=== PATIENT | female | born 1965 | race Caucasian/White ===

== ENCOUNTER 2020-09-02 16:22 | Emergency (ER) | payer MEDICAID, SELFPAY ==
[2020-09-02 17:22] VITALS: BP 111/67; PULSE 73; RESP 16; TEMP 36.4; O2SAT 100; BMI 40.8
--- NOTE | 2020-09-02 17:37 | XR_ITS ---
EXAMINATION: XR SACROILIAC JOINTS CLINICAL INFORMATION: Pain after fall COMPARISON: None TECHNIQUE: 3 views of the sacroiliac joints FINDINGS: Bones and soft tissues are normal. No fracture. Alignment is anatomic. Sacroiliac joint spaces are well-maintained without erosions or surrounding sclerosis. IMPRESSION: Normal sacroiliac joints.
--- NOTE | 2020-09-02 17:37 | XR_ITS ---
EXAMINATION: XR LUMBOSACRAL SPINE CLINICAL INFORMATION: Fall, with back pain COMPARISON: 09/29/2011 TECHNIQUE: Three views of the lumbosacral spine. FINDINGS: There is normal alignment without acute fracture or dislocation. The vertebral body heights are maintained. There is intervertebral disc space narrowing with degenerative endplate spurring at L2-L3 and L3-L4. There is facet arthropathy at L5-S1. No spondylolisthesis. The posterior elements are intact. Paravertebral soft tissues are normal. IMPRESSION: Degenerative changes without acute fracture or dislocation.
--- NOTE | 2020-09-02 17:37 | XR_ITS ---
EXAMINATION: XR THORACIC SPINE CLINICAL INFORMATION: Status post fall COMPARISON: None TECHNIQUE: 3 views of the thoracic spine were obtained. FINDINGS: There is no fracture or bone destruction seen and the vertebral alignment is normal. There is mild diffuse intervertebral disc space narrowing with scattered endplate spurring. There is no abnormality of the paraspinal soft tissues. IMPRESSION: Degenerative changes of the thoracic spine without acute fracture or dislocation.
--- NOTE | 2020-09-02 17:37 | CT_ITS ---
EXAMINATION: CT HEAD WITHOUT CONTRAST CT CERVICAL SPINE WITHOUT CONTRAST CLINICAL INFORMATION: Fall COMPARISON: MRI brain dated 07/20/2012 TECHNIQUE: Multidetector CT imaging of the head and cervical spine was performed without the use of intravenous contrast. Multiplanar reformats are reviewed. DLP: 1267 mGy-cm. FINDINGS: There is no evidence of acute intracranial hemorrhage or territorial infarction. No abnormal mass effect or midline shift is seen. Higgins to white matter differentiation is well preserved. No extra-axial fluid collections are identified. The ventricles are normal in size. There is no abnormal attenuation within the brain parenchyma. The osseous structures and soft tissues are normal. The mastoid air cells and visualized portions of the paranasal sinuses are well-aerated. Atlantooccipital alignment is maintained. The vertebral bodies and posterior elements align normally. No acute fracture or subluxation. Vertebral body heights are maintained. Small endplate osteophyte present throughout the cervical spine.. No significant degenerative changes are appreciated. No central canal or foraminal narrowing. The cervicomedullary junction and spinal cord are grossly unremarkable. 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 Surgical clips present in the region of the left carotid sheath inferiorly, deep to the sternocleidomastoid. The imaged lung apices are clear IMPRESSION: * No acute intracranial pathology. * No cervical spine fracture or subluxation. 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 As discussed previously, considerations include nerve sheath tumor, or less likely thrombosed aneurysm and paraganglioma given the lack of significant enhancement on the previous MRI.
[2020-09-02] MEDS: Acetaminophen 325 MG TABLET 650 MG PO (18:23)
--- NOTE | 2020-09-02 18:39 | ED.FALL ---
HPI - Fall General Chief Complaint: Fall Stated Complaint: fall Source: patient Mode of arrival: ambulatory Limitations: no limitations History of Present Illness HPI Narrative: patient presents to the ED for headache, neck pain, and back pain after falling in the shower this morning. Patient denies any loss of consciousness. Patient states she is not on any blood thinners. Patient denies any chest pain, shortness of breath, nausea, vomiting, abdominal pain, dizziness, loss of vision, blood in stool, blood in urine, or vomiting blood. Related Data Previous Rx's Medication Instructions Recorded tramadol 50 mg PO Q8H PRN #9 tab 09/02/20 Allergies Allergy/AdvReac Type Severity Reaction Status Date / Time aspirin [ASPIRIN] Allergy Intermediate RASH, Unverified 07/30/20 15:28 itching, facial flushing haro Allergy Intermediate ITCHING,KIRSTEN Unverified 07/30/20 15:28 H peach [Platte] Allergy Intermediate ITCHING, Unverified 07/30/20 15:28 RASH prochlorperazine Allergy Intermediate SWELLING, Unverified 07/30/20 15:28 [From COMPAZINE] RASH Review of Systems Review of Systems: Patient denies loss of consciousness, chest pain, shortness of breath, abdominal pain, nausea, vomiting, rectal bleeding, vomiting blood, blood in stool,blood in urine pain in extremity, or dizziness. Yes all other systems are reviewed and are negative PMFSH Past Medical History Medical History (Updated 09/02/20 @ 19:58 by ERNESTINE Renteria) Acute anxiety Depression High cholesterol HTN (hypertension) Social History Social History Alcohol intake: never Smoking Status: Unknown if ever smoked Smoked in Last 30 Days: No Use of substances other than those prescribed or required for medical reasons: No Advance Directives: No Advance Directives Information Provided: Yes Physical Exam Vital Signs: Vital Signs: Vital Signs Temp Pulse Resp BP Pulse Ox 09/02/20 19:32 73 16 143/86 H 99 09/02/20 17:22 97.6 F 73 16 111/67 100 Body Mass Index 40.8 Const: General: cooperative, healthy appearing, comfortable, no acute distress, well developed and alert Orientation/consciousness: oriented to person, oriented to place, oriented to time and patient oriented x3 HENMT: Head: Yes normal to inspection, Yes No palpable skull fracture present, No Ngo's sign, No hematoma, No laceration, No palpable skull fracture, No raccoon eyes and No scalp lesion Eyes: General: appearance normal, both eyes and all related structures Neck: Neck: Yes tender ( Cervical tenderness) Chest: Chest palpation & inspection: normal inspection of the chest, normal palpation of entire chest wall and no localized rib tenderness Resp: Effort & Inspection: normal respiratory effort, able to speak in complete sentences, normal respiratory pattern, no audible wheezes and no cough Auscultation: clear to auscultation bilaterally, no crackles, no rales, no rhonchi, no wheezes and breath sounds present Percussion: percussion normal Cardio: Jugular venous distension: no JVD Heart sounds: S1 normal heart sound present GI: Inspection: Yes normal to inspection and No abdominal wall ecchymosis Palpation (GI): Soft to palpation, not firm, nontender, no guarding and not rigid : General: No CVA tenderness and Yes no CVA tenderness Back/Spine/Pelvis: Back: no CVA tenderness, No CVA tenderness and back tenderness ( positive for spine tenderness throughout the whole back) Skin: General skin exam: no rashes or lesions noted Trauma: no lacerations or abrasions Neuro: General: oriented to person, oriented to place, oriented to time, patient oriented x3, gait normal and CN's II-XI intact bilaterally Cranial nerves: Yes CN's II-XII intact bilaterally Extrem: General: Yes normal to inspection Psych: Appearance: grossly normal, well kempt and not disheveled Course Course Course Narrative: patient will be sent for imaging to rule out any bleeds or fractures. For now patient will be given Tylenol for pain Reevaluation(s) Reevaluation #1: CT scans and xrays negative for any fractures or bleed. Time: 19:56 Reevaluation #2: during given discharge papers and instructions with results to patient, patient made me aware that she had aneurysm on left side of neck which wouldl explain the CT scan reading. Patient informed to follow-up with her PCP. Patient given copy of head and C-spine CT scan. Time: 20:34 MDM - Fall MDM Narrative Medical decision making narrative: contusion diagnosis. Discharge Plan Discharge Clinical Impression: Contusion Patient Disposition: Home, Self-Care Instructions: Contusion in Adults (ED) Additional Instructions: return to the ED immediately for any headache, dizziness, nausea, vomiting, abdominal pain, rectal bleeding, vomiting blood, bloody urine, abdominal pain, chest pain, shortness of breath, or any other concerning symptoms. Prescriptions: New tramadol 50 mg tablet 50 mg PO Q8H PRN (Reason: pain) Qty: 9 RF: 0 Referrals: Kristen Zacarias [employer] [Primary Care Provider] - 2 days ( fall. No fracture or brain bleed. 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 patient given copy of CT scan. needs follow up.) Stand Alone Forms: Work/School Release Interventions: ED Discharge Assessment Last Done: 09/02/20 20:06 Discharge Date/Time: 09/02/20 20:08
[2020-09-02 19:32] VITALS: BP 143/86; PULSE 73; RESP 16; O2SAT 99
== END 2020-09-02 20:08 | disposition home or self-care (01) ==
PROVIDERS: Emergency Provider Emergency Medicine; PCP Nurse Practitioner Family
DX: S20.229A Contusion of unspecified back wall of thorax, initial encounter (principal); W18.2XXA Fall in (into) shower or empty bathtub, initial encounter; I10 Essential (primary) hypertension; R93.89 Abnormal findings on diagnostic imaging of other specified body structures; I72.0 Aneurysm of carotid artery; Y93.E1 Activity, personal bathing and showering; Y92.012 Bathroom of single-family (private) house as the place of occurrence of the external cause; Y99.9 Unspecified external cause status
CPT/HCPCS: 70450; 72072; 72100; 72125; 72202; 99284

== ENCOUNTER 2022-08-17 14:45 | Outpatient (REF) | payer MEDICAID, SELFPAY ==
--- NOTE | ~2022-08-17 | MM_ITS ---
EXAMINATION: MM SCREENING DIGITAL BREAST TOMOSYNTHESIS, BILATERAL CLINICAL INFORMATION: Screening. Asymptomatic. The lifetime risk of breast cancer based on the Tyrer-Cuzick Model is 9%. COMPARISON: Mammography: 08/28/2019, 05/29/2018, 05/08/2017 TECHNIQUE: Digital breast tomosynthesis is performed in both the craniocaudal and mediolateral oblique views along with computer-aided detection (CAD). Synthesized 2D images are generated from the tomosynthesis. FINDINGS: The breasts are heterogeneously dense, which may obscure small masses (ACR BI-RADS breast composition Category c). There are no significant masses, abnormal calcifications, or other abnormalities. Parenchymal pattern is similar to prior studies. There is no developing density or architectural abnormality. There is a biopsy clip marker right breast upper outer quadrant. Incidental bilateral small low axillary tail nodes are stable. The axilla and skin contours are unremarkable. No significant changes. MM/MM tomosynthesis screening BI IMPRESSION: No mammographic evidence of malignancy. ASSESSMENT: BI-RADS 2: Benign RECOMMENDATION: Routine annual mammography screening. This patient's information was entered into a reminder system with a target due date for their next mammogram.
== END 2022-08-17 14:46 | disposition home or self-care (01) ==
LOC: HO.MAMMO 14:45
PROVIDERS: Visit Provider Internal Medicine Geriatric Medicine
DX: Z12.31 Encounter for screening mammogram for malignant neoplasm of breast (principal)
CPT/HCPCS: 77063; 77067

== ENCOUNTER 2023-04-16 20:19 | Inpatient (IN) | payer MEDICAID, SELFPAY ==
--- NOTE | ~2023-04-16 | XR_ITS ---
EXAMINATION: XR CHEST CLINICAL INFORMATION: Nasogastric tube placement. COMPARISON: 04/17/2023 chest radiograph. TECHNIQUE: Frontal view of the chest was obtained. FINDINGS: Support devices: A gastric tube with tip overlying the distal gastric lumen. Right central venous catheter with tip terminating at the brachiocephalic/caval junction. The endotracheal tube was not visualized. No significant abnormality is noted involving the heart, lungs, mediastinum, bony thorax or soft tissues. XR/XR chest 1V IMPRESSION: 1. Nasogastric tube with tip overlying the distal gastric lumen.
--- NOTE | ~2023-04-16 | XR_ITS ---
EXAMINATION: PORTABLE CHEST 1 VIEW CLINICAL INFORMATION: sob. COMPARISON: No recent pertinent prior studies are available for comparison. TECHNIQUE: Portable frontal view of the chest was obtained. FINDINGS: Lungs are hypoexpanded with basilar atelectasis. Large volume of pneumoperitoneum is seen better delineated on the follow-up CT scan. Cardiac silhouette within normal limits for the technique. No acute bony abnormality seen. XR/XR chest 1V IMPRESSION: Large volume of abdominal ascites is seen better delineated on the CT scan the abdomen and pelvis immediately following.
--- NOTE | ~2023-04-16 | FL_ITS ---
EXAMINATION: Upper GI with Gastrografin CLINICAL INFORMATION: Postop day 2 repair of gastric perforation COMPARISON: Previous CT of the abdomen and pelvis 04/16/2023 TECHNIQUE: Filler Picker film was obtained. This shows an oral gastric tube with tip projecting over the distal stomach. This was pulled back into the proximal stomach/distal esophagus. Under fluoroscopic guidance, dilute Gastrografin was injected. This opacified only the esophagus. Fluoroscopic guidance, the orogastric tube was readvanced with tip in the distal stomach. This was injected under fluoroscopic guidance with dilute Gastrografin. This opacified the distal stomach only which was unremarkable. The orogastric tube then exchanged for a nasogastric tube placed by the surgeon Dr. raciel foster. This was positioned in the stomach. This is injected with dilute Gastrografin under fluoroscopic guidance. This opacified the more proximal stomach. A definite leak at the time of fluoroscopy was not seen. Follow-up postprocedure chest and abdomen x-ray was performed. Findings: Filler Picker film demonstrates a MARTY drain under the left hemidiaphragm adjacent to the proximal stomach. There is an enterogastric tube with tip projecting over the distal stomach. There are surgical clips in the right upper quadrant suggestive of previous cholecystectomy. Single contrast upper GI does not demonstrate a leak. Follow-up chest and abdomen x-ray demonstrate a nasogastric tube with tip projecting over the distal stomach. There is emptying of the stomach with oral contrast in the duodenum and proximal jejunum. There is a ill-defined contrast collection in the left upper quadrant measuring approximately 3.5 x 6 cm just inferior to residual oral contrast in the proximal stomach questionable for a leak. No free air is seen. AP chest demonstrates endotracheal tube with tip 3.6 cm above the ari. There is a right central line with tip just below the clavicle probably in the proximal SVC unchanged. Cardiac and mediastinal contours are stable. There are coarse lung markings at the lung bases questionable for small infiltrates. No pleural effusion or pneumothorax. FL/FL upper GI w gastrografin IMPRESSION: Orogastric tube exchange for nasogastric tube. Question leak seen adjacent to the proximal stomach on the delayed overhead images with contrast collection measuring approximately 3.5 x 6 cm. Findings will be communicated by the Perry work flow hemstitching machine operator
--- NOTE | ~2023-04-16 | XR_ITS ---
EXAMINATION: XR CHEST CLINICAL INFORMATION: Line placement COMPARISON: 04/16/2023 TECHNIQUE: Frontal view of the chest was obtained. FINDINGS: Endotracheal tube tip lies approximately 2.5 cm above the ari. Enteric tube courses into the stomach. Right IJ central line tip lies in the region of the right brachiocephalic vein. There is volume loss in the right hemithorax with dense opacification in the right upper lung suggesting right upper lobe collapse. There is haziness of the mid to lower right lung. Left lung is well-expanded. No appreciable pneumothorax or significant pleural effusion. Cardiac size appears within normal limits. Clips are present along the left neck. No acute osseous findings are seen. XR/XR chest 1V IMPRESSION: 1. Right IJ central line tip lies in the region of the right brachiocephalic vein. 2. Dense opacification of the right upper lung along with volume loss suggesting right upper lobe collapse. Hazy opacity of the mid to lower right lung.
--- NOTE | ~2023-04-16 | CT_ITS ---
EXAMINATION: CT ABDOMEN AND PELVIS WITHOUT CONTRAST CLINICAL INFORMATION: free air on CXR. COMPARISON: Chest x-ray this evening and the CT scan. TECHNIQUE: Multidetector volumetric imaging was performed from the superior aspect of the liver through the pubic symphysis without contrast per request. Sagittal and coronal reformatted images were obtained on the technologist workstation. This CT examination was performed using dose optimization techniques as appropriate, variously including the following: *Automated exposure control *Adjustment of mA and/or kV according to patient size (this includes techniques or standardized protocols for targeted exams where dose is matched to indication/reason for exam; i.e. extremities or head) *Use of iterative reconstruction technique DLP: 1411 mGy-cm. FINDINGS: LUNG BASES: Patchy airspace changes at the lung bases more likely due to atelectasis. PERITONEAL SPACE: Large volume of free intraperitoneal air is seen as well as free fluid tracking into the dependent aspect of the pelvis. LIVER, GALLBLADDER, BILIARY TREE: The non-contrast liver is normal in size, shape, and attenuation. No focal hepatic lesion or biliary ductal dilatation is present. The gallbladder surgically absent. PANCREAS: Unremarkable. SPLEEN: Unremarkable. ADRENAL GLANDS: Unremarkable. KIDNEYS AND URETERS: The kidneys are normal in size, shape, and attenuation. No hydronephrosis, hydroureter, or calculi seen. No perinephric stranding. BLADDER: Unremarkable. GASTROINTESTINAL TRACT: There is scattered colonic diverticulosis but no obvious diverticulitis. I do not appreciate any significant pericolonic inflammatory change although multiple colonic diverticula are present. Normal-appearing air-filled appendix in the right lower quadrant. Small bowel is decompressed. Stomach is partially decompressed but does appear to be somewhat irregular there is soft tissue gas in the region of the stomach and lesser sac suggesting possible gastric source of this free air. ABDOMINAL WALL: No significant hernia is appreciated. LYMPHOVASCULAR STRUCTURES: No lymphadenopathy. The aorta is unremarkable. The inferior vena cava is slitlike suggesting hypovolemia. PELVIC VISCERA: Unremarkable. OSSEUS STRUCTURES: Unremarkable. CT/CT abdomen pelvis wo IV con IMPRESSION: Large volume of free intraperitoneal air and free fluid. There is soft tissue gas in the region of the stomach and lesser sac suggesting possible gastric source of this free air. There is scattered colonic diverticulosis but no obvious diverticulitis or focal colonic wall thickening. Clinical correlation will be needed with this large volume of free intraperitoneal air. The inferior vena cava is slitlike suggesting hypovolemia. This critical result was discussed with Dr. Vasques at 04/16/2023 9:40 PM and it was ascertained that the content and urgency of the report was understood at the time of direct communication.
--- NOTE | ~2023-04-16 | XR_ITS ---
EXAMINATION: XR CHEST CLINICAL INFORMATION: Chest redness COMPARISON: 04/22/2023 TECHNIQUE: Frontal view of the chest was obtained. FINDINGS: Enteric tube extends into the stomach. Cardiac leads overlie the chest. Right chest wall catheter terminates over the upper SVC. The lungs are well expanded. There is no focal consolidation, edema, or effusion. No pneumothorax. The cardiomediastinal silhouette is within normal limits. No acute osseous abnormality. XR/XR chest 1V IMPRESSION: Unremarkable examination.
--- NOTE | ~2023-04-16 | CT_ITS ---
EXAMINATION: CT ABDOMEN AND PELVIS WITHOUT CONTRAST CLINICAL INFORMATION: Question perforation. Increased pressors. No urine output. COMPARISON: CT from 04/16/2023. Upper GI examination from today. TECHNIQUE: Multidetector volumetric imaging was performed from the superior aspect of the liver through the pubic symphysis. Sagittal and coronal reformatted images were obtained on the technologist's workstation. This CT examination was performed using dose optimization techniques as appropriate, variously including the following: *Automated exposure control *Adjustment of mA and/or kV according to patient size (this includes techniques or standardized protocols for targeted exams where dose is matched to indication/reason for exam; i.e. extremities or head) *Use of iterative reconstruction technique DLP: 1056 mGy-cm FINDINGS: LUNG BASES: Small bilateral pleural effusions with bibasilar atelectasis. Normal heart size. LIVER, GALLBLADDER, AND BILIARY TREE: The liver is normal in size, shape, and attenuation. No focal hepatic lesion or biliary ductal dilatation is present. Cholecystectomy. PANCREAS: Unremarkable. SPLEEN: Diminutive with no focal abnormality. ADRENAL GLANDS: Unremarkable. KIDNEYS AND URETERS: The kidneys are normal in size, shape, and attenuation. No hydronephrosis, hydroureter, or calculi seen. No perinephric stranding. BLADDER: Rodarte catheter in place. The bladder is mostly decompressed. Contrast seen in the bladder lumen. GASTROINTESTINAL TRACT: There is an enteric tube terminating in the stomach. Contrast fills the gastric lumen. Separate from this, there is contrast seen within the peritoneal cavity, consistent with a leak. This was suspected to be at the location of the proximal stomach on prior upper GI examination. This contrast extends distally into the pelvis. Small amount of separate free fluid also noted. There are drains in place in the right upper abdomen and right lower abdomen. The small bowel is somewhat dilated proximally. Mild wall thickening noted. This appearance does not appear to be obstructive. Much of the colon is decompressed. There is a normal appendix. Tiny amount of free intraperitoneal air noted. ABDOMINAL WALL: No significant hernia is appreciated. LYMPH NODES: Normal. VASCULAR: Normal caliber aorta. Flattened appearance of the IVC suggestive of a hypovolemic state. PELVIC VISCERA: The uterus and adnexa are unremarkable. OSSEOUS STRUCTURES: No acute or suspicious osseous abnormality. Mild degenerative changes noted in the spine. CT/CT abdomen pelvis wo IV con IMPRESSION: 1. There is contrast seen within the peritoneal cavity, consistent with a leak. This was suspected to be at the location of the proximal stomach on prior upper GI examination. 2. Small bilateral pleural effusions with bibasilar atelectasis. 3. Mild dilatation of the proximal small bowel with mild wall thickening. This does not appear to be obstructive. Reactive/postoperative changes are possible.. 4. Flattened appearance of the IVC suggestive of a hypovolemic state. This critical result was discussed with Veronica Pathak NP by telephone at 04/18/2023 10:34 PM and it was ascertained that the content and urgency of the report was understood at the time of direct communication. Fleischner guidelines were followed.
[2023-04-16 20:40] VITALS: BP 110/70; BP 129/73; PULSE 135; PULSE 140; RESP 20; TEMP 36.6; O2SAT 100; O2SAT 98; BMI 39.1
[2023-04-16 20:56] LABS: Glucose, Whole Blood 185 mg/dL (60-115)
--- NOTE | 2023-04-16 21:00 | PC.NURSE ---
unable to get IV in pt due to pt sweating and therefore the IV will not stay in place and also pt is flailing around due to her agitation. Tech and nurse are unable to get lab work from pt due to pts agitation. Pt is very unsettled and is not responding to demands properly. MD called to room to help in pts assessment. Pt oxygen levels have dropped from 90s to low 80s.
--- NOTE | 2023-04-16 21:13 | ECG_ITS ---
Test Reason : TACHYCARDIA Blood Pressure : / mmHG Vent. Rate : 121 BPM Atrial Rate : 121 BPM P-R Int : 146 ms QRS Dur : 084 ms QT Int : 330 ms P-R-T Axes : 063 024 027 degrees QTc Int : 468 ms Sinus tachycardia Nonspecific ST abnormality Abnormal ECG When compared with ECG of 22-MAY-2017 20:44, Vent. rate has increased BY 40 BPM T wave inversion now evident in Inferior leads Nonspecific T wave abnormality no longer evident in Lateral leads Referred By: Chloe Vasques Electronically Signed By:Francisco Leiva
[2023-04-16] MEDS: Rocuronium Bromide 50 MG/5 ML VIAL IVPUSH (21:37)
[2023-04-16] MEDS: Etomidate 20 MG/10 ML VIAL IVPUSH (21:37)
[2023-04-16 21:39] LABS: MANUAL DIFF FLAG NO
[2023-04-16 21:41] LABS: Basophils Percent Auto 0.2 % (0-2); Eosinophils Absolute Auto 0.1 X10*3/uL (0.0-0.4); Eosinophils Percent Auto 0.9 % (0-4); Hematocrit 44.8 % (37.0-47.0); Hemoglobin 14.4 g/dl (12.0-16.0); Imm Gran Abs Auto 0.09 X10*3/uL (0.00-0.03); Imm Gran Pct Auto 0.6 % (0.0-0.4); Lymphocytes Percent Auto 25.2 % (20-40); Mean Corpuscular HGB Conc 32.1 g/dl (31.0-35.0); Mean Corpuscular Hemoglobin 31.2 pg (27.0-33.0); Mean Corpuscular Volume 97.2 fL (80.0-98.0); Mean Platelet Volume 10.9 fL (9.4-12.3); Monocytes Absolute Auto 0.6 X10*3/uL (0.1-1.2); Monocytes Percent Auto 3.6 % (2-11); Neutrophils Absolute Auto 10.9 x10*3/uL (2.0-8.3); Neutrophils Percent Auto 69.5 % (45-73); Platelet Count 237 X10*3/uL (160-400); Red Blood Count 4.61 X10*6/uL (4.20-5.50); Red Cell Distribution Width 13.5 % (11.0-16.0); White Blood Count 15.7 X10*3/uL (4.8-10.8)
[2023-04-16] MEDS: Piperacillin Sodium/Tazobactam 3.375 GM in 0.9 % Sodium Chloride 50 ML IV (21:43)
--- NOTE | 2023-04-16 21:44 | ED.GENADULT ---
HPI - General Adult General Chief complaint: ETOH/Substance Use Stated complaint: ams/etoh Source: EMS Mode of arrival: EMS Limitations: altered mental status History of Present Illness HPI narrative: Patient comes to the emergency room for altered mental status. EMS was called because the family found her in bed, altered, they suspect that the patient has been drinking a lot of alcohol, possibly took too much tramadol, they also found a bag of heroin at patient's bedside. On arrival to the emergency room, patient is tachycardic, diaphoretic, altered and combative. Patient has clearly an enlarged abdomen and seems to be significantly tender. Patient's daughter is at bedside, she does not know much what happened today. I spoke with the patient's over the phone, they do not know much about the patient's history other than anxiety and depression, family states this no history of previous abdominal surgeries. Related Data Home Medications Medication Instructions Recorded Confirmed acetaminophen 160 mg/5 mL (5 mL) 650 mg PO Q6H PRN Pain 07/14/23 07/14/23 oral solution bisacodyl 10 mg rectal suppository 10 mg UT DAILY PRN Constipation 07/14/23 07/14/23 guaifenesin 100 mg/5 mL oral liquid 200 mg PO Q4H PRN Cough 07/14/23 07/14/23 melatonin 3 mg tablet 6 mg PO BEDTIME 07/14/23 07/14/23 metoprolol tartrate 25 mg tablet 25 mg PO BID 07/14/23 07/14/23 miconazole nitrate 2 % topical 1 spray topical BID 07/14/23 07/14/23 spray powder multivitamin 1 tab PO DAILY 07/14/23 07/14/23 trazodone 50 mg tablet 50 mg PO BEDTIME PRN Insomnia 07/14/23 07/14/23 venlafaxine 75 mg capsule,extended 75 mg PO DAILY 07/14/23 07/14/23 release 24 hr Previous Rx's Medication Instructions Recorded apixaban 5 mg tablet (Eliquis) 5 mg PO BID #60 tabs 07/15/23 octreotide acetate 100 mcg/mL 300 mcg (3 mL) subcut Q8H 60 days 07/15/23 injection solution #540 mL omeprazole 40 mg capsule,delayed 40 mg PO BID #60 caps 07/18/23 release Allergies Allergy/AdvReac Type Severity Reaction Status Date / Time aspirin [ASPIRIN] Allergy Intermediate RASH, Unverified 07/30/20 15:28 itching, facial flushing haro Allergy Intermediate ITCHING,KIRSTEN Unverified 07/30/20 15:28 H peach [[place]] Allergy Intermediate ITCHING, Unverified 07/30/20 15:28 RASH prochlorperazine Allergy Intermediate SWELLING, Unverified 07/30/20 15:28 [From COMPAZINE] RASH Review of Systems Review of Systems: Yes Unobtainable due to mental condition PMFSH Past Medical History Medical History (Updated 07/27/23 @ 00:03 by Background Daemon) Gastric leak Cocaine abuse Polysubstance abuse Hypercholesterolemia High cholesterol Depression HTN (hypertension) Acute anxiety Surgical History (Updated 07/27/23 @ 00:03 by Background Daemon) S/P partial gastrectomy Social History Social History Household Members: None Housing: Apartment Do you presently have visiting nurse or other home services: Yes (daughter is SERVICE CONTROL OPERATOR) Unable to assess alcohol history related to: Unknown Alcohol intake: never Patient Tobacco Use Status: Never used Tobacco service: No Current occupational status: disabled Physical Exam ED Vital Signs: Vital Signs - 24 hr 04/16/23 20:40 04/16/23 21:55 04/16/23 22:27 Temperature 97.9 F Pulse Rate 140 H 129 H 143 H Respiratory Rate 20 23 H 23 H Blood Pressure 129/73 148/99 H 173/98 H Pulse Oximetry 100 100 100 Oxygen Delivery Method Room Air 04/16/23 22:31 Temperature Pulse Rate 145 H Respiratory Rate 23 H Blood Pressure 178/104 H Pulse Oximetry 100 Oxygen Delivery Method BMI result Body Mass Index 39.1 Const Other: Appearance: Alert. Pale, clammy diaphoretic altered Eyes: Pinpoint pupils with sluggish light response bilateral, Pupils equal, round ENT: Pharynx normal. Neck: Normal inspection. Neck supple. No lymph nodes noted. No crepitus CVS: Normal heart rate and rhythm. Pulses normal. Normal S1 and S2 Respiratory: Tachypneic Abdomen: Very Distended, seems to be significantly tender to palpation in all quadrants Skin: Skin clammy, pale, cold touch Extremities: No lower extremity edema. No Lacerations. No Rash Neuro: altered mental status Psych: Altered mental status Course Course Course Narrative: -on arrival, it was difficult to obtain an oxygen saturation, patient cold and clammy. -Narcan was given without any significant response -on physical exam on arrival, patient was altered, abdomen was clearly distended, a stat chest x-ray was ordered , my interpretation is that there is a large amount of free air under the diaphragm -patient was taken immediately to CT scan -immediately called Dr. Goetz, patient has a perforation, I still do not have the results for the CT scan or any of the labs are all pending. Dr. Goetz is on the way in -patient is altered, combative, pulling out lines, removing oxygen mask. Given that the patient will be going to the OR and patient is very combative, I decided to go ahead and intubate the patient. Patient's daughter and son are at bedside, discussed the plan with them. - Medications Administered Discontinued Medications Generic Name Dose Route Start Last Admin Trade Name Freq PRN Reason Stop Dose Admin Chlorhexidine Gluconate 15 ml 04/17/23 10:30 04/21/23 08:16 Chlorhexidine Gluc Oral Rinse 15 Ml Mouthwash BUCCAL 15 ml TID MOO Administration Clonidine 0.2 mg 04/22/23 08:17 04/22/23 09:33 Clonidine 0.2 Mg Patch.Tdwk TRANSDERMA 04/22/23 08:18 0.2 mg ONCE ONE Administration Protocol Diatrizoate Meglum/Diatrizoate Sod 200 ml 04/18/23 11:50 04/18/23 11:51 Diatrizoate Meglumine, Sodium 120 Ml Solution PO 04/18/23 11:51 200 ml ONCE ONE Administration Diatrizoate Meglum/Diatrizoate Sod 30 ml 04/18/23 22:23 04/18/23 22:24 Diatrizoate Meglumine, Sodium 30 Ml Solution PO 04/18/23 22:24 30 ml ONCE ONE Administration Enoxaparin Sodium 40 mg 04/17/23 02:30 04/21/23 02:18 Enoxaparin Sodium 40 Mg/0.4 Ml Syringe SUBCUT 40 mg Q24H MOO Administration Etomidate 20 mg 04/16/23 21:43 04/16/23 21:37 Etomidate 20 Mg/10 Ml Vial IVPUSH 04/16/23 21:44 20 mg ONCE ONE Administration Fentanyl 50 mcg 04/20/23 10:57 04/20/23 11:17 Fentanyl Citrate/Pf 100 Mcg/2 Ml Vial IVPUSH 04/20/23 10:58 50 mcg ONCE ONE Administration Protocol Fentanyl 50 mcg 04/20/23 12:28 04/21/23 13:01 Fentanyl Citrate/Pf 100 Mcg/2 Ml Vial IVPUSH 50 mcg Q2H PRN Administration Pain, Moderate(Pain Scale 4-6) Protocol Fentanyl 50 mcg 04/21/23 21:26 04/21/23 21:37 Fentanyl Citrate/Pf 100 Mcg/2 Ml Vial IVPUSH 04/21/23 21:27 50 mcg ONCE ONE Administration Protocol Furosemide 40 mg 04/20/23 08:00 04/20/23 09:32 Furosemide 40 Mg/4 Ml Vial IVPUSH 04/20/23 08:01 40 mg ONCE ONE Administration Protocol Furosemide 40 mg 04/20/23 16:31 04/20/23 16:49 Furosemide 40 Mg/4 Ml Vial IVPUSH 04/20/23 16:32 40 mg ONCE ONE Administration Protocol Hydralazine HCl 10 mg 04/21/23 13:49 04/21/23 13:54 Hydralazine Hcl 20 Mg/Ml Vial IVPUSH 04/21/23 13:50 10 mg ONCE ONE Administration Protocol Hydralazine HCl 10 mg 04/21/23 20:51 04/21/23 20:56 Hydralazine Hcl 20 Mg/Ml Vial IVPUSH 04/21/23 20:52 10 mg ONCE ONE Administration Protocol Hydralazine HCl 10 mg 04/22/23 06:23 04/22/23 06:32 Hydralazine Hcl 20 Mg/Ml Vial IVPUSH 04/22/23 06:24 10 mg ONCE ONE Administration Protocol Hydralazine HCl 10 mg 04/22/23 08:17 04/22/23 08:27 Hydralazine Hcl 20 Mg/Ml Vial IVPUSH 04/22/23 08:18 10 mg ONCE ONE Administration Protocol Hydralazine HCl 10 mg 04/22/23 11:37 04/23/23 01:11 Hydralazine Hcl 20 Mg/Ml Vial IVPUSH 10 mg Q3H PRN Administration SBP >180 Protocol Hydromorphone HCl 1 mg 04/16/23 21:15 04/17/23 00:09 Hydromorphone Hcl 1 Mg/Ml Syringe IVPUSH 04/16/23 21:16 Not Given ONCE ONE Protocol Hydromorphone HCl 1 mg 04/21/23 13:19 04/21/23 13:26 Hydromorphone Hcl 1 Mg/Ml Syringe IVPUSH 04/21/23 13:20 1 mg ONCE ONE Administration Protocol Hydromorphone HCl 1 mg 04/21/23 16:02 04/23/23 14:24 Hydromorphone Hcl 1 Mg/Ml Syringe IVPUSH 1 mg Q3H PRN Administration Pain, Moderate(Pain Scale 4-6) Protocol Piperacillin Sod/Tazobactam 50 mls @ 100 mls/hr 04/16/23 21:15 04/17/23 05:40 Sod 3.375 gm/ Sodium Chloride IV 04/16/23 21:44 Infused ONCE ONE Infusion Propofol 1,000 mg in 100 mls @ 0 mls/hr 04/16/23 21:45 04/21/23 10:57 Diprivan IVCONT Infused .Q0M MOO Titration Protocol Per Protocol Sodium Chloride 2,000 mls @ 999 mls/hr 04/16/23 22:15 04/17/23 05:40 Ns IVCONT 04/17/23 00:15 Infused .Q2H1M ONE Infusion Midazolam HCl 50 mg in 50 mls @ 2 mls/hr 04/16/23 22:45 04/17/23 08:28 Versed IVCONT Infused .Q24H MOO Infusion 2 MG/HR Norepinephrine Bitartrate 8 mg in 250 mls @ 0 mls/hr 04/17/23 02:30 04/17/23 15:52 Levophed IV Infused .Q0M MOO Titration Protocol Per Protocol Lactated Ringer's 1,000 mls @ 150 mls/hr 04/17/23 02:45 04/17/23 08:27 Lr IVCONT Infused .Q6H40M MOO Infusion Fentanyl 1,000 mcg in 100 mls @ 0 mls/hr 04/17/23 03:00 04/21/23 10:56 Sublimaze/Ns IVCONT Infused .Q0M MOO Titration Protocol Per Protocol Metronidazole 500 mg in 100 mls @ 100 mls/hr 04/17/23 03:30 04/17/23 12:15 Flagyl IV Infused Q8H MOO Infusion Ceftriaxone Sodium 1 gm/ 50 mls @ 100 mls/hr 04/17/23 03:30 04/17/23 05:32 Sodium Chloride IV Infused Q24H MOO Infusion Albumin Human 100 mls @ 100 mls/hr 04/17/23 03:30 04/17/23 05:40 Kedbumin 25 % IV 04/17/23 04:29 Infused ONCE ONE Infusion Albumin Human 100 mls @ 100 mls/hr 04/17/23 08:00 04/18/23 05:22 Kedbumin 25 % IV 04/18/23 02:59 Infused Q6H MOO Infusion Potassium Phosphate 15 mmol in 250 mls @ 62.5 mls/hr 04/17/23 08:00 04/17/23 17:21 Kphos IV 04/17/23 15:59 Infused Q4H MOO Infusion Amiodarone HCl 900 mg/ Sodium 518 mls @ 34.533 mls/hr 04/17/23 10:45 04/19/23 10:37 Chloride IVCONT Infused .Q15H1M MOO Infusion Protocol 1 MG/MIN Amiodarone HCl 150 mg in 100 mls @ 600 mls/hr 04/17/23 10:38 04/17/23 10:57 Nexterone IV 04/17/23 10:47 Infused ONCE ONE Infusion Magnesium Sulfate 2 gm in 50 mls @ 25 mls/hr 04/17/23 13:26 04/17/23 15:43 Magnesium Sulfate/H2o IV 04/17/23 15:25 Infused ONCE ONE Infusion Sodium Bicarbonate 150 meq/ 1,000 mls @ 150 mls/hr 04/17/23 13:30 04/18/23 08:47 Dextrose IV Infused .Q6H40M MOO Infusion Norepinephrine Bitartrate 32 250 mls @ 0 mls/hr 04/17/23 14:30 04/21/23 10:57 mg/ Sodium Chloride IV Infused .Q0M MOO Titration Protocol Per Protocol Epinephrine 5 mg/ Dextrose 255 mls @ 0 mls/hr 04/17/23 14:30 04/20/23 09:55 IVCONT Infused .Q0M MOO Titration Protocol Per Protocol Piperacillin Sod/Tazobactam 50 mls @ 100 mls/hr 04/17/23 14:30 04/19/23 10:35 Sod 3.375 gm/ Sodium Chloride IV Infused Q6H MOO Infusion Potassium Phosphate 15 mmol in 250 mls @ 62.5 mls/hr 04/18/23 08:00 04/18/23 12:34 Kphos IV 04/18/23 11:59 Infused ONCE ONE Infusion Potassium Chloride 40 meq in 100 mls @ 50 mls/hr 04/18/23 06:20 04/18/23 08:38 Potassium Chloride/H20 IV 04/18/23 08:19 Infused ONCE ONE Infusion Magnesium Sulfate 2 gm in 50 mls @ 25 mls/hr 04/18/23 07:57 04/18/23 12:34 Magnesium Sulfate/H2o IV 04/18/23 09:56 Infused ONCE ONE Infusion Sodium Bicarbonate 150 meq/ 1,000 mls @ 100 mls/hr 04/18/23 22:30 04/19/23 10:38 Dextrose IV Infused .Q10H MOO Infusion Lactated Ringer's 1,000 mls @ 999 mls/hr 04/18/23 23:00 04/19/23 01:02 Lr IV 04/19/23 01:00 Infused .Q1H1M MOO Infusion Calcium Gluconate 2 gm in 100 mls @ 50 mls/hr 04/19/23 03:13 04/19/23 06:45 Calcium Gluconate IV 04/19/23 05:12 Infused ONCE ONE Infusion Albumin Human 100 mls @ 100 mls/hr 04/19/23 04:00 04/20/23 00:09 Kedbumin 25 % IV 04/19/23 22:59 Infused Q6H MOO Infusion Calcium Gluconate 2 gm in 100 mls @ 50 mls/hr 04/19/23 07:49 04/19/23 10:37 Calcium Gluconate IV 04/19/23 09:48 Infused ONCE ONE Infusion Amiodarone HCl 900 mg/ Sodium 518 mls @ 34.533 mls/hr 04/19/23 10:30 04/22/23 09:11 Chloride IVCONT Infused .Q15H1M MOO Infusion Protocol 1 MG/MIN Amiodarone HCl 150 mg in 100 mls @ 600 mls/hr 04/19/23 10:17 04/19/23 11:01 Nexterone IV 04/19/23 10:26 Infused ONCE ONE Infusion Piperacillin Sod/Tazobactam 50 mls @ 100 mls/hr 04/19/23 14:30 04/23/23 15:06 Sod 2.25 gm/ Sodium Chloride IV Infused Q6H MOO Infusion Dextrose 1,000 mls @ 75 mls/hr 04/19/23 18:15 04/20/23 14:49 D5w IVCONT Infused .[id number] MOO Infusion Albumin Human 100 mls @ 100 mls/hr 04/20/23 08:00 04/21/23 02:47 Kedbumin 25 % IV 04/21/23 02:59 Infused Q6H MOO Infusion Amino Acids/Electrolytes 840 mls @ 35 mls/hr 04/20/23 18:00 04/21/23 18:09 Clinimix E 5%-15% IV 04/21/23 17:59 Infused DAILY@1800 MOO Infusion Fluconazole 400 mg in 200 mls @ 100 mls/hr 04/20/23 13:38 04/20/23 18:29 Diflucan IV 04/20/23 15:37 Infused ONCE ONE Infusion Acetaminophen 1,000 mg in 100 mls @ 400 mls/hr 04/20/23 19:41 04/20/23 22:25 Ofirmev IV 04/20/23 19:55 Infused ONCE ONE Infusion Potassium Chloride 40 meq in 100 mls @ 50 mls/hr 04/21/23 07:00 04/21/23 08:55 Potassium Chloride/H20 IV 04/21/23 08:59 Infused ONCE ONE Infusion Potassium Phosphate 15 mmol in 250 mls @ 62.5 mls/hr 04/21/23 08:00 04/21/23 13:14 Kphos IV 04/21/23 15:59 Infused Q4H MOO Infusion Fluconazole 100 mg/ IV 50 mls @ 50 mls/hr 04/21/23 08:00 04/23/23 12:04 Miscellaneous Supplies IV Infused Q24H MOO Infusion Multivitamins 10 ml/ Trace 960 mls @ 40 mls/hr 04/21/23 18:00 04/22/23 17:56 Metals 1 ml/ Amino Acids/ IV 04/22/23 17:59 Infused Electrolytes DAILY@1800 MOO Infusion Potassium Phosphate 15 mmol in 250 mls @ 62.5 mls/hr 04/21/23 13:30 04/21/23 17:25 Kphos IV 04/21/23 17:29 Infused Q4H MOO Infusion Potassium Chloride 40 meq in 100 mls @ 50 mls/hr 04/21/23 20:00 04/21/23 21:23 Potassium Chloride/H20 IV 04/21/23 21:59 Infused ONCE ONE Infusion Potassium Chloride 40 meq in 100 mls @ 50 mls/hr 04/22/23 08:00 04/22/23 10:49 Potassium Chloride/H20 IV 04/22/23 09:59 Infused ONCE ONE Infusion Potassium Chloride 30 meq/ 960 mls @ 40 mls/hr 04/22/23 18:00 04/23/23 01:15 Magnesium Sulfate 8 meq/ IV 04/23/23 17:59 0 mls/hr Potassium Phosphate 15 mmol/ DAILY@1800 MOO Infusion Calcium Gluconate 4.65 meq/ Amino Acids/Dextrose Diltiazem HCl 125 mg/ Sodium 125 mls @ 0 mls/hr 04/23/23 03:30 04/23/23 14:24 Chloride IVCONT 10 mg/hr .Q0M MOO 10 mls/hr Administration Protocol Per Protocol Dextrose 1,000 mls @ 100 mls/hr 04/23/23 08:45 04/23/23 13:07 D5w IVCONT 100 mls/hr .Q10H [facility] Administration Insulin Human Lispro 5 unit 04/18/23 01:45 04/18/23 01:51 Insulin Lispro 100 Unit/Ml 3 Ml Vial SUBCUT 04/18/23 01:46 5 unit ONCE ONE Administration Insulin Human Lispro 0 unit 04/18/23 09:00 04/18/23 09:41 Insulin Lispro 100 Unit/Ml 3 Ml Vial SUBCUT Not Given Q6H [facility] Protocol Insulin Human Lispro 0 unit 04/18/23 09:45 04/18/23 09:52 Insulin Lispro 100 Unit/Ml 3 Ml Vial SUBCUT Not Given Q6H [facility] Protocol Insulin Human Lispro 0 unit 04/18/23 10:00 04/18/23 09:55 Insulin Lispro 100 Unit/Ml 3 Ml Vial SUBCUT 4 unit Q6H [facility] Administration Protocol Insulin Human Lispro 0 unit 04/18/23 18:00 04/23/23 12:12 Insulin Lispro 100 Unit/Ml 3 Ml Vial SUBCUT Not Given Q6H [facility] Protocol Ketorolac Tromethamine 15 mg 04/21/23 11:57 04/21/23 21:17 Ketorolac Tromethamine 15 Mg/Ml Vial IVPUSH 15 mg Q6H PRN Administration Pain, Moderate(Pain Scale 4-6) Metoprolol Tartrate 5 mg 04/17/23 10:21 04/17/23 10:23 Metoprolol Tartrate 5 Mg/5 Ml Vial IVPUSH 04/17/23 10:22 5 mg ONCE ONE Administration Metoprolol Tartrate 5 mg 04/19/23 19:13 04/19/23 19:26 Metoprolol Tartrate 5 Mg/5 Ml Vial IVPUSH 04/19/23 19:14 5 mg ONCE ONE Administration Metoprolol Tartrate 5 mg 04/21/23 13:07 04/21/23 13:14 Metoprolol Tartrate 5 Mg/5 Ml Vial IVPUSH 04/21/23 13:08 5 mg ONCE ONE Administration Metoprolol Tartrate 5 mg 04/23/23 02:41 04/23/23 02:46 Metoprolol Tartrate 5 Mg/5 Ml Vial IVPUSH 04/23/23 02:42 5 mg ONCE ONE Administration Metoprolol Tartrate 5 mg 04/23/23 02:57 04/23/23 03:04 Metoprolol Tartrate 5 Mg/5 Ml Vial IVPUSH 04/23/23 02:58 5 mg ONCE ONE Administration Midazolam HCl 2 mg 04/17/23 21:03 04/17/23 21:24 Midazolam Hcl/Pf 2 Mg/2 Ml Vial IVPUSH 04/17/23 21:04 2 mg ONCE ONE Administration Midazolam HCl 2 mg 04/18/23 01:45 04/18/23 01:49 Midazolam Hcl/Pf 2 Mg/2 Ml Vial IVPUSH 04/18/23 01:46 2 mg ONCE ONE Administration Midazolam HCl 2 mg 04/19/23 20:49 04/19/23 19:25 Midazolam Hcl/Pf 2 Mg/2 Ml Vial IVPUSH 04/19/23 20:50 2 mg ONCE ONE Administration Pantoprazole Sodium 40 mg 04/17/23 06:30 04/20/23 05:34 Pantoprazole Sodium 40 Mg/10 Ml Vial IVPUSH 40 mg BID@0630,1630 [facility] Administration Rocuronium [place] 50 mg 04/16/23 21:42 04/16/23 21:37 Rocuronium [place] 50 Mg/5 Ml Vial IVPUSH 04/16/23 21:43 50 mg ONCE ONE Administration Sodium Bicarbonate 50 meq 04/18/23 15:15 04/18/23 15:14 Sodium Bicarbonate 8.4% 50 Meq/50 Ml Vial IVPUSH 04/18/23 15:16 50 meq ONCE ONE Administration Procedures Intubation Time out performed: Yes sedative: Etomidate Mg Given: 20 paralytic: Rocuronium Mg Given: 50 Laryngoscope: other ([place] scope) ET Tube Size: 7.5 ET Tube Uncuffed: No Tube Secured Depth (cm): 23 Tube Secured Location: lips Tube Placement Confirmation: visualized tube passing through cords, equal breath sounds bilaterally, no breath sounds over epigastrium and confirmation by capnometry Patient Tolerated Procedure: well and no complications Intubation Complications: none Medical Decision Making Medical Decision Making [facility] Narrative: My interpretation of CT scan: Large amount of ascites and free air -Dr. Goetz spoke to the patient's family, consented to surgery -I was informed by the patient's nurse that patient is maxed out on propofol drip and still waking up. We will go ahead and start of Versed drip as well.. Lab Data [facility] Lab Attestation statement: I reviewed the patient's lab results. 04/23/23 06:14 04/23/23 06:14 Labs: Lab Results 04/16/23 04/16/23 04/16/23 Range/Units 02:55 20:32 21:30 WBC 15.7 H (4.8-10.8) X10*3/uL RBC 4.61 (4.20-5.50) X10*6/uL Hgb 14.4 (12.0-16.0) g/dl Hct 44.8 (37.0-47.0) % MCV 97.2 (80.0-98.0) fL MCH 31.2 (27.0-33.0) pg MCHC 32.1 (31.0-35.0) g/dl RDW 13.5 (11.0-16.0) % Plt Count 237 (160-400) X10*3/uL MPV 10.9 (9.4-12.3) fL Immature Gran % (Auto) 0.6 H (0.0-0.4) % Neut % (Auto) 69.5 (45-73) % Lymph % (Auto) 25.2 (20-40) % [place] % (Auto) 3.6 (2-11) % Eos % (Auto) 0.9 (0-4) % Baso % (Auto) 0.2 (0-2) % Lymph # (Auto) 4.0 (1.2-4.9) X10*3/uL [place] # (Auto) 0.6 (0.1-1.2) X10*3/uL Eos # (Auto) 0.1 (0.0-0.4) X10*3/uL Baso # (Auto) 0.0 (0.0-0.2) X10*3/uL Abs Immat Gran (auto) 0.09 H (0.00-0.03) X10*3/uL Absolute Neuts (auto) 10.9 H (2.0-8.3) x10*3/uL Absolute Nucleated RBC 0.000 (0.0-0.012) X10*3/uL Nucleated RBC % (auto) 0.0 (0.0-0.2) /100WBC PT (10.0-13.1) SEC INR (0.9-1.1) APTT (26.0-36.4) SEC Sodium (135-145) mmol/L Potassium (3.3-5.1) mmol/L Chloride (96-108) mmol/L Carbon Dioxide (22-29) mmol/L Anion Gap (12-20) BUN (9-16) mg/dL Creatinine (0.5-1.4) mg/dL Estim Creat Clear Calc Estimated GFR POC Glucose 185 H (60-115) mg/dL Random Glucose (60-115) mg/dL Lactic Acid (0.5-2.0) mmol/L Lactic Acid F/U @ 2Hr 3.4 H* (0.5-2.0) mmol/L Calcium (8.4-10.2) mg/dL Magnesium (1.6-2.6) mg/dL Total Bilirubin (0.0-1.0) mg/dL Direct Bilirubin (0.0-0.5) mg/dL AST (5-31) U/L ALT (0-31) U/L Alkaline Phosphatase (39-117) U/L Total Creatine Kinase (26-140) U/L Troponin I High Sens (<3.5-17.0) ng/L Total Protein (6.5-8.0) g/dL Albumin (3.5-5.0) g/dL Lipase (8-78) U/L TSH (0.32-4.0) uIU/mL Urine Color Urine Appearance Urine pH (5.0-9.0) Ur Specific [place] (1.005-1.025) Urine Protein (Neg-Trace) mg/dL Urine Glucose (UA) (Negative) mg/dL Urine Ketones (Negative) mg/dL Urine Blood (Negative) Urine Nitrite (Negative) Ur Leukocyte Esterase (Negative) Urine RBC (0-2) /HPF Urine WBC (0-5) /HPF Ur Squamous Epith Cells (0-2) /HPF Urine Bacteria (None Seen) Hyaline Casts (0-2) /LPF Salicylates (15-30) mg/dL Urine Opiates Screen (Not Detect) Urine Fentanyl Screen (Not Detect) Acetaminophen (<30) mcg/mL Ur Barbiturates Screen (Not Detect) Ur Phencyclidine Scrn (Not Detect) Ur Amphetamines Screen (Not Detect) U Benzodiazepines Scrn (Not Detect) Urine Cocaine Screen (Not Detect) U Marijuana (THC) Screen (Not Detect) Ethyl Alcohol mg/dL COVID-19 (JOE) (Negative) COVID-19 Clin Com Blood Type Antibody Screen 04/16/23 04/16/23 04/16/23 Range/Units 21:31 22:14 22:17 WBC (4.8-10.8) X10*3/uL RBC (4.20-5.50) X10*6/uL Hgb (12.0-16.0) g/dl Hct (37.0-47.0) % MCV (80.0-98.0) fL MCH (27.0-33.0) pg MCHC (31.0-35.0) g/dl RDW (11.0-16.0) % Plt Count (160-400) X10*3/uL MPV (9.4-12.3) fL Immature Gran % (Auto) (0.0-0.4) % Neut % (Auto) (45-73) % Lymph % (Auto) (20-40) % [place] % (Auto) (2-11) % Eos % (Auto) (0-4) % Baso % (Auto) (0-2) % Lymph # (Auto) (1.2-4.9) X10*3/uL [place] # (Auto) (0.1-1.2) X10*3/uL Eos # (Auto) (0.0-0.4) X10*3/uL Baso # (Auto) (0.0-0.2) X10*3/uL Abs Immat Gran (auto) (0.00-0.03) X10*3/uL Absolute Neuts (auto) (2.0-8.3) x10*3/uL Absolute Nucleated RBC (0.0-0.012) X10*3/uL Nucleated RBC % (auto) (0.0-0.2) /100WBC PT 11.7 (10.0-13.1) SEC INR 1.0 (0.9-1.1) APTT 27.8 (26.0-36.4) SEC Sodium 141 (135-145) mmol/L Potassium 3.2 L (3.3-5.1) mmol/L Chloride 103 (96-108) mmol/L Carbon Dioxide 18 L (22-29) mmol/L Anion Gap 23 H (12-20) BUN 12 (9-16) mg/dL Creatinine 2.19 H (0.5-1.4) mg/dL Estim Creat Clear Calc 31.1 Estimated GFR 23 POC Glucose (60-115) mg/dL Random Glucose 298 H (60-115) mg/dL Lactic Acid 7.1 H* (0.5-2.0) mmol/L Lactic Acid F/U @ 2Hr (0.5-2.0) mmol/L Calcium 9.3 (8.4-10.2) mg/dL Magnesium 2.5 (1.6-2.6) mg/dL Total Bilirubin 0.2 (0.0-1.0) mg/dL Direct Bilirubin < 0.2 (0.0-0.5) mg/dL AST 34 H (5-31) U/L ALT 24 (0-31) U/L Alkaline Phosphatase 122 H (39-117) U/L Total Creatine Kinase 239 H (26-140) U/L Troponin I High Sens < 2.7 (<3.5-17.0) ng/L Total Protein 7.8 (6.5-8.0) g/dL Albumin 4.2 (3.5-5.0) g/dL Lipase 47 (8-78) U/L TSH 3.91 (0.32-4.0) uIU/mL Urine Color Yellow Urine Appearance Turbid Urine pH 5.5 (5.0-9.0) Ur Specific [place] 1.025 (1.005-1.025) Urine Protein 100 (2+) H (Neg-Trace) mg/dL Urine Glucose (UA) Negative (Negative) mg/dL Urine Ketones Negative (Negative) mg/dL Urine Blood Moderate (2+) H (Negative) Urine Nitrite Negative (Negative) Ur Leukocyte Esterase Moderate (2+) H (Negative) Urine RBC 3-5 H (0-2) /HPF Urine WBC 21-50 H (0-5) /HPF Ur Squamous Epith Cells 0-2 (0-2) /HPF Urine Bacteria Trace (None Seen) Hyaline Casts 0-2 (0-2) /LPF Salicylates < 5.0 L (15-30) mg/dL Urine Opiates Screen POSITIVE H (Not Detect) Urine Fentanyl Screen POSITIVE H (Not Detect) Acetaminophen < 17 (<30) mcg/mL Ur Barbiturates Screen Not Detected (Not Detect) Ur Phencyclidine Scrn Not Detected (Not Detect) Ur Amphetamines Screen Not Detected (Not Detect) U Benzodiazepines Scrn Not Detected (Not Detect) Urine Cocaine Screen POSITIVE H (Not Detect) U Marijuana (THC) Screen Not Detected (Not Detect) Ethyl Alcohol 126 mg/dL COVID-19 (JOE) Negative (Negative) COVID-19 Clin Com See Note Blood Type O Positive Antibody Screen NEGATIVE 04/16/23 Range/Units 22:19 WBC (4.8-10.8) X10*3/uL RBC (4.20-5.50) X10*6/uL Hgb (12.0-16.0) g/dl Hct (37.0-47.0) % MCV (80.0-98.0) fL MCH (27.0-33.0) pg MCHC (31.0-35.0) g/dl RDW (11.0-16.0) % Plt Count (160-400) X10*3/uL MPV (9.4-12.3) fL Immature Gran % (Auto) (0.0-0.4) % Neut % (Auto) (45-73) % Lymph % (Auto) (20-40) % [place] % (Auto) (2-11) % Eos % (Auto) (0-4) % Baso % (Auto) (0-2) % Lymph # (Auto) (1.2-4.9) X10*3/uL [place] # (Auto) (0.1-1.2) X10*3/uL Eos # (Auto) (0.0-0.4) X10*3/uL Baso # (Auto) (0.0-0.2) X10*3/uL Abs Immat Gran (auto) (0.00-0.03) X10*3/uL Absolute Neuts (auto) (2.0-8.3) x10*3/uL Absolute Nucleated RBC (0.0-0.012) X10*3/uL Nucleated RBC % (auto) (0.0-0.2) /100WBC PT (10.0-13.1) SEC INR (0.9-1.1) APTT (26.0-36.4) SEC Sodium (135-145) mmol/L Potassium (3.3-5.1) mmol/L Chloride (96-108) mmol/L Carbon Dioxide (22-29) mmol/L Anion Gap (12-20) BUN (9-16) mg/dL Creatinine (0.5-1.4) mg/dL Estim Creat Clear Calc Estimated GFR POC Glucose 213 H (60-115) mg/dL Random Glucose (60-115) mg/dL Lactic Acid (0.5-2.0) mmol/L Lactic Acid F/U @ 2Hr (0.5-2.0) mmol/L Calcium (8.4-10.2) mg/dL Magnesium (1.6-2.6) mg/dL Total Bilirubin (0.0-1.0) mg/dL Direct Bilirubin (0.0-0.5) mg/dL AST (5-31) U/L ALT (0-31) U/L Alkaline Phosphatase (39-117) U/L Total Creatine Kinase (26-140) U/L Troponin I High Sens (<3.5-17.0) ng/L Total Protein (6.5-8.0) g/dL Albumin (3.5-5.0) g/dL Lipase (8-78) U/L TSH (0.32-4.0) uIU/mL Urine Color Urine Appearance Urine pH (5.0-9.0) Ur Specific [place] (1.005-1.025) Urine Protein (Neg-Trace) mg/dL Urine Glucose (UA) (Negative) mg/dL Urine Ketones (Negative) mg/dL Urine Blood (Negative) Urine Nitrite (Negative) Ur Leukocyte Esterase (Negative) Urine RBC (0-2) /HPF Urine WBC (0-5) /HPF Ur Squamous Epith Cells (0-2) /HPF Urine Bacteria (None Seen) Hyaline Casts (0-2) /LPF Salicylates (15-30) mg/dL Urine Opiates Screen (Not Detect) Urine Fentanyl Screen (Not Detect) Acetaminophen (<30) mcg/mL Ur Barbiturates Screen (Not Detect) Ur Phencyclidine Scrn (Not Detect) Ur Amphetamines Screen (Not Detect) U Benzodiazepines Scrn (Not Detect) Urine Cocaine Screen (Not Detect) U Marijuana (THC) Screen (Not Detect) Ethyl Alcohol mg/dL COVID-19 (JOE) (Negative) COVID-19 Clin Com Blood Type Antibody Screen Radiology Impression Discussion of test interpretation with radiology: I have reviewed the radiologist's reading. Radiologist Impression: FINDINGS: LUNG BASES: Patchy airspace changes at the lung bases more likely due to atelectasis. PERITONEAL SPACE: Large volume of free intraperitoneal air is seen as well as free fluid tracking into the dependent aspect of the pelvis. LIVER, GALLBLADDER, BILIARY TREE: The non-contrast liver is normal in size, shape, and attenuation. No focal hepatic lesion or biliary ductal dilatation is present.? The gallbladder surgically absent. PANCREAS: Unremarkable. SPLEEN: Unremarkable. ADRENAL GLANDS: Unremarkable. KIDNEYS AND URETERS: The kidneys are normal in size, shape, and attenuation. No hydronephrosis, hydroureter, or calculi seen. No perinephric stranding. BLADDER: Unremarkable. GASTROINTESTINAL TRACT: There is scattered colonic diverticulosis but no obvious diverticulitis. I do not appreciate any significant pericolonic inflammatory change although multiple colonic diverticula are present. Normal-appearing air-filled appendix in the right lower quadrant. Small bowel is decompressed. Stomach is partially decompressed but does appear to be somewhat irregular there is soft tissue gas in the region of the stomach and lesser sac suggesting possible gastric source of this free air. ABDOMINAL WALL: No significant hernia is appreciated. LYMPHOVASCULAR STRUCTURES: No lymphadenopathy.? The aorta is unremarkable. The inferior vena cava is slitlike suggesting hypovolemia. PELVIC VISCERA: Unremarkable. OSSEUS STRUCTURES: Unremarkable. CT/CT abdomen pelvis wo IV con IMPRESSION: Large volume of free intraperitoneal air and free fluid. There is soft tissue gas in the region of the stomach and lesser sac suggesting possible gastric source of this free air. There is scattered colonic diverticulosis but no obvious diverticulitis or focal colonic wall thickening. Clinical correlation will be needed with this large volume of free intraperitoneal air. ? The inferior vena cava is slitlike suggesting hypovolemia. ? Critical Care Time Critical Care Time Critical Care Time: Yes Total Critical Care Time: 60 Attestation: I have personally provided critical care time. Time includes review of lab data, radiology results, discussion with consultants, and monitoring for potential decompensation. Intervention performed as documented. Discharge Plan Discharge Clinical Impression: Bowel perforation Patient Disposition: Admitted As Inpatient Interventions: Admission Worksheet (ED) Last Done: 04/17/23 02:18 Discharge Date/Time: 04/17/23 00:00
[2023-04-16 21:53] LABS: COVID-19 Test Negative (Negative); IDNOW Serial# BCCEAD1C
[2023-04-16 21:55] VITALS: BP 148/99; PULSE 129; RESP 23; O2SAT 100
[2023-04-16] MEDS: propofoL 1,000 MG/100 ML VIAL 17.47 MG IVCONT (21:55)
[2023-04-16 22:12] LABS: Lactic Acid 7.1 mmol/L (0.5-2.0)
[2023-04-16 22:17] LABS: Troponin-I High Sensitivity < 2.7 ng/L (<3.5-17.0)
--- NOTE | 2023-04-16 22:19 | W.PM.OPN ---
Operative Note Operative Note Date of Service: 04/16/23 Narrative: Preop diagnosis: [Free abdominal air] Postop diagnosis: [Same and gastric perforation versus ulcer] Procedure: [Exploratory laparotomy and over-sew of gastric ulcer, posterior lesser curvature] Surgeon: Evan Goetz MD Assist: [Grisel Muse RN] Anesthesia: [GET] Estimated blood loss: [50cc] Drains: Right upper quadrant MARTY is by oversewn gastric perforation; right lower quadrant MARTY drain is in the pelvis Specimen: [1) peritoneal fluid for culture; 2) gastric perforation, assess for malignancy] Intraoperative findings: [A subserosal hemorrhage/hematoma measuring approximately 8 cm by 5 cm on the lesser curvature up by the GE junction was present with a 2 cm perforation. It is an unusual location for an ulcer and it did not feel hard like a malignancy but biopsies were obtained. Over-sew performed with intraoperative leak test confirmed closure. 1280cc alcohol smelling peritoneal fluid containing food was aspirated; 8.5 L warm sterile saline irrigation] Indications: [The patient is a 57-year-old woman who is brought and combative by EMS and intubated by the emergency room physician. Patient's family notes that she had been drinking alcohol, taking tramadol and, by report from the family had heroin in her purse. The does note that she had pork for dinner and was vomiting extensively. She was combative and toxic requiring intubation and on workup was noted to have free air on abdominal x-ray/chest x-ray and CT prior to intubation. To the best of the family's knowledge, there is no history of inflammatory bowel disease, colorectal cancer or GI malignancy and they are unaware of any aspirin/NSAID or nicotine use. Options of medical management verses emergent exploration via exploratory laparotomy with possible bowel resection and possible colostomy was discussed along with the option of medical management or transfer. The inherent risks of bleeding, infection, , risk of organ dysfunction that could lead to in a delayed setting, possible need for additional procedures was all discussed with the patient's ,Bhupendra Urbina & reina Light, who seemed to understand and both wanted to proceed. The patient is unable to respond due to intubation.] Procedure: [The patient was identified in OR room 3. She was placed supine on the table and a subclavian central line was placed by Dr. Zeidel. See anesthesia notes for details on lines. The patient was induced in general endotracheal anesthesia performed via the endotracheal tube placed in the ER. The abdomen was then widely prepped and draped using ChloraPrep and an appropriate time-out performed. The abdomen was entered through a midline incision and non malodorous, slightly alcohol tinged gas was released. Then, red wine colored peritoneal fluid containing food such as corn in meat was noted. The incision was extended up to the xiphoid and the patient placed in reverse Trendelenburg. The abdomen was packed in retraction allowed demonstration of the subserosal hematoma in perforation on the posterior lesser curvature up by the GE junction. The NG tube was palpated in the stomach and hand exploration revealed a smooth liver and no evidence of inflammation in the rectosigmoid or sigmoid colon. The cecum had stool in felt normal. Once the perforation was encountered, I attempted to over sew it and then performed a leak test by having Dr. Gallardo instill air via the NG with a Doretha syringe, but the area bubbled. Friable tissue around the perforation was sent for biopsy and 2 0 Polysorb run in continuous manner and the leak test repeated with saline in place and no bubbling was demonstrated. The omentum was used to buttress the repair and a large MARTY drain placed between the omentum and the repair. It was secured to the skin with a 2-0 silk. Next, patient was returned to neutral and an additional drain placed in the right lower quadrant and were into the pelvis and copious amounts of sterile saline was used until the irrigant ran clear. The abdomen was then examined in the bowel examined and it was grossly normal. The abdomen was then closed in 2 layers using a running 1. Maxon on the posterior sheath and peritoneum and 1. Maxon brought in from the superior and inferior pole and tied in the midline. Patient tolerated the procedure well and was sent intubated to the ICU for recovery and additional management. All sponge instrument counts were correct x2 Patient's and daughter Nadege is well as the family were briefed about the operation and their questions answered.]
[2023-04-16] MEDS: 0.9 % Sodium Chloride 2,000 ML 999 ML IVCONT (22:20)
[2023-04-16 22:22] LABS: Glucose, Whole Blood 213 mg/dL (60-115)
--- NOTE | 2023-04-16 22:22 | PM.HPGS ---
History of Present Illness History of Present Illness Date of Service: 04/16/23 Chief complaint: ams/etoh Narrative: Glenys Pulido is a 57 year old female who presented agitated and was found down by family members at home. She apparently had been drinking, taking tramadol and the family reports she had heroin in her purse. They deny any known family or personal history of GI malignancy or peptic ulcer disease. At presentation, chest x-ray confirmed free air and the patient's agitation required intubation by the ER physician to facilitate care. As a result, no history is available from the patient and the patient's family note that she had of the cholecystectomy some years ago here but are unaware of any other significant health problems other than her obesity. Review of Systems Review of Systems: Yes unobtainable due to endotracheal tube Constitutional: Constitutional: Reports as per [facility] Past Medical History Medical History Acute anxiety Depression High cholesterol HTN (hypertension) Social History Social History Alcohol intake: never Advance Directives: No Advance Directives Information Provided: No Meds Allergies Allergy/AdvReac Type Severity Reaction Status Date / Time aspirin [ASPIRIN] Allergy Intermediate RASH, Unverified 07/30/20 15:28 itching, facial flushing haro Allergy Intermediate ITCHING,KIRSTEN Unverified 07/30/20 15:28 H peach [[place]] Allergy Intermediate ITCHING, Unverified 07/30/20 15:28 RASH prochlorperazine Allergy Intermediate SWELLING, Unverified 07/30/20 15:28 [From COMPAZINE] RASH Active Medications: Current Medications Propofol (Diprivan) 1,000 mg in 100 mls @ 0 mls/hr IVCONT .Q0M [facility]; Protocol Last Admin: 04/16/23 21:55 Dose: 30 mcg/kg/min, 17.47 mls/hr Sodium Chloride (Ns) 2,000 mls @ 999 mls/hr IVCONT .Q2H1M ONE Stop: 04/17/23 00:15 Physical Exam Vital Signs: Vital Signs: Last Vital Signs Temp 97.9 F 04/16/23 20:40 Pulse 129 H 04/16/23 21:55 Resp 23 H 04/16/23 21:55 BP 148/99 H 04/16/23 21:55 Pulse Ox 100 04/16/23 21:55 O2 Del Method Room Air 04/16/23 20:40 BMI result Body Mass Index 39.1 On exam, the patient is intubated Her abdomen is obese and distended with tympany Results Results Labs: Short CBC 04/16/23 Range/Units 21:30 WBC 15.7 H (4.8-10.8) X10*3/uL Hgb 14.4 (12.0-16.0) g/dl Hct 44.8 (37.0-47.0) % Plt Count 237 (160-400) X10*3/uL Chest x-ray: report reviewed and image reviewed Abdomen CT scan report/results: report reviewed and image reviewed CT scan - pelvis: report reviewed and image reviewed Assessment and Plan (1) Peritoneal free air: Status: Acute (2) Hypercholesterolemia: Status: Acute (3) Morbid (severe) obesity due to excess calories: Status: Acute Plan I reviewed options with the patient's ,Bhupendra Urbina and daughter Nadege who provided me with her cell phone as the best contact number [phone]. My recommendation was to proceed as the patient would have wanted and I explained the operation would entail exploratory laparotomy, possible bowel resection, possible colostomy and explained that even in the best setting, there was a possibility of prolonged hospitalization and due to organ dysfunction. The other option would be medical observation and management and supportive measures but the patient's and daughter stated that there was a new baby in the family and that she would want everything done, so they consented to proceed with surgery. I also reviewed the inherent risks of bleeding, infection, healing complications that could require reoperation and other unforeseen complications depending on the pathology. The possible need for an ostomy that may be permanent was also discussed and apparently understood. The patient's and daughter were offered an gluing crew leader but this option was declined. Will continue resuscitation and proceed to surgery as soon as the team is assembled. Patient will need ICU afterwards. Consent was signed by the patient's . Time Spent With Patient Time: Total time managing care of this patient today ____ minutes. Quality Stroke Does the patient have a stroke diagnosis?: No VTE Prior VTE?: No VTE Risk Level:: Surgical - moderate VTE Device Contraindication: N/A - Device Ordered VTE Drug Contraindication: N/A - Med Ordered Procedures Date of Service Date of Service: 04/16/23
[2023-04-16 22:27] VITALS: BP 173/98; PULSE 143; RESP 23; O2SAT 100
[2023-04-16 22:31] VITALS: BP 178/104; PULSE 145; RESP 23; O2SAT 100
[2023-04-16 22:32] LABS: Prothrombin Time 11.7 SEC (10.0-13.1)
[2023-04-16 22:32] LABS: Appearance Urine Turbid; Color Urine Yellow; Glucose Urine UA Negative (Negative); Leukocyte Esterase Urine Moderate (2+) (Negative); Nitrite Urine Negative (Negative); PH 5.5 (5.0-9.0); Specific Gravity - Urine 1.025 (1.005-1.025); UMIC TRIGGER UACC YES; Urine Blood Moderate (2+) (Negative); Urine Ketones Negative (Negative); Urine Protein 100 (2+) mg/dL (Neg-Trace)
[2023-04-16 22:35] LABS: Partial Thromboplastin Time 27.8 SEC (26.0-36.4)
[2023-04-16 22:35] LABS: Acetaminophen LAB < 17 mcg/mL (<30); Alanine Aminotransferase 24 U/L (0-31); Albumin Level 4.2 g/dL (3.5-5.0); Alkaline Phosphatase 122 U/L (39-117); Anion Gap 23 (12-20); Aspartate Amino Transferase 34 U/L (5-31); Bilirubin Direct < 0.2 mg/dL (0.0-0.5); Bilirubin Total 0.2 mg/dL (0.0-1.0); Blood Urea Nitrogen 12 mg/dL (9-16); Calcium 9.3 mg/dL (8.4-10.2); Carbon Dioxide 18 mmol/L (22-29); Chloride 103 mmol/L (96-108); Creatinine Clr Calc Pharmacy 31.1; Estimated Glomerular Filt Rate 23; Glucose Random 298 mg/dL (60-115); Lipase 47 U/L (8-78); Magnesium 2.5 mg/dL (1.6-2.6); Potassium 3.2 mmol/L (3.3-5.1); Salicylate < 5.0 mg/dL (15-30); Sodium 141 mmol/L (135-145); Total Protein 7.8 g/dL (6.5-8.0)
--- NOTE | 2023-04-16 22:49 | PC.NURSE ---
at around 20:00 pt to room was very agitated informed by EMS pt was found to be eating then became slummed over after eating and not responding. Pt was also drinking alcohol all day at the house so family thought pt was drunk. family also found heroin in pts pocket book, stated by pts daughter.per EMS on arrival pt was very combative and not listening to anything they were asking of her. pt to ED continued to be agitated and not able to let us know what she was feeling or why she was so uncomfortable. Initally pts vital signs were within normal limits. within a half an hour oxygen began to drop into the low 80s. MD made aware and initiated incubation protocols. (see [employer] ) Pt was found through the CT scan to have air in the abdomen and a need to go the surgery. Surgery team notified and made aware that pt was given all the proper medications for intubation but was waking up from the intubation medications and the propofol drip. at 23:25 pt was taken to the OR.
[2023-04-16 22:59] LABS: Bacteria Urine Trace (None Seen); Hyaline Casts Urine 0-2 /LPF (0-2); Squamous Epithelial Cell Urine 0-2 /HPF (0-2); UACC Culture Trigger YES; WBC Urine 21-50 /HPF (0-5)
[2023-04-16] MEDS: Midazolam HCl/NS 50 MG/50 ML PLAST..BAG IVCONT (23:00)
--- NOTE | 2023-04-16 23:00 | PC.NURSE ---
Pt continues to be agitated after intubation, MD made aware and pt is to receive Versed for the agitation. family in room during pt's irritability. Pt is responding to the Versed medication
--- NOTE | 2023-04-16 23:03 | P.CONAN_ITS ---
HPI - Anesthesia Eval Consult details Narrative: Viscus perforation PMFSH Active Problems Active Problems: All Active Problems (Updated 04/16/23 @ 22:25 by Evan Goetz MD) Morbid (severe) obesity due to excess calories (Acute) Hypercholesterolemia (Acute) Peritoneal free air (Acute) Bowel perforation (Acute) Past Medical History Medical History Acute anxiety Depression High cholesterol HTN (hypertension) Family History Family history of problems with anesthesia: No Surgical History History of Problems with Anesthesia: No Social History Social History Alcohol intake: never Advance Directives: No Advance Directives Information Provided: No Meds Allergies Allergy/AdvReac Type Severity Reaction Status Date / Time aspirin [ASPIRIN] Allergy Intermediate RASH, Unverified 07/30/20 15:28 itching, facial flushing haro Allergy Intermediate ITCHING,KIRSTEN Unverified 07/30/20 15:28 H peach [[place]] Allergy Intermediate ITCHING, Unverified 07/30/20 15:28 RASH prochlorperazine Allergy Intermediate SWELLING, Unverified 07/30/20 15:28 [From COMPAZINE] RASH Active Medications: Current Medications Propofol (Diprivan) 1,000 mg in 100 mls @ 0 mls/hr IVCONT .Q0M [facility]; Protocol Last Titration: 04/16/23 22:31 Dose: 50 mcg/kg/min, 29.12 mls/hr Sodium Chloride (Ns) 2,000 mls @ 999 mls/hr IVCONT .Q2H1M ONE Stop: 04/17/23 00:15 Midazolam HCl (Versed) 50 mg in 50 mls @ 2 mls/hr IVCONT .Q24H [facility] Exam Exam Date and Time: April 16, [id number] Height,Weight and Vital Signs: Height 5 ft 2 in Weight 97.069 kg Last Vital Signs Temp 97.9 F 04/16/23 20:40 Pulse 145 H 04/16/23 22:31 Resp 23 H 04/16/23 22:31 BP 178/104 H 04/16/23 22:31 Pulse Ox 100 04/16/23 22:31 O2 Del Method Room Air 04/16/23 20:40 Pertinent Lab Results Pertinent Lab Results: Laboratory Tests 04/16/23 04/16/23 04/16/23 20:32 21:30 21:31 WBC 15.7 H RBC 4.61 Hgb 14.4 Hct 44.8 MCV 97.2 MCH 31.2 MCHC 32.1 RDW 13.5 Plt Count 237 MPV 10.9 Immature Gran % (Auto) 0.6 H Neut % (Auto) 69.5 Lymph % (Auto) 25.2 [place]eman % (Auto) 3.6 Eos % (Auto) 0.9 Baso % (Auto) 0.2 Lymph # (Auto) 4.0 Hodgeman # (Auto) 0.6 Eos # (Auto) 0.1 Baso # (Auto) 0.0 Abs Immat Gran (auto) 0.09 H Absolute Neuts (auto) 10.9 H Absolute Nucleated RBC 0.000 Nucleated RBC % (auto) 0.0 PT INR APTT Sodium 141 Potassium 3.2 L Chloride 103 Carbon Dioxide 18 L Anion Gap 23 H BUN 12 Creatinine 2.19 H Estim Creat Clear Calc 31.1 Estimated GFR 23 POC Glucose 185 H Random Glucose 298 H Lactic Acid Calcium 9.3 Magnesium 2.5 Total Bilirubin 0.2 Direct Bilirubin < 0.2 AST 34 H ALT 24 Alkaline Phosphatase 122 H Total Creatine Kinase 239 H Troponin I High Sens Total Protein 7.8 Albumin 4.2 Lipase 47 Urine Color Urine Appearance Urine pH Ur Specific [place] Urine Protein Urine Glucose (UA) Urine Ketones Urine Blood Urine Nitrite Ur Leukocyte Esterase Salicylates < 5.0 L Acetaminophen < 17 COVID-19 (JOE) COVID-19 Clin Com Blood Type Antibody Screen 04/16/23 04/16/23 04/16/23 21:31 21:31 21:31 WBC RBC Hgb Hct MCV MCH MCHC RDW Plt Count MPV Immature Gran % (Auto) Neut % (Auto) Lymph % (Auto) Hod[place]eman % (Auto) Eos % (Auto) Baso % (Auto) Lymph # (Auto) [place] # (Auto) Eos # (Auto) Baso # (Auto) Abs Immat Gran (auto) Absolute Neuts (auto) Absolute Nucleated RBC Nucleated RBC % (auto) PT INR APTT Sodium Potassium Chloride Carbon Dioxide Anion Gap BUN Creatinine Estim Creat Clear Calc Estimated GFR POC Glucose Random Glucose Lactic Acid 7.1 H* Calcium Magnesium Total Bilirubin Direct Bilirubin AST ALT Alkaline Phosphatase Total Creatine Kinase Troponin I High Sens < 2.7 Total Protein Albumin Lipase Urine Color Urine Appearance Urine pH Ur Specific [place] Urine Protein Urine Glucose (UA) Urine Ketones Urine Blood Urine Nitrite Ur Leukocyte Esterase Salicylates Acetaminophen COVID-19 (JOE) Negative COVID-19 Clin Com See Note Blood Type Antibody Screen 04/16/23 04/16/23 04/16/23 22:14 22:14 22:17 WBC RBC Hgb Hct MCV MCH MCHC RDW Plt Count MPV Immature Gran % (Auto) Neut % (Auto) Lymph % (Auto) Hod[place]eman % (Auto) Eos % (Auto) Baso % (Auto) Lymph # (Auto) Hod[place]eman # (Auto) Eos # (Auto) Baso # (Auto) Abs Immat Gran (auto) Absolute Neuts (auto) Absolute Nucleated RBC Nucleated RBC % (auto) PT 11.7 INR 1.0 APTT 27.8 Sodium Potassium Chloride Carbon Dioxide Anion Gap BUN Creatinine Estim Creat Clear Calc Estimated GFR POC Glucose Random Glucose Lactic Acid Calcium Magnesium Total Bilirubin Direct Bilirubin AST ALT Alkaline Phosphatase Total Creatine Kinase Troponin I High Sens Total Protein Albumin Lipase Urine Color Yellow Urine Appearance Turbid Urine pH 5.5 Ur Specific [place] 1.025 Urine Protein 100 (2+) H Urine Glucose (UA) Negative Urine Ketones Negative Urine Blood Moderate (2+) H Urine Nitrite Negative Ur Leukocyte Esterase Moderate (2+) H Salicylates Acetaminophen COVID-19 (JOE) COVID-Regalii Com Blood Type O Positive Antibody Screen NEGATIVE 04/16/23 22:19 WBC RBC Hgb Hct MCV MCH MCHC RDW Plt Count MPV Immature Gran % (Auto) Neut % (Auto) Lymph % (Auto) Hod[place]eman % (Auto) Eos % (Auto) Baso % (Auto) Lymph # (Auto) Hod[place]eman # (Auto) Eos # (Auto) Baso # (Auto) Abs Immat Gran (auto) Absolute Neuts (auto) Absolute Nucleated RBC Nucleated RBC % (auto) PT INR APTT Sodium Potassium Chloride Carbon Dioxide Anion Gap BUN Creatinine Estim Creat Clear Calc Estimated GFR POC Glucose 213 H Random Glucose Lactic Acid Calcium Magnesium Total Bilirubin Direct Bilirubin AST ALT Alkaline Phosphatase Total Creatine Kinase Troponin I High Sens Total Protein Albumin Lipase Urine Color Urine Appearance Urine pH Ur Specific [place] Urine Protein Urine Glucose (UA) Urine Ketones Urine Blood Urine Nitrite Ur Leukocyte Esterase Salicylates Acetaminophen COVID-19 (JOE) COVID-19 [employer] Com Blood Type Antibody Screen Airway Mallampati Class: Patient Non-Cooperative TM Dist: >3cm Heart: RRR Lungs: CTA Assessment and Plan Assessment Anesthesia Assessment: Chart Reviewed Final Anesthetic Review Family History of Problems with Anesthesia: No History of Problems with Anesthesia: No NPO: No ASA Class: III and Emergency Final Preanesthetic Review: No Changes in Pt Med Stat, Meds/Allgs Chart Reviewed, Consent Obtained/Reviewed and Anes Risks/Benef Reviewed Patient Risk: High Procedure Risk: High Anesthetic Plan Anesthetic Plan: GA Disposition: Inp. Admit - ICU
--- NOTE | 2023-04-16 23:15 | PC.NURSE ---
Pt's IV access is comprised due to position and insertion area. MD made aware of the comprised IV and is at bedside for central line placement. RAHEL Broussard at bedside with MD for assistance.
[2023-04-16 23:16] LABS: Ethanol 126 mg/dL
[2023-04-16 23:37] LABS: Reflex Lactate? Lactic Acid Added
[2023-04-16 23:38] LABS: TSH reflex Free T4 3.91 uIU/mL (0.32-4.0)
[2023-04-17] VITALS (74 sets, daily range): BP systolic 71–166; BP diastolic 30–79; PULSE 93–151; RESP 12–32; TEMP 34.5–39.2; O2SAT 94–100; BMI 40.6
--- NOTE | 2023-04-17 | PC.NURSE ---
unsuccessful with the central line insertion. OR made aware of pts lack of IV access and are willing to take the pt to the OR and state they will access an IV line that is in working progress for OR procedure.
[2023-04-17] MEDS: Norepinephrine Bitartrate/D5W 8 MG/250 ML PLAST..BAG 9.1 MG IV (02:25)
[2023-04-17] MEDS: propofoL 1,000 MG/100 ML VIAL 17.47 MG IVCONT (02:34)
[2023-04-17] MEDS: Midazolam HCl/NS 50 MG/50 ML PLAST..BAG IVCONT (02:49)
[2023-04-17 03:06] LABS: VBG Base Excess -2.7 mmol/L; VBG HCO3 25 mmol/L (22-26); VBG pCO2 58 mmHg; VBG pH 7.24 (7.32-7.43); VBG pO2 46 mmHg
[2023-04-17 03:09] LABS: MANUAL DIFF FLAG NO
[2023-04-17 03:11] LABS: Basophils Percent Auto 0.3 % (0-2); Hematocrit 40.5 % (37.0-47.0); Hemoglobin 13.1 g/dl (12.0-16.0); Imm Gran Abs Auto 0.01 X10*3/uL (0.00-0.03); Imm Gran Pct Auto 0.3 % (0.0-0.4); Lymphocytes Absolute Auto 0.8 X10*3/uL (1.2-4.9); Mean Corpuscular HGB Conc 32.3 g/dl (31.0-35.0); Mean Corpuscular Hemoglobin 31.2 pg (27.0-33.0); Mean Corpuscular Volume 96.4 fL (80.0-98.0); Mean Platelet Volume 10.6 fL (9.4-12.3); Monocytes Absolute Auto 0.1 X10*3/uL (0.1-1.2); Monocytes Percent Auto 3.1 % (2-11); Neutrophils Percent Auto 69.3 % (45-73); Platelet Count 188 X10*3/uL (160-400); Red Cell Distribution Width 13.9 % (11.0-16.0); White Blood Count 2.9 X10*3/uL (4.8-10.8)
[2023-04-17 03:18] LABS: INTERNATIONAL NORM RATIO 1.2 (0.9-1.1); Prothrombin Time 13.7 SEC (10.0-13.1)
[2023-04-17] MEDS: fentaNYL citrate/NS 1,000 MCG/100 ML PLAST..BAG 2.5 MCG IVCONT (03:22)
[2023-04-17 03:28] LABS: Albumin Level 2.9 g/dL (3.5-5.0); Anion Gap 12 (12-20); Blood Urea Nitrogen 14 mg/dL (9-16); Calcium 8.2 mg/dL (8.4-10.2); Carbon Dioxide 23 mmol/L (22-29); Chloride 114 mmol/L (96-108); Creatinine Clr Calc Pharmacy 41.4; Estimated Glomerular Filt Rate 32; Glucose Random 126 mg/dL (60-115); Magnesium 1.6 mg/dL (1.6-2.6); Phosphorus 2.5 mg/dL (2.7-4.5); Potassium 3.9 mmol/L (3.3-5.1); Sodium 145 mmol/L (135-145)
[2023-04-17 03:30] LABS: ~Lactic Acid-LAB USE ONLY 3.4 mmol/L (0.5-2.0)
[2023-04-17] MEDS: Lactated Ringers 1,000 ML 150 ML IVCONT (03:48)
[2023-04-17] MEDS: Albumin Human 25 % 100 ML IV ×4 (04:00→20:15)
[2023-04-17 04:10] LABS: Venous Blood Gas Refer to POC result
--- NOTE | 2023-04-17 04:13 | PM.CCHP ---
History of Present Illness Date of Service: 04/17/23 Attending physician on admission: Aaron Lang Chief Complaint: Bowel perforation Ms. Pulido?is a 57-year-old female past medical history of?anxiety, depression, high cholesterol, HTN and cholecystectomy who was brought in by ambulance for?altered mental status.? The patient?s family reported to EMS that she had been drinking a lot of alcohol, possibly took too much tramadol, and a bag of heroin was found at her bedside.?? On arrival to the emergency room the patient was altered, abdomen was distended,? she was afebrile, pulse rate 140, respiratory rate 20, blood pressure 129/73, O2Sat 100% on room air.??? Laboratory data significant for WBC 15.7, potassium 3.2, CO2 18, creatinine 2.19,? lactic acid 7.8, AST 34, alk-phos 122, total CK 239. IMAGING:? CXR: Large volume of abdominal ascites is seen better delineated on the CT scan the abdomen and pelvis immediately following. CT ABDOMEN AND PELVIS WITHOUT CONTRAST: Large volume of free intraperitoneal air and free fluid. There is soft tissue gas in the region of the stomach and lesser sac suggesting possible gastric source of this free air. There is scattered colonic diverticulosis but no obvious diverticulitis or focal colonic wall thickening. Clinical correlation will be needed with this large volume of free intraperitoneal air. Surgery was consulted and she was taken for an emergency exploratory laparotomy by Dr. Schaefer. She is admitted to the ICU? for postop management. Review of Systems Review of Systems: Yes unobtainable due to endotracheal tube PMFSH Past Medical History Medical History Acute anxiety Depression High cholesterol HTN (hypertension) Social History Social History Alcohol intake: never Advance Directives: No Advance Directives Information Provided: No Meds Allergies Allergy/AdvReac Type Severity Reaction Status Date / Time aspirin [ASPIRIN] Allergy Intermediate RASH, Unverified 07/30/20 15:28 itching, facial flushing haro Allergy Intermediate ITCHING,KIRSTEN Unverified 07/30/20 15:28 H peach [Dewey] Allergy Intermediate ITCHING, Unverified 07/30/20 15:28 RASH prochlorperazine Allergy Intermediate SWELLING, Unverified 07/30/20 15:28 [From COMPAZINE] RASH Active Medications: Current Medications Enoxaparin Sodium (Enoxaparin Sodium 40 Mg/0.4 Ml Syringe) 40 mg SUBCUT Q24H [facility] Last Admin: 04/17/23 03:13 Dose: Not Given Propofol (Diprivan) 1,000 mg in 100 mls @ 0 mls/hr IVCONT .Q0M [facility]; Protocol Last Admin: 04/17/23 02:34 Dose: 30 mcg/kg/min, 17.47 mls/hr Midazolam HCl (Versed) 50 mg in 50 mls @ 2 mls/hr IVCONT .Q24H MOO Last Infusion: 04/17/23 03:13 Dose: 0 mg/hr, 0 mls/hr Norepinephrine Bitartrate (Levophed) 8 mg in 250 mls @ 0 mls/hr IV .Q0M MOO; Protocol Last Titration: 04/17/23 02:45 Dose: 0.2 mcg/kg/min, 36.4 mls/hr Lactated Ringer's (Lr) 1,000 mls @ 150 mls/hr IVCONT .Q6H40M [facility] Last Admin: 04/17/23 03:48 Dose: 150 mls/hr Fentanyl (Sublimaze/Ns) 1,000 mcg in 100 mls @ 0 mls/hr IVCONT .Q0M [facility]; Protocol Last Titration: 04/17/23 03:32 Dose: 50 mcg/hr, 5 mls/hr Metronidazole (Flagyl) 500 mg in 100 mls @ 100 mls/hr IV Q8H [facility] Ceftriaxone Sodium 1 gm/ (Sodium Chloride) 50 mls @ 100 mls/hr IV Q24H [facility] Albumin Human (Kedbumin 25 %) 100 mls @ 100 mls/hr IV ONCE ONE Stop: 04/17/23 04:29 Naloxone HCl (Naloxone Hcl 0.4 Mg/Ml Vial) 0.2 mg IVPUSH Q2M PRN PRN Reason: Excessive sedation or RR < 8 Pantoprazole Sodium (Pantoprazole Sodium 40 Mg/10 Ml Vial) 40 mg IVPUSH BID@0630,1630 [facility] Physical Exam Vital Signs: Vital Signs: Last Vital Signs Temp 101.3 F H 04/17/23 04:00 Pulse 77 04/17/23 04:00 Resp 17 04/17/23 04:00 BP 110/61 04/17/23 04:00 Pulse Ox 96 04/17/23 04:00 O2 Del Method Mechanical Ventil ation 04/17/23 04:00 FiO2 70 04/17/23 04:00 BMI result Body Mass Index 39.1 Const: Nutritional Appearance: obese HEENT: Head: Yes normocephalic and Yes atraumatic General nose exam: Normal external nose present (Nares patent, septum midline, sinuses nontender bilaterally.) Mouth: Normal oral and palatal mucosa present (No thrush, tongue in midline, mucosa moist.) Throat: Yes other (No erythema, no exudate.) Neck: Neck: Yes supple (no thyromegaly, trachea midline.) Carotids: normal carotid upstroke Resp: Auscultation: clear to auscultation bilaterally (normal work of breathing, no accessory muscle use) Cardio: Jugular venous distension: no JVD Rate: regular rate Rhythm: regular rhythm Heart sounds: no gallops, no murmurs and no rubs Peripheral pulses: Peripheral pulses 2+ throughout GI: Palpation (GI): Soft to palpation (nondistended.) and nontender Skin: Other: Abdominal incision midline with ruq and rlq MARTY drains. Extrem: General: Yes full ROM, Yes capillary refill normal and Yes no clubbing, cyanosis or edema Results Labs 04/17/23 02:55 04/17/23 02:55 Labs: Laboratory Results - last 24 hr 04/16/23 04/16/23 04/16/23 02:55 20:32 21:30 MCV 97.2 MCH 31.2 MCHC 32.1 RDW 13.5 Plt Count 237 MPV 10.9 Immature Gran % (Auto) 0.6 H Neut % (Auto) 69.5 Lymph % (Auto) 25.2 [place] % (Auto) 3.6 Eos % (Auto) 0.9 Baso % (Auto) 0.2 Lymph # (Auto) 4.0 [place] # (Auto) 0.6 Eos # (Auto) 0.1 Baso # (Auto) 0.0 Abs Immat Gran (auto) 0.09 H Absolute Neuts (auto) 10.9 H Absolute Nucleated RBC 0.000 Nucleated RBC % (auto) 0.0 PT INR APTT VBG pH VBG pCO2 VBG pO2 VBG HCO3 VBG O2 Saturation VBG Base Excess Anion Gap Estim Creat Clear Calc Estimated GFR POC Glucose 185 H Random Glucose Lactic Acid Lactic Acid F/U @ 2Hr 3.4 H* Calcium Phosphorus Magnesium Total Bilirubin Direct Bilirubin AST ALT Alkaline Phosphatase Total Creatine Kinase Troponin I High Sens Total Protein Albumin Lipase TSH Urine Color Urine Appearance Urine pH Ur Specific [place] Urine Protein Urine Glucose (UA) Urine Ketones Urine Blood Urine Nitrite Ur Leukocyte Esterase Urine RBC Urine WBC Ur Squamous Epith Cells Urine Bacteria Hyaline Casts Salicylates Acetaminophen Ethyl Alcohol COVID-19 (JOE) COVID-19 [employer] Blood Type Antibody Screen 04/16/23 04/16/23 04/16/23 21:31 21:31 21:31 MCV MCH MCHC RDW Plt Count MPV Immature Gran % (Auto) Neut % (Auto) Lymph % (Auto) [place] % (Auto) Eos % (Auto) Baso % (Auto) Lymph # (Auto) [place] # (Auto) Eos # (Auto) Baso # (Auto) Abs Immat Gran (auto) Absolute Neuts (auto) Absolute Nucleated RBC Nucleated RBC % (auto) PT INR APTT VBG pH VBG pCO2 VBG pO2 VBG HCO3 VBG O2 Saturation VBG Base Excess Anion Gap 23 H Estim Creat Clear Calc 31.1 Estimated GFR 23 POC Glucose Random Glucose 298 H Lactic Acid 7.1 H* Lactic Acid F/U @ 2Hr Calcium 9.3 Phosphorus Magnesium 2.5 Total Bilirubin 0.2 Direct Bilirubin < 0.2 AST 34 H ALT 24 Alkaline Phosphatase 122 H Total Creatine Kinase 239 H Troponin I High Sens < 2.7 Total Protein 7.8 Albumin 4.2 Lipase 47 TSH 3.91 Urine Color Urine Appearance Urine pH Ur Specific [place] Urine Protein Urine Glucose (UA) Urine Ketones Urine Blood Urine Nitrite Ur Leukocyte Esterase Urine RBC Urine WBC Ur Squamous Epith Cells Urine Bacteria Hyaline Casts Salicylates < 5.0 L Acetaminophen < 17 Ethyl Alcohol 126 COVID-19 (JOE) [facility] Blood Type Antibody Screen 04/16/23 04/16/23 04/16/23 21:31 22:14 22:14 MCV MCH MCHC RDW Plt Count MPV Immature Gran % (Auto) Neut % (Auto) Lymph % (Auto) [place] % (Auto) Eos % (Auto) Baso % (Auto) Lymph # (Auto) [place] # (Auto) Eos # (Auto) Baso # (Auto) Abs Immat Gran (auto) Absolute Neuts (auto) Absolute Nucleated RBC Nucleated RBC % (auto) PT 11.7 INR 1.0 APTT 27.8 VBG pH VBG pCO2 VBG pO2 VBG HCO3 VBG O2 Saturation VBG Base Excess Anion Gap Estim Creat Clear Calc Estimated GFR POC Glucose Random Glucose Lactic Acid Lactic Acid F/U @ 2Hr Calcium Phosphorus Magnesium Total Bilirubin Direct Bilirubin AST ALT Alkaline Phosphatase Total Creatine Kinase Troponin I High Sens Total Protein Albumin Lipase TSH Urine Color Urine Appearance Urine pH Ur Specific [place] Urine Protein Urine Glucose (UA) Urine Ketones Urine Blood Urine Nitrite Ur Leukocyte Esterase Urine RBC Urine WBC Ur Squamous Epith Cells Urine Bacteria Hyaline Casts Salicylates Acetaminophen Ethyl Alcohol COVID-19 (JOE) Negative COVID-19 Clin Com See Note Blood Type O Positive Antibody Screen NEGATIVE 04/16/23 04/16/23 04/17/23 22:17 22:19 02:55 MCV MCH MCHC RDW Plt Count MPV Immature Gran % (Auto) Neut % (Auto) Lymph % (Auto) [place] % (Auto) Eos % (Auto) Baso % (Auto) Lymph # (Auto) [place] # (Auto) Eos # (Auto) Baso # (Auto) Abs Immat Gran (auto) Absolute Neuts (auto) Absolute Nucleated RBC Nucleated RBC % (auto) PT 13.7 H INR 1.2 H APTT VBG pH VBG pCO2 VBG pO2 VBG HCO3 VBG O2 Saturation VBG Base Excess Anion Gap Estim Creat Clear Calc Estimated GFR POC Glucose 213 H Random Glucose Lactic Acid Lactic Acid F/U @ 2Hr Calcium Phosphorus Magnesium Total Bilirubin Direct Bilirubin AST ALT Alkaline Phosphatase Total Creatine Kinase Troponin I High Sens Total Protein Albumin Lipase TSH Urine Color Yellow Urine Appearance Turbid Urine pH 5.5 Ur Specific [place] 1.025 Urine Protein 100 (2+) H Urine Glucose (UA) Negative Urine Ketones Negative Urine Blood Moderate (2+) H Urine Nitrite Negative Ur Leukocyte Esterase Moderate (2+) H Urine RBC 3-5 H Urine WBC 21-50 H Ur Squamous Epith Cells 0-2 Urine Bacteria Trace Hyaline Casts 0-2 Salicylates Acetaminophen Ethyl Alcohol COVID-19 (JOE) COVID-19 [facility] Com Blood Type Antibody Screen 04/17/23 04/17/23 04/17/23 02:55 02:55 02:55 MCV 96.4 MCH 31.2 MCHC 32.3 RDW 13.9 Plt Count 188 MPV 10.6 Immature Gran % (Auto) 0.3 Neut % (Auto) 69.3 Lymph % (Auto) 27.0 [place] % (Auto) 3.1 Eos % (Auto) 0.0 Baso % (Auto) 0.3 Lymph # (Auto) 0.8 L [place] # (Auto) 0.1 Eos # (Auto) 0.0 Baso # (Auto) 0.0 Abs Immat Gran (auto) 0.01 Absolute Neuts (auto) 2.0 Absolute Nucleated RBC 0.000 Nucleated RBC % (auto) 0.0 PT INR APTT VBG pH 7.24 L VBG pCO2 58 VBG pO2 46 VBG HCO3 25 VBG O2 Saturation 76.0 VBG Base Excess -2.7 Anion Gap 12 Estim Creat Clear Calc 41.4 Estimated GFR 32 POC Glucose Random Glucose 126 H Lactic Acid Lactic Acid F/U @ 2Hr Calcium 8.2 L D Phosphorus 2.5 L Magnesium 1.6 Total Bilirubin Direct Bilirubin AST ALT Alkaline Phosphatase Total Creatine Kinase Troponin I High Sens Total Protein Albumin 2.9 L Lipase TSH Urine Color Urine Appearance Urine pH Ur Specific [place] Urine Protein Urine Glucose (UA) Urine Ketones Urine Blood Urine Nitrite Ur Leukocyte Esterase Urine RBC Urine WBC Ur Squamous Epith Cells Urine Bacteria Hyaline Casts Salicylates Acetaminophen Ethyl Alcohol COVID-19 (JOE) COVID-19 Clin Com Blood Type Antibody Screen Imaging Radiologist's Impressions: Impressions Chest X-Ray 04/16/23 21:12 IMPRESSION: Large volume of abdominal ascites is seen better delineated on the CT scan the abdomen and pelvis immediately following. Abdomen/Pelvis CT 04/16/23 21:22 IMPRESSION: Large volume of free intraperitoneal air and free fluid. There is soft tissue gas in the region of the stomach and lesser sac suggesting possible gastric source of this free air. There is scattered colonic diverticulosis but no obvious diverticulitis or focal colonic wall thickening. Clinical correlation will be needed with this large volume of free intraperitoneal air. The inferior vena cava is slitlike suggesting hypovolemia. This critical result was discussed with Dr. Vasques at 04/16/2023 9:40 PM and it was ascertained that the content and urgency of the report was understood at the time of direct communication. Chest X-Ray 04/17/23 02:49 IMPRESSION: 1. Right IJ central line tip lies in the region of the right brachiocephalic vein. 2. Dense opacification of the right upper lung along with volume loss suggesting right upper lobe collapse. Hazy opacity of the mid to lower right lung. Assessment and Plan (1) Morbid (severe) obesity due to excess calories: Status: Acute (2) Peritoneal free air: Status: Acute (3) Bowel perforation: Status: Acute Plan ASSESSMENT: 57-year-old female past medical history of obesity and cholecystectomy presented to the ER with altered mental status, found to have a perforated bowel requiring exploratory laparotomy and over-sew of gastric ulcer.? Neuro: No acute issues. Cardiac: Hypotensive, Tachycardic. Lactic acid 7.1.? Repeat lactic 3.4. Possible sepsis secondary to perforated bowel.? Continue pressors.? Continue antibiotics. Pulmonary: ? Postop CXR showed ?possible aspiration. ? Monitor O2 sat/? FiO2 requirement.? Continue antibiotics. Renal: ? No acute issues.Continue to monitor renal induces and urine output.? Endo:? acute issues. GI: S/p Exploratory laparotomy and over-sew of gastric ulcer, posterior lesser curvature. ? NG tube in place. ? Large MARTY drain between omentum and the repair, MARTY right lower quadrant.? Postop antibiotics ordered.? ID: Septic shock likely from? perforated bowel.? Fluid resuscitated in ER and OR. ? Received Zosyn in the ER.? Ceftriaxone, metronidazole ordered postop. ? Urine, blood and peritoneal fluid cultures pending. Heme/Onc: ?No acute issues. Psych:? Substance abuse. Pos for ETOH, opiates, fentanyl, cocaine. Monitor for withdrawal. Prophylaxis:? Lovenox/ pneumatic hoses Diet:? NPO? Time Spent With Patient Time: Total time managing care of this patient today ____ minutes.
[2023-04-17] MEDS: metroNIDAZOLE/NS 500 MG/100 ML PIGGYBACK 100 MG IV ×2 (04:19→11:00)
[2023-04-17 04:28] LABS: Amphetamine Screen Urine Not Detected (Not Detect); Barbiturates, Urine Not Detected (Not Detect); Benzodiazepines Screen Urine Not Detected (Not Detect); Cannabinoid Screen Urine Not Detected (Not Detect); Cocaine Screen Urine POSITIVE (Not Detect); Fentanyl, urine POSITIVE (Not Detect); Opiate Screen Urine POSITIVE (Not Detect); Phencyclidine Screen Urine Not Detected (Not Detect)
[2023-04-17] MEDS: cefTRIAXone sodium 1 GM in 0.9 % Sodium Chloride 50 ML IV (04:54)
[2023-04-17 05:07] LABS: Reflex Lactate? 2 Y
[2023-04-17 05:20] LABS: Estimated Average Glucose 111 mg/dL; Hemoglobin A1C 129.6964 umol/L; Hemoglobin A1c % 5.5 %
[2023-04-17] MEDS: propofoL 1,000 MG/100 ML VIAL 23.3 MG IVCONT ×4 (05:36→17:12)
[2023-04-17] MEDS: Pantoprazole Sodium 40 MG/10 ML VIAL IVPUSH ×2 (05:37→16:08)
[2023-04-17 06:02] LABS: VBG Base Excess -1.4 mmol/L; VBG HCO3 25 mmol/L (22-26); VBG pCO2 49 mmHg; VBG pH 7.31 (7.32-7.43); VBG pO2 41 mmHg
[2023-04-17 06:03] LABS: Venous Blood Gas Refer to POC result
--- NOTE | 2023-04-17 06:32 | PC.NURSE ---
PT TO ICU AT 0215 S/P REPIAR OF PERFORATED GASTRIC ULCER. PT INTUBATED ON VENTILATOR ON ARRIVA. NO SEDATION RUNNING BUT PROPOFOL AND VERSED DRIPS HUNG ORDERED BY Dandy [facility] RENEWALS SPECIALIST WHO WAS AT BEDSIDE WHEN PT ARRIVED. VERSED LATER CHANGED TO FENTANYL DRIP. GOOD SEDATION EFFECT ON PROPOFOL 40 MCG/KG/HR AND TREHCPLV56 MG/HR. NO RESP DISTRESS AND VENT CHANGES MADE THROUGHOUT THE NIGHT ACCORDING TO ORDERS. LABS DRAWN ON ARRIVAL AND THEN AT 0530 AND REVIEWED BY RENEWALS SPECIALIST. BP LOW ON ARRIVAL 79/42 AND PT WAS STARTED ON LEVOPHED. DOSE TITRATED UP TO 0.5MG/KG/MIN. LR AT 150 ML/HR. ONE BOTTLE OF ALBUMIN GIVEN. PT RECEIVED FLAGYL IV AND CEFTRIAXONE IV. LARGE ABD DSG IS INTACT WITH SMALL AMOUNT OF STAINING MARKED. TWO BULB DRAINS IN PLACE, GASTRIC(UPPER ABD) AND PELVIC (LOWER ABD) WITH OUTPUT SINCE ARRIVAL 60 ML AND 35 ML RESPECTIVELY. URINE OUTPUT IS GOOD 600ML ON ARRIVAL AND 50-75 ML/HR SINCE. MONITOR SHOWS SINUS TACH 110'S-120'S. TEMP UP TO 101.8 CORE, PROVIDER AWARE.
[2023-04-17 06:34] LABS: ~Lactic Acid-LAB USE ONLY 3.8 mmol/L (0.5-2.0)
[2023-04-17] MEDS: Norepinephrine Bitartrate/D5W 8 MG/250 ML PLAST..BAG 91 MG IV ×2 (07:03→09:41)
--- NOTE | 2023-04-17 07:48 | P.PNGS_ITS ---
Subjective Subjective Date of Service: 04/17/23 Interval history: The patient is intubated, sedated and stable in discussion with nursing staff. Physical Exam Vital Signs: Vital Signs: Last Vital Signs Temp 102.2 F H 04/17/23 07:00 Pulse 124 H 04/17/23 07:03 Resp 22 H 04/17/23 07:00 BP 122/77 04/17/23 07:03 Pulse Ox 98 04/17/23 07:00 O2 Del Method Mechanical Ventil ation 04/17/23 07:00 O2 Flow Rate 98 04/17/23 03:30 FiO2 60 04/17/23 07:00 BMI result Body Mass Index 40.6 On exam, the patient is intubated Orogastric tube is in place Patient is sedated Drains have the red wine/serosanguineous discharge noted a few hours ago in the operating room Objective Data Active Medications Enoxaparin Sodium (Enoxaparin Sodium 40 Mg/0.4 Ml Syringe) 40 mg SUBCUT Q24H [facility] Last Admin: 04/17/23 03:13 Dose: Not Given Documented By: YOLANDE Non-Admin Reason: start with next dose per provider Propofol (Diprivan) 1,000 mg in 100 mls @ 0 mls/hr IVCONT .Q0M [facility]; Protocol Last Admin: 04/17/23 05:36 Dose: 40 mcg/kg/min, 23.3 mls/hr Documented By: YOLANDE Midazolam HCl (Versed) 50 mg in 50 mls @ 2 mls/hr IVCONT .Q24H [facility] Last Infusion: 04/17/23 03:13 Dose: 0 mg/hr, 0 mls/hr Documented By: YOLANDE Norepinephrine Bitartrate (Levophed) 8 mg in 250 mls @ 0 mls/hr IV .Q0M MOO; Protocol Last Admin: 04/17/23 07:03 Dose: 0.5 mcg/kg/min, 91 mls/hr Documented By: YOLANDE Lactated Ringer's (Lr) 1,000 mls @ 150 mls/hr IVCONT .Q6H40M [facility] Last Admin: 04/17/23 03:48 Dose: 150 mls/hr Documented By: YOLANDE Fentanyl (Sublimaze/Ns) 1,000 mcg in 100 mls @ 0 mls/hr IVCONT .Q0M [facility]; Protocol Last Titration: 04/17/23 03:32 Dose: 50 mcg/hr, 5 mls/hr Documented By: YOLANDE Metronidazole (Flagyl) 500 mg in 100 mls @ 100 mls/hr IV Q8H [facility] Last Infusion: 04/17/23 05:32 Dose: 0 mls/hr Documented By: YOLANDE Ceftriaxone Sodium 1 gm/ (Sodium Chloride) 50 mls @ 100 mls/hr IV Q24H [facility] Last Infusion: 04/17/23 05:32 Dose: 0 mls/hr Documented By: YOLANDE Naloxone HCl (Naloxone Hcl 0.4 Mg/Ml Vial) 0.2 mg IVPUSH Q2M PRN PRN Reason: Excessive sedation or RR < 8 Pantoprazole Sodium (Pantoprazole Sodium 40 Mg/10 Ml Vial) 40 mg IVPUSH BID@0630,1630 [facility] Last Admin: 04/17/23 05:37 Dose: 40 mg Documented By: YOLANDE Labs 04/17/23 02:55 04/17/23 02:55 Labs: Laboratory Results - last 24 hr 04/16/23 04/16/23 04/16/23 02:55 20:32 21:30 MCV 97.2 MCH 31.2 MCHC 32.1 RDW 13.5 Plt Count 237 MPV 10.9 Immature Gran % (Auto) 0.6 H Neut % (Auto) 69.5 Lymph % (Auto) 25.2 [place] % (Auto) 3.6 Eos % (Auto) 0.9 Baso % (Auto) 0.2 Lymph # (Auto) 4.0 [place] # (Auto) 0.6 Eos # (Auto) 0.1 Baso # (Auto) 0.0 Abs Immat Gran (auto) 0.09 H Absolute Neuts (auto) 10.9 H Absolute Nucleated RBC 0.000 Nucleated RBC % (auto) 0.0 PT INR APTT VBG pH VBG pCO2 VBG pO2 VBG HCO3 VBG O2 Saturation VBG Base Excess Anion Gap Estim Creat Clear Calc Estimated GFR POC Glucose 185 H Random Glucose Estimat Average Glucose Hemoglobin A1c % Lactic Acid Lactic Acid F/U @ 2Hr 3.4 H* Lactic Acid F/U @ 4Hr Calcium Phosphorus Magnesium Total Bilirubin Direct Bilirubin AST ALT Alkaline Phosphatase Total Creatine Kinase Troponin I High Sens Total Protein Albumin Lipase TSH Urine Color Urine Appearance Urine pH Ur Specific Kenneth Urine Protein Urine Glucose (UA) Urine Ketones Urine Blood Urine Nitrite Ur Leukocyte Esterase Urine RBC Urine WBC Ur Squamous Epith Cells Urine Bacteria Hyaline Casts Salicylates Urine Opiates Screen Urine Fentanyl Screen Acetaminophen Ur Barbiturates Screen Ur Phencyclidine Scrn Ur Amphetamines Screen U Benzodiazepines Scrn Urine Cocaine Screen U Marijuana (THC) Screen Ethyl Alcohol COVID-19 ([facility]) COVID-19 Clin Com Blood Type Antibody Screen 04/16/23 04/16/23 04/16/23 21:31 21:31 21:31 MCV MCH MCHC RDW Plt Count MPV Immature Gran % (Auto) Neut % (Auto) Lymph % (Auto) [place] % (Auto) Eos % (Auto) Baso % (Auto) Lymph # (Auto) [place] # (Auto) Eos # (Auto) Baso # (Auto) Abs Immat Gran (auto) Absolute Neuts (auto) Absolute Nucleated RBC Nucleated RBC % (auto) PT INR APTT VBG pH VBG pCO2 VBG pO2 VBG HCO3 VBG O2 Saturation VBG Base Excess Anion Gap 23 H Estim Creat Clear Calc 31.1 Estimated GFR 23 POC Glucose Random Glucose 298 H Estimat Average Glucose Hemoglobin A1c % Lactic Acid 7.1 H* Lactic Acid F/U @ 2Hr Lactic Acid F/U @ 4Hr Calcium 9.3 Phosphorus Magnesium 2.5 Total Bilirubin 0.2 Direct Bilirubin < 0.2 AST 34 H ALT 24 Alkaline Phosphatase 122 H Total Creatine Kinase 239 H Troponin I High Sens < 2.7 Total Protein 7.8 Albumin 4.2 Lipase 47 TSH 3.91 Urine Color Urine Appearance Urine pH Ur Specific Kenneth Urine Protein Urine Glucose (UA) Urine Ketones Urine Blood Urine Nitrite Ur Leukocyte Esterase Urine RBC Urine WBC Ur Squamous Epith Cells Urine Bacteria Hyaline Casts Salicylates < 5.0 L Urine Opiates Screen Urine Fentanyl Screen Acetaminophen < 17 Ur Barbiturates Screen Ur Phencyclidine Scrn Ur Amphetamines Screen U Benzodiazepines Scrn Urine Cocaine Screen U Marijuana (THC) Screen Ethyl Alcohol 126 COVID-19 ([facility]E) COVID-19 Clin Com Blood Type Antibody Screen 04/16/23 04/16/23 04/16/23 21:31 22:14 22:14 MCV MCH MCHC RDW Plt Count MPV Immature Gran % (Auto) Neut % (Auto) Lymph % (Auto) [place] % (Auto) Eos % (Auto) Baso % (Auto) Lymph # (Auto) [place] # (Auto) Eos # (Auto) Baso # (Auto) Abs Immat Gran (auto) Absolute Neuts (auto) Absolute Nucleated RBC Nucleated RBC % (auto) PT 11.7 INR 1.0 APTT 27.8 VBG pH VBG pCO2 VBG pO2 VBG HCO3 VBG O2 Saturation VBG Base Excess Anion Gap Estim Creat Clear Calc Estimated GFR POC Glucose Random Glucose Estimat Average Glucose Hemoglobin A1c % Lactic Acid Lactic Acid F/U @ 2Hr Lactic Acid F/U @ 4Hr Calcium Phosphorus Magnesium Total Bilirubin Direct Bilirubin AST ALT Alkaline Phosphatase Total Creatine Kinase Troponin I High Sens Total Protein Albumin Lipase TSH Urine Color Urine Appearance Urine pH Ur Specific Kenneth Urine Protein Urine Glucose (UA) Urine Ketones Urine Blood Urine Nitrite Ur Leukocyte Esterase Urine RBC Urine WBC Ur Squamous Epith Cells Urine Bacteria Hyaline Casts Salicylates Urine Opiates Screen Urine Fentanyl Screen Acetaminophen Ur Barbiturates Screen Ur Phencyclidine Scrn Ur Amphetamines Screen U Benzodiazepines Scrn Urine Cocaine Screen U Marijuana (THC) Screen Ethyl Alcohol COVID-19 ([facility]E) Negative COVID-19 Clin Com See Note Blood Type O Positive Antibody Screen NEGATIVE 04/16/23 04/16/23 04/16/23 22:17 22:17 22:19 MCV MCH MCHC RDW Plt Count MPV Immature Gran % (Auto) Neut % (Auto) Lymph % (Auto) [place] % (Auto) Eos % (Auto) Baso % (Auto) Lymph # (Auto) [place] # (Auto) Eos # (Auto) Baso # (Auto) Abs Immat Gran (auto) Absolute Neuts (auto) Absolute Nucleated RBC Nucleated RBC % (auto) PT INR APTT VBG pH VBG pCO2 VBG pO2 VBG HCO3 VBG O2 Saturation VBG Base Excess Anion Gap Estim Creat Clear Calc Estimated GFR POC Glucose 213 H Random Glucose Estimat Average Glucose Hemoglobin A1c % Lactic Acid Lactic Acid F/U @ 2Hr Lactic Acid F/U @ 4Hr Calcium Phosphorus Magnesium Total Bilirubin Direct Bilirubin AST ALT Alkaline Phosphatase Total Creatine Kinase Troponin I High Sens Total Protein Albumin Lipase TSH Urine Color Yellow Urine Appearance Turbid Urine pH 5.5 Ur Specific Kenneth 1.025 Urine Protein 100 (2+) H Urine Glucose (UA) Negative Urine Ketones Negative Urine Blood Moderate (2+) H Urine Nitrite Negative Ur Leukocyte Esterase Moderate (2+) H Urine RBC 3-5 H Urine WBC 21-50 H Ur Squamous Epith Cells 0-2 Urine Bacteria Trace Hyaline Casts 0-2 Salicylates Urine Opiates Screen POSITIVE H Urine Fentanyl Screen POSITIVE H Acetaminophen Ur Barbiturates Screen Not Detected Ur Phencyclidine Scrn Not Detected Ur Amphetamines Screen Not Detected U Benzodiazepines Scrn Not Detected Urine Cocaine Screen POSITIVE H U Marijuana (THC) Screen Not Detected Ethyl Alcohol COVID-19 ([facility]E) COVID-19 Clin Com Blood Type Antibody Screen 04/17/23 04/17/23 04/17/23 02:55 02:55 02:55 MCV 96.4 MCH 31.2 MCHC 32.3 RDW 13.9 Plt Count 188 MPV 10.6 Immature Gran % (Auto) 0.3 Neut % (Auto) 69.3 Lymph % (Auto) 27.0 [place] % (Auto) 3.1 Eos % (Auto) 0.0 Baso % (Auto) 0.3 Lymph # (Auto) 0.8 L [place] # (Auto) 0.1 Eos # (Auto) 0.0 Baso # (Auto) 0.0 Abs Immat Gran (auto) 0.01 Absolute Neuts (auto) 2.0 Absolute Nucleated RBC 0.000 Nucleated RBC % (auto) 0.0 PT 13.7 H INR 1.2 H APTT VBG pH VBG pCO2 VBG pO2 VBG HCO3 VBG O2 Saturation VBG Base Excess Anion Gap Estim Creat Clear Calc Estimated GFR POC Glucose Random Glucose Estimat Average Glucose 111 Hemoglobin A1c % 5.5 Lactic Acid Lactic Acid F/U @ 2Hr Lactic Acid F/U @ 4Hr Calcium Phosphorus Magnesium Total Bilirubin Direct Bilirubin AST ALT Alkaline Phosphatase Total Creatine Kinase Troponin I High Sens Total Protein Albumin Lipase TSH Urine Color Urine Appearance Urine pH Ur Specific Kenneth Urine Protein Urine Glucose (UA) Urine Ketones Urine Blood Urine Nitrite Ur Leukocyte Esterase Urine RBC Urine WBC Ur Squamous Epith Cells Urine Bacteria Hyaline Casts Salicylates Urine Opiates Screen Urine Fentanyl Screen Acetaminophen Ur Barbiturates Screen Ur Phencyclidine Scrn Ur Amphetamines Screen U Benzodiazepines Scrn Urine Cocaine Screen U Marijuana (THC) Screen Ethyl Alcohol COVID-19 ([facility]E) COVID-19 Clin Com Blood Type Antibody Screen 04/17/23 04/17/23 04/17/23 02:55 02:55 05:53 MCV MCH MCHC RDW Plt Count MPV Immature Gran % (Auto) Neut % (Auto) Lymph % (Auto) [place] % (Auto) Eos % (Auto) Baso % (Auto) Lymph # (Auto) [place] # (Auto) Eos # (Auto) Baso # (Auto) Abs Immat Gran (auto) Absolute Neuts (auto) Absolute Nucleated RBC Nucleated RBC % (auto) PT INR APTT VBG pH 7.24 L 7.31 L VBG pCO2 58 49 VBG pO2 46 41 VBG HCO3 25 25 VBG O2 Saturation 76.0 71.0 VBG Base Excess -2.7 -1.4 Anion Gap 12 Estim Creat Clear Calc 41.4 Estimated GFR 32 POC Glucose Random Glucose 126 H Estimat Average Glucose Hemoglobin A1c % Lactic Acid Lactic Acid F/U @ 2Hr Lactic Acid F/U @ 4Hr Calcium 8.2 L D Phosphorus 2.5 L Magnesium 1.6 Total Bilirubin Direct Bilirubin AST ALT Alkaline Phosphatase Total Creatine Kinase Troponin I High Sens Total Protein Albumin 2.9 L Lipase TSH Urine Color Urine Appearance Urine pH Ur Specific Kenneth Urine Protein Urine Glucose (UA) Urine Ketones Urine Blood Urine Nitrite Ur Leukocyte Esterase Urine RBC Urine WBC Ur Squamous Epith Cells Urine Bacteria Hyaline Casts Salicylates Urine Opiates Screen Urine Fentanyl Screen Acetaminophen Ur Barbiturates Screen Ur Phencyclidine Scrn Ur Amphetamines Screen U Benzodiazepines Scrn Urine Cocaine Screen U Marijuana (THC) Screen Ethyl Alcohol COVID-19 ([facility]) COVID-19 Clin Com Blood Type Antibody Screen 04/17/23 05:55 MCV MCH MCHC RDW Plt Count MPV Immature Gran % (Auto) Neut % (Auto) Lymph % (Auto) [place] % (Auto) Eos % (Auto) Baso % (Auto) Lymph # (Auto) [place] # (Auto) Eos # (Auto) Baso # (Auto) Abs Immat Gran (auto) Absolute Neuts (auto) Absolute Nucleated RBC Nucleated RBC % (auto) PT INR APTT VBG pH VBG pCO2 VBG pO2 VBG HCO3 VBG O2 Saturation VBG Base Excess Anion Gap Estim Creat Clear Calc Estimated GFR POC Glucose Random Glucose Estimat Average Glucose Hemoglobin A1c % Lactic Acid Lactic Acid F/U @ 2Hr Lactic Acid F/U @ 4Hr 3.8 H* Calcium Phosphorus Magnesium Total Bilirubin Direct Bilirubin AST ALT Alkaline Phosphatase Total Creatine Kinase Troponin I High Sens Total Protein Albumin Lipase TSH Urine Color Urine Appearance Urine pH Ur Specific Kenneth Urine Protein Urine Glucose (UA) Urine Ketones Urine Blood Urine Nitrite Ur Leukocyte Esterase Urine RBC Urine WBC Ur Squamous Epith Cells Urine Bacteria Hyaline Casts Salicylates Urine Opiates Screen Urine Fentanyl Screen Acetaminophen Ur Barbiturates Screen Ur Phencyclidine Scrn Ur Amphetamines Screen U Benzodiazepines Scrn Urine Cocaine Screen U Marijuana (THC) Screen Ethyl Alcohol COVID-19 ([facility]) COVID-19 Clin Com Blood Type Antibody Screen Procedures Date of Service Date of Service: 04/17/23 Progress Note: A&P Assessment and plan (1) Gastric perforation: Status: Acute (2) Morbid (severe) obesity due to excess calories: Status: Acute (3) Hypercholesterolemia: Status: Acute (4) Peritoneal free air: Status: Acute Plan Continue bowel rest for now. Do not use OG tube for medications, do not reposition, do not use/start tube feeds. Continue broad-spectrum antibiotics, supportive measures Watch for alcohol and substance withdrawal. Trend labs Wean vent as per placing judge Time Spent With Patient Time: Total time managing care of this patient today ____ minutes. Quality Stroke Does the patient have a stroke diagnosis?: No VTE Prior VTE?: No VTE Risk Level:: Surgical - moderate VTE Device Contraindication: N/A - Device Ordered VTE Drug Contraindication: N/A - Med Ordered
--- NOTE | 2023-04-17 07:49 | P.PNGS_ITS ---
Subjective Subjective Date of Service: 04/17/23 Interval history: Remains intubated, sedated. Physical Exam Vital Signs: Vital Signs: Last Vital Signs Temp 102.2 F H 04/17/23 07:00 Pulse 124 H 04/17/23 07:03 Resp 22 H 04/17/23 07:00 BP 122/77 04/17/23 07:03 Pulse Ox 98 04/17/23 07:00 O2 Del Method Mechanical Ventil ation 04/17/23 07:00 O2 Flow Rate 98 04/17/23 03:30 FiO2 60 04/17/23 07:00 BMI result Body Mass Index 40.6 Const: Nutritional Appearance: obese HEENT: Other: OG in mouth, some bilious output in tubing Resp: Other: on vent GI: Other: RUQ MARTY with sanguineous drainage; pelvic MARTY with dark old blood drainage Inspection: No distended and Yes incision (dressing intact) Palpation (GI): Soft to palpation, Tenderness to palpation present (GI) (grimaces with palpation near incision), no guarding and not rigid Percussion: Yes normal to percussion Skin: General skin exam: no rashes or lesions noted Extrem: General: Yes pedal edema (nonpitting) Objective Data Active Medications Enoxaparin Sodium (Enoxaparin Sodium 40 Mg/0.4 Ml Syringe) 40 mg SUBCUT Q24H [facility] Last Admin: 04/17/23 03:13 Dose: Not Given Documented By: YOLANDE Non-Admin Reason: start with next dose per provider Propofol (Diprivan) 1,000 mg in 100 mls @ 0 mls/hr IVCONT .Q0M [facility]; Protocol Last Admin: 04/17/23 05:36 Dose: 40 mcg/kg/min, 23.3 mls/hr Documented By: YOLANDE Midazolam HCl (Versed) 50 mg in 50 mls @ 2 mls/hr IVCONT .Q24H [facility] Last Infusion: 04/17/23 03:13 Dose: 0 mg/hr, 0 mls/hr Documented By: YOLANDE Norepinephrine Bitartrate (Levophed) 8 mg in 250 mls @ 0 mls/hr IV .Q0M [facility]; Protocol Last Admin: 04/17/23 07:03 Dose: 0.5 mcg/kg/min, 91 mls/hr Documented By: YOLANDE Lactated Ringer's (Lr) 1,000 mls @ 150 mls/hr IVCONT .Q6H40M [facility] Last Admin: 04/17/23 03:48 Dose: 150 mls/hr Documented By: YOLANDE Fentanyl (Sublimaze/Ns) 1,000 mcg in 100 mls @ 0 mls/hr IVCONT .Q0M [facility]; Protocol Last Titration: 04/17/23 03:32 Dose: 50 mcg/hr, 5 mls/hr Documented By: YOLANDE Metronidazole (Flagyl) 500 mg in 100 mls @ 100 mls/hr IV Q8H [facility] Last Infusion: 04/17/23 05:32 Dose: 0 mls/hr Documented By: YOLANDE Ceftriaxone Sodium 1 gm/ (Sodium Chloride) 50 mls @ 100 mls/hr IV Q24H [facility] Last Infusion: 04/17/23 05:32 Dose: 0 mls/hr Documented By: YOLANDE Naloxone HCl (Naloxone Hcl 0.4 Mg/Ml Vial) 0.2 mg IVPUSH Q2M PRN PRN Reason: Excessive sedation or RR < 8 Pantoprazole Sodium (Pantoprazole Sodium 40 Mg/10 Ml Vial) 40 mg IVPUSH BID@0630,1630 [facility] Last Admin: 04/17/23 05:37 Dose: 40 mg Documented By: YOLANDE Labs 04/17/23 02:55 04/17/23 02:55 Labs: Laboratory Results - last 24 hr 04/16/23 04/16/23 04/16/23 02:55 20:32 21:30 MCV 97.2 MCH 31.2 MCHC 32.1 RDW 13.5 Plt Count 237 MPV 10.9 Immature Gran % (Auto) 0.6 H Neut % (Auto) 69.5 Lymph % (Auto) 25.2 [place] % (Auto) 3.6 Eos % (Auto) 0.9 Baso % (Auto) 0.2 Lymph # (Auto) 4.0 [place] # (Auto) 0.6 Eos # (Auto) 0.1 Baso # (Auto) 0.0 Abs Immat Gran (auto) 0.09 H Absolute Neuts (auto) 10.9 H Absolute Nucleated RBC 0.000 Nucleated RBC % (auto) 0.0 PT INR APTT VBG pH VBG pCO2 VBG pO2 VBG HCO3 VBG O2 Saturation VBG Base Excess Anion Gap Estim Creat Clear Calc Estimated GFR POC Glucose 185 H Random Glucose Estimat Average Glucose Hemoglobin A1c % Lactic Acid Lactic Acid F/U @ 2Hr 3.4 H* Lactic Acid F/U @ 4Hr Calcium Phosphorus Magnesium Total Bilirubin Direct Bilirubin AST ALT Alkaline Phosphatase Total Creatine Kinase Troponin I High Sens Total Protein Albumin Lipase TSH Urine Color Urine Appearance Urine pH Ur Specific [place] Urine Protein Urine Glucose (UA) Urine Ketones Urine Blood Urine Nitrite Ur Leukocyte Esterase Urine RBC Urine WBC Ur Squamous Epith Cells Urine Bacteria Hyaline Casts Salicylates Urine Opiates Screen Urine Fentanyl Screen Acetaminophen Ur Barbiturates Screen Ur Phencyclidine Scrn Ur Amphetamines Screen U Benzodiazepines Scrn Urine Cocaine Screen U Marijuana (THC) Screen Ethyl Alcohol COVID-19 (JOE) COVID-19 Clin Com Blood Type Antibody Screen 04/16/23 04/16/23 04/16/23 21:31 21:31 21:31 MCV MCH MCHC RDW Plt Count MPV Immature Gran % (Auto) Neut % (Auto) Lymph % (Auto) [place] % (Auto) Eos % (Auto) Baso % (Auto) Lymph # (Auto) [place] # (Auto) Eos # (Auto) Baso # (Auto) Abs Immat Gran (auto) Absolute Neuts (auto) Absolute Nucleated RBC Nucleated RBC % (auto) PT INR APTT VBG pH VBG pCO2 VBG pO2 VBG HCO3 VBG O2 Saturation VBG Base Excess Anion Gap 23 H Estim Creat Clear Calc 31.1 Estimated GFR 23 POC Glucose Random Glucose 298 H Estimat Average Glucose Hemoglobin A1c % Lactic Acid 7.1 H* Lactic Acid F/U @ 2Hr Lactic Acid F/U @ 4Hr Calcium 9.3 Phosphorus Magnesium 2.5 Total Bilirubin 0.2 Direct Bilirubin < 0.2 AST 34 H ALT 24 Alkaline Phosphatase 122 H Total Creatine Kinase 239 H Troponin I High Sens < 2.7 Total Protein 7.8 Albumin 4.2 Lipase 47 TSH 3.91 Urine Color Urine Appearance Urine pH Ur Specific [place] Urine Protein Urine Glucose (UA) Urine Ketones Urine Blood Urine Nitrite Ur Leukocyte Esterase Urine RBC Urine WBC Ur Squamous Epith Cells Urine Bacteria Hyaline Casts Salicylates < 5.0 L Urine Opiates Screen Urine Fentanyl Screen Acetaminophen < 17 Ur Barbiturates Screen Ur Phencyclidine Scrn Ur Amphetamines Screen U Benzodiazepines Scrn Urine Cocaine Screen U Marijuana (THC) Screen Ethyl Alcohol 126 COVID-19 (JOE) COVID-19 Clin Com Blood Type Antibody Screen 04/16/23 04/16/23 04/16/23 21:31 22:14 22:14 MCV MCH MCHC RDW Plt Count MPV Immature Gran % (Auto) Neut % (Auto) Lymph % (Auto) [place] % (Auto) Eos % (Auto) Baso % (Auto) Lymph # (Auto) [place] # (Auto) Eos # (Auto) Baso # (Auto) Abs Immat Gran (auto) Absolute Neuts (auto) Absolute Nucleated RBC Nucleated RBC % (auto) PT 11.7 INR 1.0 APTT 27.8 VBG pH VBG pCO2 VBG pO2 VBG HCO3 VBG O2 Saturation VBG Base Excess Anion Gap Estim Creat Clear Calc Estimated GFR POC Glucose Random Glucose Estimat Average Glucose Hemoglobin A1c % Lactic Acid Lactic Acid F/U @ 2Hr Lactic Acid F/U @ 4Hr Calcium Phosphorus Magnesium Total Bilirubin Direct Bilirubin AST ALT Alkaline Phosphatase Total Creatine Kinase Troponin I High Sens Total Protein Albumin Lipase TSH Urine Color Urine Appearance Urine pH Ur Specific [place] Urine Protein Urine Glucose (UA) Urine Ketones Urine Blood Urine Nitrite Ur Leukocyte Esterase Urine RBC Urine WBC Ur Squamous Epith Cells Urine Bacteria Hyaline Casts Salicylates Urine Opiates Screen Urine Fentanyl Screen Acetaminophen Ur Barbiturates Screen Ur Phencyclidine Scrn Ur Amphetamines Screen U Benzodiazepines Scrn Urine Cocaine Screen U Marijuana (THC) Screen Ethyl Alcohol COVID-19 (JOE) Negative COVID-19 Clin Com See Note Blood Type O Positive Antibody Screen NEGATIVE 04/16/23 04/16/23 04/16/23 22:17 22:17 22:19 MCV MCH MCHC RDW Plt Count MPV Immature Gran % (Auto) Neut % (Auto) Lymph % (Auto) [place] % (Auto) Eos % (Auto) Baso % (Auto) Lymph # (Auto) [place] # (Auto) Eos # (Auto) Baso # (Auto) Abs Immat Gran (auto) Absolute Neuts (auto) Absolute Nucleated RBC Nucleated RBC % (auto) PT INR APTT VBG pH VBG pCO2 VBG pO2 VBG HCO3 VBG O2 Saturation VBG Base Excess Anion Gap Estim Creat Clear Calc Estimated GFR POC Glucose 213 H Random Glucose Estimat Average Glucose Hemoglobin A1c % Lactic Acid Lactic Acid F/U @ 2Hr Lactic Acid F/U @ 4Hr Calcium Phosphorus Magnesium Total Bilirubin Direct Bilirubin AST ALT Alkaline Phosphatase Total Creatine Kinase Troponin I High Sens Total Protein Albumin Lipase TSH Urine Color Yellow Urine Appearance Turbid Urine pH 5.5 Ur Specific [place] 1.025 Urine Protein 100 (2+) H Urine Glucose (UA) Negative Urine Ketones Negative Urine Blood Moderate (2+) H Urine Nitrite Negative Ur Leukocyte Esterase Moderate (2+) H Urine RBC 3-5 H Urine WBC 21-50 H Ur Squamous Epith Cells 0-2 Urine Bacteria Trace Hyaline Casts 0-2 Salicylates Urine Opiates Screen POSITIVE H Urine Fentanyl Screen POSITIVE H Acetaminophen Ur Barbiturates Screen Not Detected Ur Phencyclidine Scrn Not Detected Ur Amphetamines Screen Not Detected U Benzodiazepines Scrn Not Detected Urine Cocaine Screen POSITIVE H U Marijuana (THC) Screen Not Detected Ethyl Alcohol COVID-19 (JOE) COVID-19 Clin Com Blood Type Antibody Screen 04/17/23 04/17/23 04/17/23 02:55 02:55 02:55 MCV 96.4 MCH 31.2 MCHC 32.3 RDW 13.9 Plt Count 188 MPV 10.6 Immature Gran % (Auto) 0.3 Neut % (Auto) 69.3 Lymph % (Auto) 27.0 [place] % (Auto) 3.1 Eos % (Auto) 0.0 Baso % (Auto) 0.3 Lymph # (Auto) 0.8 L [place] # (Auto) 0.1 Eos # (Auto) 0.0 Baso # (Auto) 0.0 Abs Immat Gran (auto) 0.01 Absolute Neuts (auto) 2.0 Absolute Nucleated RBC 0.000 Nucleated RBC % (auto) 0.0 PT 13.7 H INR 1.2 H APTT VBG pH VBG pCO2 VBG pO2 VBG HCO3 VBG O2 Saturation VBG Base Excess Anion Gap Estim Creat Clear Calc Estimated GFR POC Glucose Random Glucose Estimat Average Glucose 111 Hemoglobin A1c % 5.5 Lactic Acid Lactic Acid F/U @ 2Hr Lactic Acid F/U @ 4Hr Calcium Phosphorus Magnesium Total Bilirubin Direct Bilirubin AST ALT Alkaline Phosphatase Total Creatine Kinase Troponin I High Sens Total Protein Albumin Lipase TSH Urine Color Urine Appearance Urine pH Ur Specific [place] Urine Protein Urine Glucose (UA) Urine Ketones Urine Blood Urine Nitrite Ur Leukocyte Esterase Urine RBC Urine WBC Ur Squamous Epith Cells Urine Bacteria Hyaline Casts Salicylates Urine Opiates Screen Urine Fentanyl Screen Acetaminophen Ur Barbiturates Screen Ur Phencyclidine Scrn Ur Amphetamines Screen U Benzodiazepines Scrn Urine Cocaine Screen U Marijuana (THC) Screen Ethyl Alcohol COVID-19 (JOE) COVID-19 [employer] Blood Type Antibody Screen 04/17/23 04/17/23 04/17/23 02:55 02:55 05:53 MCV MCH MCHC RDW Plt Count MPV Immature Gran % (Auto) Neut % (Auto) Lymph % (Auto) [place] % (Auto) Eos % (Auto) Baso % (Auto) Lymph # (Auto) [place] # (Auto) Eos # (Auto) Baso # (Auto) Abs Immat Gran (auto) Absolute Neuts (auto) Absolute Nucleated RBC Nucleated RBC % (auto) PT INR APTT VBG pH 7.24 L 7.31 L VBG pCO2 58 49 VBG pO2 46 41 VBG HCO3 25 25 VBG O2 Saturation 76.0 71.0 VBG Base Excess -2.7 -1.4 Anion Gap 12 Estim Creat Clear Calc 41.4 Estimated GFR 32 POC Glucose Random Glucose 126 H Estimat Average Glucose Hemoglobin A1c % Lactic Acid Lactic Acid F/U @ 2Hr Lactic Acid F/U @ 4Hr Calcium 8.2 L D Phosphorus 2.5 L Magnesium 1.6 Total Bilirubin Direct Bilirubin AST ALT Alkaline Phosphatase Total Creatine Kinase Troponin I High Sens Total Protein Albumin 2.9 L Lipase TSH Urine Color Urine Appearance Urine pH Ur Specific [place] Urine Protein Urine Glucose (UA) Urine Ketones Urine Blood Urine Nitrite Ur Leukocyte Esterase Urine RBC Urine WBC Ur Squamous Epith Cells Urine Bacteria Hyaline Casts Salicylates Urine Opiates Screen Urine Fentanyl Screen Acetaminophen Ur Barbiturates Screen Ur Phencyclidine Scrn Ur Amphetamines Screen U Benzodiazepines Scrn Urine Cocaine Screen U Marijuana (THC) Screen Ethyl Alcohol COVID-19 (JOE) COVID-19 [employer] Com Blood Type Antibody Screen 04/17/23 05:55 MCV MCH MCHC RDW Plt Count MPV Immature Gran % (Auto) Neut % (Auto) Lymph % (Auto) [place] % (Auto) Eos % (Auto) Baso % (Auto) Lymph # (Auto) [place] # (Auto) Eos # (Auto) Baso # (Auto) Abs Immat Gran (auto) Absolute Neuts (auto) Absolute Nucleated RBC Nucleated RBC % (auto) PT INR APTT VBG pH VBG pCO2 VBG pO2 VBG HCO3 VBG O2 Saturation VBG Base Excess Anion Gap Estim Creat Clear Calc Estimated GFR POC Glucose Random Glucose Estimat Average Glucose Hemoglobin A1c % Lactic Acid Lactic Acid F/U @ 2Hr Lactic Acid F/U @ 4Hr 3.8 H* Calcium Phosphorus Magnesium Total Bilirubin Direct Bilirubin AST ALT Alkaline Phosphatase Total Creatine Kinase Troponin I High Sens Total Protein Albumin Lipase TSH Urine Color Urine Appearance Urine pH Ur Specific [place] Urine Protein Urine Glucose (UA) Urine Ketones Urine Blood Urine Nitrite Ur Leukocyte Esterase Urine RBC Urine WBC Ur Squamous Epith Cells Urine Bacteria Hyaline Casts Salicylates Urine Opiates Screen Urine Fentanyl Screen Acetaminophen Ur Barbiturates Screen Ur Phencyclidine Scrn Ur Amphetamines Screen U Benzodiazepines Scrn Urine Cocaine Screen U Marijuana (THC) Screen Ethyl Alcohol COVID-19 (JOE) COVID-19 Clin Com Blood Type Antibody Screen Procedures Date of Service Date of Service: 04/17/23 Progress Note: A&P Assessment and plan (1) Gastric perforation: Status: Acute Plan 57 year old female admitted after being found unresponsive, had free air on work up. Now POD #1 s/p exploratory laparotomy and over-sew of gastric ulcer, posterior lesser curvature. Found to have subserosal hemorrhage/hematoma measuring approximately 8 cm by 5 cm on the lesser curvature up by the GE junction was present with a 2 cm perforation. Remains intubated and sedated on vent. Tachycardic, febrile. Abd is soft, no g uarding. Cont OGT. RUQ drain nonbilious, pelvic MARTY appears to be dark old blood. Keep in place for now. Cont IV abx, PPI, IVF, consider adding antifungal. Await gastric biospies and peritoneal culture. Withdrawal precautions. Remainder of care per ICU team. Time Spent With Patient Time: Total time managing care of this patient today ____ minutes. Quality Stroke Does the patient have a stroke diagnosis?: No VTE Prior VTE?: No VTE Risk Level:: Surgical - moderate VTE Device Contraindication: N/A - Device Ordered VTE Drug Contraindication: N/A - Med Ordered
[2023-04-17] MEDS: Potassium Phosphate/NS 15 MMOL/250 ML PLAST..BAG 62.5 MMOL IV ×2 (08:40→13:02)
--- NOTE | 2023-04-17 09:05 | PHA.MEDREC ---
Pharmacy Consult ? Medication Reconciliation Pharmacy has completed the medication reconciliation. Patient intubated, called her daughter Nadege ([phone]) who could only confirm clonazepam, tramadol, and zolpidem. Used claim history to complete med rec.
--- NOTE | 2023-04-17 09:54 | MHC.CM.PN ---
Pt presently intubated and unable to participate in CM assessment: Call placed to dtr Nadege/HCP who states she is pt's compensated MID WIFE and assists w/transportation, meal prep, appointments and housekeeping. Pt has no other services and does not use DME. Goal is for a return to home w/MID WIFE and new [facility] - referral made: HCP on file
[2023-04-17] MEDS: Metoprolol Tartrate 5 MG/5 ML VIAL IVPUSH (10:23)
[2023-04-17] MEDS: Amiodarone/Dextrose 150 MG/100 ML PLAST..BAG 600 MG IV (10:46)
[2023-04-17] MEDS: Chlorhexidine Gluc Oral Rinse 15 ML MOUTHWASH BUCCAL ×3 (10:49→20:18)
[2023-04-17] MEDS: Amiodarone HCL 900 MG in 0.9 % Sodium Chloride 500 ML 34.53 MG IVCONT (10:57)
[2023-04-17] MEDS: Norepinephrine Bitartrate/D5W 8 MG/250 ML PLAST..BAG 112.84 MG IV (12:09)
[2023-04-17 12:20] LABS: VBG Base Excess -5.5 mmol/L; VBG HCO3 21 mmol/L (22-26); VBG pCO2 45 mmHg; VBG pH 7.27 (7.32-7.43); VBG pO2 41 mmHg
[2023-04-17 12:24] LABS: Glucose, Whole Blood 121 mg/dL (60-115)
[2023-04-17 12:35] LABS: Hematocrit 36.9 % (37.0-47.0); Hemoglobin 11.9 g/dl (12.0-16.0); Mean Corpuscular HGB Conc 32.2 g/dl (31.0-35.0); Mean Corpuscular Hemoglobin 31.4 pg (27.0-33.0); Mean Corpuscular Volume 97.4 fL (80.0-98.0); Mean Platelet Volume 11.3 fL (9.4-12.3); Red Blood Count 3.79 X10*6/uL (4.20-5.50)
[2023-04-17 12:38] LABS: WBC ABN SCTR FOR CBC 1
[2023-04-17 13:06] LABS: Alanine Aminotransferase 35 U/L (0-31); Albumin Level 3.3 g/dL (3.5-5.0); Alkaline Phosphatase 51 U/L (39-117); Anion Gap 17 (12-20); Aspartate Amino Transferase 68 U/L (5-31); Bilirubin Total 0.4 mg/dL (0.0-1.0); Blood Urea Nitrogen 21 mg/dL (9-16); Calcium 7.8 mg/dL (8.4-10.2); Carbon Dioxide 19 mmol/L (22-29); Chloride 111 mmol/L (96-108); Creatinine Clr Calc Pharmacy 26.8; Estimated Glomerular Filt Rate 19; Glucose Random 171 mg/dL (60-115); Magnesium 1.3 mg/dL (1.6-2.6); Potassium 3.7 mmol/L (3.3-5.1); Sodium 143 mmol/L (135-145); Total Protein 5.3 g/dL (6.5-8.0)
[2023-04-17] MEDS: Magnesium Sulfate/H2O 2 GM/50 ML PIGGYBACK IV (13:39)
[2023-04-17 13:51] LABS: Band Neutrophils Percent 34 % (3-5); Lymphocytes Percent Manual 29 % (20-40); Monocytes Percent Manual 4 % (2-11); Neutrophils Percent Manual 33 % (45-73)
[2023-04-17 13:52] LABS: Platelet Estimate SLIGHTLY DECREASED (NORMAL); Platelet Morphology Comment NORMAL; RBC Morphology NORMAL
[2023-04-17 13:53] LABS: Lymphocytes Absolute Manual 1.3 X10*3/uL (1.2-4.9); Monocytes Absolute Manual 0.2 X10*3/uL (0.1-1.2); Neutrophils Absolute Manual 2.9 X10*3/uL (2.0-8.3); Platelet Count 135 X10*3/uL (160-400); White Blood Count 4.4 X10*3/uL (4.8-10.8)
[2023-04-17] MEDS: Norepinephrine Bitartrate/D5W 8 MG/250 ML PLAST..BAG 120.12 MG IV (14:14)
--- NOTE | 2023-04-17 14:21 | HO.POSTANES ---
Post Anesthesia Evaluation Post Anesthesia Evaluation Date of Service: 04/17/23 Vital Signs: Vital Signs Temp Pulse Resp BP Pulse Ox O2 Del Method O2 Flow Rate 04/17/23 14:17 97 71/38 L 04/17/23 14:14 99 83/38 L 04/17/23 14:14 99 83/38 L 04/17/23 13:39 105 H 83/47 L 04/17/23 13:34 104 H 77/41 L 04/17/23 12:00 101.2 F H 115 H 22 H 96/55 L 97 Mechanical Ventilation 04/17/23 12:09 115 H 89/65 L 04/17/23 12:09 115 H 89/65 L 04/17/23 11:40 04/17/23 11:30 110 H 103/40 L 04/17/23 11:28 04/17/23 11:25 118 H 108/40 L 04/17/23 11:20 103 H 95/46 L 04/17/23 11:15 122 H 71/30 L 04/17/23 11:07 107 H 92/38 L 04/17/23 11:02 125 H 76/45 L 04/17/23 10:43 125 H 77/50 L 04/17/23 09:47 130 H 134/64 04/17/23 09:41 130 H 134/64 04/17/23 09:41 130 H 134/64 04/17/23 09:40 130 H 04/17/23 08:00 04/17/23 08:01 04/17/23 14:00 99.7 F 97 18 97/45 L 96 Mechanical Ventilation 04/17/23 13:00 101.0 F H 109 H 22 H 100/68 97 Mechanical Ventilation 04/17/23 11:00 102.0 F H 117 H 14 92/38 L 94 Mechanical Ventilation 04/17/23 10:00 102.1 F H 151 H 25 H 120/42 L 94 Mechanical Ventilation 04/17/23 09:00 102.6 F H 129 H 28 H 101/72 96 Mechanical Ventilation 04/17/23 08:00 102.2 F H 127 H 26 H 112/64 96 Mechanical Ventilation 04/17/23 07:00 102.2 F H 127 H 22 H 115/70 98 Mechanical Ventilation 04/17/23 03:30 100.9 F H 120 H 17 110/73 98 Mechanical Ventilation 98 04/17/23 05:30 101.5 F H 118 H 21 H 83/44 L 98 Mechanical Ventilation 04/17/23 04:30 101.5 F H 116 H 18 106/54 L 99 Mechanical Ventilation 04/17/23 07:03 124 H 122/77 04/17/23 07:00 124 H 122/77 04/17/23 06:30 04/17/23 03:30 04/17/23 06:00 101.7 F H 124 H 25 H 101/51 L 99 Mechanical Ventilation 04/17/23 05:58 121 H 86/39 L 04/17/23 05:36 121 H 25 H 99 04/17/23 05:36 121 H 25 H 99 04/17/23 05:35 120 H 83/46 L 04/17/23 04:34 118 H 89/49 L 04/17/23 04:52 04/17/23 04:07 120 H 21 H 110/61 99 04/17/23 05:00 101.5 F H 118 H 22 H 82/46 L 99 Mechanical Ventilation 04/17/23 04:00 101.3 F H 119 H 17 110/61 96 Mechanical Ventilation 04/17/23 03:00 100.8 F H 124 H 21 H 139/73 100 Mechanical Ventilation 04/17/23 02:27 04/17/23 03:32 125 H 24 H 104/72 99 04/17/23 03:22 122 H 21 H 131/79 99 04/17/23 02:45 128 H 93/45 L 04/17/23 02:35 126 H 92/48 L 04/17/23 02:30 128 H 84/50 L 04/17/23 02:49 126 H 18 88/42 L 100 04/17/23 02:49 126 H 18 88/42 L 100 04/17/23 02:25 126 H 88/42 L 04/17/23 02:34 123 H 18 89/50 L FiO2 04/17/23 14:17 04/17/23 14:14 04/17/23 14:14 04/17/23 13:39 04/17/23 13:34 04/17/23 12:00 40 04/17/23 12:09 04/17/23 12:09 04/17/23 11:40 40 04/17/23 11:30 04/17/23 11:28 40 04/17/23 11:25 04/17/23 11:20 04/17/23 11:15 04/17/23 11:07 04/17/23 11:02 04/17/23 10:43 04/17/23 09:47 04/17/23 09:41 04/17/23 09:41 04/17/23 09:40 04/17/23 08:00 40 04/17/23 08:01 40 04/17/23 14:00 40 04/17/23 13:00 40 04/17/23 11:00 60 04/17/23 10:00 60 04/17/23 09:00 60 04/17/23 08:00 60 04/17/23 07:00 60 04/17/23 03:30 70 04/17/23 05:30 60 04/17/23 04:30 60 04/17/23 07:03 04/17/23 07:00 04/17/23 06:30 60 04/17/23 03:30 70 04/17/23 06:00 60 04/17/23 05:58 04/17/23 05:36 04/17/23 05:36 04/17/23 05:35 04/17/23 04:34 04/17/23 04:52 70 04/17/23 04:07 04/17/23 05:00 60 04/17/23 04:00 70 04/17/23 03:00 70 04/17/23 02:27 100 04/17/23 03:32 04/17/23 03:22 04/17/23 02:45 04/17/23 02:35 04/17/23 02:30 04/17/23 02:49 04/17/23 02:49 04/17/23 02:25 04/17/23 02:34 Anesthesia: General Endotracheal-GETA (intubated) Mental Status: Sedated Pain Control: Satisfactory Nausea/Vomiting: None Hydration: Adequate Anesthesia-Related Issues: No Anes. Related Issues
[2023-04-17] MEDS: EPINEPHrine 5 MG in Dextrose 5 % 250 ML 61.69 MG IVCONT ×3 (15:07→22:47)
[2023-04-17] MEDS: Sodium Bicarbonate 8.4% 150 MEQ in Dextrose 5 % 850 ML IV ×2 (15:14→21:19)
[2023-04-17] MEDS: Piperacillin Sodium/Tazobactam 3.375 GM in 0.9 % Sodium Chloride 50 ML IV ×2 (16:10→21:09)
[2023-04-17 17:00] LABS: Venous Blood Gas Refer to POC result
--- NOTE | 2023-04-17 17:05 | PC.NURSE ---
Assumed care at 0700. Patient sedated on propofol and fentanyl gtts and mechanically vented- tolerating AC settings 18/350/5/60%, Os sats sustaining >95%. Patient HR 120s-130s, MAPs sustaining >65 on levophed gtt titrated per EMAR. 0930-Patient core temp 102.6- patient bathed with cool cloths and cooling blanket applied to patient. Patient HR sustaining 150s-200s, rhythm converting in and out of atrial flutter. MD notified and at bedside. 5mg Lopressor IVP administered per MD. Patient HR continuing to sustain >150, MD aware, amiodarone gtt started per MD. HR sustaining 90s-120s after amiodarone gtt administration. Urine output decreasing 0-15 cc/hr- MD notified. 1200- Phlebotomy at bedside to draw labs- see results. 2g Mag sulfate IV administered per MD, bicarb gtt started per MD. 1400- Core temp 99.7, cooling blanket powered off but remains in place. 1430- MAPs sustaining <65 despite levophed titrations (see EMAR). MD notified- Epinephrine gtt ordered by MD. Inadequate IV access- peripheral IV x2 inserted- see IV insert/maintain documentation. Epinephrine gtt started at 1507. MAPs sustaining >65. Ventilator alarming, patient respiratory pattern irregular, RR 30s, fentanyl gtt titrated per EMAR- RR sustaining low 20s, respiratory pattern regular and unlabored. 1730- Patient HR 100s-110s sinus, MAPs sustatining >65, core temp 98.8, O2 sats >95% on AC 18/350/5/40%. Safety maintained throughout, Q2HR repositioning and oral care, prevalon system in place. Care ongoing.
[2023-04-17] MEDS: fentaNYL citrate/NS 1,000 MCG/100 ML PLAST..BAG 10 MCG IVCONT (17:13)
[2023-04-17 17:46] LABS: Glucose, Whole Blood 243 mg/dL (60-115)
[2023-04-17 18:22] LABS: Ammonia 27 umol/L (13-55)
[2023-04-17] MEDS: propofoL 1,000 MG/100 ML VIAL 29.12 MG IVCONT (21:07)
[2023-04-17] MEDS: Midazolam HCl/PF 2 MG/2 ML VIAL IVPUSH (21:24)
[2023-04-17 23:28] LABS: Glucose, Whole Blood 318 mg/dL (60-115)
[2023-04-18] VITALS (71 sets, daily range): BP systolic 67–188; BP diastolic 27–98; PULSE 110–142; RESP 15–96; TEMP 34.9–38.6; O2SAT 91–100; BMI 42.2
[2023-04-18] MEDS: propofoL 1,000 MG/100 ML VIAL 29.12 MG IVCONT ×5 (00:01→11:14)
[2023-04-18] MEDS: fentaNYL citrate/NS 1,000 MCG/100 ML PLAST..BAG 15 MCG IVCONT (00:27)
--- NOTE | 2023-04-18 00:56 | PC.NURSE ---
ASSUMED CARE OF PT AT 1900. PT ON AC VENT SETTINGS WITH NO RESP DIFFICULTIES. O2 SAT 98-100% AND FIO2 WEANED TO 30% (FROM 40%). SUCTIONING SM AMT OF THICH WHITE/WHATLEY SPUTUM FROM ETT. LUNGS CLEAR. GOOD SEDATION EFFECT FROM PROPOFOL AND FENTANYL IV. BOTH TITRATED UP PER PROTOCOL UP AFTER PT WOKE UP AND WAS KICKING AND THRASHING IN BED, NOT FOLLOWING COMMANDS. WRISTS RESTRAINED FOR AIRWAY PROTECTION. MONITOR SHOW ST, RATE 110'S TO 120'S, NO ECTOPY. AMIODARONE DRIP INFUSING AT MAINTENANCE DOSE OF 0.5 MG/MIN. BP STABLE ON LEVOPHED AND EPI ORDERED. SURGICAL DSG INTACT WITH NO NEW STAINING. OGT TO INTERMITTENT WALL SUCTION. NO OUTPUT NOTED. OGT MARKED AT THE LIP PER PREVIOUS RN AND NO DEVIATION IN POSITION NOTED. TWO MARTY DRAINS WITH MINIMAL RED OUTPUT. TEMP AT 1900 WAS 99.5 CORE AND STARTED TO CLIMB TO 100-100.3 AND COOLING BLANKET TURNED ON. TEMP NOW 98.6 CORE. URINE OUTPUT HAS INCREASED WITH AMOUNTS THE LAST 3 HOURS >300 ML. PROVIDER AWARE OF HIGH U/O. WILL CONTINUE TO MONITOR.
[2023-04-18 01:46] LABS: Glucose, Whole Blood 333 mg/dL (60-115)
[2023-04-18] MEDS: Midazolam HCl/PF 2 MG/2 ML VIAL IVPUSH (01:49)
[2023-04-18] MEDS: Insulin Lispro 100 UNIT/ML 3 ML VIAL SUBCUT ×3 (01:51→23:29)
[2023-04-18] MEDS: Albumin Human 25 % 100 ML IV (01:53)
[2023-04-18] MEDS: Enoxaparin Sodium 40 MG/0.4 ML SYRINGE SUBCUT (01:56)
[2023-04-18] MEDS: Piperacillin Sodium/Tazobactam 3.375 GM in 0.9 % Sodium Chloride 50 ML IV ×4 (01:59→20:35)
[2023-04-18] MEDS: EPINEPHrine 5 MG in Dextrose 5 % 250 ML 61.69 MG IVCONT ×3 (03:03→10:41)
[2023-04-18] MEDS: Sodium Bicarbonate 8.4% 150 MEQ in Dextrose 5 % 850 ML IV (03:49)
[2023-04-18 05:14] LABS: Hemoglobin 10.5 g/dl (12.0-16.0); PLT CLUMP 1; Red Cell Distribution Width 13.4 % (11.0-16.0)
[2023-04-18 05:15] LABS: Hematocrit 30.2 % (37.0-47.0); Mean Corpuscular HGB Conc 34.8 g/dl (31.0-35.0); Mean Corpuscular Hemoglobin 32.5 pg (27.0-33.0); Mean Corpuscular Volume 93.5 fL (80.0-98.0); Red Blood Count 3.23 X10*6/uL (4.20-5.50)
[2023-04-18 05:18] LABS: VBG Base Excess 8.4 mmol/L; VBG HCO3 33 mmol/L (22-26); VBG pCO2 50 mmHg; VBG pH 7.43 (7.32-7.43); VBG pO2 58 mmHg
[2023-04-18 05:18] LABS: Venous Blood Gas Refer to POC result
[2023-04-18 05:21] LABS: WBC ABN SCTR FOR CBC 1; White Blood Count 4.9 X10*3/uL (4.8-10.8)
[2023-04-18 05:36] LABS: Albumin Level 3.6 g/dL (3.5-5.0); Anion Gap 15 (12-20); Blood Urea Nitrogen 15 mg/dL (9-16); Calcium 6.9 mg/dL (8.4-10.2); Carbon Dioxide 28 mmol/L (22-29); Chloride 104 mmol/L (96-108); Creatinine Clr Calc Pharmacy 47.2; Estimated Glomerular Filt Rate 36; Glucose Random 281 mg/dL (60-115); Magnesium 1.7 mg/dL (1.6-2.6); Phosphorus 2.3 mg/dL (2.7-4.5); Sodium 144 mmol/L (135-145)
[2023-04-18] MEDS: fentaNYL citrate/NS 1,000 MCG/100 ML PLAST..BAG 20 MCG IVCONT ×2 (05:42→10:39)
[2023-04-18 05:45] LABS: Band Neutrophils Percent 42 % (3-5); Lymphocytes Absolute Manual 1.1 X10*3/uL (1.2-4.9); Lymphocytes Percent Manual 22 % (20-40); Metamyelocytes Absolute 0.1 X10*3/uL; Metamyelocytes Percent 2 %; Monocytes Percent Manual 1 % (2-11); Neutrophils Absolute Manual 3.7 X10*3/uL (2.0-8.3); Neutrophils Percent Manual 33 % (45-73)
[2023-04-18 05:48] LABS: RBC Morphology NOTED; Target Cells 1+ (5-14) /OIF
[2023-04-18 05:49] LABS: Burr Cells 1+ (0-2) /OIF; Large Platelet PRESENT; Mean Platelet Volume 11.8 fL (9.4-12.3); Platelet Count 92 X10*3/uL (160-400); Platelet Estimate DECREASED (NORMAL); Platelet Morphology Comment NOTED; Toxic Vacuolation PRESENT
[2023-04-18] MEDS: Pantoprazole Sodium 40 MG/10 ML VIAL IVPUSH ×2 (05:50→16:21)
[2023-04-18] MEDS: Potassium Chloride/H20 40 MEQ/100 ML PIGGYBACK 50 MEQ IV (06:30)
--- NOTE | 2023-04-18 06:41 | PC.NURSE ---
SHIFT SUMMARY: ABLE TO WEAN LEVO, CURRENTLY INFUSING AT 0.5 MCG/KG/MIN. BP IS STABLE. EPI GTT CONTINUES ORDERED AT 0.2 MCG/KG/MIN. MONITOR CONTINUES ST, RATE 110'S-120'S, NO ECTOPY. U/O GOOD 150-300 ML/HR. PT GIVEN BEDBATH. TWO ABD DRAINS EMPTIED, GASTRIC 30 ML, PELVIC 15 ML. NO STNG ON ABD DSG. TEMP UP TO 100.3. COOLING BLANKET ON AT THIS TIME. NO RESP DIFFICULTIES ON VENT AC SETTINGS.
--- NOTE | 2023-04-18 07:16 | PM.PNGS ---
Subjective Subjective Date of Service: 04/18/23 Interval history: Remains intubated and sedated. Endotracheal tube an orogastric tube are intact. Upper MARTY by the gastric repair is putting out dilute fluid that is similar to what was encountered intraoperatively; there is no new bile concerning for an ongoing leak. The right lower quadrant drain continues to dilute. Physical Exam Vital Signs: Vital Signs: Last Vital Signs Temp 100.3 F 04/18/23 06:00 Pulse 121 H 04/18/23 07:03 Resp 24 H 04/18/23 06:00 BP 138/77 04/18/23 07:03 Pulse Ox 98 04/18/23 06:00 O2 Del Method Mechanical Ventil ation 04/18/23 06:00 O2 Flow Rate 98 04/17/23 03:30 FiO2 30 04/18/23 06:00 BMI result Body Mass Index 42.2 On exam she is sedated Endotracheal tube and orogastric tube were in place Abdominal cooling dressing is taken down, abdominal incision dressing is intact Upper abdominal MARTY which is by the gastric repair does not appear to be leaking any new new bile which would be concerning for an ongoing leak Lower abdominal MARTY continues to put a dilute irrigation and residual peritoneal fluid. Objective Data Active Medications Chlorhexidine Gluconate (Chlorhexidine Gluc Oral Rinse 15 Ml Mouthwash) 15 ml BUCCAL TID [facility] Last Admin: 04/17/23 20:18 Dose: 15 ml Documented By: YOLANDE Enoxaparin Sodium (Enoxaparin Sodium 40 Mg/0.4 Ml Syringe) 40 mg SUBCUT Q24H MOO Last Admin: 04/18/23 01:56 Dose: 40 mg Documented By: YOLANDE Propofol (Diprivan) 1,000 mg in 100 mls @ 0 mls/hr IVCONT .Q0M [facility]; Protocol Last Admin: 04/18/23 05:40 Dose: 50 mcg/kg/min, 29.12 mls/hr Documented By: YOLANDE Fentanyl (Sublimaze/Ns) 1,000 mcg in 100 mls @ 0 mls/hr IVCONT .Q0M [facility]; Protocol Last Admin: 04/18/23 05:42 Dose: 200 mcg/hr, 20 mls/hr Documented By: YOLANDE Amiodarone HCl 900 mg/ Sodium (Chloride) 518 mls @ 34.533 mls/hr IVCONT .Q15H1M [facility]; Protocol Last Admin: 04/18/23 03:52 Dose: Not Given Documented By: YOLANDE Non-Admin Reason: IV Running Sodium Bicarbonate 150 meq/ (Dextrose) 1,000 mls @ 150 mls/hr IV .Q6H40M [facility] Last Admin: 04/18/23 03:49 Dose: 150 mls/hr Documented By: YOLANDE Norepinephrine Bitartrate 32 (mg/ Sodium Chloride) 250 mls @ 0 mls/hr IV .Q0M [facility]; Protocol Last Titration: 04/18/23 07:03 Dose: 0.48 mcg/kg/min, 22.68 mls/hr Documented By: PADMAJA Epinephrine 5 mg/ Dextrose 255 mls @ 0 mls/hr IVCONT .Q0M [facility]; Protocol Last Admin: 04/18/23 06:37 Dose: 0.2 mcg/kg/min, 61.69 mls/hr Documented By: YOLANDE Piperacillin Sod/Tazobactam (Sod 3.375 gm/ Sodium Chloride) 50 mls @ 100 mls/hr IV Q6H [facility] Last Infusion: 04/18/23 03:05 Dose: 0 mls/hr Documented By: YOLANDE Potassium Phosphate (Kphos) 15 mmol in 250 mls @ 62.5 mls/hr IV ONCE ONE Stop: 04/18/23 11:59 Potassium Chloride (Potassium Chloride/H20) 40 meq in 100 mls @ 50 mls/hr IV ONCE ONE Stop: 04/18/23 08:19 Last Admin: 04/18/23 06:30 Dose: 50 mls/hr Documented By: YOLANDE Naloxone HCl (Naloxone Hcl 0.4 Mg/Ml Vial) 0.2 mg IVPUSH Q2M PRN PRN Reason: Excessive sedation or RR < 8 Pantoprazole Sodium (Pantoprazole Sodium 40 Mg/10 Ml Vial) 40 mg IVPUSH BID@0630,1630 [facility] Last Admin: 04/18/23 05:50 Dose: 40 mg Documented By: YOLANDE Labs 04/18/23 05:00 04/18/23 05:00 Labs: Laboratory Results - last 24 hr 04/17/23 04/17/23 04/17/23 08:27 12:10 12:13 MCV 97.4 MCH 31.4 MCHC 32.2 RDW 14.0 Plt Count 135 L D MPV 11.3 Immature Gran % (Auto) Cancelled Neut % (Auto) Cancelled Lymph % (Auto) Cancelled [place] % (Auto) Cancelled Eos % (Auto) Cancelled Baso % (Auto) Cancelled Lymph # (Auto) Cancelled [place] # (Auto) Cancelled Eos # (Auto) Cancelled Baso # (Auto) Cancelled Abs Immat Gran (auto) Cancelled Absolute Neuts (auto) Cancelled Absolute Nucleated RBC 0.000 Nucleated RBC % (auto) 0.0 Neutrophils % (Manual) 33 L Band Neutrophils % 34 H Lymphocytes % (Manual) 29 Monocytes % (Manual) 4 Metamyelocytes % Abs Neuts (Manual) 2.9 Lymphocytes # (Manual) 1.3 Monocytes # (Manual) 0.2 Metamyelocytes # Toxic Vacuolation Platelet Estimate SLIGHTLY DECREASED Large Platelets Plt Morphology Comment NORMAL RBC Morphology NORMAL Target Cells [place] Cells VBG pH 7.27 L VBG pCO2 45 VBG pO2 41 VBG HCO3 21 L VBG O2 Saturation 71.0 VBG Base Excess -5.5 Anion Gap Estim Creat Clear Calc Estimated GFR POC Glucose Random Glucose Calcium Phosphorus Magnesium Total Bilirubin AST ALT Alkaline Phosphatase Ammonia Total Protein Albumin Prealbumin 20.0 04/17/23 04/17/23 04/17/23 12:13 12:19 17:43 MCV MCH MCHC RDW Plt Count MPV Immature Gran % (Auto) Neut % (Auto) Lymph % (Auto) [place] % (Auto) Eos % (Auto) Baso % (Auto) Lymph # (Auto) [place] # (Auto) Eos # (Auto) Baso # (Auto) Abs Immat Gran (auto) Absolute Neuts (auto) Absolute Nucleated RBC Nucleated RBC % (auto) Neutrophils % (Manual) Band Neutrophils % Lymphocytes % (Manual) Monocytes % (Manual) Metamyelocytes % Abs Neuts (Manual) Lymphocytes # (Manual) Monocytes # (Manual) Metamyelocytes # Toxic Vacuolation Platelet Estimate Large Platelets Plt Morphology Comment RBC Morphology Target Cells [place] Cells VBG pH VBG pCO2 VBG pO2 VBG HCO3 VBG O2 Saturation VBG Base Excess Anion Gap 17 Estim Creat Clear Calc 26.8 Estimated GFR 19 POC Glucose 121 H 243 H Random Glucose 171 H Calcium 7.8 L Phosphorus 3.0 Magnesium 1.3 L* Total Bilirubin 0.4 AST 68 H ALT 35 H Alkaline Phosphatase 51 Ammonia Total Protein 5.3 L Albumin 3.3 L Prealbumin 04/17/23 04/17/23 04/18/23 18:05 23:25 01:42 MCV MCH MCHC RDW Plt Count MPV Immature Gran % (Auto) Neut % (Auto) Lymph % (Auto) [place] % (Auto) Eos % (Auto) Baso % (Auto) Lymph # (Auto) [place] # (Auto) Eos # (Auto) Baso # (Auto) Abs Immat Gran (auto) Absolute Neuts (auto) Absolute Nucleated RBC Nucleated RBC % (auto) Neutrophils % (Manual) Band Neutrophils % Lymphocytes % (Manual) Monocytes % (Manual) Metamyelocytes % Abs Neuts (Manual) Lymphocytes # (Manual) Monocytes # (Manual) Metamyelocytes # Toxic Vacuolation Platelet Estimate Large Platelets Plt Morphology Comment RBC Morphology Target Cells [place] Cells VBG pH VBG pCO2 VBG pO2 VBG HCO3 VBG O2 Saturation VBG Base Excess Anion Gap Estim Creat Clear Calc Estimated GFR POC Glucose 318 H 333 H Random Glucose Calcium Phosphorus Magnesium Total Bilirubin AST ALT Alkaline Phosphatase Ammonia 27 Total Protein Albumin Prealbumin 04/18/23 04/18/23 04/18/23 05:00 05:00 05:11 MCV 93.5 MCH 32.5 MCHC 34.8 RDW 13.4 Plt Count 92 L D MPV 11.8 Immature Gran % (Auto) Cancelled Neut % (Auto) Cancelled Lymph % (Auto) Cancelled [place] % (Auto) Cancelled Eos % (Auto) Cancelled Baso % (Auto) Cancelled Lymph # (Auto) Cancelled [place] # (Auto) Cancelled Eos # (Auto) Cancelled Baso # (Auto) Cancelled Abs Immat Gran (auto) Cancelled Absolute Neuts (auto) Cancelled Absolute Nucleated RBC 0.000 Nucleated RBC % (auto) 0.0 Neutrophils % (Manual) 33 L Band Neutrophils % 42 H Lymphocytes % (Manual) 22 Monocytes % (Manual) 1 L Metamyelocytes % 2 Abs Neuts (Manual) 3.7 Lymphocytes # (Manual) 1.1 L Monocytes # (Manual) Metamyelocytes # 0.1 Toxic Vacuolation PRESENT Platelet Estimate DECREASED Large Platelets PRESENT Plt Morphology Comment NOTED RBC Morphology NOTED Target Cells 1+ (5-14) [place] Cells 1+ (0-2) VBG pH 7.43 VBG pCO2 50 VBG pO2 58 VBG HCO3 33 H VBG O2 Saturation 93.0 VBG Base Excess 8.4 Anion Gap 15 Estim Creat Clear Calc 47.2 Estimated GFR 36 POC Glucose Random Glucose 281 H Calcium 6.9 L D Phosphorus 2.3 L Magnesium 1.7 Total Bilirubin AST ALT Alkaline Phosphatase Ammonia Total Protein Albumin 3.6 Prealbumin Microbiology Microbiology Results: Microbiology 04/16/23 22:22 Blood Culture - Preliminary Blood - Venous No growth after 24 hours. 04/16/23 22:22 Blood Culture - Preliminary Blood - Venous No growth after 24 hours. 04/17/23 01:00 Gram Stain - Final Peritoneal Fluid Routine Culture - Preliminary Procedures Date of Service Date of Service: 04/18/23 Progress Note: A&P Assessment and plan (1) Gastric perforation: Status: Acute (2) Morbid (severe) obesity due to excess calories: Status: Acute (3) Hypercholesterolemia: Status: Acute (4) Peritoneal free air: Status: Acute Plan Wean towards possible extubation as per engineering professionals. If the patient looks like she is going to extubate, please call Dr. Goetz and obtain the upper GI under fluoro with Dr. Nazario that is ordered. The patient will likely need her orogastric tube transferred to the nasogastric tube since she will not tolerate the OG post extubation. Please note that if the patient is failing weaning, the upper GI does not need to be done today and we can revisit the matter tomorrow. Most gastric perforation seal definitively within 48 hours, but I would like an upper GI Gastrografin study via OG tube to confirm there is no ongoing leak prior to removing the OG. Please call Dr. Goetz if there are any questions regarding this matter. Continue supportive measures as per engineering professionals. Await bowel function. Do not start tube feeds and do not reposition the orogastric tube or flush at this time. Continue IV antibiotics and supportive measures. Time Spent With Patient Time: Total time managing care of this patient today ____ minutes. Quality Stroke Does the patient have a stroke diagnosis?: No VTE Prior VTE?: No VTE Risk Level:: Surgical - moderate VTE Device Contraindication: N/A - Device Ordered VTE Drug Contraindication: N/A - Med Ordered
[2023-04-18] MEDS: Magnesium Sulfate/H2O 2 GM/50 ML PIGGYBACK IV (08:17)
[2023-04-18] MEDS: Potassium Phosphate/NS 15 MMOL/250 ML PLAST..BAG 62.5 MMOL IV (08:23)
[2023-04-18] MEDS: Chlorhexidine Gluc Oral Rinse 15 ML MOUTHWASH BUCCAL ×3 (08:30→20:35)
[2023-04-18] MEDS: Amiodarone HCL 900 MG in 0.9 % Sodium Chloride 500 ML 17.27 MG IVCONT (08:39)
--- NOTE | 2023-04-18 08:47 | P.PNCC_ITS ---
Subjective Subjective Date of Service: 04/18/23 Interval History: 57-year-old lady with underlying alcoholism, substance abuse, anxiety admitted on 04/17/2023 with abdominal pain and distension secondary to perforated gastric ulcer requiring emergent surgical repair with patient transferred postop to intensive care unit intubated and further hospital course complicated by septic shock secondary to peritonitis, acute renal failure, and acute hypoxic respiratory failure, now with slow improvement. No events overnight. Pressor requirements remain high, but are slowly decreasing. Urine output is improving. Critical Care Time (minutes): 60 Physical Exam Vital Signs: Vital Signs: Last Vital Signs Temp 98.2 F 04/18/23 08:00 Pulse 114 H 04/18/23 08:00 Resp 23 H 04/18/23 08:00 BP 105/66 04/18/23 08:00 Pulse Ox 98 04/18/23 08:00 O2 Del Method Mechanical Ventil ation 04/18/23 08:00 O2 Flow Rate 98 04/17/23 03:30 FiO2 30 04/18/23 08:00 BMI result Body Mass Index 42.2 Const: General: no acute distress and other ( sedated on the vent, arousable with sedation vacation) Nutritional Appearance: obese Eyes: Sclerae: sclerae normal EOM: EOMs intact bilaterally Neck: Neck: Yes no lymphadenopathy, Yes trachea midline and Yes supple Resp: Auscultation: crackles ( diffuse bilateral) Cardio: Rate: tachycardic Rhythm: regular rhythm Heart sounds: no gallops, no murmurs and no rubs GI: Inspection: Yes incision ( med lying surgical incision with dressing, MARTY drains) Palpation (GI): Soft to palpation and Other GI palpation findings present Auscultation: Hypoactive bowel sounds present Extrem: General: No clubbing, No cyanosis and Yes edema (1+ bilateral) Objective Data Labs 04/18/23 05:00 04/18/23 05:00 Labs: Laboratory Results - last 24 hr 04/17/23 04/17/23 04/17/23 08:27 12:10 12:13 WBC 4.4 L RBC 3.79 L Hgb 11.9 L Hct 36.9 L MCV 97.4 MCH 31.4 MCHC 32.2 RDW 14.0 Plt Count 135 L D MPV 11.3 Immature Gran % (Auto) Cancelled Neut % (Auto) Cancelled Lymph % (Auto) Cancelled [place] % (Auto) Cancelled Eos % (Auto) Cancelled Baso % (Auto) Cancelled Lymph # (Auto) Cancelled [place] # (Auto) Cancelled Eos # (Auto) Cancelled Baso # (Auto) Cancelled Abs Immat Gran (auto) Cancelled Absolute Neuts (auto) Cancelled Absolute Nucleated RBC 0.000 Nucleated RBC % (auto) 0.0 Neutrophils % (Manual) 33 L Band Neutrophils % 34 H Lymphocytes % (Manual) 29 Monocytes % (Manual) 4 Metamyelocytes % Abs Neuts (Manual) 2.9 Lymphocytes # (Manual) 1.3 Monocytes # (Manual) 0.2 Metamyelocytes # Toxic Vacuolation Platelet Estimate SLIGHTLY DECREASED Large Platelets Plt Morphology Comment NORMAL RBC Morphology NORMAL Target Cells [place] Cells VBG pH 7.27 L VBG pCO2 45 VBG pO2 41 VBG HCO3 21 L VBG O2 Saturation 71.0 VBG Base Excess -5.5 Sodium Potassium Chloride Carbon Dioxide Anion Gap BUN Creatinine Estim Creat Clear Calc Estimated GFR POC Glucose Random Glucose Calcium Phosphorus Magnesium Total Bilirubin AST ALT Alkaline Phosphatase Ammonia Total Protein Albumin Prealbumin 20.0 04/17/23 04/17/23 04/17/23 12:13 12:19 17:43 WBC RBC Hgb Hct MCV MCH MCHC RDW Plt Count MPV Immature Gran % (Auto) Neut % (Auto) Lymph % (Auto) [place] % (Auto) Eos % (Auto) Baso % (Auto) Lymph # (Auto) [place] # (Auto) Eos # (Auto) Baso # (Auto) Abs Immat Gran (auto) Absolute Neuts (auto) Absolute Nucleated RBC Nucleated RBC % (auto) Neutrophils % (Manual) Band Neutrophils % Lymphocytes % (Manual) Monocytes % (Manual) Metamyelocytes % Abs Neuts (Manual) Lymphocytes # (Manual) Monocytes # (Manual) Metamyelocytes # Toxic Vacuolation Platelet Estimate Large Platelets Plt Morphology Comment RBC Morphology Target Cells [place] Cells VBG pH VBG pCO2 VBG pO2 VBG HCO3 VBG O2 Saturation VBG Base Excess Sodium 143 Potassium 3.7 Chloride 111 H Carbon Dioxide 19 L Anion Gap 17 BUN 21 H Creatinine 2.60 H Estim Creat Clear Calc 26.8 Estimated GFR 19 POC Glucose 121 H 243 H Random Glucose 171 H Calcium 7.8 L Phosphorus 3.0 Magnesium 1.3 L* Total Bilirubin 0.4 AST 68 H ALT 35 H Alkaline Phosphatase 51 Ammonia Total Protein 5.3 L Albumin 3.3 L Prealbumin 04/17/23 04/17/23 04/18/23 18:05 23:25 01:42 WBC RBC Hgb Hct MCV MCH MCHC RDW Plt Count MPV Immature Gran % (Auto) Neut % (Auto) Lymph % (Auto) [place] % (Auto) Eos % (Auto) Baso % (Auto) Lymph # (Auto) [place] # (Auto) Eos # (Auto) Baso # (Auto) Abs Immat Gran (auto) Absolute Neuts (auto) Absolute Nucleated RBC Nucleated RBC % (auto) Neutrophils % (Manual) Band Neutrophils % Lymphocytes % (Manual) Monocytes % (Manual) Metamyelocytes % Abs Neuts (Manual) Lymphocytes # (Manual) Monocytes # (Manual) Metamyelocytes # Toxic Vacuolation Platelet Estimate Large Platelets Plt Morphology Comment RBC Morphology Target Cells [place] Cells VBG pH VBG pCO2 VBG pO2 VBG HCO3 VBG O2 Saturation VBG Base Excess Sodium Potassium Chloride Carbon Dioxide Anion Gap BUN Creatinine Estim Creat Clear Calc Estimated GFR POC Glucose 318 H 333 H Random Glucose Calcium Phosphorus Magnesium Total Bilirubin AST ALT Alkaline Phosphatase Ammonia 27 Total Protein Albumin Prealbumin 04/18/23 04/18/23 04/18/23 05:00 05:00 05:11 WBC 4.9 RBC 3.23 L Hgb 10.5 L Hct 30.2 L MCV 93.5 MCH 32.5 MCHC 34.8 RDW 13.4 Plt Count 92 L D MPV 11.8 Immature Gran % (Auto) Cancelled Neut % (Auto) Cancelled Lymph % (Auto) Cancelled [place] % (Auto) Cancelled Eos % (Auto) Cancelled Baso % (Auto) Cancelled Lymph # (Auto) Cancelled [place] # (Auto) Cancelled Eos # (Auto) Cancelled Baso # (Auto) Cancelled Abs Immat Gran (auto) Cancelled Absolute Neuts (auto) Cancelled Absolute Nucleated RBC 0.000 Nucleated RBC % (auto) 0.0 Neutrophils % (Manual) 33 L Band Neutrophils % 42 H Lymphocytes % (Manual) 22 Monocytes % (Manual) 1 L Metamyelocytes % 2 Abs Neuts (Manual) 3.7 Lymphocytes # (Manual) 1.1 L Monocytes # (Manual) Metamyelocytes # 0.1 Toxic Vacuolation PRESENT Platelet Estimate DECREASED Large Platelets PRESENT Plt Morphology Comment NOTED RBC Morphology NOTED Target Cells 1+ (5-14) [place] Cells 1+ (0-2) VBG pH 7.43 VBG pCO2 50 VBG pO2 58 VBG HCO3 33 H VBG O2 Saturation 93.0 VBG Base Excess 8.4 Sodium 144 Potassium 3.0 L Chloride 104 Carbon Dioxide 28 Anion Gap 15 BUN 15 Creatinine 1.51 H Estim Creat Clear Calc 47.2 Estimated GFR 36 POC Glucose Random Glucose 281 H Calcium 6.9 L D Phosphorus 2.3 L Magnesium 1.7 Total Bilirubin AST ALT Alkaline Phosphatase Ammonia Total Protein Albumin 3.6 Prealbumin Microbiology Microbiology Results: Microbiology 04/17/23 01:00 Peritoneal Fluid Gram Stain - Final 04/17/23 01:00 Peritoneal Fluid Routine Culture - Preliminary 04/17/23 01:00 Peritoneal Fluid Anaerobic Culture - Preliminary Culture in progress. 04/16/23 22:22 Blood - Venous Blood Culture - Preliminary No growth after 24 hours. 04/16/23 22:22 Blood - Venous Blood Culture - Preliminary No growth after 24 hours. Progress Note: A&P Assessment and plan (1) Septic shock: Status: Acute (2) Peritonitis: Status: Acute (3) Acute respiratory failure with hypoxemia: Status: Acute (4) Acute renal failure: Status: Acute (5) Gastric perforation: Status: Acute (6) Morbid (severe) obesity due to excess calories: Status: Acute (7) Polysubstance abuse: Status: Acute Plan Assessment: 57-year-old lady admitted with perforated gastric ulcer status post emergent surgical repair further complicated by peritonitis, acute renal failure, and acute hypoxic respiratory failure, now requiring ventilatory support. Plan: Neuro: No acute issues. Underlying polysubstance abuse. Cardiac: Septic shock, improving slowly, continue to titrate off pressors as tolerated. Pulmonary: Acute hypoxic respiratory failure secondary to underlying peritonitis. Continue to titrate off ventilatory support as tolerated. Renal: Acute renal failure secondary to septic shock, improving, non oliguric. Continue to monitor renal indices and urine output. Endo: No acute issues. GI: Perforated gastric ulcer status post emergent surgical repair. General surgery service care appreciated. Planned for Gastrografin study today. ID: Septic shock secondary to peritonitis. Continue on broad-spectrum antibiotics. Heme/Onc: No acute issues. Psych: No acute issues. Miscellaneous: No acute issues. Prophylaxis: Heparin, ppi Diet: NPO Critical care time spent: 60 minutes Quality Stroke Does the patient have a stroke diagnosis?: No VTE Prior VTE?: No VTE Risk Level:: Surgical - moderate VTE Device Contraindication: N/A - Device Ordered VTE Drug Contraindication: N/A - Med Ordered
[2023-04-18 09:45] LABS: Glucose, Whole Blood 208 mg/dL (60-115)
--- NOTE | 2023-04-18 10:08 | MHC.CM.PN ---
Pt continues care in ICU on vent support. Plan for day is a GI Study to ensure stability of omentum patch. Pt will then begin vent wean trials. D/C planning will depend on pt's physical status following extubation. She is from home with [employer] services provided by her dtr. CM to follow.
--- NOTE | 2023-04-18 11:39 | PM.PROC ---
Brief Operative Note Date of procedure: 04/18/23 Pre-op diagnosis: Gastric Perforation, POD 1 s/p x-lap & oversew Post-op diagnosis: same Procedure: Nasogastric tube placement under fluoroscopy Given plans to wean towards extubation and an orogastric tube in place, this needed to be converted to a nasogastric tube. A 16 Arabic nasogastric tube was inserted under fluoroscopy without difficulty. Please see Dr. Nazario's notes regarding Gastrografin study to assess for obvious leak and placement. Anesthesia: GETA Surgeon: Evan Goetz Shrinking Machine Operator: Alina aNzario Estimated blood loss (mL): 0 Pathology: none sent Condition: critical Disposition: ICU
[2023-04-18] MEDS: Diatrizoate Meglumine, Sodium 120 ML SOLUTION 200 ML PO (11:51)
[2023-04-18 12:45] LABS: Glucose, Whole Blood 172 mg/dL (60-115)
[2023-04-18] MEDS: Sodium Bicarbonate 8.4% 50 MEQ/50 ML VIAL IVPUSH (15:14)
[2023-04-18 15:57] LABS: VBG Base Excess -5.7 mmol/L; VBG HCO3 15 mmol/L (22-26); VBG pCO2 18 mmHg; VBG pH 7.53 (7.32-7.43); VBG pO2 44 mmHg
[2023-04-18 16:12] LABS: Anion Gap 17 (12-20); Blood Urea Nitrogen 15 mg/dL (9-16); Calcium 6.7 mg/dL (8.4-10.2); Carbon Dioxide 29 mmol/L (22-29); Chloride 106 mmol/L (96-108); Creatinine Clr Calc Pharmacy 41.4; Estimated Glomerular Filt Rate 31; Glucose Random 105 mg/dL (60-115); Phosphorus 3.9 mg/dL (2.7-4.5); Sodium 147 mmol/L (135-145)
[2023-04-18] MEDS: propofoL 1,000 MG/100 ML VIAL 17.47 MG IVCONT ×2 (16:59→21:31)
[2023-04-18] MEDS: EPINEPHrine 5 MG in Dextrose 5 % 250 ML 185.07 MG IVCONT ×3 (17:13→23:21)
[2023-04-18] MEDS: fentaNYL citrate/NS 1,000 MCG/100 ML PLAST..BAG 10 MCG IVCONT (17:56)
[2023-04-18 17:57] LABS: Glucose, Whole Blood 127 mg/dL (60-115)
[2023-04-18 18:23] LABS: Hematocrit 40.4 % (37.0-47.0); Hemoglobin 13.8 g/dl (12.0-16.0); Mean Corpuscular HGB Conc 34.2 g/dl (31.0-35.0); Mean Corpuscular Hemoglobin 32.3 pg (27.0-33.0); Mean Corpuscular Volume 94.6 fL (80.0-98.0); Mean Platelet Volume 12.1 fL (9.4-12.3); Platelet Count 100 X10*3/uL (160-400); Red Blood Count 4.27 X10*6/uL (4.20-5.50); Red Cell Distribution Width 14.1 % (11.0-16.0)
[2023-04-18] MEDS: EPINEPHrine 5 MG in Dextrose 5 % 250 ML 123.38 MG IVCONT (18:42)
[2023-04-18 18:59] LABS: WBC ABN SCTR FOR CBC 1; White Blood Count 7.6 X10*3/uL (4.8-10.8)
[2023-04-18 19:07] LABS: Band Neutrophils Percent 15 % (3-5); Basophils Abs Manual 0.2 X10*3/uL (0.0-0.2); Basophils Percent Manual 2 % (0-2); Eosinophils Absolute Manual 0.1 X10*3/uL (0.0-0.4); Eosinophils Percent Manual 1 % (0-4); Lymphocytes Absolute Manual 0.8 X10*3/uL (1.2-4.9); Lymphocytes Percent Manual 10 % (20-40); Metamyelocytes Absolute 0.4 X10*3/uL; Metamyelocytes Percent 5 %; Monocytes Absolute Manual 0.2 X10*3/uL (0.1-1.2); Monocytes Percent Manual 2 % (2-11); Neutrophils Absolute Manual 6.1 X10*3/uL (2.0-8.3); Neutrophils Percent Manual 65 % (45-73)
[2023-04-18 19:08] LABS: Platelet Estimate NORMAL (NORMAL); Platelet Morphology Comment NORMAL; RBC Morphology NORMAL; Toxic Granulation PRESENT
--- NOTE | 2023-04-18 19:45 | PC.NURSE ---
Addendum entered by Dana Saeed RN 04/18/23 22:39: 2000-HR sustaining 130s-140s, UO remains 5-15 cc/hr- CONTROL CLERK HEAD made aware. CT scan ordered- patient given oral contrast via NGT per CONTROL CLERK HEAD. Patient transported to CT scan by this RN, RT, and CCT- see report. Upon return to ICU, abdominal surgical dressing noted to be saturated with copious amount of dark yellow/green drainage- CONTROL CLERK HEAD aware. Qevot-li-psrps shift report given at this time to PM RN. Original Note: Assumed care at 0700. Patient continues on sedation and mechanical ventilation. Patient tolerating AC settings, O2 sats sustaining >92%, no respiratory difficulties. Sedated on propofol and fentanyl gtt's, titrated per EMAR. Patient continues on levophed and epinephrine gtt's, titrated per EMAR to maintain MAPs >65. Patient HR sustaining 110s-120s. Patient transported to radiology for GI study at 1115 accompanied by this RN, RT, and CCT- see report. OGT removed, NGT R nare placed under fluoroscopy by Dr. Goetz. NGT to IWS- 300 cc dark green drainage this shift. Gastric and pelvic MARTY drains in place. Pelvic MARTY drain with 400 cc dark green output after repositioning patient- Dr. Goetz and glove wrapper notified, no new orders at this time. Midline abdominal surgical incision dressing changed by this RN with Dr. Goetz at bedside- 25 lizzie present, edges approximated, scant sanguineous drainage noted. Core temp 101.9, cooling blanket powered on. HR sustaining 120s-140s- glove wrapper made aware. Sedation vacation initiated at 1245 per MD- patient opening eyes to name and occasionally tracking, not following commands. Sedation restarted per MD. UO decreasing to 10-20cc/hr, glove wrapper notified, no new orders at this time. Patient bathed and hair washed, repositioned and oral care Q2, prevalon system in place, safety maintained throughout, care ongoing.
[2023-04-18] MEDS: Diatrizoate Meglumine, Sodium 30 ML SOLUTION PO (22:24)
--- NOTE | 2023-04-18 22:27 | PM.EVENT ---
Documented by User: Veronica Pathak NP 04/19/23 00:02 Event Note Date of Service: 04/18/23 Event Note: Patient clinical picture worsening earlier this evening, patient with decrease urine output, increased vasopressor support. CT abdomen with oral gastrofraffin performed which is consistent with contrast leak. I informed Attending Dr Lang and Surgeon Dr Goetz. Patient will be taken to OR for second look. Daughter Nadege informed by surgeon and my self of plan of care Time Spent With Patient Time: Total time managing care of this patient today ____ minutes. Documented by User: Aaron Lang MD 04/19/23 08:44 Event Note Date of Service: 04/19/23
[2023-04-18] MEDS: Sodium Bicarbonate 8.4% 150 MEQ in Dextrose 5 % 850 ML 100 MEQ IV (22:51)
--- NOTE | 2023-04-18 22:55 | PM.EVENT ---
Event Note Date of Service: 04/18/23 Event Note: The patient has started doing poorly this afternoon. In discussion with Dr. Lang, CT of the abdomen and pelvis with oral and IV contrast was performed which shows free extravasation of Gastrografin. I am concerned that the patient's perforation is secondary to cocaine related ischemia and perhaps the area that appeared to be a hematoma on the lesser curvature was actually necrotic. Given this, I have recommended re-exploration, possible gastric wedge resection or partial gastrectomy. I also explained that I may need to perform an intraoperative upper endoscopy to better assess the extent of stomach damage which carries risks of bleeding, perforation and injuries that could require a more extensive operation. I reviewed the inherent risks of re exploring her abdomen with the daughter Nadege, by telephone at [phone] regarding the inherent risks of , bleeding, ongoing infection and sepsis which can cause multi organ failure. The other option of comfort measures only was discussed with the family but declined. Time Spent With Patient Time: Total time managing care of this patient today ____ minutes.
[2023-04-18] MEDS: Lactated Ringers 1,000 ML 999 ML IV ×2 (22:58→23:59)
[2023-04-18 23:31] LABS: Glucose, Whole Blood 217 mg/dL (60-115)
--- NOTE | 2023-04-18 23:45 | HO.ANESPROP2 ---
HPI - Anesthesia Eval Consult details Narrative: gastric anasthomosis leakage PMFSH Active Problems Active Problems: All Active Problems (Updated 04/18/23 @ 08:52 by Aaron Lang MD) Polysubstance abuse (Acute) Acute renal failure (Acute) Acute respiratory failure with hypoxemia (Acute) Peritonitis (Acute) Septic shock (Acute) Gastric perforation (Acute) Morbid (severe) obesity due to excess calories (Acute) Hypercholesterolemia (Acute) Peritoneal free air (Acute) Bowel perforation (Acute) Past Medical History Medical History Acute anxiety Depression High cholesterol HTN (hypertension) Family History Family history of problems with anesthesia: No Surgical History History of Problems with Anesthesia: No Social History Social History Household Members: Significant Other Unable to assess alcohol history related to: Unknown Alcohol intake: never Patient Tobacco Use Status: Tobacco use Unknown Use of substances other than those prescribed or required for medical reasons: Unknown Currently Displaying Signs/Symptoms of Drug Intoxication Withdrawal: No Jainism Healthcare Practices: UNKNOWN Advance Directives: No Advance Directives Information Provided: No Recently lost weight without trying: Unsure Nutrition Risks: On aspiration precautions Patient : No : No Current occupational status: disabled Meds Allergies Allergy/AdvReac Type Severity Reaction Status Date / Time aspirin [ASPIRIN] Allergy Intermediate RASH, Unverified 07/30/20 15:28 itching, facial flushing haro Allergy Intermediate ITCHING,KIRSTEN Unverified 07/30/20 15:28 H peach [[place]] Allergy Intermediate ITCHING, Unverified 07/30/20 15:28 RASH prochlorperazine Allergy Intermediate SWELLING, Unverified 07/30/20 15:28 [From COMPAZINE] RASH Active Medications: Current Medications Chlorhexidine Gluconate (Chlorhexidine Gluc Oral Rinse 15 Ml Mouthwash) 15 ml BUCCAL TID [facility] Last Admin: 04/18/23 20:35 Dose: 15 ml Enoxaparin Sodium (Enoxaparin Sodium 40 Mg/0.4 Ml Syringe) 40 mg SUBCUT Q24H MOO Last Admin: 04/18/23 01:56 Dose: 40 mg Propofol (Diprivan) 1,000 mg in 100 mls @ 0 mls/hr IVCONT .Q0M MOO; Protocol Last Admin: 04/18/23 21:31 Dose: 30 mcg/kg/min, 17.47 mls/hr Fentanyl (Sublimaze/Ns) 1,000 mcg in 100 mls @ 0 mls/hr IVCONT .Q0M MOO; Protocol Last Titration: 04/18/23 22:47 Dose: 125 mcg/hr, 12.5 mls/hr Amiodarone HCl 900 mg/ Sodium (Chloride) 518 mls @ 34.533 mls/hr IVCONT .Q15H1M MOO; Protocol Last Admin: 04/18/23 08:39 Dose: 0.5 mg/min, 17.27 mls/hr Norepinephrine Bitartrate 32 (mg/ Sodium Chloride) 250 mls @ 0 mls/hr IV .Q0M MOO; Protocol Last Admin: 04/18/23 21:34 Dose: 0.76 mcg/kg/min, 35.91 mls/hr Epinephrine 5 mg/ Dextrose 255 mls @ 0 mls/hr IVCONT .Q0M MOO; Protocol Last Admin: 04/18/23 23:21 Dose: 0.6 mcg/kg/min, 185.07 mls/hr Piperacillin Sod/Tazobactam (Sod 3.375 gm/ Sodium Chloride) 50 mls @ 100 mls/hr IV Q6H [facility] Last Infusion: 04/18/23 21:14 Dose: Infused Sodium Bicarbonate 150 meq/ (Dextrose) 1,000 mls @ 100 mls/hr IV .Q10H MOO Last Admin: 04/18/23 22:51 Dose: 100 mls/hr Lactated Ringer's (Lr) 1,000 mls @ 999 mls/hr IV .Q1H1M MOO Stop: 04/19/23 01:00 Last Admin: 04/18/23 22:58 Dose: 999 mls/hr Insulin Human Lispro (Insulin Lispro 100 Unit/Ml 3 Ml Vial) 0 unit SUBCUT Q6H MOO; Protocol Last Admin: 04/18/23 23:29 Dose: 4 unit Naloxone HCl (Naloxone Hcl 0.4 Mg/Ml Vial) 0.2 mg IVPUSH Q2M PRN PRN Reason: Excessive sedation or RR < 8 Pantoprazole Sodium (Pantoprazole Sodium 40 Mg/10 Ml Vial) 40 mg IVPUSH BID@0630,1630 [facility] Last Admin: 04/18/23 16:21 Dose: 40 mg Sodium Bicarbonate (Sodium Bicarbonate 8.4% 50 Meq/50 Ml Vial) 50 meq IVPUSH ONCE PRN PRN Reason: Severe hypotension Home Medications Medication Instructions Recorded Confirmed Last Taken Type amlodipine 2.5 mg tablet 2.5 mg PO DAILY 04/17/23 04/17/23 Unknown History atenolol 50 mg tablet 50 mg PO DAILY 04/17/23 04/17/23 Unknown History baclofen 10 mg tablet 10 mg PO TID PRN Muscle Spasm 04/17/23 04/17/23 Unknown History cholecalciferol (vitamin D3) 50 100 mcg PO DAILY 04/17/23 04/17/23 Unknown History mcg (2,000 unit) capsule clonazepam 0.5 mg tablet (Klonopin) 0.25 - 0.5 mg PO DAILY PRN Anxiety 04/17/23 04/17/23 Unknown History famotidine 20 mg tablet 20 mg PO QD-BID PRN acid reflux 04/17/23 04/17/23 Unknown History fluticasone propionate 50 2 spray intranasal QAM PRN 04/17/23 04/17/23 Unknown History mcg/actuation nasal Allergic Symptoms spray,suspension prazosin 2 mg capsule 2 mg PO BEDTIME 04/17/23 04/17/23 Unknown History topiramate 100 mg tablet (Topamax) 100 mg PO DAILY 04/17/23 04/17/23 Unknown History tramadol 50 mg tablet 50 mg PO Q8H PRN severe pain 04/17/23 04/17/23 Unknown History venlafaxine 150 mg 150 mg PO DAILY 04/17/23 04/17/23 Unknown History capsule,extended release 24 hr venlafaxine 75 mg capsule,extended 75 mg PO DAILY 04/17/23 04/17/23 Unknown History release 24 hr zolpidem 10 mg tablet 10 mg PO BEDTIME PRN Sleep 04/17/23 04/17/23 Unknown History Exam Exam Date and Time: April 18, 20236 Height,Weight and Vital Signs: Height 5 ft 2 in Weight 104.7 kg Last Vital Signs Temp 100.2 F 04/18/23 23:00 Pulse 122 H 04/18/23 23:21 Resp 16 04/18/23 23:00 BP 117/76 06/06/23 23:21 Pulse Ox 97 04/18/23 23:00 O2 Del Method Mechanical Ventilation 04/18/23 23:00 O2 Flow Rate 98 04/17/23 03:30 FiO2 30 04/18/23 23:00 Pertinent Lab Results Pertinent Lab Results: Laboratory Tests 04/16/23 04/16/23 04/16/23 02:55 20:32 21:30 WBC 15.7 H RBC 4.61 Hgb 14.4 Hct 44.8 MCV 97.2 MCH 31.2 MCHC 32.1 RDW 13.5 Plt Count 237 MPV 10.9 Immature Gran % (Auto) 0.6 H Neut % (Auto) 69.5 Lymph % (Auto) 25.2 Vernon % (Auto) 3.6 Eos % (Auto) 0.9 Baso % (Auto) 0.2 Lymph # (Auto) 4.0 Vernon # (Auto) 0.6 Eos # (Auto) 0.1 Baso # (Auto) 0.0 Abs Immat Gran (auto) 0.09 H Absolute Neuts (auto) 10.9 H Absolute Nucleated RBC 0.000 Nucleated RBC % (auto) 0.0 Neutrophils % (Manual) Band Neutrophils % Lymphocytes % (Manual) Monocytes % (Manual) Eosinophils % (Manual) Basophils % (Manual) Metamyelocytes % Abs Neuts (Manual) Lymphocytes # (Manual) Monocytes # (Manual) Eosinophils # (Manual) Basophils # (Manual) Metamyelocytes # Toxic Granulation Toxic Vacuolation Platelet Estimate Large Platelets Plt Morphology Comment RBC Morphology Target Cells Deonna Cells PT INR APTT VBG pH VBG pCO2 VBG pO2 VBG HCO3 VBG O2 Saturation VBG Base Excess Sodium Potassium Chloride Carbon Dioxide Anion Gap BUN Creatinine Estim Creat Clear Calc Estimated GFR POC Glucose 185 H Random Glucose Estimat Average Glucose Hemoglobin A1c % Lactic Acid Lactic Acid F/U @ 2Hr 3.4 H* Lactic Acid F/U @ 4Hr Calcium Phosphorus Magnesium Total Bilirubin Direct Bilirubin AST ALT Alkaline Phosphatase Ammonia Total Creatine Kinase Troponin I High Sens Total Protein Albumin Prealbumin Lipase TSH Urine Color Urine Appearance Urine pH Ur Specific Wirtz Urine Protein Urine Glucose (UA) Urine Ketones Urine Blood Urine Nitrite Ur Leukocyte Esterase Urine RBC Urine WBC Ur Squamous Epith Cells Urine Bacteria Hyaline Casts Salicylates Urine Opiates Screen Urine Fentanyl Screen Acetaminophen Ur Barbiturates Screen Ur Phencyclidine Scrn Ur Amphetamines Screen U Benzodiazepines Scrn Urine Cocaine Screen U Marijuana (THC) Screen Ethyl Alcohol COVID-19 (JOE) COVID-19 [email or web address] Com Blood Type Antibody Screen 04/16/23 04/16/23 04/16/23 21:31 21:31 21:31 WBC RBC Hgb Hct MCV MCH MCHC RDW Plt Count MPV Immature Gran % (Auto) Neut % (Auto) Lymph % (Auto) Vernon % (Auto) Eos % (Auto) Baso % (Auto) Lymph # (Auto) [place] # (Auto) Eos # (Auto) Baso # (Auto) Abs Immat Gran (auto) Absolute Neuts (auto) Absolute Nucleated RBC Nucleated RBC % (auto) Neutrophils % (Manual) Band Neutrophils % Lymphocytes % (Manual) Monocytes % (Manual) Eosinophils % (Manual) Basophils % (Manual) Metamyelocytes % Abs Neuts (Manual) Lymphocytes # (Manual) Monocytes # (Manual) Eosinophils # (Manual) Basophils # (Manual) Metamyelocytes # Toxic Granulation Toxic Vacuolation Platelet Estimate Large Platelets Plt Morphology Comment RBC Morphology Target Cells Mandan Cells PT INR APTT VBG pH VBG pCO2 VBG pO2 VBG HCO3 VBG O2 Saturation VBG Base Excess Sodium 141 Potassium 3.2 L Chloride 103 Carbon Dioxide 18 L Anion Gap 23 H BUN 12 Creatinine 2.19 H Estim Creat Clear Calc 31.1 Estimated GFR 23 POC Glucose Random Glucose 298 H Estimat Average Glucose Hemoglobin A1c % Lactic Acid 7.1 H* Lactic Acid F/U @ 2Hr Lactic Acid F/U @ 4Hr Calcium 9.3 Phosphorus Magnesium 2.5 Total Bilirubin 0.2 Direct Bilirubin < 0.2 AST 34 H ALT 24 Alkaline Phosphatase 122 H Ammonia Total Creatine Kinase 239 H Troponin I High Sens < 2.7 Total Protein 7.8 Albumin 4.2 Prealbumin Lipase 47 TSH 3.91 Urine Color Urine Appearance Urine pH Ur Specific Wirtz Urine Protein Urine Glucose (UA) Urine Ketones Urine Blood Urine Nitrite Ur Leukocyte Esterase Urine RBC Urine WBC Ur Squamous Epith Cells Urine Bacteria Hyaline Casts Salicylates < 5.0 L Urine Opiates Screen Urine Fentanyl Screen Acetaminophen < 17 Ur Barbiturates Screen Ur Phencyclidine Scrn Ur Amphetamines Screen U Benzodiazepines Scrn Urine Cocaine Screen U Marijuana (THC) Screen Ethyl Alcohol 126 COVID-19 (JOE) COVID-19 [email or web address] Com Blood Type Antibody Screen 04/16/23 04/16/23 04/16/23 21:31 22:14 22:14 WBC RBC Hgb Hct MCV MCH MCHC RDW Plt Count MPV Immature Gran % (Auto) Neut % (Auto) Lymph % (Auto) [place] % (Auto) Eos % (Auto) Baso % (Auto) Lymph # (Auto) [place] # (Auto) Eos # (Auto) Baso # (Auto) Abs Immat Gran (auto) Absolute Neuts (auto) Absolute Nucleated RBC Nucleated RBC % (auto) Neutrophils % (Manual) Band Neutrophils % Lymphocytes % (Manual) Monocytes % (Manual) Eosinophils % (Manual) Basophils % (Manual) Metamyelocytes % Abs Neuts (Manual) Lymphocytes # (Manual) Monocytes # (Manual) Eosinophils # (Manual) Basophils # (Manual) Metamyelocytes # Toxic Granulation Toxic Vacuolation Platelet Estimate Large Platelets Plt Morphology Comment RBC Morphology Target Cells Mandan Cells PT 11.7 INR 1.0 APTT 27.8 VBG pH VBG pCO2 VBG pO2 VBG HCO3 VBG O2 Saturation VBG Base Excess Sodium Potassium Chloride Carbon Dioxide Anion Gap BUN Creatinine Estim Creat Clear Calc Estimated GFR POC Glucose Random Glucose Estimat Average Glucose Hemoglobin A1c % Lactic Acid Lactic Acid F/U @ 2Hr Lactic Acid F/U @ 4Hr Calcium Phosphorus Magnesium Total Bilirubin Direct Bilirubin AST ALT Alkaline Phosphatase Ammonia Total Creatine Kinase Troponin I High Sens Total Protein Albumin Prealbumin Lipase TSH Urine Color Urine Appearance Urine pH Ur Specific Wirtz Urine Protein Urine Glucose (UA) Urine Ketones Urine Blood Urine Nitrite Ur Leukocyte Esterase Urine RBC Urine WBC Ur Squamous Epith Cells Urine Bacteria Hyaline Casts Salicylates Urine Opiates Screen Urine Fentanyl Screen Acetaminophen Ur Barbiturates Screen Ur Phencyclidine Scrn Ur Amphetamines Screen U Benzodiazepines Scrn Urine Cocaine Screen U Marijuana (THC) Screen Ethyl Alcohol COVID-19 (JOE) Negative COVID-19 Clin Com See Note Blood Type O Positive Antibody Screen NEGATIVE 04/16/23 04/16/23 04/16/23 22:17 22:17 22:19 WBC RBC Hgb Hct MCV MCH MCHC RDW Plt Count MPV Immature Gran % (Auto) Neut % (Auto) Lymph % (Auto) [place] % (Auto) Eos % (Auto) Baso % (Auto) Lymph # (Auto) [place] # (Auto) Eos # (Auto) Baso # (Auto) Abs Immat Gran (auto) Absolute Neuts (auto) Absolute Nucleated RBC Nucleated RBC % (auto) Neutrophils % (Manual) Band Neutrophils % Lymphocytes % (Manual) Monocytes % (Manual) Eosinophils % (Manual) Basophils % (Manual) Metamyelocytes % Abs Neuts (Manual) Lymphocytes # (Manual) Monocytes # (Manual) Eosinophils # (Manual) Basophils # (Manual) Metamyelocytes # Toxic Granulation Toxic Vacuolation Platelet Estimate Large Platelets Plt Morphology Comment RBC Morphology Target Cells Deonna Cells PT INR APTT VBG pH VBG pCO2 VBG pO2 VBG HCO3 VBG O2 Saturation VBG Base Excess Sodium Potassium Chloride Carbon Dioxide Anion Gap BUN Creatinine Estim Creat Clear Calc Estimated GFR POC Glucose 213 H Random Glucose Estimat Average Glucose Hemoglobin A1c % Lactic Acid Lactic Acid F/U @ 2Hr Lactic Acid F/U @ 4Hr Calcium Phosphorus Magnesium Total Bilirubin Direct Bilirubin AST ALT Alkaline Phosphatase Ammonia Total Creatine Kinase Troponin I High Sens Total Protein Albumin Prealbumin Lipase TSH Urine Color Yellow Urine Appearance Turbid Urine pH 5.5 Ur Specific Wirtz 1.025 Urine Protein 100 (2+) H Urine Glucose (UA) Negative Urine Ketones Negative Urine Blood Moderate (2+) H Urine Nitrite Negative Ur Leukocyte Esterase Moderate (2+) H Urine RBC 3-5 H Urine WBC 21-50 H Ur Squamous Epith Cells 0-2 Urine Bacteria Trace Hyaline Casts 0-2 Salicylates Urine Opiates Screen POSITIVE H Urine Fentanyl Screen POSITIVE H Acetaminophen Ur Barbiturates Screen Not Detected Ur Phencyclidine Scrn Not Detected Ur Amphetamines Screen Not Detected U Benzodiazepines Scrn Not Detected Urine Cocaine Screen POSITIVE H U Marijuana (THC) Screen Not Detected Ethyl Alcohol COVID-19 (JOE) COVID-19 Clin Com Blood Type Antibody Screen 04/17/23 04/17/23 04/17/23 02:55 02:55 02:55 WBC 2.9 L RBC 4.20 Hgb 13.1 Hct 40.5 MCV 96.4 MCH 31.2 MCHC 32.3 RDW 13.9 Plt Count 188 MPV 10.6 Immature Gran % (Auto) 0.3 Neut % (Auto) 69.3 Lymph % (Auto) 27.0 Vernon % (Auto) 3.1 Eos % (Auto) 0.0 Baso % (Auto) 0.3 Lymph # (Auto) 0.8 L [place] # (Auto) 0.1 Eos # (Auto) 0.0 Baso # (Auto) 0.0 Abs Immat Gran (auto) 0.01 Absolute Neuts (auto) 2.0 Absolute Nucleated RBC 0.000 Nucleated RBC % (auto) 0.0 Neutrophils % (Manual) Band Neutrophils % Lymphocytes % (Manual) Monocytes % (Manual) Eosinophils % (Manual) Basophils % (Manual) Metamyelocytes % Abs Neuts (Manual) Lymphocytes # (Manual) Monocytes # (Manual) Eosinophils # (Manual) Basophils # (Manual) Metamyelocytes # Toxic Granulation Toxic Vacuolation Platelet Estimate Large Platelets Plt Morphology Comment RBC Morphology Target Cells Deonna Cells PT 13.7 H INR 1.2 H APTT VBG pH VBG pCO2 VBG pO2 VBG HCO3 VBG O2 Saturation VBG Base Excess Sodium Potassium Chloride Carbon Dioxide Anion Gap BUN Creatinine Estim Creat Clear Calc Estimated GFR POC Glucose Random Glucose Estimat Average Glucose 111 Hemoglobin A1c % 5.5 Lactic Acid Lactic Acid F/U @ 2Hr Lactic Acid F/U @ 4Hr Calcium Phosphorus Magnesium Total Bilirubin Direct Bilirubin AST ALT Alkaline Phosphatase Ammonia Total Creatine Kinase Troponin I High Sens Total Protein Albumin Prealbumin Lipase TSH Urine Color Urine Appearance Urine pH Ur Specific Wirtz Urine Protein Urine Glucose (UA) Urine Ketones Urine Blood Urine Nitrite Ur Leukocyte Esterase Urine RBC Urine WBC Ur Squamous Epith Cells Urine Bacteria Hyaline Casts Salicylates Urine Opiates Screen Urine Fentanyl Screen Acetaminophen Ur Barbiturates Screen Ur Phencyclidine Scrn Ur Amphetamines Screen U Benzodiazepines Scrn Urine Cocaine Screen U Marijuana (THC) Screen Ethyl Alcohol COVID-19 (JOE) COVID-19 Clin Com Blood Type Antibody Screen 04/17/23 04/17/23 04/17/23 02:55 02:55 05:53 WBC RBC Hgb Hct MCV MCH MCHC RDW Plt Count MPV Immature Gran % (Auto) Neut % (Auto) Lymph % (Auto) [place] % (Auto) Eos % (Auto) Baso % (Auto) Lymph # (Auto) [place] # (Auto) Eos # (Auto) Baso # (Auto) Abs Immat Gran (auto) Absolute Neuts (auto) Absolute Nucleated RBC Nucleated RBC % (auto) Neutrophils % (Manual) Band Neutrophils % Lymphocytes % (Manual) Monocytes % (Manual) Eosinophils % (Manual) Basophils % (Manual) Metamyelocytes % Abs Neuts (Manual) Lymphocytes # (Manual) Monocytes # (Manual) Eosinophils # (Manual) Basophils # (Manual) Metamyelocytes # Toxic Granulation Toxic Vacuolation Platelet Estimate Large Platelets Plt Morphology Comment RBC Morphology Target Cells Deonna Cells PT INR APTT VBG pH 7.24 L 7.31 L VBG pCO2 58 49 VBG pO2 46 41 VBG HCO3 25 25 VBG O2 Saturation 76.0 71.0 VBG Base Excess -2.7 -1.4 Sodium 145 Potassium 3.9 D Chloride 114 H Carbon Dioxide 23 Anion Gap 12 BUN 14 Creatinine 1.65 H Estim Creat Clear Calc 41.4 Estimated GFR 32 POC Glucose Random Glucose 126 H Estimat Average Glucose Hemoglobin A1c % Lactic Acid Lactic Acid F/U @ 2Hr Lactic Acid F/U @ 4Hr Calcium 8.2 L D Phosphorus 2.5 L Magnesium 1.6 Total Bilirubin Direct Bilirubin AST ALT Alkaline Phosphatase Ammonia Total Creatine Kinase Troponin I High Sens Total Protein Albumin 2.9 L Prealbumin Lipase TSH Urine Color Urine Appearance Urine pH Ur Specific Wirtz Urine Protein Urine Glucose (UA) Urine Ketones Urine Blood Urine Nitrite Ur Leukocyte Esterase Urine RBC Urine WBC Ur Squamous Epith Cells Urine Bacteria Hyaline Casts Salicylates Urine Opiates Screen Urine Fentanyl Screen Acetaminophen Ur Barbiturates Screen Ur Phencyclidine Scrn Ur Amphetamines Screen U Benzodiazepines Scrn Urine Cocaine Screen U Marijuana (THC) Screen Ethyl Alcohol COVID-19 (JOE) COVID-19 Clin Com Blood Type Antibody Screen 04/17/23 04/17/23 04/17/23 05:55 08:27 12:10 WBC RBC Hgb Hct MCV MCH MCHC RDW Plt Count MPV Immature Gran % (Auto) Neut % (Auto) Lymph % (Auto) [place] % (Auto) Eos % (Auto) Baso % (Auto) Lymph # (Auto) [place] # (Auto) Eos # (Auto) Baso # (Auto) Abs Immat Gran (auto) Absolute Neuts (auto) Absolute Nucleated RBC Nucleated RBC % (auto) Neutrophils % (Manual) Band Neutrophils % Lymphocytes % (Manual) Monocytes % (Manual) Eosinophils % (Manual) Basophils % (Manual) Metamyelocytes % Abs Neuts (Manual) Lymphocytes # (Manual) Monocytes # (Manual) Eosinophils # (Manual) Basophils # (Manual) Metamyelocytes # Toxic Granulation Toxic Vacuolation Platelet Estimate Large Platelets Plt Morphology Comment RBC Morphology Target Cells Mandan Cells PT INR APTT VBG pH 7.27 L VBG pCO2 45 VBG pO2 41 VBG HCO3 21 L VBG O2 Saturation 71.0 VBG Base Excess -5.5 Sodium Potassium Chloride Carbon Dioxide Anion Gap BUN Creatinine Estim Creat Clear Calc Estimated GFR POC Glucose Random Glucose Estimat Average Glucose Hemoglobin A1c % Lactic Acid Lactic Acid F/U @ 2Hr Lactic Acid F/U @ 4Hr 3.8 H* Calcium Phosphorus Magnesium Total Bilirubin Direct Bilirubin AST ALT Alkaline Phosphatase Ammonia Total Creatine Kinase Troponin I High Sens Total Protein Albumin Prealbumin 20.0 Lipase TSH Urine Color Urine Appearance Urine pH Ur Specific Wirtz Urine Protein Urine Glucose (UA) Urine Ketones Urine Blood Urine Nitrite Ur Leukocyte Esterase Urine RBC Urine WBC Ur Squamous Epith Cells Urine Bacteria Hyaline Casts Salicylates Urine Opiates Screen Urine Fentanyl Screen Acetaminophen Ur Barbiturates Screen Ur Phencyclidine Scrn Ur Amphetamines Screen U Benzodiazepines Scrn Urine Cocaine Screen U Marijuana (THC) Screen Ethyl Alcohol COVID-19 (JOE) COVID-19 Clin Com Blood Type Antibody Screen 04/17/23 04/17/23 04/17/23 12:13 12:13 12:19 WBC 4.4 L RBC 3.79 L Hgb 11.9 L Hct 36.9 L MCV 97.4 MCH 31.4 MCHC 32.2 RDW 14.0 Plt Count 135 L D MPV 11.3 Immature Gran % (Auto) Cancelled Neut % (Auto) Cancelled Lymph % (Auto) Cancelled Vernon % (Auto) Cancelled Eos % (Auto) Cancelled Baso % (Auto) Cancelled Lymph # (Auto) Cancelled Vernon # (Auto) Cancelled Eos # (Auto) Cancelled Baso # (Auto) Cancelled Abs Immat Gran (auto) Cancelled Absolute Neuts (auto) Cancelled Absolute Nucleated RBC 0.000 Nucleated RBC % (auto) 0.0 Neutrophils % (Manual) 33 L Band Neutrophils % 34 H Lymphocytes % (Manual) 29 Monocytes % (Manual) 4 Eosinophils % (Manual) Basophils % (Manual) Metamyelocytes % Abs Neuts (Manual) 2.9 Lymphocytes # (Manual) 1.3 Monocytes # (Manual) 0.2 Eosinophils # (Manual) Basophils # (Manual) Metamyelocytes # Toxic Granulation Toxic Vacuolation Platelet Estimate SLIGHTLY DECREASED Large Platelets Plt Morphology Comment NORMAL RBC Morphology NORMAL Target Cells Deonna Cells PT INR APTT VBG pH VBG pCO2 VBG pO2 VBG HCO3 VBG O2 Saturation VBG Base Excess Sodium 143 Potassium 3.7 Chloride 111 H Carbon Dioxide 19 L Anion Gap 17 BUN 21 H Creatinine 2.60 H Estim Creat Clear Calc 26.8 Estimated GFR 19 POC Glucose 121 H Random Glucose 171 H Estimat Average Glucose Hemoglobin A1c % Lactic Acid Lactic Acid F/U @ 2Hr Lactic Acid F/U @ 4Hr Calcium 7.8 L Phosphorus 3.0 Magnesium 1.3 L* Total Bilirubin 0.4 Direct Bilirubin AST 68 H ALT 35 H Alkaline Phosphatase 51 Ammonia Total Creatine Kinase Troponin I High Sens Total Protein 5.3 L Albumin 3.3 L Prealbumin Lipase TSH Urine Color Urine Appearance Urine pH Ur Specific Wirtz Urine Protein Urine Glucose (UA) Urine Ketones Urine Blood Urine Nitrite Ur Leukocyte Esterase Urine RBC Urine WBC Ur Squamous Epith Cells Urine Bacteria Hyaline Casts Salicylates Urine Opiates Screen Urine Fentanyl Screen Acetaminophen Ur Barbiturates Screen Ur Phencyclidine Scrn Ur Amphetamines Screen U Benzodiazepines Scrn Urine Cocaine Screen U Marijuana (THC) Screen Ethyl Alcohol COVID-19 (JOE) COVID-19 Clin Com Blood Type Antibody Screen 04/17/23 04/17/23 04/17/23 17:43 18:05 23:25 WBC RBC Hgb Hct MCV MCH MCHC RDW Plt Count MPV Immature Gran % (Auto) Neut % (Auto) Lymph % (Auto) [place] % (Auto) Eos % (Auto) Baso % (Auto) Lymph # (Auto) [place] # (Auto) Eos # (Auto) Baso # (Auto) Abs Immat Gran (auto) Absolute Neuts (auto) Absolute Nucleated RBC Nucleated RBC % (auto) Neutrophils % (Manual) Band Neutrophils % Lymphocytes % (Manual) Monocytes % (Manual) Eosinophils % (Manual) Basophils % (Manual) Metamyelocytes % Abs Neuts (Manual) Lymphocytes # (Manual) Monocytes # (Manual) Eosinophils # (Manual) Basophils # (Manual) Metamyelocytes # Toxic Granulation Toxic Vacuolation Platelet Estimate Large Platelets Plt Morphology Comment RBC Morphology Target Cells Deonna Cells PT INR APTT VBG pH VBG pCO2 VBG pO2 VBG HCO3 VBG O2 Saturation VBG Base Excess Sodium Potassium Chloride Carbon Dioxide Anion Gap BUN Creatinine Estim Creat Clear Calc Estimated GFR POC Glucose 243 H 318 H Random Glucose Estimat Average Glucose Hemoglobin A1c % Lactic Acid Lactic Acid F/U @ 2Hr Lactic Acid F/U @ 4Hr Calcium Phosphorus Magnesium Total Bilirubin Direct Bilirubin AST ALT Alkaline Phosphatase Ammonia 27 Total Creatine Kinase Troponin I High Sens Total Protein Albumin Prealbumin Lipase TSH Urine Color Urine Appearance Urine pH Ur Specific Wirtz Urine Protein Urine Glucose (UA) Urine Ketones Urine Blood Urine Nitrite Ur Leukocyte Esterase Urine RBC Urine WBC Ur Squamous Epith Cells Urine Bacteria Hyaline Casts Salicylates Urine Opiates Screen Urine Fentanyl Screen Acetaminophen Ur Barbiturates Screen Ur Phencyclidine Scrn Ur Amphetamines Screen U Benzodiazepines Scrn Urine Cocaine Screen U Marijuana (THC) Screen Ethyl Alcohol COVID-19 (JOE) COVID-19 Clin Com Blood Type Antibody Screen 04/18/23 04/18/23 04/18/23 01:42 05:00 05:00 WBC 4.9 RBC 3.23 L Hgb 10.5 L Hct 30.2 L MCV 93.5 MCH 32.5 MCHC 34.8 RDW 13.4 Plt Count 92 L D MPV 11.8 Immature Gran % (Auto) Cancelled Neut % (Auto) Cancelled Lymph % (Auto) Cancelled [place] % (Auto) Cancelled Eos % (Auto) Cancelled Baso % (Auto) Cancelled Lymph # (Auto) Cancelled [place] # (Auto) Cancelled Eos # (Auto) Cancelled Baso # (Auto) Cancelled Abs Immat Gran (auto) Cancelled Absolute Neuts (auto) Cancelled Absolute Nucleated RBC 0.000 Nucleated RBC % (auto) 0.0 Neutrophils % (Manual) 33 L Band Neutrophils % 42 H Lymphocytes % (Manual) 22 Monocytes % (Manual) 1 L Eosinophils % (Manual) Basophils % (Manual) Metamyelocytes % 2 Abs Neuts (Manual) 3.7 Lymphocytes # (Manual) 1.1 L Monocytes # (Manual) Eosinophils # (Manual) Basophils # (Manual) Metamyelocytes # 0.1 Toxic Granulation Toxic Vacuolation PRESENT Platelet Estimate DECREASED Large Platelets PRESENT Plt Morphology Comment NOTED RBC Morphology NOTED Target Cells 1+ (5-14) Deonna Cells 1+ (0-2) PT INR APTT VBG pH VBG pCO2 VBG pO2 VBG HCO3 VBG O2 Saturation VBG Base Excess Sodium 144 Potassium 3.0 L Chloride 104 Carbon Dioxide 28 Anion Gap 15 BUN 15 Creatinine 1.51 H Estim Creat Clear Calc 47.2 Estimated GFR 36 POC Glucose 333 H Random Glucose 281 H Estimat Average Glucose Hemoglobin A1c % Lactic Acid Lactic Acid F/U @ 2Hr Lactic Acid F/U @ 4Hr Calcium 6.9 L D Phosphorus 2.3 L Magnesium 1.7 Total Bilirubin Direct Bilirubin AST ALT Alkaline Phosphatase Ammonia Total Creatine Kinase Troponin I High Sens Total Protein Albumin 3.6 Prealbumin Lipase TSH Urine Color Urine Appearance Urine pH Ur Specific Wirtz Urine Protein Urine Glucose (UA) Urine Ketones Urine Blood Urine Nitrite Ur Leukocyte Esterase Urine RBC Urine WBC Ur Squamous Epith Cells Urine Bacteria Hyaline Casts Salicylates Urine Opiates Screen Urine Fentanyl Screen Acetaminophen Ur Barbiturates Screen Ur Phencyclidine Scrn Ur Amphetamines Screen U Benzodiazepines Scrn Urine Cocaine Screen U Marijuana (THC) Screen Ethyl Alcohol COVID-19 (JOE) COVID-19 Clin Com Blood Type Antibody Screen 04/18/23 04/18/23 04/18/23 05:11 09:40 12:28 WBC RBC Hgb Hct MCV MCH MCHC RDW Plt Count MPV Immature Gran % (Auto) Neut % (Auto) Lymph % (Auto) Vernon % (Auto) Eos % (Auto) Baso % (Auto) Lymph # (Auto) Vernon # (Auto) Eos # (Auto) Baso # (Auto) Abs Immat Gran (auto) Absolute Neuts (auto) Absolute Nucleated RBC Nucleated RBC % (auto) Neutrophils % (Manual) Band Neutrophils % Lymphocytes % (Manual) Monocytes % (Manual) Eosinophils % (Manual) Basophils % (Manual) Metamyelocytes % Abs Neuts (Manual) Lymphocytes # (Manual) Monocytes # (Manual) Eosinophils # (Manual) Basophils # (Manual) Metamyelocytes # Toxic Granulation Toxic Vacuolation Platelet Estimate Large Platelets Plt Morphology Comment RBC Morphology Target Cells Deonna Cells PT INR APTT VBG pH 7.43 VBG pCO2 50 VBG pO2 58 VBG HCO3 33 H VBG O2 Saturation 93.0 VBG Base Excess 8.4 Sodium Potassium Chloride Carbon Dioxide Anion Gap BUN Creatinine Estim Creat Clear Calc Estimated GFR POC Glucose 208 H 172 H Random Glucose Estimat Average Glucose Hemoglobin A1c % Lactic Acid Lactic Acid F/U @ 2Hr Lactic Acid F/U @ 4Hr Calcium Phosphorus Magnesium Total Bilirubin Direct Bilirubin AST ALT Alkaline Phosphatase Ammonia Total Creatine Kinase Troponin I High Sens Total Protein Albumin Prealbumin Lipase TSH Urine Color Urine Appearance Urine pH Ur Specific Wirtz Urine Protein Urine Glucose (UA) Urine Ketones Urine Blood Urine Nitrite Ur Leukocyte Esterase Urine RBC Urine WBC Ur Squamous Epith Cells Urine Bacteria Hyaline Casts Salicylates Urine Opiates Screen Urine Fentanyl Screen Acetaminophen Ur Barbiturates Screen Ur Phencyclidine Scrn Ur Amphetamines Screen U Benzodiazepines Scrn Urine Cocaine Screen U Marijuana (THC) Screen Ethyl Alcohol COVID-19 (JOE) COVID-19 Clin Com Blood Type Antibody Screen 04/18/23 04/18/23 04/18/23 15:48 15:49 17:53 WBC RBC Hgb Hct MCV MCH MCHC RDW Plt Count MPV Immature Gran % (Auto) Neut % (Auto) Lymph % (Auto) Vernon % (Auto) Eos % (Auto) Baso % (Auto) Lymph # (Auto) Vernon # (Auto) Eos # (Auto) Baso # (Auto) Abs Immat Gran (auto) Absolute Neuts (auto) Absolute Nucleated RBC Nucleated RBC % (auto) Neutrophils % (Manual) Band Neutrophils % Lymphocytes % (Manual) Monocytes % (Manual) Eosinophils % (Manual) Basophils % (Manual) Metamyelocytes % Abs Neuts (Manual) Lymphocytes # (Manual) Monocytes # (Manual) Eosinophils # (Manual) Basophils # (Manual) Metamyelocytes # Toxic Granulation Toxic Vacuolation Platelet Estimate Large Platelets Plt Morphology Comment RBC Morphology Target Cells Mandan Cells PT INR APTT VBG pH 7.53 H VBG pCO2 18 VBG pO2 44 VBG HCO3 15 L VBG O2 Saturation 84.0 VBG Base Excess -5.7 Sodium 147 H Potassium 5.0 D Chloride 106 Carbon Dioxide 29 Anion Gap 17 BUN 15 Creatinine 1.72 H Estim Creat Clear Calc 41.4 Estimated GFR 31 POC Glucose 127 H Random Glucose 105 Estimat Average Glucose Hemoglobin A1c % Lactic Acid Lactic Acid F/U @ 2Hr Lactic Acid F/U @ 4Hr Calcium 6.7 L Phosphorus 3.9 Magnesium Total Bilirubin Direct Bilirubin AST ALT Alkaline Phosphatase Ammonia Total Creatine Kinase Troponin I High Sens Total Protein Albumin Prealbumin Lipase TSH Urine Color Urine Appearance Urine pH Ur Specific Wirtz Urine Protein Urine Glucose (UA) Urine Ketones Urine Blood Urine Nitrite Ur Leukocyte Esterase Urine RBC Urine WBC Ur Squamous Epith Cells Urine Bacteria Hyaline Casts Salicylates Urine Opiates Screen Urine Fentanyl Screen Acetaminophen Ur Barbiturates Screen Ur Phencyclidine Scrn Ur Amphetamines Screen U Benzodiazepines Scrn Urine Cocaine Screen U Marijuana (THC) Screen Ethyl Alcohol COVID-19 (JOE) COVID-19 Clin Com Blood Type Antibody Screen 04/18/23 04/18/23 18:15 23:27 WBC 7.6 RBC 4.27 D Hgb 13.8 D Hct 40.4 D MCV 94.6 MCH 32.3 MCHC 34.2 RDW 14.1 Plt Count 100 L MPV 12.1 Immature Gran % (Auto) Cancelled Neut % (Auto) Cancelled Lymph % (Auto) Cancelled Vernon % (Auto) Cancelled Eos % (Auto) Cancelled Baso % (Auto) Cancelled Lymph # (Auto) Cancelled Vernon # (Auto) Cancelled Eos # (Auto) Cancelled Baso # (Auto) Cancelled Abs Immat Gran (auto) Cancelled Absolute Neuts (auto) Cancelled Absolute Nucleated RBC 0.000 Nucleated RBC % (auto) 0.0 Neutrophils % (Manual) 65 Band Neutrophils % 15 H Lymphocytes % (Manual) 10 L Monocytes % (Manual) 2 Eosinophils % (Manual) 1 Basophils % (Manual) 2 Metamyelocytes % 5 Abs Neuts (Manual) 6.1 Lymphocytes # (Manual) 0.8 L Monocytes # (Manual) 0.2 Eosinophils # (Manual) 0.1 Basophils # (Manual) 0.2 Metamyelocytes # 0.4 Toxic Granulation PRESENT Toxic Vacuolation Platelet Estimate NORMAL Large Platelets Plt Morphology Comment NORMAL RBC Morphology NORMAL Target Cells Mandan Cells PT INR APTT VBG pH VBG pCO2 VBG pO2 VBG HCO3 VBG O2 Saturation VBG Base Excess Sodium Potassium Chloride Carbon Dioxide Anion Gap BUN Creatinine Estim Creat Clear Calc Estimated GFR POC Glucose 217 H Random Glucose Estimat Average Glucose Hemoglobin A1c % Lactic Acid Lactic Acid F/U @ 2Hr Lactic Acid F/U @ 4Hr Calcium Phosphorus Magnesium Total Bilirubin Direct Bilirubin AST ALT Alkaline Phosphatase Ammonia Total Creatine Kinase Troponin I High Sens Total Protein Albumin Prealbumin Lipase TSH Urine Color Urine Appearance Urine pH Ur Specific Wirtz Urine Protein Urine Glucose (UA) Urine Ketones Urine Blood Urine Nitrite Ur Leukocyte Esterase Urine RBC Urine WBC Ur Squamous Epith Cells Urine Bacteria Hyaline Casts Salicylates Urine Opiates Screen Urine Fentanyl Screen Acetaminophen Ur Barbiturates Screen Ur Phencyclidine Scrn Ur Amphetamines Screen U Benzodiazepines Scrn Urine Cocaine Screen U Marijuana (THC) Screen Ethyl Alcohol COVID-19 (JOE) COVID-19 Clin Com Blood Type Antibody Screen Airway Loose/Missing/Broken Teeth: No Heart: Tachy Lungs: Verntilated, bilateral breathing sounds Other: ETT in situ Assessment and Plan Assessment Anesthesia Assessment: Anesthesia Plan Discussed and Chart Reviewed Final Anesthetic Review Family History of Problems with Anesthesia: No History of Problems with Anesthesia: No NPO: Yes ASA Class: V and Emergency Final Preanesthetic Review: Meds/Allgs Chart Reviewed, Consent Obtained/Reviewed and Anes Risks/Benef Reviewed Patient Risk: High Procedure Risk: High Anesthetic Plan Anesthetic Plan: GA Disposition: Inp. Admit - ICU
[2023-04-19] VITALS (79 sets, daily range): BP systolic 80–205; BP diastolic 37–96; PULSE 92–172; RESP 15–25; TEMP 34.5–38.5; O2SAT 92–98; BMI 42.1
[2023-04-19] MEDS: EPINEPHrine 5 MG in Dextrose 5 % 250 ML 185.07 MG IVCONT (02:31)
--- NOTE | 2023-04-19 02:35 | W.PM.OPN ---
Operative Note Operative Note Date of Service: 04/19/23 Narrative: Preop diagnosis: [Recurrent gastric perforation, postop day 1 status post ex lap and over-sew] Postop diagnosis: [Same, decompressed hematoma at gastric perforation on the lesser curve, gastritis on EGD] Procedure: [Exploratory laparotomy, partial gastrectomy, intraoperative upper endoscopy] Surgeon: Evan Goetz MD Assist: [none] Anesthesia: [GET] Estimated blood loss: [100cc] Specimen: [1) aspirated peritoneal fluid for Gram stain and culture; 2) partial gastrectomy with recurrent perforation] Intraoperative findings: [The perforation site on the lesser curvature/posterior stomach had reopened and the hematoma noted at surgery was gone. While bile staining of the peritoneum and small bowel and colon was noted, in running the bowel, no other areas of ischemia were noted. Bilious peritonitis was noted.] Drains: JPs x 4: Right upper abdomen is at the staple line from the partial gastrectomy in the lesser sac; right lower abdominal drain is in the pelvis; left upper abdominal drain is in the left upper quadrant by the stomach and spleen; left lower abdominal drain is in the left pelvis Indications: [The patient is a 57-year-old woman who is brought and combative by EMS and intubated by the emergency room physician on 04/16/23.? Patient's family notes that she had been drinking alcohol, taking tramadol and, by report from the family had heroin in her purse, but tox screen from her presenting night was positive for cocaine and not heroin.? At the time of presentation, she was septic and workup demonstrated free air on CT and x-ray, so she was taken emergently to surgery which completed on 04/17/2023 at approximately 4:00am. The patient remained septic with tachycardia but appeared stable postoperatively. In fact, an attempt to wean and extubate meant that her orogastric tube had to be converted to a nasogastric tube. Given this, on 04/18/2023, the patient's orogastric tube was converted by myself under fluoroscopy with the assistance of the radiologist in uneventful manner and a limited Gastrografin study performed. It was unclear if there was evidence of ongoing Gastrografin leak at that time, however later in the afternoon, the patient began to deteriorate requiring more pressors, began to express fluid from her abdomen and drains, was oliguric, had worsening tachycardia. Given the sudden change, a CT scan of the abdomen and pelvis with oral and IV contrast was performed which demonstrated contrast in the retrogastric and left pericolic area. I contacted the patient's daughter, Nadege, and recommended re-exploration. I explained that if this gastric perforation is due to malignancy or ulcer or ischemia related to cocaine, it will not heal on its own and partial gastrectomy may be required; I further explained that if she had ischemia from cocaine, other areas of the gastrointestinal tract could be affected and I would need to either repair or remove these affected areas. The inherent risks of , bleeding, infection, need for another procedure in the event of a complication, the possibility of multi-system organ failure and were all discussed with her and apparently understood. The option of comfort measures or transfer were discussed but declined by the patient's daughter Nadege. She seemed understand all of the options and verbally gave informed consent myself and the ICU nurse and requested we proceed with surgery. Procedure: [The patient was identified in the ICU and brought into operating room 6. She was placed supine on the table. Her abdominal dressings were removed and at this point were saturated with gross bile and Gastrografin. General anesthesia administered by the anesthesiologist. The existing drains were knotted to close them, and the drains cut. The retaining sutures were cut. The patient widely prepped with Betadine that was allowed to dry, then draped in the usual manner for surgery. The lizzie were removed from the midline incision, the Maxon sutures cut and the abdomen entered which expressed bilious material with Gastrografin and 10 cc of this was sent for Gram stain and culture. Suction was used to clear the field, the Bookwalter deployed and the patient placed in reverse Trendelenburg. Bladder blades were used to retract the upper abdomen and a malleable used to retract the liver. On initial exam, the previous gastric hematoma along the lesser curvature was gone and I could visualize this suture line from the original operation. Grossly bilious material was demonstrated. This was clamped to temporize leakage and the remaining stomach, liver, small bowel, colon all examined and other than bile staining, there was no evidence of ischemia, so attention was directed to the lesser curve of the stomach. The Salcha LigaSure was used to take down the lesser omentum and demonstrate the perforation. The NG tube was palpated and was along the greater curvature, but the tissue at the perforation site was exceedingly friable, so I elected to perform a partial gastrectomy using the [employer] Riveren Endo-MAXIM with purple loads, which took 3 60 firings and 1 15 to perform partial gastrectomy which encompassed the gastric perforation. This was sent for permanent section. The operative field was then irrigated copiously and inspected. Palpation of the NG tube at the GE junction showed no narrowing, so I broke scrub to perform an on-table upper endoscopy. The patient was returned to supine, neutral position and the Olympus 160 gastroscope inserted per os without difficulty. Under direct vision, the scope was advanced along the nasogastric tube in into the stomach. The operative field had been filled with irrigation by the semiconductor equipment technician and air instilled into the stomach with good distension and no evidence of bubbles from the staple line. Intragastric exam was conducted to the pylorus, there was no significant narrowing of the lesser curvature in spite of the stapling and no encroachment at the EG junction. The scope was then used to confirm no evidence of a leak 1 last time, the stomach deflated and the scope withdrawn from the patient. I then recent grabbed and returned to the field. I tailored another piece of omentum from the right side of the omentum using the LigaSure and placed a MARTY drain through the right upper abdomen into the lesser sac by the staple line. The right lateral omental patch was placed over this and it was secured only to the body with to a Polysorb, in seromuscular fashion. I made sure that this did not encroach upon removal of the drain. Next, the operative field was irrigated copiously with 6 L of warm sterile saline until it returned clear. Palpation of the nasogastric tube again confirmed placement and MARTY drains were placed in the left upper quadrant and bilateral pelvis quadrants. The abdomen was again explored in the small bowel and colon appeared free of any ischemic areas. The drains were sutured to the skin with 2-0 silk sutures in the abdomen closed with running 1. Maxon suture. The skin was then approximated with skin lizzie. The abdomen was then washed and dried and dressings applied. Patient tolerated the procedure well and was returned to the ICU in critical but stable condition. All sponge needle and instrument counts were correct x2. I called the patient's daughter, Nadege at [phone] to apprise her of the operation, the need to remove portion of the stomach in place more drains, the fact that she was still in critical condition and that I would speak with her later this morning. Patient's daughter's questions seemed to be satisfactorily answered.]
[2023-04-19] MEDS: propofoL 1,000 MG/100 ML VIAL 17.47 MG IVCONT ×4 (02:42→17:01)
[2023-04-19 02:45] LABS: VBG Base Excess -3.5 mmol/L; VBG HCO3 23 mmol/L (22-26); VBG pCO2 46 mmHg; VBG pH 7.29 (7.32-7.43); VBG pO2 52 mmHg
[2023-04-19] MEDS: fentaNYL citrate/NS 1,000 MCG/100 ML PLAST..BAG 12.5 MCG IVCONT (02:45)
[2023-04-19 02:46] LABS: Hemoglobin 11.3 g/dl (12.0-16.0); Mean Corpuscular HGB Conc 34.2 g/dl (31.0-35.0); Mean Corpuscular Hemoglobin 32.2 pg (27.0-33.0); Mean Platelet Volume 12.4 fL (9.4-12.3); Platelet Count 105 X10*3/uL (160-400); Red Blood Count 3.51 X10*6/uL (4.20-5.50); Red Cell Distribution Width 14.3 % (11.0-16.0)
[2023-04-19 02:48] LABS: WBC ABN SCTR FOR CBC 1
[2023-04-19 03:05] LABS: Venous Blood Gas Refer to POC result
[2023-04-19 03:11] LABS: Alanine Aminotransferase 37 U/L (0-31); Albumin Level 2.1 g/dL (3.5-5.0); Alkaline Phosphatase 49 U/L (39-117); Anion Gap 20 (12-20); Aspartate Amino Transferase 88 U/L (5-31); Blood Urea Nitrogen 21 mg/dL (9-16); Carbon Dioxide 22 mmol/L (22-29); Chloride 101 mmol/L (96-108); Creatinine Clr Calc Pharmacy 32.7; Estimated Glomerular Filt Rate 23; Glucose Random 310 mg/dL (60-115); Magnesium 1.9 mg/dL (1.6-2.6); Sodium 139 mmol/L (135-145); Total Protein 3.8 g/dL (6.5-8.0)
[2023-04-19 03:12] LABS: Band Neutrophils Percent 14 % (3-5); Lymphocytes Absolute Manual 0.5 X10*3/uL (1.2-4.9); Lymphocytes Percent Manual 5 % (20-40); Monocytes Absolute Manual 0.1 X10*3/uL (0.1-1.2); Monocytes Percent Manual 1 % (2-11); Neutrophils Absolute Manual 8.5 X10*3/uL (2.0-8.3); Neutrophils Percent Manual 80 % (45-73)
[2023-04-19 03:13] LABS: Dohle Bodies PRESENT; Platelet Estimate DECREASED (NORMAL); Platelet Morphology Comment NORMAL; RBC Morphology NORMAL; Smudge Cells PRESENT; Toxic Vacuolation PRESENT
[2023-04-19] MEDS: Piperacillin Sodium/Tazobactam 3.375 GM in 0.9 % Sodium Chloride 50 ML IV ×2 (03:18→08:25)
[2023-04-19] MEDS: Albumin Human 25 % 100 ML IV ×4 (03:48→22:33)
[2023-04-19] MEDS: Calcium Gluconate/NaCl,Iso-Osm 2 GM/100 ML PLAST..BAG IV ×2 (04:09→08:01)
[2023-04-19] MEDS: EPINEPHrine 5 MG in Dextrose 5 % 250 ML 92.53 MG IVCONT (04:20)
[2023-04-19 04:23] LABS: VBG Base Excess 1.5 mmol/L; VBG HCO3 27 mmol/L (22-26); VBG pCO2 47 mmHg; VBG pH 7.36 (7.32-7.43); VBG pO2 55 mmHg
[2023-04-19 04:28] LABS: Venous Blood Gas Refer to POC result
[2023-04-19 05:29] LABS: Glucose, Whole Blood 249 mg/dL (60-115)
[2023-04-19] MEDS: Pantoprazole Sodium 40 MG/10 ML VIAL IVPUSH ×2 (05:33→16:04)
[2023-04-19] MEDS: Insulin Lispro 100 UNIT/ML 3 ML VIAL SUBCUT (05:33)
--- NOTE | 2023-04-19 06:36 | PC.NURSE ---
CARE ASSUMED 23;15...REMAINED TUBED/VENTED--VCV VENT SUPPORT--S.TACH HR 120'S---LEVOPHED X4 CONCENTRATION 0.76 MCG/KG/MIN AND EPINEPHRINE 0.6 MCG/KG/MIN....SEDATE WITH PROPOFOL AND FENTANYL PER JAN...AMIODARONE DRIP 0.5 MG/MIN AND BICARB DRIP 100 CC/HR...GRIGSBY WITH MINIMAL OUTPUT...ABDOMINAL DRESSING SATURATED WITH BILIOUS DRAINAGE....MARTY DRAINS X2 WITH SEROSANGUINOUS DRAINAGE....OR TEAM PRESENT AND TRANSPORTED TO OR APPROX OO:15...RETURNED TO ICU 02:15...REMAINS SEDATED ON VCV VENT SUPPORT...LR 1000ml BOLUS INFUAING FROM OR....4 MARTY DRAINS PRESENT...S.TACH HR 122-124...EPINEPHRINE DRIP WEANED TO 0.17 MCG/KG/MIN WITH STABLE BP...LEVOPHED DRIP UNCHANGED...BICARB DRIP HELD/D/C'D PER ICU COMBINATION MACHINE TENDER AFTER POST-OP LAB-WORK REVIEWED..IMPROVED URINE OUTPUT POST-OP...GRIGSBY 320ml ...ABDOMINAL DRESSING REMAINS DRY/INTACT....ABDOMEN SILENT...ALBUMEN AND CALIUM GLUCONATE INFUSED PER JAN..NG-TUBE WITH MINIMAL OUTPUT POST-OP
[2023-04-19 06:52] LABS: Venous Blood Gas Refer to POC result
--- NOTE | 2023-04-19 07:20 | PM.PNGS ---
Subjective Subjective Date of Service: 04/19/23 Interval history: The patient remains sedated and intubated. Please see ICU flow sheets regarding pressor weaning and vent weaning. Patient's urine output has picked up. Physical Exam Vital Signs: Vital Signs: Last Vital Signs Temp 99.7 F 04/19/23 06:00 Pulse 127 H 04/19/23 06:00 Resp 20 04/19/23 06:00 BP 113/72 04/19/23 06:00 Pulse Ox 96 04/19/23 06:00 O2 Del Method Mechanical Ventil ation 04/19/23 06:00 O2 Flow Rate 98 04/17/23 03:30 FiO2 40 04/19/23 06:00 BMI result Body Mass Index 42.1 The patient is intubated and sedated Abdominal dressings are clean, dry and intact MARTY drains have a mix of serosanguineous and slightly bile tinged material in the lower drains. Objective Data Active Medications Chlorhexidine Gluconate (Chlorhexidine Gluc Oral Rinse 15 Ml Mouthwash) 15 ml BUCCAL TID [facility] Last Admin: 04/18/23 20:35 Dose: 15 ml Documented By: LEIA Enoxaparin Sodium (Enoxaparin Sodium 40 Mg/0.4 Ml Syringe) 40 mg SUBCUT Q24H [facility] Last Admin: 04/19/23 03:26 Dose: Not Given Documented By: ALEXANDRA Non-Admin Reason: Physician Held Med Propofol (Diprivan) 1,000 mg in 100 mls @ 0 mls/hr IVCONT .Q0M [facility]; Protocol Last Admin: 04/19/23 02:42 Dose: 30 mcg/kg/min, 17.47 mls/hr Documented By: ALEXANDRA Fentanyl (Sublimaze/Ns) 1,000 mcg in 100 mls @ 0 mls/hr IVCONT .Q0M [facility]; Protocol Last Admin: 04/19/23 02:45 Dose: 125 mcg/hr, 12.5 mls/hr Documented By: ALEXANDRA Amiodarone HCl 900 mg/ Sodium (Chloride) 518 mls @ 34.533 mls/hr IVCONT .Q15H1M [facility]; Protocol Last Admin: 04/18/23 08:39 Dose: 0.5 mg/min, 17.27 mls/hr Documented By: PADMAJA Norepinephrine Bitartrate 32 (mg/ Sodium Chloride) 250 mls @ 0 mls/hr IV .Q0M [facility]; Protocol Last Admin: 04/19/23 03:33 Dose: 0.76 mcg/kg/min, 35.91 mls/hr Documented By: ALEXANDRA Co-signed By: LEO Epinephrine 5 mg/ Dextrose 255 mls @ 0 mls/hr IVCONT .Q0M [facility]; Protocol Last Titration: 04/19/23 05:35 Dose: 0.17 mcg/kg/min, 52.44 mls/hr Documented By: ALEXANDRA Piperacillin Sod/Tazobactam (Sod 3.375 gm/ Sodium Chloride) 50 mls @ 100 mls/hr IV Q6H [facility] Last Infusion: 04/19/23 03:53 Dose: 0 mls/hr Documented By: ALEXANDRA Albumin Human (Kedbumin 25 %) 100 mls @ 100 mls/hr IV Q6H [facility] Stop: 04/19/23 22:59 Last Infusion: 04/19/23 04:55 Dose: 0 mls/hr Documented By: ALEXANDRA Insulin Human Lispro (Insulin Lispro 100 Unit/Ml 3 Ml Vial) 0 unit SUBCUT Q6H [facility]; Protocol Last Admin: 04/19/23 05:33 Dose: 4 unit Documented By: ALEXANDRA Naloxone HCl (Naloxone Hcl 0.4 Mg/Ml Vial) 0.2 mg IVPUSH Q2M PRN PRN Reason: Excessive sedation or RR < 8 Pantoprazole Sodium (Pantoprazole Sodium 40 Mg/10 Ml Vial) 40 mg IVPUSH BID@0630,1630 [facility] Last Admin: 04/19/23 05:33 Dose: 40 mg Documented By: ALEXANDRA Sodium Bicarbonate (Sodium Bicarbonate 8.4% 50 Meq/50 Ml Vial) 50 meq IVPUSH ONCE PRN PRN Reason: Severe hypotension Labs 04/19/23 02:39 04/19/23 02:39 Labs: Laboratory Results - last 24 hr 04/18/23 04/18/23 04/18/23 09:40 12:28 15:48 MCV MCH MCHC RDW Plt Count MPV Immature Gran % (Auto) Neut % (Auto) Lymph % (Auto) Isabel[place] % (Auto) Eos % (Auto) Baso % (Auto) Lymph # (Auto) [place] # (Auto) Eos # (Auto) Baso # (Auto) Abs Immat Gran (auto) Absolute Neuts (auto) Absolute Nucleated RBC Nucleated RBC % (auto) Neutrophils % (Manual) Band Neutrophils % Lymphocytes % (Manual) Monocytes % (Manual) Eosinophils % (Manual) Basophils % (Manual) Metamyelocytes % Abs Neuts (Manual) Lymphocytes # (Manual) Monocytes # (Manual) Eosinophils # (Manual) Basophils # (Manual) Metamyelocytes # Smudge Cells Toxic Granulation Toxic Vacuolation Dohle Bodies Platelet Estimate Plt Morphology Comment RBC Morphology VBG pH 7.53 H VBG pCO2 18 VBG pO2 44 VBG HCO3 15 L VBG O2 Saturation 84.0 VBG Base Excess -5.7 Anion Gap Estim Creat Clear Calc Estimated GFR POC Glucose 208 H 172 H Random Glucose Calcium Phosphorus Magnesium Total Bilirubin AST ALT Alkaline Phosphatase Total Protein Albumin 04/18/23 04/18/23 04/18/23 15:49 17:53 18:15 MCV 94.6 MCH 32.3 MCHC 34.2 RDW 14.1 Plt Count 100 L MPV 12.1 Immature Gran % (Auto) Cancelled Neut % (Auto) Cancelled Lymph % (Auto) Cancelled Isabel[place] % (Auto) Cancelled Eos % (Auto) Cancelled Baso % (Auto) Cancelled Lymph # (Auto) Cancelled Isabel[place] # (Auto) Cancelled Eos # (Auto) Cancelled Baso # (Auto) Cancelled Abs Immat Gran (auto) Cancelled Absolute Neuts (auto) Cancelled Absolute Nucleated RBC 0.000 Nucleated RBC % (auto) 0.0 Neutrophils % (Manual) 65 Band Neutrophils % 15 H Lymphocytes % (Manual) 10 L Monocytes % (Manual) 2 Eosinophils % (Manual) 1 Basophils % (Manual) 2 Metamyelocytes % 5 Abs Neuts (Manual) 6.1 Lymphocytes # (Manual) 0.8 L Monocytes # (Manual) 0.2 Eosinophils # (Manual) 0.1 Basophils # (Manual) 0.2 Metamyelocytes # 0.4 Smudge Cells Toxic Granulation PRESENT Toxic Vacuolation Dohle Bodies Platelet Estimate NORMAL Plt Morphology Comment NORMAL RBC Morphology NORMAL VBG pH VBG pCO2 VBG pO2 VBG HCO3 VBG O2 Saturation VBG Base Excess Anion Gap 17 Estim Creat Clear Calc 41.4 Estimated GFR 31 POC Glucose 127 H Random Glucose 105 Calcium 6.7 L Phosphorus 3.9 Magnesium Total Bilirubin AST ALT Alkaline Phosphatase Total Protein Albumin 04/18/23 04/19/23 04/19/23 23:27 02:35 02:39 MCV 94.0 MCH 32.2 MCHC 34.2 RDW 14.3 Plt Count 105 L MPV 12.4 H Immature Gran % (Auto) Cancelled Neut % (Auto) Cancelled Lymph % (Auto) Cancelled Isabela % (Auto) Cancelled Eos % (Auto) Cancelled Baso % (Auto) Cancelled Lymph # (Auto) Cancelled Isabel[place] # (Auto) Cancelled Eos # (Auto) Cancelled Baso # (Auto) Cancelled Abs Immat Gran (auto) Cancelled Absolute Neuts (auto) Cancelled Absolute Nucleated RBC 0.000 Nucleated RBC % (auto) 0.0 Neutrophils % (Manual) 80 H Band Neutrophils % 14 H Lymphocytes % (Manual) 5 L Monocytes % (Manual) 1 L Eosinophils % (Manual) Basophils % (Manual) Metamyelocytes % Abs Neuts (Manual) 8.5 H Lymphocytes # (Manual) 0.5 L Monocytes # (Manual) 0.1 Eosinophils # (Manual) Basophils # (Manual) Metamyelocytes # Smudge Cells PRESENT Toxic Granulation Toxic Vacuolation PRESENT Dohle Bodies PRESENT Platelet Estimate DECREASED Plt Morphology Comment NORMAL RBC Morphology NORMAL VBG pH 7.29 L VBG pCO2 46 VBG pO2 52 VBG HCO3 23 VBG O2 Saturation 79.0 VBG Base Excess -3.5 Anion Gap Estim Creat Clear Calc Estimated GFR POC Glucose 217 H Random Glucose Calcium Phosphorus Magnesium Total Bilirubin AST ALT Alkaline Phosphatase Total Protein Albumin 04/19/23 04/19/23 04/19/23 02:39 04:13 05:25 MCV MCH MCHC RDW Plt Count MPV Immature Gran % (Auto) Neut % (Auto) Lymph % (Auto) [place] % (Auto) Eos % (Auto) Baso % (Auto) Lymph # (Auto) [place] # (Auto) Eos # (Auto) Baso # (Auto) Abs Immat Gran (auto) Absolute Neuts (auto) Absolute Nucleated RBC Nucleated RBC % (auto) Neutrophils % (Manual) Band Neutrophils % Lymphocytes % (Manual) Monocytes % (Manual) Eosinophils % (Manual) Basophils % (Manual) Metamyelocytes % Abs Neuts (Manual) Lymphocytes # (Manual) Monocytes # (Manual) Eosinophils # (Manual) Basophils # (Manual) Metamyelocytes # Smudge Cells Toxic Granulation Toxic Vacuolation Dohle Bodies Platelet Estimate Plt Morphology Comment RBC Morphology VBG pH 7.36 VBG pCO2 47 VBG pO2 55 VBG HCO3 27 H VBG O2 Saturation 83.0 VBG Base Excess 1.5 Anion Gap 20 Estim Creat Clear Calc 32.7 Estimated GFR 23 POC Glucose 249 H Random Glucose 310 H Calcium 6.0 L* D Phosphorus 7.0 H Magnesium 1.9 Total Bilirubin 1.0 AST 88 H ALT 37 H Alkaline Phosphatase 49 Total Protein 3.8 L Albumin 2.1 L Microbiology Microbiology Results: Microbiology 04/16/23 22:22 Blood Culture - Preliminary Blood - Venous No growth after 48 hours. 04/16/23 22:22 Blood Culture - Preliminary Blood - Venous No growth after 48 hours. 04/16/23 02:40 Urine Culture - Preliminary Urine clean catch - Urine loera top Gram negative moe 04/17/23 01:00 Gram Stain - Final Peritoneal Fluid Routine Culture - Preliminary Anaerobic Culture - Preliminary Culture in progress. Procedures Date of Service Date of Service: 04/19/23 Progress Note: A&P Assessment and plan (1) Septic shock: Status: Acute (2) Gastric perforation: Status: Acute (3) Peritonitis: Status: Acute (4) Acute respiratory failure with hypoxemia: Status: Acute (5) Acute renal failure: Status: Acute (6) Polysubstance abuse: Status: Acute Plan POD 2/0 xlap, partial gastrectomy I spoke with the patient's daughter, Nadege by telephone with an update regarding some improvement and still some critical, life-threatening issues including sepsis. Plan to continue treatment with IV antibiotics, bowel rest, possible need for TPN at a later time if she is not taking p.o. by 1 week was discussed and her questions answered. Vent and pressor wean as per ICU team. Do not irrigate, reposition or use the NG tube for anything other than low intermittent suction. Trend MARTY bulb output. Expect that fluid shift secondary to 3rd spacing. Time Spent With Patient Time: Total time managing care of this patient today ____ minutes. Quality Stroke Does the patient have a stroke diagnosis?: No VTE Prior VTE?: No VTE Risk Level:: Surgical - moderate VTE Device Contraindication: N/A - Device Ordered VTE Drug Contraindication: N/A - Med Ordered
[2023-04-19] MEDS: Amiodarone HCL 900 MG in 0.9 % Sodium Chloride 500 ML 17.27 MG IVCONT (08:07)
[2023-04-19] MEDS: Chlorhexidine Gluc Oral Rinse 15 ML MOUTHWASH BUCCAL ×3 (08:26→20:23)
[2023-04-19] MEDS: EPINEPHrine 5 MG in Dextrose 5 % 250 ML 46.27 MG IVCONT (08:28)
--- NOTE | 2023-04-19 08:45 | P.PNCC_ITS ---
Subjective Subjective Date of Service: 04/19/23 Interval History: 57-year-old lady with underlying alcoholism, substance abuse, anxiety admitted on 04/17/2023 with abdominal pain and distension secondary to perforated gastric ulcer requiring emergent surgical repair with patient transferred postop to intensive care unit intubated and further hospital course complicated by septic shock secondary to peritonitis, acute renal failure, and acute hypoxic respiratory failure. On 04/18/2023 in the afternoon with worsening renal function, decreasing urine output, and increasing pressor requirements - CT abdomen pelvis with leakage of Gastrografin peritoneal cavity requiring surgical re-exploration with partial gastrectomy. Critical Care Time (minutes): 60 Physical Exam Vital Signs: Vital Signs: Last Vital Signs Temp 100.4 F 04/19/23 08:00 Pulse 134 H 04/19/23 08:34 Resp 23 H 04/19/23 08:00 BP 107/79 04/19/23 08:34 Pulse Ox 94 04/19/23 08:00 O2 Del Method Mechanical Ventil ation 04/19/23 08:00 O2 Flow Rate 98 04/17/23 03:30 FiO2 40 04/19/23 08:17 BMI result Body Mass Index 42.1 Const: General: no acute distress and other ( Sedated on the vent) Eyes: Sclerae: sclerae normal Neck: Neck: Yes no lymphadenopathy, Yes trachea midline and Yes supple Resp: Auscultation: rales ( diffuse bilateral) Cardio: Rate: tachycardic Rhythm: regular rhythm Heart sounds: no gallops, no murmurs and no rubs GI: Palpation (GI): Soft to palpation and Other GI palpation findings present ( midline surgical incision with dressing and drains) Auscultation: Hypoac tive bowel sounds present Extrem: General: No clubbing, No cyanosis and Yes edema ( 1+ bilateral) Objective Data Labs 04/19/23 02:39 04/19/23 02:39 Labs: Laboratory Results - last 24 hr 04/18/23 04/18/23 04/18/23 09:40 12:28 15:48 WBC RBC Hgb Hct MCV MCH MCHC RDW Plt Count MPV Immature Gran % (Auto) Neut % (Auto) Lymph % (Auto) [place] % (Auto) Eos % (Auto) Baso % (Auto) Lymph # (Auto) [place] # (Auto) Eos # (Auto) Baso # (Auto) Abs Immat Gran (auto) Absolute Neuts (auto) Absolute Nucleated RBC Nucleated RBC % (auto) Neutrophils % (Manual) Band Neutrophils % Lymphocytes % (Manual) Monocytes % (Manual) Eosinophils % (Manual) Basophils % (Manual) Metamyelocytes % Abs Neuts (Manual) Lymphocytes # (Manual) Monocytes # (Manual) Eosinophils # (Manual) Basophils # (Manual) Metamyelocytes # Smudge Cells Toxic Granulation Toxic Vacuolation Dohle Bodies Platelet Estimate Plt Morphology Comment RBC Morphology VBG pH 7.53 H VBG pCO2 18 VBG pO2 44 VBG HCO3 15 L VBG O2 Saturation 84.0 VBG Base Excess -5.7 Sodium Potassium Chloride Carbon Dioxide Anion Gap BUN Creatinine Estim Creat Clear Calc Estimated GFR POC Glucose 208 H 172 H Random Glucose Calcium Phosphorus Magnesium Total Bilirubin AST ALT Alkaline Phosphatase Total Protein Albumin 04/18/23 04/18/23 04/18/23 15:49 17:53 18:15 WBC 7.6 RBC 4.27 D Hgb 13.8 D Hct 40.4 D MCV 94.6 MCH 32.3 MCHC 34.2 RDW 14.1 Plt Count 100 L MPV 12.1 Immature Gran % (Auto) Cancelled Neut % (Auto) Cancelled Lymph % (Auto) Cancelled [place] % (Auto) Cancelled Eos % (Auto) Cancelled Baso % (Auto) Cancelled Lymph # (Auto) Cancelled [place] # (Auto) Cancelled Eos # (Auto) Cancelled Baso # (Auto) Cancelled Abs Immat Gran (auto) Cancelled Absolute Neuts (auto) Cancelled Absolute Nucleated RBC 0.000 Nucleated RBC % (auto) 0.0 Neutrophils % (Manual) 65 Band Neutrophils % 15 H Lymphocytes % (Manual) 10 L Monocytes % (Manual) 2 Eosinophils % (Manual) 1 Basophils % (Manual) 2 Metamyelocytes % 5 Abs Neuts (Manual) 6.1 Lymphocytes # (Manual) 0.8 L Monocytes # (Manual) 0.2 Eosinophils # (Manual) 0.1 Basophils # (Manual) 0.2 Metamyelocytes # 0.4 Smudge Cells Toxic Granulation PRESENT Toxic Vacuolation Dohle Bodies Platelet Estimate NORMAL Plt Morphology Comment NORMAL RBC Morphology NORMAL VBG pH VBG pCO2 VBG pO2 VBG HCO3 VBG O2 Saturation VBG Base Excess Sodium 147 H Potassium 5.0 D Chloride 106 Carbon Dioxide 29 Anion Gap 17 BUN 15 Creatinine 1.72 H Estim Creat Clear Calc 41.4 Estimated GFR 31 POC Glucose 127 H Random Glucose 105 Calcium 6.7 L Phosphorus 3.9 Magnesium Total Bilirubin AST ALT Alkaline Phosphatase Total Protein Albumin 04/18/23 04/19/23 04/19/23 23:27 02:35 02:39 WBC 9.0 RBC 3.51 L Hgb 11.3 L Hct 33.0 L MCV 94.0 MCH 32.2 MCHC 34.2 RDW 14.3 Plt Count 105 L MPV 12.4 H Immature Gran % (Auto) Cancelled Neut % (Auto) Cancelled Lymph % (Auto) Cancelled [place] % (Auto) Cancelled Eos % (Auto) Cancelled Baso % (Auto) Cancelled Lymph # (Auto) Cancelled [place] # (Auto) Cancelled Eos # (Auto) Cancelled Baso # (Auto) Cancelled Abs Immat Gran (auto) Cancelled Absolute Neuts (auto) Cancelled Absolute Nucleated RBC 0.000 Nucleated RBC % (auto) 0.0 Neutrophils % (Manual) 80 H Band Neutrophils % 14 H Lymphocytes % (Manual) 5 L Monocytes % (Manual) 1 L Eosinophils % (Manual) Basophils % (Manual) Metamyelocytes % Abs Neuts (Manual) 8.5 H Lymphocytes # (Manual) 0.5 L Monocytes # (Manual) 0.1 Eosinophils # (Manual) Basophils # (Manual) Metamyelocytes # Smudge Cells PRESENT Toxic Granulation Toxic Vacuolation PRESENT Dohle Bodies PRESENT Platelet Estimate DECREASED Plt Morphology Comment NORMAL RBC Morphology NORMAL VBG pH 7.29 L VBG pCO2 46 VBG pO2 52 VBG HCO3 23 VBG O2 Saturation 79.0 VBG Base Excess -3.5 Sodium Potassium Chloride Carbon Dioxide Anion Gap BUN Creatinine Estim Creat Clear Calc Estimated GFR POC Glucose 217 H Random Glucose Calcium Phosphorus Magnesium Total Bilirubin AST ALT Alkaline Phosphatase Total Protein Albumin 04/19/23 04/19/23 04/19/23 02:39 04:13 05:25 WBC RBC Hgb Hct MCV MCH MCHC RDW Plt Count MPV Immature Gran % (Auto) Neut % (Auto) Lymph % (Auto) [place] % (Auto) Eos % (Auto) Baso % (Auto) Lymph # (Auto) [place] # (Auto) Eos # (Auto) Baso # (Auto) Abs Immat Gran (auto) Absolute Neuts (auto) Absolute Nucleated RBC Nucleated RBC % (auto) Neutrophils % (Manual) Band Neutrophils % Lymphocytes % (Manual) Monocytes % (Manual) Eosinophils % (Manual) Basophils % (Manual) Metamyelocytes % Abs Neuts (Manual) Lymphocytes # (Manual) Monocytes # (Manual) Eosinophils # (Manual) Basophils # (Manual) Metamyelocytes # Smudge Cells Toxic Granulation Toxic Vacuolation Dohle Bodies Platelet Estimate Plt Morphology Comment RBC Morphology VBG pH 7.36 VBG pCO2 47 VBG pO2 55 VBG HCO3 27 H VBG O2 Saturation 83.0 VBG Base Excess 1.5 Sodium 139 Potassium 4.0 Chloride 101 Carbon Dioxide 22 Anion Gap 20 BUN 21 H Creatinine 2.18 H Estim Creat Clear Calc 32.7 Estimated GFR 23 POC Glucose 249 H Random Glucose 310 H Calcium 6.0 L* D Phosphorus 7.0 H Magnesium 1.9 Total Bilirubin 1.0 AST 88 H ALT 37 H Alkaline Phosphatase 49 Total Protein 3.8 L Albumin 2.1 L Microbiology Microbiology Results: Microbiology 04/16/23 02:40 Urine clean catch - Urine loera top Urine Culture - Final Escherichia coli 04/16/23 22:22 Blood - Venous Blood Culture - Preliminary No growth after 48 hours. 04/16/23 22:22 Blood - Venous Blood Culture - Preliminary No growth after 48 hours. 04/17/23 01:00 Peritoneal Fluid Gram Stain - Final 04/17/23 01:00 Peritoneal Fluid Routine Culture - Preliminary 04/17/23 01:00 Peritoneal Fluid Anaerobic Culture - Preliminary Culture in progress. Progress Note: A&P Assessment and plan (1) Polysubstance abuse: Status: Acute (2) Acute renal failure: Status: Acute (3) Acute respiratory failure with hypoxemia: Status: Acute (4) Peritonitis: Status: Acute (5) Septic shock: Status: Acute (6) Gastric perforation: Status: Acute (7) Morbid (severe) obesity due to excess calories: Status: Acute Plan Assessment: 57-year-old lady admitted with perforated gastric ulcer status post emergent surgical repair further complicated by peritonitis, acute renal failure, and acute hypoxic respiratory failure, now requiring ventilatory support. Plan: Neuro: No acute issues. Underlying polysubstance abuse. Cardiac: Septic shock, improving slowly, continue to titrate off pressors as tolerated. Pulmonary: Acute hypoxic respiratory failure secondary to underlying peritonitis. Continue to titrate off ventilatory support as tolerated. Renal: Acute renal failure secondary to septic shock,non oliguric. Continue to monitor renal indices and urine output. Endo: No acute issues. GI: Perforated gastric ulcer status post emergent surgical repair requiring 2nd explorative laparotomy on 04/18/2023 with partial gastrectomy. General surgery service care appreciated. ID: Septic shock secondary to peritonitis. Continue on broad-spectrum antibiotics. Heme/Onc: No acute issues. Psych: No acute issues. Miscellaneous: No acute issues. Prophylaxis: Heparin, ppi Diet: NPO Critical care time spent: 60 minutes Quality Stroke Does the patient have a stroke diagnosis?: No VTE Prior VTE?: No VTE Risk Level:: Surgical - moderate VTE Device Contraindication: N/A - Device Ordered VTE Drug Contraindication: N/A - Med Ordered
[2023-04-19] MEDS: fentaNYL citrate/NS 1,000 MCG/100 ML PLAST..BAG 15 MCG IVCONT ×3 (09:58→22:34)
[2023-04-19 10:10] LABS: Glucose, Whole Blood 117 mg/dL (60-115)
[2023-04-19] MEDS: Amiodarone/Dextrose 150 MG/100 ML PLAST..BAG 600 MG IV (10:31)
[2023-04-19] MEDS: Amiodarone HCL 900 MG in 0.9 % Sodium Chloride 500 ML 34.53 MG IVCONT (10:54)
--- NOTE | 2023-04-19 11:14 | MHC.CLN ---
F/U PT IS DAY 3 NPO NGT TUBE TO INTERMITTENT SUCTION IF TPN NEEDED; CONSULT RD PT WITH INCREASED NUTRITION RISK R/T LOW NEHAL AND POSSIBLE EXTENDED NPO STATUS FOLLOWING WITH TEAM
[2023-04-19 11:25] LABS: VBG Base Excess 6.1 mmol/L; VBG HCO3 31 mmol/L (22-26); VBG pCO2 49 mmHg; VBG pH 7.41 (7.32-7.43); VBG pO2 47 mmHg
[2023-04-19 11:41] LABS: Glucose, Whole Blood 84 mg/dL (60-115)
[2023-04-19 11:54] LABS: Hematocrit 29.2 % (37.0-47.0); Hemoglobin 10.1 g/dl (12.0-16.0); Mean Corpuscular HGB Conc 34.6 g/dl (31.0-35.0); Mean Corpuscular Volume 92.4 fL (80.0-98.0); Mean Platelet Volume 12.3 fL (9.4-12.3); Platelet Count 87 X10*3/uL (160-400); Red Blood Count 3.16 X10*6/uL (4.20-5.50); Red Cell Distribution Width 13.9 % (11.0-16.0); WBC ABN SCTR FOR CBC 1
[2023-04-19 12:18] LABS: Alanine Aminotransferase 36 U/L (0-31); Albumin Level 3.1 g/dL (3.5-5.0); Alkaline Phosphatase 46 U/L (39-117); Anion Gap 18 (12-20); Aspartate Amino Transferase 84 U/L (5-31); Bilirubin Total 1.5 mg/dL (0.0-1.0); Blood Urea Nitrogen 23 mg/dL (9-16); Calcium 7.2 mg/dL (8.4-10.2); Carbon Dioxide 27 mmol/L (22-29); Chloride 102 mmol/L (96-108); Creatinine Clr Calc Pharmacy 29.2; Estimated Glomerular Filt Rate 20; Glucose Random 104 mg/dL (60-115); Phosphorus 4.1 mg/dL (2.7-4.5); Potassium 3.8 mmol/L (3.3-5.1); Sodium 143 mmol/L (135-145); Total Protein 4.8 g/dL (6.5-8.0)
[2023-04-19 12:33] LABS: Band Neutrophils Percent 9 % (3-5); Basophils Percent Manual 1 % (0-2); Eosinophils Percent Manual 2 % (0-4); Lymphocytes Percent Manual 13 % (20-40); Metamyelocytes Percent 1 %; Monocytes Percent Manual 2 % (2-11); Neutrophils Percent Manual 72 % (45-73)
[2023-04-19 12:35] LABS: Dohle Bodies PRESENT; Platelet Estimate DECREASED (NORMAL); Platelet Morphology Comment NORMAL
[2023-04-19 12:39] LABS: Toxic Vacuolation PRESENT; WBC Morphology Comment DYSMORPHIC
[2023-04-19 12:40] LABS: RBC Morphology NOTED; Target Cells 1+ (5-14) /OIF
[2023-04-19 13:41] LABS: Basophils Abs Manual 0.1 X10*3/uL (0.0-0.2); Metamyelocytes Absolute 0.1 X10*3/uL
[2023-04-19 13:52] LABS: Venous Blood Gas Refer to POC result
--- NOTE | 2023-04-19 14:17 | PC.NURSE ---
Assumed care at 07:00. Patient sedate on propofol gtt 30, and fentanl gtt, which was uptitrated from 125 to 150 for patient comfort as her nonverbal signs of pain indicated she needed more pain control especially with nursing care, MD notified. Patient is resting today and no sedation vacation per MD. Patient has low blood pressure, supported by vasopressors, as per today's plan, vasopressors weaned down, with epinephrine stopped at 1020 am, and high dose levophed weaned down from 0.76 to 0.47. Patient remains tachycardic on telemetry, afib with RVR, as high as 172, staying in 140's-150's often. Patient was already on amiodarone gtt, but discussed with MD and new order for repeat amiodarone loading dose, was given at 1031, now continueing on 1 mg/min until 1700. Patient edematous, 2+ edema to thighs, trace edema to feet. Faint pulses palpable to bilateral radial and dorsalis pedis sites. Skin cold to distal extremities. Patient was very diaphoretic, and has continued to be diaphoretic today but lessening, POCs unremarkable. Discussed with MD, and also patient bathed and dried numerous times. Urine output 60-30 cc/hour erick urine via casey catheter. Skin with abdominal midline incision and dressing CDI. 4x MARTY drains, had R #1 MARTY 150cc, MARTY R#21 42cc; MARTY L#1 25 cc; MARTY L#2 5 cc over last 8 hours. Patient with numerous visitors in. BP trending down this afternoon and levophed titrating back up.
[2023-04-19] MEDS: Piperacillin Sodium/Tazobactam 2.25 GM in 0.9 % Sodium Chloride 50 ML IV ×2 (15:00→19:42)
[2023-04-19 15:19] LABS: White Blood Count 5.5 X10*3/uL (4.8-10.8)
--- NOTE | 2023-04-19 15:19 | PM.EVENT ---
Event Note Date of Service: 04/19/23 Event Note: I met with the patient's daughter, Nadege, and son and reviewed the intraoperative findings and criticality of the patient. There was some progress in weaning pressors and the patient's urine output has picked up. Questions were answered. Time Spent With Patient Time: Total time managing care of this patient today ____ minutes.
[2023-04-19 15:23] LABS: Lymphocytes Absolute Manual 0.7 X10*3/uL (1.2-4.9); Neutrophils Absolute Manual 4.5 X10*3/uL (2.0-8.3)
[2023-04-19 15:24] LABS: Eosinophils Absolute Manual 0.1 X10*3/uL (0.0-0.4); Monocytes Absolute Manual 0.1 X10*3/uL (0.1-1.2)
--- NOTE | 2023-04-19 15:57 | MHC.CM.PN ---
PT REMAINS IN ICU ON VENTILATORY SUPPORT S/P PERFORATED GASTRIC ULCER COMPLICATED BY SEPTIC SHOCK. FAMILY IN AND SUPPORT OFFERED. CM WILL CONTINUE TO FOLLOW FOR DC NEEDS/PLAN.
[2023-04-19 18:08] LABS: Glucose, Whole Blood 67 mg/dL (60-115)
[2023-04-19] MEDS: Dextrose 5 % 1,000 ML 75 ML IVCONT (18:21)
[2023-04-19] MEDS: Midazolam HCl/PF 2 MG/2 ML VIAL IVPUSH (19:25)
[2023-04-19] MEDS: Metoprolol Tartrate 5 MG/5 ML VIAL IVPUSH (19:26)
[2023-04-19] MEDS: propofoL 1,000 MG/100 ML VIAL 23.3 MG IVCONT ×2 (20:34→23:00)
[2023-04-20] VITALS (66 sets, daily range): BP systolic 88–204; BP diastolic 44–95; PULSE 82–116; RESP 15–33; TEMP 35–38.6; O2SAT 89–98; BMI 42.7
[2023-04-20 00:09] LABS: Glucose, Whole Blood 112 mg/dL (60-115)
[2023-04-20] MEDS: propofoL 1,000 MG/100 ML VIAL 23.3 MG IVCONT ×3 (02:07→09:16)
[2023-04-20] MEDS: Piperacillin Sodium/Tazobactam 2.25 GM in 0.9 % Sodium Chloride 50 ML IV ×4 (02:08→21:00)
[2023-04-20] MEDS: Enoxaparin Sodium 40 MG/0.4 ML SYRINGE SUBCUT (02:10)
[2023-04-20] MEDS: Dextrose 5 % 1,000 ML 75 ML IVCONT (04:40)
[2023-04-20] MEDS: Amiodarone HCL 900 MG in 0.9 % Sodium Chloride 500 ML 17.27 MG IVCONT (04:41)
[2023-04-20] MEDS: fentaNYL citrate/NS 1,000 MCG/100 ML PLAST..BAG 15 MCG IVCONT (04:56)
[2023-04-20 05:00] LABS: VBG Base Excess 8.4 mmol/L; VBG HCO3 33 mmol/L (22-26); VBG pCO2 46 mmHg; VBG pH 7.46 (7.32-7.43); VBG pO2 55 mmHg
[2023-04-20 05:02] LABS: Venous Blood Gas Refer to POC result
[2023-04-20 05:10] LABS: Hematocrit 24.1 % (37.0-47.0); Hemoglobin 8.3 g/dl (12.0-16.0); Mean Corpuscular HGB Conc 34.4 g/dl (31.0-35.0); Mean Corpuscular Hemoglobin 31.9 pg (27.0-33.0); Mean Corpuscular Volume 92.7 fL (80.0-98.0); Mean Platelet Volume 11.6 fL (9.4-12.3); Red Cell Distribution Width 14.1 % (11.0-16.0)
[2023-04-20 05:11] LABS: Platelet Count 69 X10*3/uL (160-400); WBC ABN SCTR FOR CBC 1
[2023-04-20 05:27] LABS: Alanine Aminotransferase 54 U/L (0-31); Albumin Level 3.2 g/dL (3.5-5.0); Alkaline Phosphatase 55 U/L (39-117); Anion Gap 15 (12-20); Aspartate Amino Transferase 118 U/L (5-31); Bilirubin Total 2.2 mg/dL (0.0-1.0); Blood Urea Nitrogen 28 mg/dL (9-16); Calcium 7.1 mg/dL (8.4-10.2); Carbon Dioxide 27 mmol/L (22-29); Chloride 104 mmol/L (96-108); Creatinine Clr Calc Pharmacy 23.5; Estimated Glomerular Filt Rate 16; Glucose Random 131 mg/dL (60-115); Phosphorus 2.9 mg/dL (2.7-4.5); Potassium 3.8 mmol/L (3.3-5.1); Sodium 142 mmol/L (135-145)
[2023-04-20] MEDS: Pantoprazole Sodium 40 MG/10 ML VIAL IVPUSH (05:34)
[2023-04-20 05:36] LABS: Band Neutrophils Percent 17 % (3-5); Basophils Percent Manual 1 % (0-2); Eosinophils Percent Manual 2 % (0-4); Lymphocytes Percent Manual 13 % (20-40); Monocytes Percent Manual 5 % (2-11); Neutrophils Percent Manual 62 % (45-73); Platelet Estimate DECREASED (NORMAL); RBC Morphology NORMAL
[2023-04-20 05:37] LABS: Dohle Bodies PRESENT; Eosinophils Absolute Manual 0.1 X10*3/uL (0.0-0.4); Lymphocytes Absolute Manual 0.5 X10*3/uL (1.2-4.9); Monocytes Absolute Manual 0.2 X10*3/uL (0.1-1.2); Neutrophils Absolute Manual 3.2 X10*3/uL (2.0-8.3); Platelet Morphology Comment NORMAL; Smudge Cells PRESENT; Toxic Vacuolation PRESENT
--- NOTE | 2023-04-20 08:57 | PM.PNGS ---
Subjective Subjective Date of Service: 04/20/23 Interval history: The patient remains intubated and sedated See critical care notes regarding weaning of pressors. Physical Exam Vital Signs: Vital Signs: Last Vital Signs Temp 101.3 F H 04/20/23 08:00 Pulse 95 04/20/23 08:00 Resp 18 04/20/23 08:00 BP 132/75 04/20/23 08:00 Pulse Ox 97 04/20/23 08:00 O2 Del Method Mechanical Ventil ation 04/20/23 08:00 O2 Flow Rate 98 04/17/23 03:30 FiO2 35 04/20/23 08:00 BMI result Body Mass Index 42.7 The patient is intubated and sedated Sclera are anicteric Abd dressings are clean and intact. The right upper abdominal drain near the partial gastrectomy staple line is putting out bilious material. It is unclear if this is new or previous material. The other MARTY is are putting out expect peritoneal fluid and no gross blood Objective Data Active Medications Chlorhexidine Gluconate (Chlorhexidine Gluc Oral Rinse 15 Ml Mouthwash) 15 ml BUCCAL TID MOO Last Admin: 04/19/23 20:23 Dose: 15 ml Documented By: LEO Enoxaparin Sodium (Enoxaparin Sodium 40 Mg/0.4 Ml Syringe) 40 mg SUBCUT Q24H MOO Last Admin: 04/20/23 02:10 Dose: 40 mg Documented By: ALEXANDRA Propofol (Diprivan) 1,000 mg in 100 mls @ 0 mls/hr IVCONT .Q0M MOO; Protocol Last Admin: 04/20/23 04:58 Dose: 40 mcg/kg/min, 23.3 mls/hr Documented By: ALEXANDRA Fentanyl (Sublimaze/Ns) 1,000 mcg in 100 mls @ 0 mls/hr IVCONT .Q0M MOO; Protocol Last Admin: 04/20/23 04:56 Dose: 150 mcg/hr, 15 mls/hr Documented By: ALEXANDRA Norepinephrine Bitartrate 32 (mg/ Sodium Chloride) 250 mls @ 0 mls/hr IV .Q0M MOO; Protocol Last Titration: 04/20/23 07:59 Dose: 0.28 mcg/kg/min, 13.23 mls/hr Documented By: DUSTIN Epinephrine 5 mg/ Dextrose 255 mls @ 0 mls/hr IVCONT .Q0M [facility]; Protocol Last Titration: 04/19/23 10:10 Dose: 0.03 mcg/kg/min, 9.25 mls/hr Documented By: DUSTIN Amiodarone HCl 900 mg/ Sodium (Chloride) 518 mls @ 34.533 mls/hr IVCONT .Q15H1M [facility]; Protocol Last Admin: 04/20/23 04:41 Dose: 0.5 mg/min, 17.27 mls/hr Documented By: ALEXANDRA Piperacillin Sod/Tazobactam (Sod 2.25 gm/ Sodium Chloride) 50 mls @ 100 mls/hr IV Q6H [facility] Last Infusion: 04/20/23 02:44 Dose: 0 mls/hr Documented By: ALEXANDRA Dextrose (D5w) 1,000 mls @ 75 mls/hr IVCONT .[id number] [facility] Last Admin: 04/20/23 04:40 Dose: 75 mls/hr Documented By: ALEXANDRA Albumin Human (Kedbumin 25 %) 100 mls @ 100 mls/hr IV Q6H [facility] Stop: 04/21/23 02:59 Insulin Human Lispro (Insulin Lispro 100 Unit/Ml 3 Ml Vial) 0 unit SUBCUT Q6H [facility]; Protocol Last Admin: 04/20/23 05:33 Dose: Not Given Documented By: ALEXANDRA Non-Admin Reason: No Insulin Coverage Naloxone HCl (Naloxone Hcl 0.4 Mg/Ml Vial) 0.2 mg IVPUSH Q2M PRN PRN Reason: Excessive sedation or RR < 8 Sodium Bicarbonate (Sodium Bicarbonate 8.4% 50 Meq/50 Ml Vial) 50 meq IVPUSH ONCE PRN PRN Reason: Severe hypotension Labs 04/20/23 04:50 04/20/23 04:50 Labs: Laboratory Results - last 24 hr 04/19/23 04/19/23 04/19/23 10:07 11:16 11:33 MCV MCH MCHC RDW Plt Count MPV Immature Gran % (Auto) Neut % (Auto) Lymph % (Auto) [place] % (Auto) Eos % (Auto) Baso % (Auto) Lymph # (Auto) [place] # (Auto) Eos # (Auto) Baso # (Auto) Abs Immat Gran (auto) Absolute Neuts (auto) Absolute Nucleated RBC Nucleated RBC % (auto) Neutrophils % (Manual) Band Neutrophils % Lymphocytes % (Manual) Monocytes % (Manual) Eosinophils % (Manual) Basophils % (Manual) Metamyelocytes % Abs Neuts (Manual) Lymphocytes # (Manual) Monocytes # (Manual) Eosinophils # (Manual) Basophils # (Manual) Metamyelocytes # Smudge Cells Toxic Vacuolation Dohle Bodies WBC Morphology Comment Platelet Estimate Plt Morphology Comment RBC Morphology Target Cells VBG pH 7.41 VBG pCO2 49 VBG pO2 47 VBG HCO3 31 H VBG O2 Saturation 75.0 VBG Base Excess 6.1 Anion Gap 18 Estim Creat Clear Calc 29.2 Estimated GFR 20 POC Glucose 117 H Random Glucose 104 Calcium 7.2 L D Phosphorus 4.1 Magnesium Total Bilirubin 1.5 H AST 84 H ALT 36 H Alkaline Phosphatase 46 Total Protein 4.8 L Albumin 3.1 L 04/19/23 04/19/23 04/19/23 11:33 11:33 18:02 MCV 92.4 MCH 32.0 MCHC 34.6 RDW 13.9 Plt Count 87 L MPV 12.3 Immature Gran % (Auto) Cancelled Neut % (Auto) Cancelled Lymph % (Auto) Cancelled [place] % (Auto) Cancelled Eos % (Auto) Cancelled Baso % (Auto) Cancelled Lymph # (Auto) Cancelled [place] # (Auto) Cancelled Eos # (Auto) Cancelled Baso # (Auto) Cancelled Abs Immat Gran (auto) Cancelled Absolute Neuts (auto) Cancelled Absolute Nucleated RBC 0.000 Nucleated RBC % (auto) 0.0 Neutrophils % (Manual) 72 Band Neutrophils % 9 H Lymphocytes % (Manual) 13 L Monocytes % (Manual) 2 Eosinophils % (Manual) 2 Basophils % (Manual) 1 Metamyelocytes % 1 Abs Neuts (Manual) 4.5 Lymphocytes # (Manual) 0.7 L Monocytes # (Manual) 0.1 Eosinophils # (Manual) 0.1 Basophils # (Manual) 0.1 Metamyelocytes # 0.1 Smudge Cells Toxic Vacuolation PRESENT Dohle Bodies PRESENT WBC Morphology Comment DYSMORPHIC Platelet Estimate DECREASED Plt Morphology Comment NORMAL RBC Morphology NOTED Target Cells 1+ (5-14) VBG pH VBG pCO2 VBG pO2 VBG HCO3 VBG O2 Saturation VBG Base Excess Anion Gap Estim Creat Clear Calc Estimated GFR POC Glucose 84 67 Random Glucose Calcium Phosphorus Magnesium Total Bilirubin AST ALT Alkaline Phosphatase Total Protein Albumin 04/19/23 04/20/23 04/20/23 23:55 04:50 04:50 MCV 92.7 MCH 31.9 MCHC 34.4 RDW 14.1 Plt Count 69 L MPV 11.6 Immature Gran % (Auto) Cancelled Neut % (Auto) Cancelled Lymph % (Auto) Cancelled [place] % (Auto) Cancelled Eos % (Auto) Cancelled Baso % (Auto) Cancelled Lymph # (Auto) Cancelled [place] # (Auto) Cancelled Eos # (Auto) Cancelled Baso # (Auto) Cancelled Abs Immat Gran (auto) Cancelled Absolute Neuts (auto) Cancelled Absolute Nucleated RBC 0.000 Nucleated RBC % (auto) 0.0 Neutrophils % (Manual) 62 Band Neutrophils % 17 H Lymphocytes % (Manual) 13 L Monocytes % (Manual) 5 Eosinophils % (Manual) 2 Basophils % (Manual) 1 Metamyelocytes % Abs Neuts (Manual) 3.2 Lymphocytes # (Manual) 0.5 L Monocytes # (Manual) 0.2 Eosinophils # (Manual) 0.1 Basophils # (Manual) Metamyelocytes # Smudge Cells PRESENT Toxic Vacuolation PRESENT Dohle Bodies PRESENT WBC Morphology Comment Platelet Estimate DECREASED Plt Morphology Comment NORMAL RBC Morphology NORMAL Target Cells VBG pH VBG pCO2 VBG pO2 VBG HCO3 VBG O2 Saturation VBG Base Excess Anion Gap 15 Estim Creat Clear Calc 23.5 Estimated GFR 16 POC Glucose 112 Random Glucose 131 H Calcium 7.1 L Phosphorus 2.9 Magnesium 2.0 Total Bilirubin 2.2 H AST 118 H ALT 54 H Alkaline Phosphatase 55 Total Protein 5.0 L Albumin 3.2 L 04/20/23 04:51 MCV MCH MCHC RDW Plt Count MPV Immature Gran % (Auto) Neut % (Auto) Lymph % (Auto) [place] % (Auto) Eos % (Auto) Baso % (Auto) Lymph # (Auto) [place] # (Auto) Eos # (Auto) Baso # (Auto) Abs Immat Gran (auto) Absolute Neuts (auto) Absolute Nucleated RBC Nucleated RBC % (auto) Neutrophils % (Manual) Band Neutrophils % Lymphocytes % (Manual) Monocytes % (Manual) Eosinophils % (Manual) Basophils % (Manual) Metamyelocytes % Abs Neuts (Manual) Lymphocytes # (Manual) Monocytes # (Manual) Eosinophils # (Manual) Basophils # (Manual) Metamyelocytes # Smudge Cells Toxic Vacuolation Dohle Bodies WBC Morphology Comment Platelet Estimate Plt Morphology Comment RBC Morphology Target Cells VBG pH 7.46 H VBG pCO2 46 VBG pO2 55 VBG HCO3 33 H VBG O2 Saturation 86.0 VBG Base Excess 8.4 Anion Gap Estim Creat Clear Calc Estimated GFR POC Glucose Random Glucose Calcium Phosphorus Magnesium Total Bilirubin AST ALT Alkaline Phosphatase Total Protein Albumin Microbiology Microbiology Results: Microbiology 04/19/23 Unknown Gram Stain - Final Abdominal Fluid 04/17/23 01:00 Gram Stain - Final Peritoneal Fluid Routine Culture - Final Anaerobic Culture - Preliminary Culture in progress. 04/16/23 02:40 Urine Culture - Final Urine clean catch - Urine loera top Escherichia coli Procedures Date of Service Date of Service: 04/20/23 Progress Note: A&P Assessment and plan (1) S/P partial gastrectomy: Status: Acute (2) Polysubstance abuse: Status: Acute (3) Acute renal failure: Status: Acute (4) Acute respiratory failure with hypoxemia: Status: Acute (5) Peritonitis: Status: Acute (6) Septic shock: Status: Acute (7) Gastric perforation: Status: Acute (8) Morbid (severe) obesity due to excess calories: Status: Acute (9) Hypercholesterolemia: Status: Acute Plan Intraoperative pathology from the 1st operation show debris Wedged partial gastrectomy pathology currently pending. Critical care as poor ICU team. Do not irrigate, reposition or placed tube feedings via NG tube for now. Continue to monitor MARTY output. If the right upper quadrant continues to put out bilious material, a Gastrografin study to assess for ongoing leak will be in order. It is unclear whether the patient has severe gastritis as an etiology, cocaine induced gastric perforation or possible malignancy. If the patient remains clinically stable, pathology will be very important regarding any next steps. As usual, contact me with surgical questions Addendum [id number] I met with the family in the waiting room and with Nadege, the patient's daughter, at the bedside. I have explained that the patient is making progress regarding weaning of her vent and pressor. We will begin TPN and are awaiting pathology from the last operation. The possibility of transfer if the patient has gastric malignancy was discussed but I do not endorse that at this time. The possible need for re-exploration if the partial gastrectomy or a complication requires was also discussed. Time Spent With Patient Time: Total time managing care of this patient today ____ minutes. Quality Stroke Does the patient have a stroke diagnosis?: No VTE Prior VTE?: No VTE Risk Level:: Surgical - moderate VTE Device Contraindication: N/A - Device Ordered VTE Drug Contraindication: N/A - Med Ordered
--- NOTE | 2023-04-20 09:08 | PM.CCPN ---
Subjective Subjective Date of Service: 04/20/23 Interval History: 57-year-old lady with underlying alcoholism, substance abuse, anxiety admitted on 04/17/2023 with abdominal pain and distension secondary to perforated gastric ulcer requiring emergent surgical repair with patient transferred postop to intensive care unit intubated and further hospital course complicated by septic shock secondary to peritonitis, acute renal failure, and acute hypoxic respiratory failure. On 04/18/2023 in the afternoon with worsening renal function, decreasing urine output, and increasing pressor requirements - CT abdomen pelvis with leakage of Gastrografin peritoneal cavity requiring surgical re-exploration with partial gastrectomy. Pressor requirements continue to improve. Critical Care Time (minutes): 45 Physical Exam Vital Signs: Vital Signs: Last Vital Signs Temp 101.3 F H 04/20/23 08:00 Pulse 95 04/20/23 08:00 Resp 18 04/20/23 08:00 BP 132/75 04/20/23 08:00 Pulse Ox 97 04/20/23 08:00 O2 Del Method Mechanical Ventil ation 04/20/23 08:00 O2 Flow Rate 98 04/17/23 03:30 FiO2 35 04/20/23 08:00 BMI result Body Mass Index 42.7 Const: General: no acute distress and other ( Sedated on the vent) Nutritional Appearance: obese Eyes: Sclerae: sclerae normal EOM: EOMs intact bilaterally Neck: Neck: Yes no lymphadenopathy, Yes trachea midline and Yes supple Resp: Auscultation: crackles ( bilateral) Cardio: Rate: regular rate Rhythm: regular rhythm Heart sounds: no gallops, no murmurs and no rubs GI: Palpation (GI): Soft to palpation and Other GI palpation findings present ( midline surgical incision with dressing) Auscultation: Hypoactive bowel sounds present Extrem: General: No clubbing, No cyanosis and Yes edema ( 1+ bilateral) Objective Data Labs 04/20/23 04:50 04/20/23 04:50 Labs: Laboratory Results - last 24 hr 04/19/23 04/19/23 04/19/23 10:07 11:16 11:33 WBC RBC Hgb Hct MCV MCH MCHC RDW Plt Count MPV Immature Gran % (Auto) Neut % (Auto) Lymph % (Auto) [place] % (Auto) Eos % (Auto) Baso % (Auto) Lymph # (Auto) [place] # (Auto) Eos # (Auto) Baso # (Auto) Abs Immat Gran (auto) Absolute Neuts (auto) Absolute Nucleated RBC Nucleated RBC % (auto) Neutrophils % (Manual) Band Neutrophils % Lymphocytes % (Manual) Monocytes % (Manual) Eosinophils % (Manual) Basophils % (Manual) Metamyelocytes % Abs Neuts (Manual) Lymphocytes # (Manual) Monocytes # (Manual) Eosinophils # (Manual) Basophils # (Manual) Metamyelocytes # Smudge Cells Toxic Vacuolation Dohle Bodies WBC Morphology Comment Platelet Estimate Plt Morphology Comment RBC Morphology Target Cells VBG pH 7.41 VBG pCO2 49 VBG pO2 47 VBG HCO3 31 H VBG O2 Saturation 75.0 VBG Base Excess 6.1 Sodium 143 Potassium 3.8 Chloride 102 Carbon Dioxide 27 Anion Gap 18 BUN 23 H Creatinine 2.44 H Estim Creat Clear Calc 29.2 Estimated GFR 20 POC Glucose 117 H Random Glucose 104 Calcium 7.2 L D Phosphorus 4.1 Magnesium Total Bilirubin 1.5 H AST 84 H ALT 36 H Alkaline Phosphatase 46 Total Protein 4.8 L Albumin 3.1 L 04/19/23 04/19/23 04/19/23 11:33 11:33 18:02 WBC 5.5 RBC 3.16 L Hgb 10.1 L Hct 29.2 L MCV 92.4 MCH 32.0 MCHC 34.6 RDW 13.9 Plt Count 87 L MPV 12.3 Immature Gran % (Auto) Cancelled Neut % (Auto) Cancelled Lymph % (Auto) Cancelled [place] % (Auto) Cancelled Eos % (Auto) Cancelled Baso % (Auto) Cancelled Lymph # (Auto) Cancelled [place] # (Auto) Cancelled Eos # (Auto) Cancelled Baso # (Auto) Cancelled Abs Immat Gran (auto) Cancelled Absolute Neuts (auto) Cancelled Absolute Nucleated RBC 0.000 Nucleated RBC % (auto) 0.0 Neutrophils % (Manual) 72 Band Neutrophils % 9 H Lymphocytes % (Manual) 13 L Monocytes % (Manual) 2 Eosinophils % (Manual) 2 Basophils % (Manual) 1 Metamyelocytes % 1 Abs Neuts (Manual) 4.5 Lymphocytes # (Manual) 0.7 L Monocytes # (Manual) 0.1 Eosinophils # (Manual) 0.1 Basophils # (Manual) 0.1 Metamyelocytes # 0.1 Smudge Cells Toxic Vacuolation PRESENT Dohle Bodies PRESENT WBC Morphology Comment DYSMORPHIC Platelet Estimate DECREASED Plt Morphology Comment NORMAL RBC Morphology NOTED Target Cells 1+ (5-14) VBG pH VBG pCO2 VBG pO2 VBG HCO3 VBG O2 Saturation VBG Base Excess Sodium Potassium Chloride Carbon Dioxide Anion Gap BUN Creatinine Estim Creat Clear Calc Estimated GFR POC Glucose 84 67 Random Glucose Calcium Phosphorus Magnesium Total Bilirubin AST ALT Alkaline Phosphatase Total Protein Albumin 04/19/23 04/20/23 04/20/23 23:55 04:50 04:50 WBC 4.0 L RBC 2.60 L Hgb 8.3 L Hct 24.1 L MCV 92.7 MCH 31.9 MCHC 34.4 RDW 14.1 Plt Count 69 L MPV 11.6 Immature Gran % (Auto) Cancelled Neut % (Auto) Cancelled Lymph % (Auto) Cancelled [place] % (Auto) Cancelled Eos % (Auto) Cancelled Baso % (Auto) Cancelled Lymph # (Auto) Cancelled [place] # (Auto) Cancelled Eos # (Auto) Cancelled Baso # (Auto) Cancelled Abs Immat Gran (auto) Cancelled Absolute Neuts (auto) Cancelled Absolute Nucleated RBC 0.000 Nucleated RBC % (auto) 0.0 Neutrophils % (Manual) 62 Band Neutrophils % 17 H Lymphocytes % (Manual) 13 L Monocytes % (Manual) 5 Eosinophils % (Manual) 2 Basophils % (Manual) 1 Metamyelocytes % Abs Neuts (Manual) 3.2 Lymphocytes # (Manual) 0.5 L Monocytes # (Manual) 0.2 Eosinophils # (Manual) 0.1 Basophils # (Manual) Metamyelocytes # Smudge Cells PRESENT Toxic Vacuolation PRESENT Dohle Bodies PRESENT WBC Morphology Comment Platelet Estimate DECREASED Plt Morphology Comment NORMAL RBC Morphology NORMAL Target Cells VBG pH VBG pCO2 VBG pO2 VBG HCO3 VBG O2 Saturation VBG Base Excess Sodium 142 Potassium 3.8 Chloride 104 Carbon Dioxide 27 Anion Gap 15 BUN 28 H Creatinine 3.03 H Estim Creat Clear Calc 23.5 Estimated GFR 16 POC Glucose 112 Random Glucose 131 H Calcium 7.1 L Phosphorus 2.9 Magnesium 2.0 Total Bilirubin 2.2 H AST 118 H ALT 54 H Alkaline Phosphatase 55 Total Protein 5.0 L Albumin 3.2 L 04/20/23 04:51 WBC RBC Hgb Hct MCV MCH MCHC RDW Plt Count MPV Immature Gran % (Auto) Neut % (Auto) Lymph % (Auto) [place] % (Auto) Eos % (Auto) Baso % (Auto) Lymph # (Auto) [place] # (Auto) Eos # (Auto) Baso # (Auto) Abs Immat Gran (auto) Absolute Neuts (auto) Absolute Nucleated RBC Nucleated RBC % (auto) Neutrophils % (Manual) Band Neutrophils % Lymphocytes % (Manual) Monocytes % (Manual) Eosinophils % (Manual) Basophils % (Manual) Metamyelocytes % Abs Neuts (Manual) Lymphocytes # (Manual) Monocytes # (Manual) Eosinophils # (Manual) Basophils # (Manual) Metamyelocytes # Smudge Cells Toxic Vacuolation Dohle Bodies WBC Morphology Comment Platelet Estimate Plt Morphology Comment RBC Morphology Target Cells VBG pH 7.46 H VBG pCO2 46 VBG pO2 55 VBG HCO3 33 H VBG O2 Saturation 86.0 VBG Base Excess 8.4 Sodium Potassium Chloride Carbon Dioxide Anion Gap BUN Creatinine Estim Creat Clear Calc Estimated GFR POC Glucose Random Glucose Calcium Phosphorus Magnesium Total Bilirubin AST ALT Alkaline Phosphatase Total Protein Albumin Microbiology Microbiology Results: Microbiology 04/19/23 Unknown Abdominal Fluid Gram Stain - Final 04/17/23 01:00 Peritoneal Fluid Gram Stain - Final 04/17/23 01:00 Peritoneal Fluid Routine Culture - Final 04/17/23 01:00 Peritoneal Fluid Anaerobic Culture - Preliminary Culture in progress. 04/16/23 02:40 Urine clean catch - Urine loera top Urine Culture - Final Escherichia coli 04/16/23 22:22 Blood - Venous Blood Culture - Preliminary No growth after 48 hours. 04/16/23 22:22 Blood - Venous Blood Culture - Preliminary No growth after 48 hours. Progress Note: A&P Assessment and plan (1) S/P partial gastrectomy: Status: Acute (2) Polysubstance abuse: Status: Acute (3) Acute renal failure: Status: Acute (4) Acute respiratory failure with hypoxemia: Status: Acute (5) Peritonitis: Status: Acute (6) Septic shock: Status: Acute (7) Gastric perforation: Status: Acute (8) Morbid (severe) obesity due to excess calories: Status: Acute Plan Assessment: 57-year-old lady admitted with perforated gastric ulcer status post emergent surgical repair further complicated by peritonitis, acute renal failure, and acute hypoxic respiratory failure, now requiring ventilatory support. Plan: Neuro: No acute issues. Underlying polysubstance abuse. Cardiac: Septic shock, improving slowly, continue to titrate off pressors as tolerated. Pulmonary: Acute hypoxic respiratory failure secondary to underlying peritonitis. Continue to titrate off ventilatory support as tolerated. Renal: Acute renal failure secondary to septic shock,non oliguric. Continue to monitor renal indices and urine output. Endo: No acute issues. GI: Perforated gastric ulcer status post emergent surgical repair requiring 2nd explorative laparotomy on 04/18/2023 with partial gastrectomy. General surgery service care appreciated. ID: Septic shock secondary to peritonitis. Continue on broad-spectrum antibiotics. Heme/Onc: No acute issues. Psych: No acute issues. Miscellaneous: No acute issues. Prophylaxis: Heparin, ppi Diet: NPO Critical care time spent: 45 minutes Quality Stroke Does the patient have a stroke diagnosis?: No VTE Prior VTE?: No VTE Risk Level:: Surgical - moderate VTE Device Contraindication: N/A - Device Ordered VTE Drug Contraindication: N/A - Med Ordered
[2023-04-20] MEDS: Chlorhexidine Gluc Oral Rinse 15 ML MOUTHWASH BUCCAL ×3 (09:32→20:42)
[2023-04-20] MEDS: Furosemide 40 MG/4 ML VIAL IVPUSH ×2 (09:32→16:49)
[2023-04-20] MEDS: Albumin Human 25 % 100 ML IV ×3 (09:32→20:41)
[2023-04-20] MEDS: fentaNYL citrate/PF 100 MCG/2 ML VIAL 50 MCG IVPUSH ×4 (11:17→22:26)
--- NOTE | 2023-04-20 11:35 | MHC.CLN ---
F/U PT TO START TPN PT EXPECTED TO BE NPO X 3 DAYS AND REQUIRES TPN FOR NUTRITION SUPPORT RECOMMEND [id number] AT 35ML/HR TO PROVIDE 596KCALS (1211KCALS TOTAL WITH SEDATION; 24KCALS/KG), 42G PROTEIN (.8G/KG) DISCUSSED WITH PHARMACY REPLETE LYTES NEEDED SEE ALSO FULL CLINICAL NUTRITION ASSESSMENT
--- NOTE | 2023-04-20 11:58 | MHC.CM.PN ---
Pt remains on vent support in ICU. Her pressor requirement is less and today's goals of care will focus on sedation vacation and extubation. Pt originally from home w/[employer] support: unknown if she will be able to return to baseline level of functioning. Will await assessment of functional abilities. CM to follow.
[2023-04-20 12:41] LABS: Glucose, Whole Blood 126 mg/dL (60-115)
--- NOTE | 2023-04-20 13:41 | HO.POSTANES ---
Post Anesthesia Evaluation Post Anesthesia Evaluation Date of Service: 04/20/23 Vital Signs: Vital Signs Temp Pulse Resp BP Pulse Ox O2 Del Method FiO2 04/20/23 12:00 40 04/20/23 13:20 100 21 H 204/91 H 94 04/20/23 12:30 30 H 04/20/23 12:01 30 04/20/23 11:17 24 H 04/20/23 11:16 107 H 120/66 04/20/23 10:42 109 H 125/69 04/20/23 09:41 35 04/20/23 10:23 106 H 129/70 04/20/23 10:12 107 H 121/71 04/20/23 10:07 108 H 133/74 04/20/23 10:02 110 H 175/90 H 04/20/23 09:57 35 04/20/23 09:56 105 H 136/76 04/20/23 09:55 105 H 127/74 04/20/23 09:40 105 H 158/92 H 04/20/23 09:31 110 H 158/92 H 04/20/23 09:26 101 H 142/76 H 04/20/23 09:29 104 H 142/76 H 04/20/23 09:32 104 H 18 142/76 H 94 04/20/23 09:16 95 138/82 04/20/23 09:16 95 138/62 04/20/23 07:59 95 129/84 04/20/23 07:57 35 04/20/23 07:50 95 132/82 04/20/23 07:30 96 151/81 H 04/20/23 07:13 35 04/20/23 13:00 101.1 F H 116 H 33 H 178/95 H 89 L Mechanical Ventilation 35 04/20/23 12:00 100.8 F H 106 H 17 140/73 H 92 Mechanical Ventilation 35 04/20/23 11:00 100.0 F 106 H 15 120/58 L 97 Mechanical Ventilation 35 04/20/23 10:00 100.8 F H 107 H 16 126/69 96 Mechanical Ventilation 35 04/20/23 09:00 101.1 F H 108 H 21 H 158/92 H 95 Mechanical Ventilation 35 04/20/23 08:00 101.3 F H 95 18 132/75 97 Mechanical Ventilation 35 04/20/23 07:00 101.1 F H 94 17 141/83 H 97 Mechanical Ventilation 40 04/20/23 06:25 98 143/85 H 04/20/23 04:42 40 04/20/23 05:00 101.3 F H 98 18 153/89 H 98 Mechanical Ventilation 40 04/20/23 04:59 98 153/89 H 04/20/23 04:58 98 153/89 H 04/20/23 04:58 98 153/89 H 04/20/23 04:56 98 153/89 H 04/20/23 04:56 98 153/89 H 04/20/23 04:43 98 142/85 H 04/20/23 04:43 98 142/85 H 04/20/23 03:11 40 04/20/23 02:45 94 113/62 04/20/23 02:12 92 119/65 04/20/23 02:07 90 122/65 04/20/23 02:07 90 122/65 04/20/23 06:00 101.1 F H 101 H 16 133/76 98 Mechanical Ventilation 40 04/20/23 04:00 101.1 F H 90 18 114/62 98 Mechanical Ventilation 40 04/20/23 03:00 101.1 F H 92 18 107/58 L 98 Mechanical Ventilation 40 04/20/23 02:00 100.9 F H 91 17 122/65 98 Mechanical Ventilation 40 Anesthesia: General Endotracheal-GETA (intubated) Mental Status: Sedated Pain Control: Satisfactory Nausea/Vomiting: None Hydration: Adequate Anesthesia-Related Issues: No Anes. Related Issues
[2023-04-20 14:08] LABS: VBG Base Excess 8.7 mmol/L; VBG HCO3 29 mmol/L (22-26); VBG pCO2 25 mmHg; VBG pH 7.66 (7.32-7.43); VBG pO2 117 mmHg
[2023-04-20 14:25] LABS: Hematocrit 23.8 % (37.0-47.0); Hemoglobin 8.4 g/dl (12.0-16.0); Mean Corpuscular HGB Conc 35.3 g/dl (31.0-35.0); Mean Corpuscular Hemoglobin 31.9 pg (27.0-33.0); Mean Corpuscular Volume 90.5 fL (80.0-98.0); Red Blood Count 2.63 X10*6/uL (4.20-5.50); Red Cell Distribution Width 14.2 % (11.0-16.0)
[2023-04-20 14:28] LABS: Platelet Count 64 X10*3/uL (160-400); WBC ABN SCTR FOR CBC 1
[2023-04-20 14:32] LABS: Venous Blood Gas Refer to POC result
[2023-04-20 14:41] LABS: Anion Gap 17 (12-20); Blood Urea Nitrogen 29 mg/dL (9-16); Calcium 7.9 mg/dL (8.4-10.2); Carbon Dioxide 25 mmol/L (22-29); Chloride 106 mmol/L (96-108); Creatinine Clr Calc Pharmacy 22.5; Estimated Glomerular Filt Rate 15; Glucose Random 121 mg/dL (60-115); Phosphorus 2.7 mg/dL (2.7-4.5); Potassium 3.8 mmol/L (3.3-5.1); Sodium 144 mmol/L (135-145)
[2023-04-20] MEDS: Fluconazole in NaCl,Iso-Osm 400 MG/200 ML PIGGYBACK 100 MG IV (15:14)
[2023-04-20 15:21] LABS: Band Neutrophils Percent 22 % (3-5); Eosinophils Percent Manual 4 % (0-4); Lymphocytes Percent Manual 16 % (20-40); Metamyelocytes Percent 2 %; Monocytes Percent Manual 5 % (2-11); Neutrophils Percent Manual 51 % (45-73)
[2023-04-20 15:22] LABS: Platelet Estimate DECREASED (NORMAL); Platelet Morphology Comment NORMAL; RBC Morphology NORMAL
[2023-04-20 15:23] LABS: Eosinophils Absolute Manual 0.2 X10*3/uL (0.0-0.4); Lymphocytes Absolute Manual 0.7 X10*3/uL (1.2-4.9); Metamyelocytes Absolute 0.1 X10*3/uL; Monocytes Absolute Manual 0.2 X10*3/uL (0.1-1.2); White Blood Count 4.1 X10*3/uL (4.8-10.8)
[2023-04-20] MEDS: fentaNYL citrate/NS 1,000 MCG/100 ML PLAST..BAG 7.5 MCG IVCONT (17:15)
[2023-04-20] MEDS: propofoL 1,000 MG/100 ML VIAL 11.65 MG IVCONT (18:46)
[2023-04-20 19:11] LABS: Glucose, Whole Blood 102 mg/dL (60-115)
[2023-04-20] MEDS: Acetaminophen 1,000 MG/100 ML PIGGYBACK 400 MG IV (20:41)
[2023-04-20 20:47] LABS: Anion Gap 19 (12-20); Blood Urea Nitrogen 32 mg/dL (9-16); Calcium 7.9 mg/dL (8.4-10.2); Carbon Dioxide 24 mmol/L (22-29); Chloride 105 mmol/L (96-108); Creatinine Clr Calc Pharmacy 21.1; Estimated Glomerular Filt Rate 14; Glucose Random 112 mg/dL (60-115); Potassium 3.8 mmol/L (3.3-5.1); Sodium 144 mmol/L (135-145)
--- NOTE | 2023-04-20 21:31 | PC.NURSE ---
Addendum entered by Desmond Alexandra RN 04/20/23 22:44: PRN fentanyl 50 mch at 1030 for nonverbal signs of pain associated with nursing maneuvers. Patient outputs from MARTY drains: MARTY R #1: 58 cc tea colored with sediment; MARTY R#2: 27 cc serous; MARTY L#1: 32cc greenish dark; MARTY L#2: 6 ccs serrous over last 16 hours. Original Note: Assumed care at 07:00. Patient was initially sedated on propofol gtt at 40 mcg/min and Fentanyl gtt at 150 mg/hr, RASS -4, no tracking, PERRL, positive cough and gag, flaccid extremities. Patient was given sedation vacation per MD at 09:31, which continued until 1320. Patient developed hypertension and strong nonverbal signs of pain during sedation vacation, MD was aware and ordered one time fentanyl 50 mcg, administered with good effect but time limited relief. Subsequently repeated fentanyl dose per MD and new PRN fentanyl 50 mcg Q2 hours ordered and administered at 1230. Patient family at bedside helping to console and oriented patinet.Patient placed back on AC settings by provider and both propofol and fentanyl gtts restarted at 50% previous dose with good effect. Patient promptly resolved hypertension and agitation. Labs drawn subsequently showed alkolotic pH. Patient subsequently showing strong nonverbal signs of pain with nursing maneuvers and turning, and was administered 50 mcg of IVP fentanyl PRN at 1830 with good effect. Patient was on in sinus rhythm to sinus tachycardia, and after turning, about 18:30, went into afib with RVR with rate to 150's for about 2 minutes. Continues on amiodarone gtt. Patient administered 2x IVP lasix today as per emar, and diuresed over 2.7 liters. Patient with new orders for TPN. TLC with no blood return, labs drawn peripherally, provider aware. In evening, patient developed a temperature of Tmax 101.5, RN PALLIATIVE CARE aware and new order for IV tylenol and cooling blanket with target temperature less than 100 F. Temperature at this time 100.8. Patient with NGT to intermittent wall suction, green bileous drainage 450 ccs. Abdominal dressing clean, dry, intact. MARTY drains with Right side having slightly more drainaige than left side, see I/O.
[2023-04-20 23:53] LABS: Glucose, Whole Blood 106 mg/dL (60-115)
[2023-04-21] VITALS (41 sets, daily range): BP systolic 107–185; BP diastolic 61–97; PULSE 24–128; RESP 13–31; TEMP 35–38.4; O2SAT 91–97; BMI 41.3
[2023-04-21] MEDS: propofoL 1,000 MG/100 ML VIAL 11.65 MG IVCONT (00:15)
[2023-04-21] MEDS: Albumin Human 25 % 100 ML IV (01:47)
[2023-04-21] MEDS: Piperacillin Sodium/Tazobactam 2.25 GM in 0.9 % Sodium Chloride 50 ML IV ×4 (02:05→19:18)
[2023-04-21] MEDS: Enoxaparin Sodium 40 MG/0.4 ML SYRINGE SUBCUT (02:18)
[2023-04-21] MEDS: Amiodarone HCL 900 MG in 0.9 % Sodium Chloride 500 ML 17.27 MG IVCONT (02:19)
[2023-04-21] MEDS: fentaNYL citrate/PF 100 MCG/2 ML VIAL 50 MCG IVPUSH ×3 (03:13→21:37)
[2023-04-21 05:23] LABS: VBG Base Excess 9.5 mmol/L; VBG HCO3 33 mmol/L (22-26); VBG pCO2 46 mmHg; VBG pH 7.47 (7.32-7.43); VBG pO2 47 mmHg
[2023-04-21] MEDS: propofoL 1,000 MG/100 ML VIAL 17.47 MG IVCONT (05:29)
[2023-04-21] MEDS: fentaNYL citrate/NS 1,000 MCG/100 ML PLAST..BAG 7.5 MCG IVCONT (05:31)
[2023-04-21 05:46] LABS: Glucose, Whole Blood 133 mg/dL (60-115)
[2023-04-21 05:56] LABS: Hematocrit 21.1 % (37.0-47.0); Hemoglobin 7.3 g/dl (12.0-16.0); Mean Corpuscular HGB Conc 34.6 g/dl (31.0-35.0); Mean Corpuscular Hemoglobin 31.7 pg (27.0-33.0); Mean Corpuscular Volume 91.7 fL (80.0-98.0); Mean Platelet Volume 12.4 fL (9.4-12.3); NRBC Pct Auto 0.4 /100WBC (0.0-0.2); Red Cell Distribution Width 14.4 % (11.0-16.0)
[2023-04-21 05:58] LABS: Platelet Count 57 X10*3/uL (160-400); WBC ABN SCTR FOR CBC 1; White Blood Count 5.7 X10*3/uL (4.8-10.8)
[2023-04-21 06:02] LABS: Venous Blood Gas Refer to POC result
[2023-04-21 06:15] LABS: Anion Gap 17 (12-20); Blood Urea Nitrogen 37 mg/dL (9-16); Calcium 7.9 mg/dL (8.4-10.2); Carbon Dioxide 28 mmol/L (22-29); Chloride 103 mmol/L (96-108); Creatinine Clr Calc Pharmacy 18.4; Estimated Glomerular Filt Rate 12; Glucose Random 131 mg/dL (60-115); Magnesium 2.2 mg/dL (1.6-2.6); Phosphorus 2.6 mg/dL (2.7-4.5); Sodium 145 mmol/L (135-145)
--- NOTE | 2023-04-21 06:22 | P.PNGS_ITS ---
Subjective Subjective Date of Service: 04/21/23 Interval history: The patient remains sedated and intubated. In discussion with the nurse, the patient had some dropping urine output and required Levophed started at low dose overnight. Otherwise, patient has been critical and unchanged. Physical Exam Vital Signs: Vital Signs: Last Vital Signs Temp 100.9 F H 04/21/23 06:00 Pulse 82 04/21/23 06:00 Resp 18 04/21/23 06:00 BP 114/66 04/21/23 06:00 Pulse Ox 97 04/21/23 06:00 O2 Del Method Mechanical Ventil ation 04/21/23 06:00 O2 Flow Rate 98 04/17/23 03:30 FiO2 30 04/21/23 06:00 BMI result Body Mass Index 41.3 Intubated and sedated Abdominal dressings are clean, dry and intact Right upper quadrant MARTY has some scant bilious drainage. This drain is by the partial gastrectomy staple line and Francis patch. It needs to be monitored carefully since ischemia increases her risk for gastric fistula. Other MARTY is are draining is expected which are in the peritoneal space including the left upper quadrant and bilateral pelvis drains Objective Data Active Medications Chlorhexidine Gluconate (Chlorhexidine Gluc Oral Rinse 15 Ml Mouthwash) 15 ml BUCCAL TID [facility] Last Admin: 04/20/23 20:42 Dose: 15 ml Documented By: DUSTIN Enoxaparin Sodium (Enoxaparin Sodium 40 Mg/0.4 Ml Syringe) 40 mg SUBCUT Q24H [facility] Last Admin: 04/21/23 02:18 Dose: 40 mg Documented By: ALEXANDRA Fentanyl (Fentanyl Citrate/Pf 100 Mcg/2 Ml Vial) 50 mcg IVPUSH Q2H PRN; Protocol PRN Reason: Pain, Moderate(Pain Scale 4-6) Last Admin: 04/21/23 03:13 Dose: 50 mcg Documented By: ALEXANDRA Propofol (Diprivan) 1,000 mg in 100 mls @ 0 mls/hr IVCONT .Q0M [facility]; Protocol Last Admin: 04/21/23 05:29 Dose: 30 mcg/kg/min, 17.47 mls/hr Documented By: ALEXANDRA Fentanyl (Sublimaze/Ns) 1,000 mcg in 100 mls @ 0 mls/hr IVCONT .Q0M [facility]; Protocol Last Admin: 04/21/23 05:31 Dose: 75 mcg/hr, 7.5 mls/hr Documented By: ALEXANDRA Norepinephrine Bitartrate 32 (mg/ Sodium Chloride) 250 mls @ 0 mls/hr IV .Q0M MOO; Protocol Last Admin: 04/21/23 02:19 Dose: 0.08 mcg/kg/min, 3.78 mls/hr Documented By: ALEXANDRA Co-signed By: GRANT Amiodarone HCl 900 mg/ Sodium (Chloride) 518 mls @ 34.533 mls/hr IVCONT .Q15H1M MOO; Protocol Last Admin: 04/21/23 02:19 Dose: 0.5 mg/min, 17.27 mls/hr Documented By: ALEXANDRA Piperacillin Sod/Tazobactam (Sod 2.25 gm/ Sodium Chloride) 50 mls @ 100 mls/hr IV Q6H [facility] Last Infusion: 04/21/23 02:47 Dose: 0 mls/hr Documented By: ALEXANDRA Amino Acids/Electrolytes (Clinimix E 5%-15%) 840 mls @ 35 mls/hr IV DAILY@1800 MOO Stop: 04/21/23 17:59 Last Admin: 04/20/23 18:32 Dose: 35 mls/hr Documented By: DUSTIN Potassium Phosphate (Kphos) 15 mmol in 250 mls @ 62.5 mls/hr IV ONCE ONE Stop: 04/21/23 11:59 Potassium Chloride (Potassium Chloride/H20) 40 meq in 100 mls @ 50 mls/hr IV ONCE ONE Stop: 04/21/23 08:59 Insulin Human Lispro (Insulin Lispro 100 Unit/Ml 3 Ml Vial) 0 unit SUBCUT Q6H [facility]; Protocol Last Admin: 04/21/23 05:42 Dose: Not Given Documented By: ALEXANDRA Non-Admin Reason: No Insulin Coverage Naloxone HCl (Naloxone Hcl 0.4 Mg/Ml Vial) 0.2 mg IVPUSH Q2M PRN PRN Reason: Excessive sedation or RR < 8 Sodium Bicarbonate (Sodium Bicarbonate 8.4% 50 Meq/50 Ml Vial) 50 meq IVPUSH ONCE PRN PRN Reason: Severe hypotension Labs 04/21/23 05:13 04/21/23 05:13 Labs: Laboratory Results - last 24 hr 04/20/23 04/20/23 04/20/23 12:22 13:59 14:11 MCV 90.5 MCH 31.9 MCHC 35.3 H RDW 14.2 Plt Count 64 L MPV 12.0 Immature Gran % (Auto) Cancelled Neut % (Auto) Cancelled Lymph % (Auto) Cancelled [place] % (Auto) Cancelled Eos % (Auto) Cancelled Baso % (Auto) Cancelled Lymph # (Auto) Cancelled [place] # (Auto) Cancelled Eos # (Auto) Cancelled Baso # (Auto) Cancelled Abs Immat Gran (auto) Cancelled Absolute Neuts (auto) Cancelled Absolute Nucleated RBC 0.000 Nucleated RBC % (auto) 0.0 Neutrophils % (Manual) 51 Band Neutrophils % 22 H Lymphocytes % (Manual) 16 L Monocytes % (Manual) 5 Eosinophils % (Manual) 4 Metamyelocytes % 2 Abs Neuts (Manual) 3.0 Lymphocytes # (Manual) 0.7 L Monocytes # (Manual) 0.2 Eosinophils # (Manual) 0.2 Metamyelocytes # 0.1 Platelet Estimate DECREASED Plt Morphology Comment NORMAL RBC Morphology NORMAL VBG pH 7.66 H* VBG pCO2 25 VBG pO2 117 VBG HCO3 29 H VBG O2 Saturation 99.0 VBG Base Excess 8.7 Anion Gap Estim Creat Clear Calc Estimated GFR POC Glucose 126 H Random Glucose Calcium Phosphorus Magnesium Albumin 04/20/23 04/20/23 04/20/23 14:11 18:25 20:07 MCV MCH MCHC RDW Plt Count MPV Immature Gran % (Auto) Neut % (Auto) Lymph % (Auto) [place] % (Auto) Eos % (Auto) Baso % (Auto) Lymph # (Auto) [place] # (Auto) Eos # (Auto) Baso # (Auto) Abs Immat Gran (auto) Absolute Neuts (auto) Absolute Nucleated RBC Nucleated RBC % (auto) Neutrophils % (Manual) Band Neutrophils % Lymphocytes % (Manual) Monocytes % (Manual) Eosinophils % (Manual) Metamyelocytes % Abs Neuts (Manual) Lymphocytes # (Manual) Monocytes # (Manual) Eosinophils # (Manual) Metamyelocytes # Platelet Estimate Plt Morphology Comment RBC Morphology VBG pH VBG pCO2 VBG pO2 VBG HCO3 VBG O2 Saturation VBG Base Excess Anion Gap 17 19 Estim Creat Clear Calc 22.5 21.1 Estimated GFR 15 14 POC Glucose 102 Random Glucose 121 H 112 Calcium 7.9 L D 7.9 L Phosphorus 2.7 Magnesium 2.0 Albumin 04/20/23 04/21/23 04/21/23 23:48 05:13 05:13 MCV 91.7 MCH 31.7 MCHC 34.6 RDW 14.4 Plt Count 57 L MPV 12.4 H Immature Gran % (Auto) Cancelled Neut % (Auto) Cancelled Lymph % (Auto) Cancelled [place] % (Auto) Cancelled Eos % (Auto) Cancelled Baso % (Auto) Cancelled Lymph # (Auto) Cancelled [place] # (Auto) Cancelled Eos # (Auto) Cancelled Baso # (Auto) Cancelled Abs Immat Gran (auto) Cancelled Absolute Neuts (auto) Cancelled Absolute Nucleated RBC 0.020 H Nucleated RBC % (auto) 0.4 H Neutrophils % (Manual) Band Neutrophils % Lymphocytes % (Manual) Monocytes % (Manual) Eosinophils % (Manual) Metamyelocytes % Abs Neuts (Manual) Lymphocytes # (Manual) Monocytes # (Manual) Eosinophils # (Manual) Metamyelocytes # Platelet Estimate Plt Morphology Comment RBC Morphology VBG pH VBG pCO2 VBG pO2 VBG HCO3 VBG O2 Saturation VBG Base Excess Anion Gap 17 Estim Creat Clear Calc 18.4 Estimated GFR 12 POC Glucose 106 Random Glucose 131 H Calcium 7.9 L Phosphorus 2.6 L Magnesium 2.2 Albumin 4.0 04/21/23 04/21/23 05:13 05:42 MCV MCH MCHC RDW Plt Count MPV Immature Gran % (Auto) Neut % (Auto) Lymph % (Auto) [place] % (Auto) Eos % (Auto) Baso % (Auto) Lymph # (Auto) [place] # (Auto) Eos # (Auto) Baso # (Auto) Abs Immat Gran (auto) Absolute Neuts (auto) Absolute Nucleated RBC Nucleated RBC % (auto) Neutrophils % (Manual) Band Neutrophils % Lymphocytes % (Manual) Monocytes % (Manual) Eosinophils % (Manual) Metamyelocytes % Abs Neuts (Manual) Lymphocytes # (Manual) Monocytes # (Manual) Eosinophils # (Manual) Metamyelocytes # Platelet Estimate Plt Morphology Comment RBC Morphology VBG pH 7.47 H VBG pCO2 46 VBG pO2 47 VBG HCO3 33 H VBG O2 Saturation 79.0 VBG Base Excess 9.5 Anion Gap Estim Creat Clear Calc Estimated GFR POC Glucose 133 H Random Glucose Calcium Phosphorus Magnesium Albumin Microbiology Microbiology Results: Microbiology 04/17/23 01:00 Gram Stain - Final Peritoneal Fluid Routine Culture - Final Anaerobic Culture - Preliminary Culture in progress. 04/19/23 Unknown Gram Stain - Final Abdominal Fluid Routine Culture - Preliminary Yeast Anaerobic Culture - Preliminary Culture in progress. Procedures Date of Service Date of Service: 04/21/23 Progress Note: A&P Assessment and plan (1) S/P partial gastrectomy: Status: Acute (2) Polysubstance abuse: Status: Acute (3) Acute renal failure: Status: Acute (4) Acute respiratory failure with hypoxemia: Status: Acute (5) Peritonitis: Status: Acute (6) Septic shock: Status: Acute (7) Gastric perforation: Status: Acute (8) Cocaine abuse: Status: Acute Plan The patient likely had a gastric perforation due to ischemia/vasospasm affecting the lesser curve of the stomach. There is no evidence of other source of sepsis that would have caused hypotension preemptively to cause an ischemic gastric ulcer. There is no evidence of malignancy. The patient's family denies any known substances that she could have taken is a suicide attempt. There is no coagulation necrosis consistent with lie/base ingestion reported on the pathology. Given this, continue bowel rest and do not use the NG tube for anything other than suction at this time. Do not reposition it or flush it. Continue to monitor output Q shift and total Q 24 hour. If the nasogastric tube falls out, contact the surgeon on-call. Monitor the patient's right upper quadrant drain by the partial gastrectomy and Francis patch with output Q shift and totaled Q 24. Expect old bilious drainage, ideally this should resolve. Remaining MARTY drains in the patient's left upper quadrant and pelvis should be monitored; these are draining the peritoneal cavity. Continue TPN, IV antibiotics and antifungal coverage. There is no evidence of malignancy in the pathology specimen continue PPI. Vent weight and critical ca re support as per primary critical care team. Time Spent With Patient Time: Total time managing care of this patient today ____ minutes. Quality Stroke Does the patient have a stroke diagnosis?: No VTE Prior VTE?: No VTE Risk Level:: Surgical - moderate VTE Device Contraindication: N/A - Device Ordered VTE Drug Contraindication: N/A - Med Ordered
--- NOTE | 2023-04-21 06:29 | PC.NURSE ---
CARE ASSUMED 23;15..REMAINS INTUBATED/VCV VENT SUPPORT....PROPOFOL 20 MCG/KG/MIN AND FENTANYL 75 MCG/HR AT HS...AMIODARONE 0.5 MG/MIN..EYES OPEN BUT NO TRACKING..WEAKLY HARPER BUT NOT TO COMMAND..INTERMITTANT VENT DYSYNCHRONY RESOLVED WITH TITRATING PROPOFOL TO 30 MCG/KG/MIN.....SBP 88-90 AT HS...GRIGSBY WITH MINIMAL TO NO OUTPUT 23:30-00:01...LEVOPHED RESTARTED AND TITRATED TO O.08 MCG/KG/MIN WITH IMPROVED BP AND URINE OUTPUT...ABDOMEN REMAINS DISTENDED AND SILENT...ABDOMINAL DRESSING DRY/INTACT....NG-TUBE WITH 200ml BILIOUS DRAINAGE OVERNIGHT...4 MARTY DRAINS WITH MINIMAL OUTPUT...GRIMACING WITH CARE/POSITIONING...PRN FENTANYL X1 OVERNIGHT....NSR WITH ISOLATED BRIEF RUNS ATRIAL FIB...AM LABS DRAWN FROM TLC BROWN PORT W/O DIFFICULTY
[2023-04-21] MEDS: Potassium Chloride/H20 40 MEQ/100 ML PIGGYBACK 50 MEQ IV ×2 (06:49→19:19)
[2023-04-21 07:47] LABS: Band Neutrophils Percent 18 % (3-5); Eosinophils Absolute Manual 0.2 X10*3/uL (0.0-0.4); Eosinophils Percent Manual 4 % (0-4); Lymphocytes Absolute Manual 0.7 X10*3/uL (1.2-4.9); Lymphocytes Percent Manual 13 % (20-40); Monocytes Absolute Manual 0.2 X10*3/uL (0.1-1.2); Monocytes Percent Manual 3 % (2-11); Neutrophils Absolute Manual 4.6 X10*3/uL (2.0-8.3); Neutrophils Percent Manual 62 % (45-73)
[2023-04-21 07:48] LABS: Dohle Bodies PRESENT; Hypochromasia 2+ (15-30) /OIF; RBC Morphology NOTED
[2023-04-21 07:49] LABS: Large Platelet PRESENT; Platelet Estimate DECREASED (NORMAL); Platelet Morphology Comment NOTED
[2023-04-21] MEDS: Potassium Phosphate/NS 15 MMOL/250 ML PLAST..BAG 62.5 MMOL IV ×2 (08:16→13:14)
[2023-04-21] MEDS: Chlorhexidine Gluc Oral Rinse 15 ML MOUTHWASH BUCCAL (08:16)
[2023-04-21] MEDS: Fluconazole in NaCl,Iso-Osm 100 MG in Container,Empty 0 ML 50 MG IV (08:32)
--- NOTE | 2023-04-21 09:07 | P.PNCC_ITS ---
Subjective Subjective Date of Service: 04/21/23 Interval History: 57-year-old lady with underlying alcoholism, substance abuse, anxiety admitted on 04/17/2023 with abdominal pain and distension secondary to perforated gastric ulcer requiring emergent surgical repair with patient transferred postop to intensive care unit intubated and further hospital course complicated by septic shock secondary to peritonitis, acute renal failure, and acute hypoxic respiratory failure. On 04/18/2023 in the afternoon with worsening renal function, decreasing urine output, and increasing pressor requirements - CT abdomen pelvis with leakage of Gastrografin peritoneal cavity requiring surgical re-exploration with partial gastrectomy. No events overnight. poor tolerance of pressure support trial yesterday, will re-attempt today. Critical Care Time (minutes): 45 Physical Exam Vital Signs: Vital Signs: Last Vital Signs Temp 100.8 F H 04/21/23 09:00 Pulse 91 04/21/23 09:00 Resp 21 H 04/21/23 09:00 BP 128/71 04/21/23 09:00 Pulse Ox 97 04/21/23 09:00 O2 Del Method Mechanical Ventil ation 04/21/23 09:00 O2 Flow Rate 98 04/17/23 03:30 FiO2 30 04/21/23 09:00 BMI result Body Mass Index 41.3 Const: General: no acute distress and other ( Sedated on the vent) Nutritional Appearance: obese Eyes: Sclerae: sclerae normal EOM: EOMs intact bilaterally Neck: Neck: Yes no lymphadenopathy, Yes trachea midline and Yes supple Resp: Auscultation: crackles ( Mild bilateral) Cardio: Rate: regular rate Rhythm: regular rhythm Heart sounds: no gallops, no murmurs and no rubs GI: Palpation (GI): Soft to palpation and Other GI palpation findings present ( midline surgical incision with dressing, MARTY drains) Auscultation: Hypoactive bowel sounds present Extrem: General: No clubbing, No cyanosis and Yes edema (1+ bilateral) Objective Data Labs 04/21/23 05:13 04/21/23 05:13 Labs: Laboratory Results - last 24 hr 04/20/23 04/20/23 04/20/23 12:22 13:59 14:11 WBC 4.1 L RBC 2.63 L Hgb 8.4 L Hct 23.8 L MCV 90.5 MCH 31.9 MCHC 35.3 H RDW 14.2 Plt Count 64 L MPV 12.0 Immature Gran % (Auto) Cancelled Neut % (Auto) Cancelled Lymph % (Auto) Cancelled [place] % (Auto) Cancelled Eos % (Auto) Cancelled Baso % (Auto) Cancelled Lymph # (Auto) Cancelled [place] # (Auto) Cancelled Eos # (Auto) Cancelled Baso # (Auto) Cancelled Abs Immat Gran (auto) Cancelled Absolute Neuts (auto) Cancelled Absolute Nucleated RBC 0.000 Nucleated RBC % (auto) 0.0 Neutrophils % (Manual) 51 Band Neutrophils % 22 H Lymphocytes % (Manual) 16 L Monocytes % (Manual) 5 Eosinophils % (Manual) 4 Metamyelocytes % 2 Abs Neuts (Manual) 3.0 Lymphocytes # (Manual) 0.7 L Monocytes # (Manual) 0.2 Eosinophils # (Manual) 0.2 Metamyelocytes # 0.1 Dohle Bodies Platelet Estimate DECREASED Large Platelets Plt Morphology Comment NORMAL RBC Morphology NORMAL Hypochromasia VBG pH 7.66 H* VBG pCO2 25 VBG pO2 117 VBG HCO3 29 H VBG O2 Saturation 99.0 VBG Base Excess 8.7 Sodium Potassium Chloride Carbon Dioxide Anion Gap BUN Creatinine Estim Creat Clear Calc Estimated GFR POC Glucose 126 H Random Glucose Calcium Phosphorus Magnesium Albumin Crossmatch 04/20/23 04/20/23 04/20/23 14:11 18:25 20:07 WBC RBC Hgb Hct MCV MCH MCHC RDW Plt Count MPV Immature Gran % (Auto) Neut % (Auto) Lymph % (Auto) [place] % (Auto) Eos % (Auto) Baso % (Auto) Lymph # (Auto) [place] # (Auto) Eos # (Auto) Baso # (Auto) Abs Immat Gran (auto) Absolute Neuts (auto) Absolute Nucleated RBC Nucleated RBC % (auto) Neutrophils % (Manual) Band Neutrophils % Lymphocytes % (Manual) Monocytes % (Manual) Eosinophils % (Manual) Metamyelocytes % Abs Neuts (Manual) Lymphocytes # (Manual) Monocytes # (Manual) Eosinophils # (Manual) Metamyelocytes # Dohle Bodies Platelet Estimate Large Platelets Plt Morphology Comment RBC Morphology Hypochromasia VBG pH VBG pCO2 VBG pO2 VBG HCO3 VBG O2 Saturation VBG Base Excess Sodium 144 144 Potassium 3.8 3.8 Chloride 106 105 Carbon Dioxide 25 24 Anion Gap 17 19 BUN 29 H 32 H Creatinine 3.18 H 3.40 H Estim Creat Clear Calc 22.5 21.1 Estimated GFR 15 14 POC Glucose 102 Random Glucose 121 H 112 Calcium 7.9 L D 7.9 L Phosphorus 2.7 Magnesium 2.0 Albumin Crossmatch 04/20/23 04/21/23 04/21/23 23:48 05:13 05:13 WBC 5.7 RBC 2.30 L Hgb 7.3 L Hct 21.1 L MCV 91.7 MCH 31.7 MCHC 34.6 RDW 14.4 Plt Count 57 L MPV 12.4 H Immature Gran % (Auto) Cancelled Neut % (Auto) Cancelled Lymph % (Auto) Cancelled [place] % (Auto) Cancelled Eos % (Auto) Cancelled Baso % (Auto) Cancelled Lymph # (Auto) Cancelled [place] # (Auto) Cancelled Eos # (Auto) Cancelled Baso # (Auto) Cancelled Abs Immat Gran (auto) Cancelled Absolute Neuts (auto) Cancelled Absolute Nucleated RBC 0.020 H Nucleated RBC % (auto) 0.4 H Neutrophils % (Manual) 62 Band Neutrophils % 18 H Lymphocytes % (Manual) 13 L Monocytes % (Manual) 3 Eosinophils % (Manual) 4 Metamyelocytes % Abs Neuts (Manual) 4.6 Lymphocytes # (Manual) 0.7 L Monocytes # (Manual) 0.2 Eosinophils # (Manual) 0.2 Metamyelocytes # Dohle Bodies PRESENT Platelet Estimate DECREASED Large Platelets PRESENT Plt Morphology Comment NOTED RBC Morphology NOTED Hypochromasia 2+ (15-30) VBG pH VBG pCO2 VBG pO2 VBG HCO3 VBG O2 Saturation VBG Base Excess Sodium 145 Potassium 3.0 L D Chloride 103 Carbon Dioxide 28 Anion Gap 17 BUN 37 H Creatinine 3.81 H Estim Creat Clear Calc 18.4 Estimated GFR 12 POC Glucose 106 Random Glucose 131 H Calcium 7.9 L Phosphorus 2.6 L Magnesium 2.2 Albumin 4.0 Crossmatch 04/21/23 04/21/23 04/21/23 05:13 05:42 08:31 WBC RBC Hgb Hct MCV MCH MCHC RDW Plt Count MPV Immature Gran % (Auto) Neut % (Auto) Lymph % (Auto) [place] % (Auto) Eos % (Auto) Baso % (Auto) Lymph # (Auto) [place] # (Auto) Eos # (Auto) Baso # (Auto) Abs Immat Gran (auto) Absolute Neuts (auto) Absolute Nucleated RBC Nucleated RBC % (auto) Neutrophils % (Manual) Band Neutrophils % Lymphocytes % (Manual) Monocytes % (Manual) Eosinophils % (Manual) Metamyelocytes % Abs Neuts (Manual) Lymphocytes # (Manual) Monocytes # (Manual) Eosinophils # (Manual) Metamyelocytes # Dohle Bodies Platelet Estimate Large Platelets Plt Morphology Comment RBC Morphology Hypochromasia VBG pH 7.47 H VBG pCO2 46 VBG pO2 47 VBG HCO3 33 H VBG O2 Saturation 79.0 VBG Base Excess 9.5 Sodium Potassium Chloride Carbon Dioxide Anion Gap BUN Creatinine Estim Creat Clear Calc Estimated GFR POC Glucose 133 H Random Glucose Calcium Phosphorus Magnesium Albumin Crossmatch See Detail Microbiology Microbiology Results: Microbiology 04/17/23 01:00 Peritoneal Fluid Gram Stain - Final 04/17/23 01:00 Peritoneal Fluid Routine Culture - Final 04/17/23 01:00 Peritoneal Fluid Anaerobic Culture - Preliminary Culture in progress. 04/19/23 Unknown Abdominal Fluid Gram Stain - Final 04/19/23 Unknown Abdominal Fluid Routine Culture - Preliminary Yeast 04/19/23 Unknown Abdominal Fluid Anaerobic Culture - Preliminary Culture in progress. 04/16/23 02:40 Urine clean catch - Urine loera top Urine Culture - Final Escherichia coli 04/16/23 22:22 Blood - Venous Blood Culture - Preliminary No growth after 48 hours. 04/16/23 22:22 Blood - Venous Blood Culture - Preliminary No growth after 48 hours. Progress Note: A&P Assessment and plan (1) Gastric perforation: Status: Acute (2) S/P partial gastrectomy: Status: Acute (3) Polysubstance abuse: Status: Acute (4) Acute renal failure: Status: Acute (5) Acute respiratory failure with hypoxemia: Status: Acute (6) Peritonitis: Status: Acute (7) Septic shock: Status: Acute (8) Morbid (severe) obesity due to excess calories: Status: Acute Plan Assessment: 57-year-old lady admitted with perforated gastric ulcer status post emergent surgical repair further complicated by peritonitis, acute renal failure, and acute hypoxic respiratory failure, now requiring ventilatory support. Plan: Neuro: No acute issues. Underlying polysubstance abuse. Cardiac: Septic shock, improving slowly, continue to titrate off pressors as tolerated. Pulmonary: Acute hypoxic respiratory failure secondary to underlying peritonitis. Continue to titrate off ventilatory support as tolerated. Renal: Acute renal failure secondary to septic shock,non oliguric. Continue to monitor renal indices and urine output. Endo: No acute issues. GI: Perforated gastric ulcer status post emergent surgical repair requiring 2nd explorative laparotomy on 04/18/2023 with partial gastrectomy. General surgery service care appreciated. ID: Septic shock secondary to peritonitis. Continue on broad-spectrum antibiotics and fluconazole. Heme/Onc: No acute issues. Psych: No acute issues. Miscellaneous: No acute issues. Prophylaxis: Heparin, ppi Diet: TPN Critical care time spent: 45 minutes Quality Stroke Does the patient have a stroke diagnosis?: No VTE Prior VTE?: No VTE Risk Level:: Surgical - moderate VTE Device Contraindication: N/A - Device Ordered VTE Drug Contraindication: N/A - Med Ordered
--- NOTE | 2023-04-21 10:36 | MHC.CLN ---
F/U DISCUSSED AT ROUNDS WITH MD REVIEWED LABS DISCUSSED WITH PHARMACY SEDATION SLIGHTLY DECREASED RECOMMEND INCREASING [id number] TO 40ML/HR TO PROVIDE 682KCALS (1143KCALS TOTAL WITH SEDATION; 23KCALS/KG), 48G PROTEIN (.96G/KG) REPLETE LYTES NEEDED PLAN TPN TO RUN AT SAME RATE X 3 DAYS (OVER WEEKEND) AND RE-ASSESS NGT OUTPUT ON MONDAY GOAL TO SWITCH TO NGT FEEDING ON MONDAY IF [address] CAN BE REACHED DURING OFF HOURS VIA [facility]
[2023-04-21 11:34] LABS: Glucose, Whole Blood 140 mg/dL (60-115)
[2023-04-21] MEDS: Ketorolac Tromethamine 15 MG/ML VIAL IVPUSH ×2 (12:04→21:17)
[2023-04-21] MEDS: Metoprolol Tartrate 5 MG/5 ML VIAL IVPUSH (13:14)
[2023-04-21] MEDS: HYDROmorphone HCl 1 MG/ML SYRINGE IVPUSH ×3 (13:26→19:29)
[2023-04-21] MEDS: hydrALAZINE HCl 20 MG/ML VIAL 10 MG IVPUSH ×2 (13:54→20:56)
--- NOTE | 2023-04-21 14:00 | PC.NURSE ---
Assumed care at 0700 - patient intubated and sedated on Propofol and Fentanyl gtts. Sedation vacation started at 0925 - patient following simple commands, positive cough and gag. Pt placed on PSV 5/5 30% by RT. Patient extubated at 1040 to 2L NC then titrated to RA sating >92%. Audible wet cough requiring intermittent suctioning w/ yankaur producing scant amount of thin clear secretions. Levophed titrated off - SBP maintaining >150. Continued on Amio gtt - pt sinus, HR maintaining 80-90's w/ occasional PACs. Completed 1unit PRBC w/o complication. Patient appearing more uncomfortable, nonverbal pain score up to 4-5. Toradol 15mg administered without effect. Pt converted to AFib HR 120-140's, SBP maintaining 170-180's - Fentanyl 50mcg & Lopressor 5mg IV administered w/o effect. Dilaudid 1mg IVP administered w/ good effect - nonverbal pain score down to 1-2, pt appears more comfortable, resting with eyes closed - converted back to SR 80-90's at 1349, SBP maintaining 170's - Hydralazine 10mg IVP administered - SBP down to 160's.
--- NOTE | 2023-04-21 15:47 | MHC.CM.PN ---
EMR REVIEWED .PT REMAINS IN ICU ON VENTILATORY AND PRESSOR SUPPORT. CM WILL CONTINUE TO FOLLOW FOR DC NEEDS/PLAN.
[2023-04-21 17:32] LABS: Glucose, Whole Blood 133 mg/dL (60-115)
[2023-04-21 17:41] LABS: VBG Base Excess 5.5 mmol/L; VBG HCO3 29 mmol/L (22-26); VBG pCO2 38 mmHg; VBG pH 7.48 (7.32-7.43); VBG pO2 42 mmHg
[2023-04-21 18:30] LABS: PLT CLUMP 1; Red Cell Distribution Width 14.4 % (11.0-16.0)
[2023-04-21 18:32] LABS: Hematocrit 27.6 % (37.0-47.0); Hemoglobin 9.6 g/dl (12.0-16.0); Mean Corpuscular HGB Conc 34.8 g/dl (31.0-35.0); Mean Platelet Volume 12.3 fL (9.4-12.3); NRBC Pct Auto 0.6 /100WBC (0.0-0.2)
[2023-04-21 18:34] LABS: White Blood Count 7.9 X10*3/uL (4.8-10.8)
[2023-04-21 18:35] LABS: Platelet Count 56 X10*3/uL (160-400)
[2023-04-21 18:48] LABS: Anion Gap 19 (12-20); Blood Urea Nitrogen 41 mg/dL (9-16); Calcium 7.8 mg/dL (8.4-10.2); Carbon Dioxide 26 mmol/L (22-29); Chloride 107 mmol/L (96-108); Creatinine Clr Calc Pharmacy 18.4; Estimated Glomerular Filt Rate 12; Glucose Random 124 mg/dL (60-115); Potassium 3.5 mmol/L (3.3-5.1); Sodium 148 mmol/L (135-145)
[2023-04-21 19:06] LABS: Band Neutrophils Percent 14 % (3-5); Basophils Abs Manual 0.1 X10*3/uL (0.0-0.2); Basophils Percent Manual 1 % (0-2); Eosinophils Absolute Manual 0.2 X10*3/uL (0.0-0.4); Eosinophils Percent Manual 2 % (0-4); Lymphocytes Absolute Manual 2.1 X10*3/uL (1.2-4.9); Lymphocytes Percent Manual 26 % (20-40); Neutrophils Absolute Manual 5.6 X10*3/uL (2.0-8.3); Neutrophils Percent Manual 57 % (45-73)
[2023-04-21 19:08] LABS: Hypochromasia 1+ (5-14) /OIF; Platelet Estimate DECREASED (NORMAL); RBC Morphology NOTED
[2023-04-21 19:09] LABS: Platelet Morphology Comment NORMAL
[2023-04-21 19:42] LABS: Venous Blood Gas Refer to POC result
[2023-04-21 23:47] LABS: Glucose, Whole Blood 112 mg/dL (60-115)
[2023-04-22] VITALS (24 sets, daily range): BP systolic 162–195; BP diastolic 78–114; PULSE 94–103; RESP 14–32; TEMP 36.2–38.4; O2SAT 91–95; BMI 40.9
[2023-04-22] MEDS: HYDROmorphone HCl 1 MG/ML SYRINGE IVPUSH ×6 (01:17→21:35)
[2023-04-22] MEDS: Piperacillin Sodium/Tazobactam 2.25 GM in 0.9 % Sodium Chloride 50 ML IV ×4 (04:02→21:32)
[2023-04-22] MEDS: Amiodarone HCL 900 MG in 0.9 % Sodium Chloride 500 ML 17.27 MG IVCONT (04:12)
[2023-04-22 05:36] LABS: VBG Base Excess 4.8 mmol/L; VBG HCO3 29 mmol/L (22-26); VBG pCO2 41 mmHg; VBG pH 7.45 (7.32-7.43); VBG pO2 43 mmHg
[2023-04-22 05:48] LABS: Venous Blood Gas Refer to POC result
[2023-04-22 06:00] LABS: Hematocrit 27.6 % (37.0-47.0); Hemoglobin 9.7 g/dl (12.0-16.0); Mean Corpuscular HGB Conc 35.1 g/dl (31.0-35.0); Mean Corpuscular Volume 88.2 fL (80.0-98.0); PLT CLUMP 1; Red Blood Count 3.13 X10*6/uL (4.20-5.50)
[2023-04-22 06:03] LABS: Mean Platelet Volume 12.2 fL (9.4-12.3); Red Cell Distribution Width 14.5 % (11.0-16.0)
[2023-04-22 06:07] LABS: WBC ABN SCTR FOR CBC 1; White Blood Count 10.4 X10*3/uL (4.8-10.8)
[2023-04-22 06:08] LABS: Platelet Count 61 X10*3/uL (160-400)
--- NOTE | 2023-04-22 06:09 | PC.NURSE ---
Family made this RN aware that pt is starting to wake up and reach for NG tube. Tele sitter placed at bedside.RN entered room to find NG Tube removed, Heavy Repairer and Attending made aware, per will address in am.
[2023-04-22 06:19] LABS: Alanine Aminotransferase 71 U/L (0-31); Albumin Level 3.5 g/dL (3.5-5.0); Alkaline Phosphatase 84 U/L (39-117); Anion Gap 19 (12-20); Aspartate Amino Transferase 133 U/L (5-31); Bilirubin Total 3.3 mg/dL (0.0-1.0); Blood Urea Nitrogen 49 mg/dL (9-16); Calcium 8.1 mg/dL (8.4-10.2); Carbon Dioxide 24 mmol/L (22-29); Chloride 110 mmol/L (96-108); Creatinine Clr Calc Pharmacy 18.1; Estimated Glomerular Filt Rate 12; Glucose Random 130 mg/dL (60-115); Magnesium 2.2 mg/dL (1.6-2.6); Phosphorus 2.9 mg/dL (2.7-4.5); Potassium 3.5 mmol/L (3.3-5.1); Sodium 149 mmol/L (135-145); Total Protein 5.8 g/dL (6.5-8.0)
[2023-04-22 06:21] LABS: Glucose, Whole Blood 135 mg/dL (60-115)
[2023-04-22] MEDS: hydrALAZINE HCl 20 MG/ML VIAL 10 MG IVPUSH ×5 (06:32→21:42)
[2023-04-22 07:13] LABS: Band Neutrophils Percent 11 % (3-5); Eosinophils Absolute Manual 0.3 X10*3/uL (0.0-0.4); Eosinophils Percent Manual 3 % (0-4); Lymphocytes Absolute Manual 0.5 X10*3/uL (1.2-4.9); Lymphocytes Percent Manual 5 % (20-40); Metamyelocytes Absolute 0.1 X10*3/uL; Metamyelocytes Percent 1 %; Monocytes Absolute Manual 0.2 X10*3/uL (0.1-1.2); Monocytes Percent Manual 2 % (2-11); Neutrophils Absolute Manual 9.3 X10*3/uL (2.0-8.3); Neutrophils Percent Manual 78 % (45-73); Nucleated Red Blood Cells 1 /100WBC (0-0)
[2023-04-22 07:14] LABS: RBC Morphology NOTED; Target Cells 1+ (5-14) /OIF
[2023-04-22 07:15] LABS: Dohle Bodies PRESENT; Hypochromasia 1+ (5-14) /OIF; Platelet Estimate DECREASED (NORMAL); Platelet Morphology Comment NORMAL
[2023-04-22] MEDS: Fluconazole in NaCl,Iso-Osm 100 MG in Container,Empty 0 ML 50 MG IV (08:28)
[2023-04-22] MEDS: Potassium Chloride/H20 40 MEQ/100 ML PIGGYBACK 50 MEQ IV (08:28)
[2023-04-22] MEDS: cloNIDine 0.2 MG PATCH.TDWK TRANSDERMA (09:33)
--- NOTE | 2023-04-22 10:26 | P.PNCC_ITS ---
Subjective Subjective Date of Service: 04/22/23 Interval History: 57-year-old lady with underlying alcoholism, substance abuse, anxiety admitted on 04/17/2023 with abdominal pain and distension secondary to perforated gastric ulcer requiring emergent surgical repair with patient transferred postop to intensive care unit intubated and further hospital course complicated by septic shock secondary to peritonitis, acute renal failure, and acute hypoxic respiratory failure. On 04/18/2023 in the afternoon with worsening renal function, decreasing urine output, and increasing pressor requirements - CT abdomen pelvis with leakage of Gastrografin peritoneal cavity requiring surgical re-exploration with partial gastrectomy. Patient pulled out her nasogastric tube overnight. Critical Care Time (minutes): 0 Physical Exam Vital Signs: Vital Signs: Last Vital Signs Temp 99.5 F 04/22/23 10:00 Pulse 96 04/22/23 10:00 Resp 29 H 04/22/23 10:00 BP 171/83 H 04/22/23 10:00 Pulse Ox 94 04/22/23 10:00 O2 Del Method Room Air 04/22/23 10:00 O2 Flow Rate 2 04/21/23 20:00 FiO2 30 04/21/23 10:00 BMI result Body Mass Index 40.9 Const: General: no acute distress, alert and awake Nutritional Appearance: obese Eyes: Sclerae: sclerae normal EOM: EOMs intact bilaterally Neck: Neck: Yes no lymphadenopathy, Yes trachea midline and Yes supple Resp: Effort & Inspection: normal respiratory effort and no respiratory dist ress Auscultation: crackles ( Mild bilateral) Cardio: Rate: regular rate Rhythm: regular rhythm Heart sounds: no gallops, no murmurs and no rubs GI: Palpation (GI): Soft to palpation and Other GI palpation findings present ( midline incision with surgical dressing, MARTY drains.) Auscultation: Hypoactive bowel sounds present Extrem: General: No clubbing, No cyanosis and Yes edema ( 1+ bilateral) Objective Data Labs 04/22/23 05:27 04/22/23 05:27 Labs: Laboratory Results - last 24 hr 04/21/23 04/21/23 04/21/23 11:31 17:29 17:33 WBC RBC Hgb Hct MCV MCH MCHC RDW Plt Count MPV Immature Gran % (Auto) Neut % (Auto) Lymph % (Auto) [place] % (Auto) Eos % (Auto) Baso % (Auto) Lymph # (Auto) [place] # (Auto) Eos # (Auto) Baso # (Auto) Abs Immat Gran (auto) Absolute Neuts (auto) Absolute Nucleated RBC Nucleated RBC % (auto) Neutrophils % (Manual) Band Neutrophils % Lymphocytes % (Manual) Monocytes % (Manual) Eosinophils % (Manual) Basophils % (Manual) Metamyelocytes % Abs Neuts (Manual) Lymphocytes # (Manual) Monocytes # (Manual) Eosinophils # (Manual) Basophils # (Manual) Metamyelocytes # Nucleated RBCs Dohle Bodies Platelet Estimate Plt Morphology Comment RBC Morphology Hypochromasia Target Cells VBG pH 7.48 H VBG pCO2 38 VBG pO2 42 VBG HCO3 29 H VBG O2 Saturation 71.0 VBG Base Excess 5.5 Sodium Potassium Chloride Carbon Dioxide Anion Gap BUN Creatinine Estim Creat Clear Calc Estimated GFR POC Glucose 140 H 133 H Random Glucose Calcium Phosphorus Magnesium Total Bilirubin AST ALT Alkaline Phosphatase Total Protein Albumin 04/21/23 04/21/23 04/21/23 17:38 17:38 23:42 WBC 7.9 RBC 3.10 L D Hgb 9.6 L D Hct 27.6 L D MCV 89.0 MCH 31.0 MCHC 34.8 RDW 14.4 Plt Count 56 L MPV 12.3 Immature Gran % (Auto) Cancelled Neut % (Auto) Cancelled Lymph % (Auto) Cancelled [place] % (Auto) Cancelled Eos % (Auto) Cancelled Baso % (Auto) Cancelled Lymph # (Auto) Cancelled [place] # (Auto) Cancelled Eos # (Auto) Cancelled Baso # (Auto) Cancelled Abs Immat Gran (auto) Cancelled Absolute Neuts (auto) Cancelled Absolute Nucleated RBC 0.050 H Nucleated RBC % (auto) 0.6 H Neutrophils % (Manual) 57 Band Neutrophils % 14 H Lymphocytes % (Manual) 26 Monocytes % (Manual) Eosinophils % (Manual) 2 Basophils % (Manual) 1 Metamyelocytes % Abs Neuts (Manual) 5.6 Lymphocytes # (Manual) 2.1 Monocytes # (Manual) Eosinophils # (Manual) 0.2 Basophils # (Manual) 0.1 Metamyelocytes # Nucleated RBCs Dohle Bodies Platelet Estimate DECREASED Plt Morphology Comment NORMAL RBC Morphology NOTED Hypochromasia 1+ (5-14) Target Cells VBG pH VBG pCO2 VBG pO2 VBG HCO3 VBG O2 Saturation VBG Base Excess Sodium 148 H Potassium 3.5 Chloride 107 Carbon Dioxide 26 Anion Gap 19 BUN 41 H Creatinine 3.83 H Estim Creat Clear Calc 18.4 Estimated GFR 12 POC Glucose 112 Random Glucose 124 H Calcium 7.8 L Phosphorus Magnesium Total Bilirubin AST ALT Alkaline Phosphatase Total Protein Albumin 04/22/23 04/22/23 04/22/23 05:26 05:27 05:27 WBC 10.4 RBC 3.13 L Hgb 9.7 L Hct 27.6 L MCV 88.2 MCH 31.0 MCHC 35.1 H RDW 14.5 Plt Count 61 L MPV 12.2 Immature Gran % (Auto) Cancelled Neut % (Auto) Cancelled Lymph % (Auto) Cancelled [place] % (Auto) Cancelled Eos % (Auto) Cancelled Baso % (Auto) Cancelled Lymph # (Auto) Cancelled [place] # (Auto) Cancelled Eos # (Auto) Cancelled Baso # (Auto) Cancelled Abs Immat Gran (auto) Cancelled Absolute Neuts (auto) Cancelled Absolute Nucleated RBC 0.100 H Nucleated RBC % (auto) 1.0 H Neutrophils % (Manual) 78 H Band Neutrophils % 11 H Lymphocytes % (Manual) 5 L Monocytes % (Manual) 2 Eosinophils % (Manual) 3 Basophils % (Manual) Metamyelocytes % 1 Abs Neuts (Manual) 9.3 H Lymphocytes # (Manual) 0.5 L Monocytes # (Manual) 0.2 Eosinophils # (Manual) 0.3 Basophils # (Manual) Metamyelocytes # 0.1 Nucleated RBCs 1 H Dohle Bodies PRESENT Platelet Estimate DECREASED Plt Morphology Comment NORMAL RBC Morphology NOTED Hypochromasia 1+ (5-14) Target Cells 1+ (5-14) VBG pH 7.45 H VBG pCO2 41 VBG pO2 43 VBG HCO3 29 H VBG O2 Saturation 73.0 VBG Base Excess 4.8 Sodium 149 H Potassium 3.5 Chloride 110 H Carbon Dioxide 24 Anion Gap 19 BUN 49 H Creatinine 3.86 H Estim Creat Clear Calc 18.1 Estimated GFR 12 POC Glucose Random Glucose 130 H Calcium 8.1 L Phosphorus 2.9 Magnesium 2.2 Total Bilirubin 3.3 H AST 133 H ALT 71 H Alkaline Phosphatase 84 Total Protein 5.8 L Albumin 3.5 04/22/23 06:17 WBC RBC Hgb Hct MCV MCH MCHC RDW Plt Count MPV Immature Gran % (Auto) Neut % (Auto) Lymph % (Auto) [place] % (Auto) Eos % (Auto) Baso % (Auto) Lymph # (Auto) [place] # (Auto) Eos # (Auto) Baso # (Auto) Abs Immat Gran (auto) Absolute Neuts (auto) Absolute Nucleated RBC Nucleated RBC % (auto) Neutrophils % (Manual) Band Neutrophils % Lymphocytes % (Manual) Monocytes % (Manual) Eosinophils % (Manual) Basophils % (Manual) Metamyelocytes % Abs Neuts (Manual) Lymphocytes # (Manual) Monocytes # (Manual) Eosinophils # (Manual) Basophils # (Manual) Metamyelocytes # Nucleated RBCs Dohle Bodies Platelet Estimate Plt Morphology Comment RBC Morphology Hypochromasia Target Cells VBG pH VBG pCO2 VBG pO2 VBG HCO3 VBG O2 Saturation VBG Base Excess Sodium Potassium Chloride Carbon Dioxide Anion Gap BUN Creatinine Estim Creat Clear Calc Estimated GFR POC Glucose 135 H Random Glucose Calcium Phosphorus Magnesium Total Bilirubin AST ALT Alkaline Phosphatase Total Protein Albumin Microbiology Microbiology Results: Microbiology 04/19/23 Unknown Abdominal Fluid Gram Stain - Final 04/19/23 Unknown Abdominal Fluid Routine Culture - Final Yamel tropicalis 04/19/23 Unknown Abdominal Fluid Anaerobic Culture - Preliminary Culture in progress. 04/17/23 01:00 Peritoneal Fluid Gram Stain - Final 04/17/23 01:00 Peritoneal Fluid Routine Culture - Final 04/17/23 01:00 Peritoneal Fluid Anaerobic Culture - Final 04/16/23 22:22 Blood - Venous Blood Culture - Final No growth after 5 days. 04/16/23 22:22 Blood - Venous Blood Culture - Final No growth after 5 days. 04/16/23 02:40 Urine clean catch - Urine loera top Urine Culture - Final Escherichia coli Progress Note: A&P Assessment and plan (1) Cocaine abuse: Status: Acute (2) S/P partial gastrectomy: Status: Acute (3) Polysubstance abuse: Status: Acute (4) Acute renal failure: Status: Acute (5) Peritonitis: Status: Acute (6) Gastric perforation: Status: Acute (7) Morbid (severe) obesity due to excess calories: Status: Acute Plan Assessment: 57-year-old lady admitted with perforated gastric ulcer status post emergent surgical repair further complicated by peritonitis, acute renal failure, and acute hypoxic respiratory failure, now requiring ventilatory support. Plan: Neuro: No acute issues. Underlying polysubstance abuse. Cardiac: Septic shock, improving slowly, continue to titrate off pressors as tolerated. Pulmonary: Acute hypoxic respiratory failure secondary to underlying peritonitis, resolved. Extubated 04/21/2023. Renal: Acute renal failure secondary to septic shock/peritonitis, non oliguric. Continue to monitor renal indices and urine output. Endo: No acute issues. GI: Perforated gastric ulcer status post emergent surgical repair requiring 2nd explorative laparotomy on 04/18/2023 with partial gastrectomy. General surgery service care appreciated. ID: Septic shock secondary to peritonitis. Continue on broad-spectrum antibiotics and fluconazole. Heme/Onc: No acute issues. Psych: No acute issues. Miscellaneous: No acute issues. Prophylaxis: Heparin, ppi Diet: TPN Quality Stroke Does the patient have a stroke diagnosis?: No VTE Prior VTE?: No VTE Risk Level:: Surgical - moderate VTE Device Contraindication: N/A - Device Ordered VTE Drug Contraindication: N/A - Med Ordered
--- NOTE | 2023-04-22 11:15 | PM.PNGS ---
Subjective Subjective Date of Service: 04/23/23 Interval history: pt pulled out NGT last night extubated off pressors she is asking for water still with output from drains Physical Exam Vital Signs: Vital Signs: Last Vital Signs Temp 99.5 F 04/22/23 10:00 Pulse 96 04/22/23 10:00 Resp 29 H 04/22/23 10:00 BP 171/83 H 04/22/23 10:00 Pulse Ox 94 04/22/23 10:00 O2 Del Method Room Air 04/22/23 10:00 O2 Flow Rate 2 04/21/23 20:00 FiO2 30 04/21/23 10:00 BMI result Body Mass Index 40.9 Const: Other: mildly short of breath Resp: Other: mildy short of breath Cardio: Rate: regular rate GI: Other: multiple MARTY drains, x 4, erick abd bilious stained output, more output on right side, incision clean and dry Palpation (GI): Soft to palpation and no guarding Objective Data Active Medications Hydromorphone HCl (Hydromorphone Hcl 1 Mg/Ml Syringe) 1 mg IVPUSH Q3H PRN; Protocol PRN Reason: Pain, Moderate(Pain Scale 4-6) Last Admin: 04/22/23 09:10 Dose: 1 mg Documented By: LEIA Norepinephrine Bitartrate 32 (mg/ Sodium Chloride) 250 mls @ 0 mls/hr IV .Q0M FORMERLY [facility], 1928–1983; Protocol Last Titration: 04/21/23 10:57 Dose: 0 mcg/kg/min, 0 mls/hr Documented By: RIKKI Piperacillin Sod/Tazobactam (Sod 2.25 gm/ Sodium Chloride) 50 mls @ 100 mls/hr IV Q6H FOR[facility], 1928–1983 Last Infusion: 04/22/23 09:04 Dose: 0 mls/hr Documented By: LEIA Fluconazole 100 mg/ IV (Miscellaneous Supplies) 50 mls @ 50 mls/hr IV Q24H [facility], [facility]1983 Last Infusion: 04/22/23 09:37 Dose: 0 mls/hr Documented By: LEIA Multivitamins 10 ml/ Trace Metals 1 ml/ Amino Acids/Electrolytes 960 mls @ 40 mls/hr IV DAILY@1800 MOO Stop: 04/22/23 17:59 Last Admin: 04/21/23 17:47 Dose: 40 mls/hr Documented By: RIKKI Potassium Chloride 30 meq/Magnesium Sulfate 8 meq/Potassium Phosphate 15 mmol/Calcium Gluconate 4.65 meq/Amino Acids/Dextrose 960 mls @ 40 mls/hr IV DAILY@1800 MOO Stop: 04/23/23 17:59 Insulin Human Lispro (Insulin Lispro 100 Unit/Ml 3 Ml Vial) 0 unit SUBCUT Q6H [facility], 1928–1983; Protocol Last Admin: 04/22/23 06:18 Dose: Not Given Documented By: CHRIS Non-Admin Reason: No Insulin Coverage Naloxone HCl (Naloxone Hcl 0.4 Mg/Ml Vial) 0.2 mg IVPUSH Q2M PRN PRN Reason: Excessive sedation or RR < 8 Sodium Bicarbonate (Sodium Bicarbonate 8.4% 50 Meq/50 Ml Vial) 50 meq IVPUSH ONCE PRN PRN Reason: Severe hypotension Labs 04/22/23 05:27 04/22/23 05:27 Labs: Laboratory Results - last 24 hr 04/21/23 04/21/23 04/21/23 11:31 17:29 17:33 MCV MCH MCHC RDW Plt Count MPV Immature Gran % (Auto) Neut % (Auto) Lymph % (Auto) [place] % (Auto) Eos % (Auto) Baso % (Auto) Lymph # (Auto) [place] # (Auto) Eos # (Auto) Baso # (Auto) Abs Immat Gran (auto) Absolute Neuts (auto) Absolute Nucleated RBC Nucleated RBC % (auto) Neutrophils % (Manual) Band Neutrophils % Lymphocytes % (Manual) Monocytes % (Manual) Eosinophils % (Manual) Basophils % (Manual) Metamyelocytes % Abs Neuts (Manual) Lymphocytes # (Manual) Monocytes # (Manual) Eosinophils # (Manual) Basophils # (Manual) Metamyelocytes # Nucleated RBCs Dohle Bodies Platelet Estimate Plt Morphology Comment RBC Morphology Hypochromasia Target Cells VBG pH 7.48 H VBG pCO2 38 VBG pO2 42 VBG HCO3 29 H VBG O2 Saturation 71.0 VBG Base Excess 5.5 Anion Gap Estim Creat Clear Calc Estimated GFR POC Glucose 140 H 133 H Random Glucose Calcium Phosphorus Magnesium Total Bilirubin AST ALT Alkaline Phosphatase Total Protein Albumin 04/21/23 04/21/23 04/21/23 17:38 17:38 23:42 MCV 89.0 MCH 31.0 MCHC 34.8 RDW 14.4 Plt Count 56 L MPV 12.3 Immature Gran % (Auto) Cancelled Neut % (Auto) Cancelled Lymph % (Auto) Cancelled [place] % (Auto) Cancelled Eos % (Auto) Cancelled Baso % (Auto) Cancelled Lymph # (Auto) Cancelled [place] # (Auto) Cancelled Eos # (Auto) Cancelled Baso # (Auto) Cancelled Abs Immat Gran (auto) Cancelled Absolute Neuts (auto) Cancelled Absolute Nucleated RBC 0.050 H Nucleated RBC % (auto) 0.6 H Neutrophils % (Manual) 57 Band Neutrophils % 14 H Lymphocytes % (Manual) 26 Monocytes % (Manual) Eosinophils % (Manual) 2 Basophils % (Manual) 1 Metamyelocytes % Abs Neuts (Manual) 5.6 Lymphocytes # (Manual) 2.1 Monocytes # (Manual) Eosinophils # (Manual) 0.2 Basophils # (Manual) 0.1 Metamyelocytes # Nucleated RBCs Dohle Bodies Platelet Estimate DECREASED Plt Morphology Comment NORMAL RBC Morphology NOTED Hypochromasia 1+ (5-14) Target Cells VBG pH VBG pCO2 VBG pO2 VBG HCO3 VBG O2 Saturation VBG Base Excess Anion Gap 19 Estim Creat Clear Calc 18.4 Estimated GFR 12 POC Glucose 112 Random Glucose 124 H Calcium 7.8 L Phosphorus Magnesium Total Bilirubin AST ALT Alkaline Phosphatase Total Protein Albumin 04/22/23 04/22/23 04/22/23 05:26 05:27 05:27 MCV 88.2 MCH 31.0 MCHC 35.1 H RDW 14.5 Plt Count 61 L MPV 12.2 Immature Gran % (Auto) Cancelled Neut % (Auto) Cancelled Lymph % (Auto) Cancelled [place] % (Auto) Cancelled Eos % (Auto) Cancelled Baso % (Auto) Cancelled Lymph # (Auto) Cancelled [place] # (Auto) Cancelled Eos # (Auto) Cancelled Baso # (Auto) Cancelled Abs Immat Gran (auto) Cancelled Absolute Neuts (auto) Cancelled Absolute Nucleated RBC 0.100 H Nucleated RBC % (auto) 1.0 H Neutrophils % (Manual) 78 H Band Neutrophils % 11 H Lymphocytes % (Manual) 5 L Monocytes % (Manual) 2 Eosinophils % (Manual) 3 Basophils % (Manual) Metamyelocytes % 1 Abs Neuts (Manual) 9.3 H Lymphocytes # (Manual) 0.5 L Monocytes # (Manual) 0.2 Eosinophils # (Manual) 0.3 Basophils # (Manual) Metamyelocytes # 0.1 Nucleated RBCs 1 H Dohle Bodies PRESENT Platelet Estimate DECREASED Plt Morphology Comment NORMAL RBC Morphology NOTED Hypochromasia 1+ (5-14) Target Cells 1+ (5-14) VBG pH 7.45 H VBG pCO2 41 VBG pO2 43 VBG HCO3 29 H VBG O2 Saturation 73.0 VBG Base Excess 4.8 Anion Gap 19 Estim Creat Clear Calc 18.1 Estimated GFR 12 POC Glucose Random Glucose 130 H Calcium 8.1 L Phosphorus 2.9 Magnesium 2.2 Total Bilirubin 3.3 H AST 133 H ALT 71 H Alkaline Phosphatase 84 Total Protein 5.8 L Albumin 3.5 04/22/23 06:17 MCV MCH MCHC RDW Plt Count MPV Immature Gran % (Auto) Neut % (Auto) Lymph % (Auto) [place] % (Auto) Eos % (Auto) Baso % (Auto) Lymph # (Auto) [place] # (Auto) Eos # (Auto) Baso # (Auto) Abs Immat Gran (auto) Absolute Neuts (auto) Absolute Nucleated RBC Nucleated RBC % (auto) Neutrophils % (Manual) Band Neutrophils % Lymphocytes % (Manual) Monocytes % (Manual) Eosinophils % (Manual) Basophils % (Manual) Metamyelocytes % Abs Neuts (Manual) Lymphocytes # (Manual) Monocytes # (Manual) Eosinophils # (Manual) Basophils # (Manual) Metamyelocytes # Nucleated RBCs Dohle Bodies Platelet Estimate Plt Morphology Comment RBC Morphology Hypochromasia Target Cells VBG pH VBG pCO2 VBG pO2 VBG HCO3 VBG O2 Saturation VBG Base Excess Anion Gap Estim Creat Clear Calc Estimated GFR POC Glucose 135 H Random Glucose Calcium Phosphorus Magnesium Total Bilirubin AST ALT Alkaline Phosphatase Total Protein Albumin Microbiology Microbiology Results: Microbiology 04/19/23 Unknown Gram Stain - Final Abdominal Fluid Routine Culture - Final Yamel tropicalis Anaerobic Culture - Preliminary Culture in progress. 04/17/23 01:00 Gram Stain - Final Peritoneal Fluid Routine Culture - Final Anaerobic Culture - Final 04/16/23 22:22 Blood Culture - Final Blood - Venous No growth after 5 days. 04/16/23 22:22 Blood Culture - Final Blood - Venous No growth after 5 days. Procedures Date of Service Date of Service: 04/23/23 Progress Note: A&P Assessment and plan (1) Gastric perforation: Status: Acute Assessment and Plan: s/p wedge resection NGT pulled out by pt I reinserted the NGT gently - as instructions by Dr. Goetz, keep NGT in ok to have ice chips clinically improved as per fishery biologist keep drains in place - still with bilious output will follow closely Time Spent With Patient Time: Total time managing care of this patient today ____ minutes. Quality Stroke Does the patient have a stroke diagnosis?: No VTE Prior VTE?: No VTE Risk Level:: Surgical - moderate VTE Device Contraindication: N/A - Device Ordered VTE Drug Contraindication: N/A - Med Ordered
[2023-04-22 11:34] LABS: Glucose, Whole Blood 169 mg/dL (60-115)
[2023-04-22 19:46] LABS: Glucose, Whole Blood 131 mg/dL (60-115)
--- NOTE | 2023-04-23 | ECG_ITS ---
Test Reason : tachycardia Blood Pressure : / mmHG Vent. Rate : 147 BPM Atrial Rate : 000 BPM P-R Int : 000 ms QRS Dur : 074 ms QT Int : 276 ms P-R-T Axes : 000 027 099 degrees QTc Int : 431 ms Atrial fibrillation with rapid ventricular response Low voltage QRS Nonspecific T wave abnormality Abnormal ECG When compared with ECG of 16-APR-2023 20:41, Atrial fibrillation has replaced Sinus rhythm T wave inversion no longer evident in Inferior leads Nonspecific T wave abnormality now evident in Anterolateral leads Referred By: Leigh Cisneros Electronically Signed By:Francisco Leiva
[2023-04-23 01:08] VITALS: RESP 24
[2023-04-23] MEDS: HYDROmorphone HCl 1 MG/ML SYRINGE IVPUSH ×3 (01:08→14:24)
[2023-04-23] MEDS: hydrALAZINE HCl 20 MG/ML VIAL 10 MG IVPUSH (01:11)
[2023-04-23] MEDS: Piperacillin Sodium/Tazobactam 2.25 GM in 0.9 % Sodium Chloride 50 ML IV ×3 (01:54→14:24)
--- NOTE | 2023-04-23 01:57 | PC.NURSE ---
ASSUMED CARE OF PT AT 1900. PT ALERT, SLIGHTLY CONFUSED, FOLLOWS COMMANDS. IN BED WITH HOB UP 30 DEGREES. SLIGHT SHORTNESS OF BREATH NOTED. PT ABLE TO TAKE DEEP BREATHS. NGT TO LWS WITH MINIMAL OUTPUT, INSTRUCTIONS TO NOT MOVE , REPOSITION OR IRRIGATE NGT. LARGE ABD DSG D&I. ABD IS DISTENDED. FOUR MARTY DRAINS IN PLACE WITH MINIMAL OUTPUT ALSO. BP HAS BEEN ELEVATED. SBP 170'S-190. DR BETTS MADE AWARE. AT 0115, WENT IN TO GIVE PAIN MED AND NOTICED RIGHT CHEST AND NECK SWELLING. RIGHT NECK RED AND SKIN IS HARD EXTENDING TO BEHIND THE NECK. DR BETTS NOTIFIED IMMEDIATELY AND TPN STOPPED. STAT PCXR DONE AND DR BETST IN TO SEE PT AT THIS TIME.
[2023-04-23 02:07] LABS: Glucose, Whole Blood 114 mg/dL (60-115)
[2023-04-23] MEDS: Metoprolol Tartrate 5 MG/5 ML VIAL IVPUSH ×2 (02:46→03:04)
[2023-04-23 02:56] VITALS: BP 175/98; PULSE 178; RESP 28; TEMP 37.1; O2SAT 96
--- NOTE | 2023-04-23 03:06 | PC.NURSE ---
PT WENT INTO A NARROW COMPLEX TACHYCARDIA WITH A RATE OF 170'S-190'S. BP 165/108. DR BETTS INFORMED. 12 LEAD EKG DONE AND SENT TO HIM VIA TIGER TEXT. METOPROLOL 5 MG IV GIVEN WHICH BROUGHT HR DOWN TO 140'S BUT BACK UP AGAIN TO 160'S. SECOND DOSE OF METOPROLOL 5 MG IV GIVEN. HEART RATE CONTINUES 150'S-160'S. UPDATED VIA TIGER TEXT OF RESULT OF METOPROLOL X2. AWAITING ORDERS.
--- NOTE | 2023-04-23 03:19 | PM.EVENT ---
Event Note Date of Service: 04/23/23 Event Note: Was informed by the nurse that patient was tachycardic. Obtained EKG and patient found to be in AFib with RVR. Rate uncontrolled despite IV Lopressor x2. Initiating diltiazem drip. Consulting Cardiology and obtaining echo. Time Spent With Patient Time: Total time managing care of this patient today ____ minutes.
[2023-04-23] MEDS: dilTIAZem HCL 125 MG in 0.9 % Sodium Chloride 100 ML IVCONT (03:26)
--- NOTE | 2023-04-23 03:50 | PC.NURSE ---
Addendum entered by Kathie Rodríguez RN 04/23/23 06:26: TPN WAS STOPPED AT TIME THE REDNESS AND SWELLING WAS FOUND RT CHEST/SHOULDER AND IT WAS VERITIED WITH DR BETTS TO KEEP IT OFF. Original Note: NO IMPROVEMENT IN HR AFTER 2 DOSES OF METOPROLOL 5MG IV. NEW PERIPHERAL IV INSERTED AND CARDIZEM DRIP STARTED AT 5MG/HR. TITRATED UP TO 10 MG/HR. BP 154/92, 160/95. MONITOR SHOWS ST, HR 100-108. PT IS RESTFUL. WARM COMPRESS REMAINS ON RIGHT CHEST/SHOULDER . TPN REMAINS STOPPED PER DR BETTS. CARDIZEM INFUSING VIA #22 RIGHT WRIST. CARDIOLOGY CONSULT ORDERED PER ROUTINE.
[2023-04-23 04:03] VITALS: BP 167/91; PULSE 104; RESP 24; O2SAT 94
[2023-04-23 05:51] VITALS: BMI 40.2
[2023-04-23 06:02] VITALS: BP 167/85; PULSE 101; RESP 24; O2SAT 95
[2023-04-23 06:21] LABS: Venous Blood Gas Refer to POC result
[2023-04-23 06:22] LABS: VBG Base Excess 0.4 mmol/L; VBG HCO3 22 mmol/L (22-26); VBG pCO2 26 mmHg; VBG pH 7.52 (7.32-7.43); VBG pO2 99 mmHg
--- NOTE | 2023-04-23 06:29 | PC.NURSE ---
cardizem continues at 10 mg/hr. monitor shows sinus tach, heart rate 100-106. bp on cardizem slightly better, 167/85. pt resting. denies complaints. four MARTY drains emptied, left #1 emptied for 80ml and right #1 for 30 ml. other 2 drains with no output. abd is distented with staining on abd dsg new and marked. rihgt upper chest/neck/shoulder remains unchanged; continues red and hard to touch. slight discomfort when palpating per pt.
[2023-04-23 06:36] LABS: Alanine Aminotransferase 66 U/L (0-31); Albumin Level 3.4 g/dL (3.5-5.0); Alkaline Phosphatase 82 U/L (39-117); Anion Gap 19 (12-20); Aspartate Amino Transferase 83 U/L (5-31); Bilirubin Total 4.3 mg/dL (0.0-1.0); Blood Urea Nitrogen 59 mg/dL (9-16); Calcium 8.2 mg/dL (8.4-10.2); Carbon Dioxide 22 mmol/L (22-29); Chloride 115 mmol/L (96-108); Creatinine Clr Calc Pharmacy 20.2; Estimated Glomerular Filt Rate 14; Glucose Random 115 mg/dL (60-115); Magnesium 2.3 mg/dL (1.6-2.6); Phosphorus 3.1 mg/dL (2.7-4.5); Potassium 3.7 mmol/L (3.3-5.1); Sodium 152 mmol/L (135-145); Total Protein 6.1 g/dL (6.5-8.0)
[2023-04-23 06:42] LABS: Hematocrit 27.7 % (37.0-47.0); Mean Corpuscular HGB Conc 36.1 g/dl (31.0-35.0); Mean Corpuscular Hemoglobin 31.3 pg (27.0-33.0); Mean Corpuscular Volume 86.6 fL (80.0-98.0); Mean Platelet Volume 12.3 fL (9.4-12.3); Red Cell Distribution Width 14.5 % (11.0-16.0)
[2023-04-23 06:44] LABS: NRBC Pct Auto 1.2 /100WBC (0.0-0.2); Platelet Count 97 X10*3/uL (160-400); WBC ABN SCTR FOR CBC 1; White Blood Count 13.8 X10*3/uL (4.8-10.8)
[2023-04-23 07:30] LABS: Atypical Lymph Absolute Manual 0.3 x10*3/uL; Atypical Lymphs Percent Manual 2 % (0-6); Band Neutrophils Percent 2 % (3-5); Burr Cells 1+ (0-2) /OIF; Lymphocytes Absolute Manual 1.9 X10*3/uL (1.2-4.9); Lymphocytes Percent Manual 14 % (20-40); Monocytes Absolute Manual 0.7 X10*3/uL (0.1-1.2); Monocytes Percent Manual 5 % (2-11); Myelocytes Absolute 0.1 X10*/uL; Myelocytes Percent 1 %; Neutrophils Absolute Manual 10.8 X10*3/uL (2.0-8.3); Neutrophils Percent Manual 76 % (45-73); Nucleated Red Blood Cells 3 /100WBC (0-0); RBC Morphology NOTED; Target Cells 1+ (5-14) /OIF
[2023-04-23 07:31] LABS: Platelet Estimate DECREASED (NORMAL); Platelet Morphology Comment NOTED
[2023-04-23 07:33] LABS: Large Platelet PRESENT
[2023-04-23 07:38] LABS: Glucose, Whole Blood 118 mg/dL (60-115)
[2023-04-23 08:00] VITALS: BP 164/81; PULSE 98; RESP 19; TEMP 37.9; O2SAT 97
--- NOTE | 2023-04-23 08:33 | P.PNIM_ITS ---
Subjective Subjective Date of Service: 04/23/23 Interval History: in some discomfort, sob, went into rapid afib las tnight Physical Exam Vital Signs: Vital Signs: Last Vital Signs Temp 100.3 F 04/23/23 08:00 Pulse 98 04/23/23 08:00 Resp 19 04/23/23 08:00 BP 164/81 H 04/23/23 08:00 Pulse Ox 97 04/23/23 08:00 O2 Del Method Room Air 04/23/23 08:00 O2 Flow Rate 2 04/21/23 20:00 FiO2 30 04/21/23 10:00 BMI result Body Mass Index 40.2 alert, frail appearing, NGT in place, abd tender, Objective Data Active Medications Hydralazine HCl (Hydralazine Hcl 20 Mg/Ml Vial) 10 mg IVPUSH Q3H PRN; Protocol PRN Reason: SBP >180 Last Admin: 04/23/23 01:11 Dose: 10 mg Documented By: YOLANDE Hydromorphone HCl (Hydromorphone Hcl 1 Mg/Ml Syringe) 1 mg IVPUSH Q3H PRN; Protocol PRN Reason: Pain, Moderate(Pain Scale 4-6) Last Admin: 04/23/23 01:08 Dose: 1 mg Documented By: YOLANDE Piperacillin Sod/Tazobactam (Sod 2.25 gm/ Sodium Chloride) 50 mls @ 100 mls/hr IV Q6H [facility] Last Infusion: 04/23/23 03:04 Dose: 0 mls/hr Documented By: YOLANDE Fluconazole 100 mg/ IV (Miscellaneous Supplies) 50 mls @ 50 mls/hr IV Q24H [facility] Last Infusion: 04/22/23 09:37 Dose: 0 mls/hr Documented By: LEIA Potassium Chloride 30 meq/Magnesium Sulfate 8 meq/Potassium Phosphate 15 mmol/Calcium Gluconate 4.65 meq/Amino Acids/Dextrose 960 mls @ 40 mls/hr IV DAILY@1800 [facility] Stop: 04/23/23 17:59 Last Infusion: 04/23/23 01:15 Dose: 0 mls/hr Documented By: YOLANDE Diltiazem HCl 125 mg/ Sodium (Chloride) 125 mls @ 0 mls/hr IVCONT .Q0M [facility]; Protocol Last Titration: 04/23/23 03:40 Dose: 10 mg/hr, 10 mls/hr Documented By: YOLANDE Magnesium Sulfate 8 meq/Potassium Phosphate 15 mmol/Calcium Gluconate 4.65 meq/Amino Acids/Dextrose 960 mls @ 40 mls/hr IV DAILY@1800 M[facility] Stop: 04/24/23 17:59 Insulin Human Lispro (Insulin Lispro 100 Unit/Ml 3 Ml Vial) 0 unit SUBCUT Q6H [facility]; Protocol Last Admin: 04/23/23 06:01 Dose: Not Given Documented By: YOLANDE Non-Admin Reason: tpn stopped Sodium Bicarbonate (Sodium Bicarbonate 8.4% 50 Meq/50 Ml Vial) 50 meq IVPUSH ONCE PRN PRN Reason: Severe hypotension Labs 04/23/23 06:14 04/23/23 06:14 Labs: Laboratory Results - last 24 hr 04/22/23 04/22/23 04/23/23 11:29 19:43 02:02 MCV MCH MCHC RDW Plt Count MPV Immature Gran % (Auto) Neut % (Auto) Lymph % (Auto) Coles % (Auto) Eos % (Auto) Baso % (Auto) Lymph # (Auto) Coles # (Auto) Eos # (Auto) Baso # (Auto) Abs Immat Gran (auto) Absolute Neuts (auto) Absolute Nucleated RBC Nucleated RBC % (auto) Neutrophils % (Manual) Band Neutrophils % Lymphocytes % (Manual) Atypical Lymphs % (Man) Monocytes % (Manual) Myelocytes % Abs Neuts (Manual) Lymphocytes # (Manual) Atyp Lymphs # (Manual) Monocytes # (Manual) Myelocytes # Nucleated RBCs Platelet Estimate Large Platelets Plt Morphology Comment RBC Morphology Target Cells Deonna Cells VBG pH VBG pCO2 VBG pO2 VBG HCO3 VBG O2 Saturation VBG Base Excess Anion Gap Estim Creat Clear Calc Estimated GFR POC Glucose 169 H 131 H 114 Random Glucose Calcium Phosphorus Magnesium Total Bilirubin AST ALT Alkaline Phosphatase Total Protein Albumin 04/23/23 04/23/23 04/23/23 06:14 06:14 06:15 MCV 86.6 MCH 31.3 MCHC 36.1 H RDW 14.5 Plt Count 97 L D MPV 12.3 Immature Gran % (Auto) Cancelled Neut % (Auto) Cancelled Lymph % (Auto) Cancelled Coles % (Auto) Cancelled Eos % (Auto) Cancelled Baso % (Auto) Cancelled Lymph # (Auto) Cancelled Coles # (Auto) Cancelled Eos # (Auto) Cancelled Baso # (Auto) Cancelled Abs Immat Gran (auto) Cancelled Absolute Neuts (auto) Cancelled Absolute Nucleated RBC 0.160 H Nucleated RBC % (auto) 1.2 H Neutrophils % (Manual) 76 H Band Neutrophils % 2 L Lymphocytes % (Manual) 14 L Atypical Lymphs % (Man) 2 Monocytes % (Manual) 5 Myelocytes % 1 Abs Neuts (Manual) 10.8 H Lymphocytes # (Manual) 1.9 Atyp Lymphs # (Manual) 0.3 Monocytes # (Manual) 0.7 Myelocytes # 0.1 Nucleated RBCs 3 H Platelet Estimate DECREASED Large Platelets PRESENT Plt Morphology Comment NOTED RBC Morphology NOTED Target Cells 1+ (5-14) Deonna Cells 1+ (0-2) VBG pH 7.52 H VBG pCO2 26 VBG pO2 99 VBG HCO3 22 VBG O2 Saturation 98.0 VBG Base Excess 0.4 Anion Gap 19 Estim Creat Clear Calc 20.2 Estimated GFR 14 POC Glucose Random Glucose 115 Calcium 8.2 L Phosphorus 3.1 Magnesium 2.3 Total Bilirubin 4.3 H AST 83 H ALT 66 H Alkaline Phosphatase 82 Total Protein 6.1 L Albumin 3.4 L 04/23/23 07:25 MCV MCH MCHC RDW Plt Count MPV Immature Gran % (Auto) Neut % (Auto) Lymph % (Auto) Coles % (Auto) Eos % (Auto) Baso % (Auto) Lymph # (Auto) Coles # (Auto) Eos # (Auto) Baso # (Auto) Abs Immat Gran (auto) Absolute Neuts (auto) Absolute Nucleated RBC Nucleated RBC % (auto) Neutrophils % (Manual) Band Neutrophils % Lymphocytes % (Manual) Atypical Lymphs % (Man) Monocytes % (Manual) Myelocytes % Abs Neuts (Manual) Lymphocytes # (Manual) Atyp Lymphs # (Manual) Monocytes # (Manual) Myelocytes # Nucleated RBCs Platelet Estimate Large Platelets Plt Morphology Comment RBC Morphology Target Cells [place] Cells VBG pH VBG pCO2 VBG pO2 VBG HCO3 VBG O2 Saturation VBG Base Excess Anion Gap Estim Creat Clear Calc Estimated GFR POC Glucose 118 H Random Glucose Calcium Phosphorus Magnesium Total Bilirubin AST ALT Alkaline Phosphatase Total Protein Albumin Microbiology Microbiology Results: Microbiology 04/19/23 Unknown Gram Stain - Final Abdominal Fluid Routine Culture - Final Dasia tropicalis Anaerobic Culture - Preliminary Culture in progress. 04/17/23 01:00 Gram Stain - Final Peritoneal Fluid Routine Culture - Final Anaerobic Culture - Final Assessment and Plan (1) Cocaine abuse: Status: Acute Plan 57F PMH morbid obesity, polysubstance dependence, mood disorder, hld, htn, was admitted to ICU for septic and hypovolemic shock due to bowel perforation complicated by acute hypoxic repsiratory failure requiring intubation. initially underwent over-sew of gastric ulcer 04/16/23, continued to have extravasation, underwent partial gastrectomy 04/19/23. eventually weaned off pressors and extubated, now on medical tele floor. septic and hypovolemic shock due to perforated gastric ulcer complicated by acute hypoxic respiratory failue and YESICA likely due to cocaine zosyn, diflucan intraperitoneal fluid grew dasia blood cultures negative npo, tpn hypernatremia d5w, monitor new afib with rvr cardizem, cardio eval polysubstance dependence abstinence counselled dvt prophylaxis - mechanical full code reason for continued hospitalization: awaiting return of gi function, afib with rvr Time Spent With Patient Time: Total time managing care of this patient today ____ minutes. Quality Stroke Does the patient have a stroke diagnosis?: No VTE Prior VTE?: No VTE Risk Level:: Surgical - moderate VTE Device Contraindication: N/A - Device Ordered VTE Drug Contraindication: N/A - Med Ordered
--- NOTE | 2023-04-23 09:34 | P.PNGS_ITS ---
Subjective Subjective Date of Service: 04/23/23 Interval history: transferred to [facility] [place] last night had run of afib more staining on drressings as per nurse MARTY drains with bilious output, seems to be increasing pt does state she has pain bile staining on dressings on the left side reported by nurse Physical Exam Vital Signs: Vital Signs: Last Vital Signs Temp 100.3 F 04/23/23 08:00 Pulse 98 04/23/23 08:00 Resp 19 04/23/23 08:00 BP 164/81 H 04/23/23 08:00 Pulse Ox 97 04/23/23 08:00 O2 Del Method Room Air 04/23/23 08:00 O2 Flow Rate 2 04/21/23 20:00 FiO2 30 04/21/23 10:00 BMI result Body Mass Index 40.2 Const: Other: appears short of breath, answers questions Resp: Other: mild SOB Cardio: Rhythm: abnormal rhythm GI: Other: obese, soft, multiple MARTY drains, output appearing to be enteric contents, more output on right sided drains, significant bile staining around MARTY drains on the left side Objective Data Active Medications Hydromorphone HCl (Hydromorphone Hcl 1 Mg/Ml Syringe) 1 mg IVPUSH Q3H PRN; Protocol PRN Reason: Pain, Moderate(Pain Scale 4-6) Last Admin: 04/23/23 01:08 Dose: 1 mg Documented By: YOLANDE Piperacillin Sod/Tazobactam (Sod 2.25 gm/ Sodium Chloride) 50 mls @ 100 mls/hr IV Q6H [facility] Last Infusion: 04/23/23 03:04 Dose: 0 mls/hr Documented By: YOLANDE Fluconazole 100 mg/ IV (Miscellaneous Supplies) 50 mls @ 50 mls/hr IV Q24H [facility] Last Infusion: 04/22/23 09:37 Dose: 0 mls/hr Documented By: LEIA Potassium Chloride 30 meq/Magnesium Sulfate 8 meq/Potassium Phosphate 15 mmol/Ca lcium Gluconate 4.65 meq/Amino Acids/Dextrose 960 mls @ 40 mls/hr IV DAILY@1800 [facility] Stop: 04/23/23 17:59 Last Infusion: 04/23/23 01:15 Dose: 0 mls/hr Documented By: YOLANDE Diltiazem HCl 125 mg/ Sodium (Chloride) 125 mls @ 0 mls/hr IVCONT .Q0M [facility]OO; Protocol Last Titration: 04/23/23 03:40 Dose: 10 mg/hr, 10 mls/hr Documented By: YOLANDE Magnesium Sulfate 8 meq/Potassium Phosphate 15 mmol/Calcium Gluconate 4.65 meq/Amino Acids/Dextrose 960 mls @ 40 mls/hr IV DAILY@1800 [facility] Stop: 04/24/23 17:59 Dextrose (D5w) 1,000 mls @ 100 mls/hr IVCONT .Q10H [facility] Insulin Human Lispro (Insulin Lispro 100 Unit/Ml 3 Ml Vial) 0 unit SUBCUT Q6H [facility]OO; Protocol Last Admin: 04/23/23 06:01 Dose: Not Given Documented By: YOLANDE Non-Admin Reason: tpn stopped Sodium Bicarbonate (Sodium Bicarbonate 8.4% 50 Meq/50 Ml Vial) 50 meq IVPUSH ONCE PRN PRN Reason: Severe hypotension Labs 04/23/23 06:14 04/23/23 06:14 Labs: Laboratory Results - last 24 hr 04/22/23 04/22/23 04/23/23 11:29 19:43 02:02 MCV MCH MCHC RDW Plt Count MPV Immature Gran % (Auto) Neut % (Auto) Lymph % (Auto) Wright % (Auto) Eos % (Auto) Baso % (Auto) Lymph # (Auto) Wright # (Auto) Eos # (Auto) Baso # (Auto) Abs Immat Gran (auto) Absolute Neuts (auto) Absolute Nucleated RBC Nucleated RBC % (auto) Neutrophils % (Manual) Band Neutrophils % Lymphocytes % (Manual) Atypical Lymphs % (Man) Monocytes % (Manual) Myelocytes % Abs Neuts (Manual) Lymphocytes # (Manual) Atyp Lymphs # (Manual) Monocytes # (Manual) Myelocytes # Nucleated RBCs Platelet Estimate Large Platelets Plt Morphology Comment RBC Morphology Target Cells Deonna Cells VBG pH VBG pCO2 VBG pO2 VBG HCO3 VBG O2 Saturation VBG Base Excess Anion Gap Estim Creat Clear Calc Estimated GFR POC Glucose 169 H 131 H 114 Random Glucose Calcium Phosphorus Magnesium Total Bilirubin AST ALT Alkaline Phosphatase Total Protein Albumin 04/23/23 04/23/23 04/23/23 06:14 06:14 06:15 MCV 86.6 MCH 31.3 MCHC 36.1 H RDW 14.5 Plt Count 97 L D MPV 12.3 Immature Gran % (Auto) Cancelled Neut % (Auto) Cancelled Lymph % (Auto) Cancelled Wright % (Auto) Cancelled Eos % (Auto) Cancelled Baso % (Auto) Cancelled Lymph # (Auto) Cancelled Wright # (Auto) Cancelled Eos # (Auto) Cancelled Baso # (Auto) Cancelled Abs Immat Gran (auto) Cancelled Absolute Neuts (auto) Cancelled Absolute Nucleated RBC 0.160 H Nucleated RBC % (auto) 1.2 H Neutrophils % (Manual) 76 H Band Neutrophils % 2 L Lymphocytes % (Manual) 14 L Atypical Lymphs % (Man) 2 Monocytes % (Manual) 5 Myelocytes % 1 Abs Neuts (Manual) 10.8 H Lymphocytes # (Manual) 1.9 Atyp Lymphs # (Manual) 0.3 Monocytes # (Manual) 0.7 Myelocytes # 0.1 Nucleated RBCs 3 H Platelet Estimate DECREASED Large Platelets PRESENT Plt Morphology Comment NOTED RBC Morphology NOTED Target Cells 1+ (5-14) Kamas Cells 1+ (0-2) VBG pH 7.52 H VBG pCO2 26 VBG pO2 99 VBG HCO3 22 VBG O2 Saturation 98.0 VBG Base Excess 0.4 Anion Gap 19 Estim Creat Clear Calc 20.2 Estimated GFR 14 POC Glucose Random Glucose 115 Calcium 8.2 L Phosphorus 3.1 Magnesium 2.3 Total Bilirubin 4.3 H AST 83 H ALT 66 H Alkaline Phosphatase 82 Total Protein 6.1 L Albumin 3.4 L 04/23/23 07:25 MCV MCH MCHC RDW Plt Count MPV Immature Gran % (Auto) Neut % (Auto) Lymph % (Auto) Wright % (Auto) Eos % (Auto) Baso % (Auto) Lymph # (Auto) Wright # (Auto) Eos # (Auto) Baso # (Auto) Abs Immat Gran (auto) Absolute Neuts (auto) Absolute Nucleated RBC Nucleated RBC % (auto) Neutrophils % (Manual) Band Neutrophils % Lymphocytes % (Manual) Atypical Lymphs % (Man) Monocytes % (Manual) Myelocytes % Abs Neuts (Manual) Lymphocytes # (Manual) Atyp Lymphs # (Manual) Monocytes # (Manual) Myelocytes # Nucleated RBCs Platelet Estimate Large Platelets Plt Morphology Comment RBC Morphology Target Cells Deonna Cells VBG pH VBG pCO2 VBG pO2 VBG HCO3 VBG O2 Saturation VBG Base Excess Anion Gap Estim Creat Clear Calc Estimated GFR POC Glucose 118 H Random Glucose Calcium Phosphorus Magnesium Total Bilirubin AST ALT Alkaline Phosphatase Total Protein Albumin Microbiology Microbiology Results: Microbiology 04/19/23 Unknown Gram Stain - Final Abdominal Fluid Routine Culture - Final Yamel tropicalis Anaerobic Culture - Preliminary Culture in progress. 04/17/23 01:00 Gram Stain - Final Peritoneal Fluid Routine Culture - Final Anaerobic Culture - Final Procedures Date of Service Date of Service: 04/23/23 Progress Note: A&P Assessment and plan (1) Gastric leak: Status: Acute Assessment and Plan: s/p repair of perforated gastric ulcer twice with Dr Sofy Blanco patch on April 16, wedge resection with lizzie on April 19 MARTY drains have had bilious output postop increasing output from drains patient appears ill WBC increasing persistent leak likely from staple lines I have discussed case with [facility] - complex case, multiple failed repairs of perforated ulcer arranging for transfer in view of complexity of case, risks of clinical worsening with new onset afib, on Cardizem Time Spent With Patient Time: Total time managing care of this patient today ____ minutes. Quality Stroke Does the patient have a stroke diagnosis?: No VTE Prior VTE?: No VTE Risk Level:: Surgical - moderate VTE Device Contraindication: N/A - Device Ordered VTE Drug Contraindication: N/A - Med Ordered
[2023-04-23] MEDS: Fluconazole in NaCl,Iso-Osm 100 MG in Container,Empty 0 ML 50 MG IV (09:42)
--- NOTE | 2023-04-23 11:34 | PM.CNCAR ---
History of Present Illness History of Present Illness Date of Service: 04/23/23 Chief complaint: Perforated Bowel, PAF Narrative: 57-year-old female who has been in the hospital for few days and presented with perforated gastric ulcer. She underwent surgery and is currently on the inter care for. She developed tachycardia last evening which was treated with diltiazem drip. She felt some palpitations. She is saying she never felt any palpitations before she came to the hospital. She has background of polysubstance abuse and primarily add got admitted for bowel perforation. Currently in sinus rhythm. She is complaining of some abdominal soreness. No chest discomfort currently. On Cardizem drip. [facility] Past Medical History Medical History (Updated 04/23/23 @ 11:36 by Francisco Leiva MD) Acute anxiety Depression Gastric leak High cholesterol HTN (hypertension) Social History Social History Household Members: Significant Other Unable to assess alcohol history related to: Unknown Alcohol intake: never Patient Tobacco Use Status: Tobacco use Unknown Use of substances other than those prescribed or required for medical reasons: Unknown Currently Displaying Signs/Symptoms of Drug Intoxication Withdrawal: No [facility] Practices: UNKNOWN Advance Directives: No Advance Directives Information Provided: No Recently lost weight without trying: Unsure Nutrition Risks: On aspiration precautions Patient : No : No Current occupational status: disabled Meds Allergies Allergy/AdvReac Type Severity Reaction Status Date / Time aspirin [ASPIRIN] Allergy Intermediate RASH, Unverified 07/30/20 15:28 itching, facial flushing haro Allergy Intermediate ITCHING,KIRSTEN Unverified 07/30/20 15:28 H peach [Tama] Allergy Intermediate ITCHING, Unverified 07/30/20 15:28 RASH prochlorperazine Allergy Intermediate SWELLING, Unverified 07/30/20 15:28 [From COMPAZINE] RASH Active Medications: Current Medications Hydromorphone HCl (Hydromorphone Hcl 1 Mg/Ml Syringe) 1 mg IVPUSH Q3H PRN; Protocol PRN Reason: Pain, Moderate(Pain Scale 4-6) Last Admin: 04/23/23 09:55 Dose: 1 mg Piperacillin Sod/Tazobactam (Sod 2.25 gm/ Sodium Chloride) 50 mls @ 100 mls/hr IV Q6H [facility] Last Infusion: 04/23/23 10:37 Dose: Infused Fluconazole 100 mg/ IV (Miscellaneous Supplies) 50 mls @ 50 mls/hr IV Q24H [facility] Last Admin: 04/23/23 09:42 Dose: 50 mls/hr Potassium Chloride 30 meq/Magnesium Sulfate 8 meq/Potassium Phosphate 15 mmol/Calcium Gluconate 4.65 meq/Amino Acids/Dextrose 960 mls @ 40 mls/hr IV DAILY@1800 [facility] Stop: 04/23/23 17:59 Last Infusion: 04/23/23 01:15 Dose: 0 mls/hr Diltiazem HCl 125 mg/ Sodium (Chloride) 125 mls @ 0 mls/hr IVCONT .Q0M [facility]; Protocol Last Titration: 04/23/23 03:40 Dose: 10 mg/hr, 10 mls/hr Magnesium Sulfate 8 meq/Potassium Phosphate 15 mmol/Calcium Gluconate 4.65 meq/Amino Acids/Dextrose 960 mls @ 40 mls/hr IV DAILY@1800 [facility] Stop: 04/24/23 17:59 Dextrose (D5w) 1,000 mls @ 100 mls/hr IVCONT .Q10H [facility] Insulin Human Lispro (Insulin Lispro 100 Unit/Ml 3 Ml Vial) 0 unit SUBCUT Q6H [facility]; Protocol Last Admin: 04/23/23 06:01 Dose: Not Given Sodium Bicarbonate (Sodium Bicarbonate 8.4% 50 Meq/50 Ml Vial) 50 meq IVPUSH ONCE PRN PRN Reason: Severe hypotension Home Medications Medication Instructions Recorded Confirmed Last Taken Type amlodipine 2.5 mg tablet 2.5 mg PO DAILY 04/17/23 04/17/23 Unknown History atenolol 50 mg tablet 50 mg PO DAILY 04/17/23 04/17/23 Unknown History baclofen 10 mg tablet 10 mg PO TID PRN Muscle Spasm 04/17/23 04/17/23 Unknown History cholecalciferol (vitamin D3) 50 100 mcg PO DAILY 04/17/23 04/17/23 Unknown History mcg (2,000 unit) capsule clonazepam 0.5 mg tablet (Klonopin) 0.25 - 0.5 mg PO DAILY PRN Anxiety 04/17/23 04/17/23 Unknown History famotidine 20 mg tablet 20 mg PO QD-BID PRN acid reflux 04/17/23 04/17/23 Unknown History fluticasone propionate 50 2 spray intranasal QAM PRN 04/17/23 04/17/23 Unknown History mcg/actuation nasal Allergic Symptoms spray,suspension prazosin 2 mg capsule 2 mg PO BEDTIME 04/17/23 04/17/23 Unknown History topiramate 100 mg tablet (Topamax) 100 mg PO DAILY 04/17/23 04/17/23 Unknown History tramadol 50 mg tablet 50 mg PO Q8H PRN severe pain 04/17/23 04/17/23 Unknown History venlafaxine 150 mg 150 mg PO DAILY 04/17/23 04/17/23 Unknown History capsule,extended release 24 hr venlafaxine 75 mg capsule,extended 75 mg PO DAILY 04/17/23 04/17/23 Unknown History release 24 hr zolpidem 10 mg tablet 10 mg PO BEDTIME PRN Sleep 04/17/23 04/17/23 Unknown History Physical Exam Vital Signs: Vital Signs: Last Vital Signs Temp 100.3 F 04/23/23 08:00 Pulse 98 04/23/23 08:00 Resp 19 04/23/23 08:00 BP 164/81 H 04/23/23 08:00 Pulse Ox 97 04/23/23 08:00 O2 Del Method Room Air 04/23/23 08:00 O2 Flow Rate 2 04/21/23 20:00 FiO2 30 04/21/23 10:00 BMI result Body Mass Index 40.2 GENERAL APPEARANCE: in no acute distress, ill-appearing. SKIN: no suspicious lesions, warm and dry. HEART: no murmurs, regular rate and rhythm. Tachycardic. LUNGS: clear to auscultation bilaterally anteriorly. ABDOMEN: soft. EXTREMITIES: no edema. PERIPHERAL PULSES: equal. NEUROLOGIC: No gross deficits, AAO X 3 Objective Labs and Meds 04/23/23 06:14 04/23/23 06:14 Lab results: Laboratory Results - last 24 hr 04/22/23 04/22/23 04/23/23 11:29 19:43 02:02 WBC RBC Hgb Hct MCV MCH MCHC RDW Plt Count MPV Immature Gran % (Auto) Neut % (Auto) Lymph % (Auto) [place] % (Auto) Eos % (Auto) Baso % (Auto) Lymph # (Auto) [place] # (Auto) Eos # (Auto) Baso # (Auto) Abs Immat Gran (auto) Absolute Neuts (auto) Absolute Nucleated RBC Nucleated RBC % (auto) Neutrophils % (Manual) Band Neutrophils % Lymphocytes % (Manual) Atypical Lymphs % (Man) Monocytes % (Manual) Myelocytes % Abs Neuts (Manual) Lymphocytes # (Manual) Atyp Lymphs # (Manual) Monocytes # (Manual) Myelocytes # Nucleated RBCs Platelet Estimate Large Platelets Plt Morphology Comment RBC Morphology Target Cells [place] Cells VBG pH VBG pCO2 VBG pO2 VBG HCO3 VBG O2 Saturation VBG Base Excess Sodium Potassium Chloride Carbon Dioxide Anion Gap BUN Creatinine Estim Creat Clear Calc Estimated GFR POC Glucose 169 H 131 H 114 Random Glucose Calcium Phosphorus Magnesium Total Bilirubin AST ALT Alkaline Phosphatase Total Protein Albumin 04/23/23 04/23/23 04/23/23 06:14 06:14 06:15 WBC 13.8 H RBC 3.20 L Hgb 10.0 L Hct 27.7 L MCV 86.6 MCH 31.3 MCHC 36.1 H RDW 14.5 Plt Count 97 L D MPV 12.3 Immature Gran % (Auto) Cancelled Neut % (Auto) Cancelled Lymph % (Auto) Cancelled [place] % (Auto) Cancelled Eos % (Auto) Cancelled Baso % (Auto) Cancelled Lymph # (Auto) Cancelled [place] # (Auto) Cancelled Eos # (Auto) Cancelled Baso # (Auto) Cancelled Abs Immat Gran (auto) Cancelled Absolute Neuts (auto) Cancelled Absolute Nucleated RBC 0.160 H Nucleated RBC % (auto) 1.2 H Neutrophils % (Manual) 76 H Band Neutrophils % 2 L Lymphocytes % (Manual) 14 L Atypical Lymphs % (Man) 2 Monocytes % (Manual) 5 Myelocytes % 1 Abs Neuts (Manual) 10.8 H Lymphocytes # (Manual) 1.9 Atyp Lymphs # (Manual) 0.3 Monocytes # (Manual) 0.7 Myelocytes # 0.1 Nucleated RBCs 3 H Platelet Estimate DECREASED Large Platelets PRESENT Plt Morphology Comment NOTED RBC Morphology NOTED Target Cells 1+ (5-14) [place] Cells 1+ (0-2) VBG pH 7.52 H VBG pCO2 26 VBG pO2 99 VBG HCO3 22 VBG O2 Saturation 98.0 VBG Base Excess 0.4 Sodium 152 H Potassium 3.7 Chloride 115 H Carbon Dioxide 22 Anion Gap 19 BUN 59 H Creatinine 3.43 H Estim Creat Clear Calc 20.2 Estimated GFR 14 POC Glucose Random Glucose 115 Calcium 8.2 L Phosphorus 3.1 Magnesium 2.3 Total Bilirubin 4.3 H AST 83 H ALT 66 H Alkaline Phosphatase 82 Total Protein 6.1 L Albumin 3.4 L 04/23/23 07:25 WBC RBC Hgb Hct MCV MCH MCHC RDW Plt Count MPV Immature Gran % (Auto) Neut % (Auto) Lymph % (Auto) [place] % (Auto) Eos % (Auto) Baso % (Auto) Lymph # (Auto) [place] # (Auto) Eos # (Auto) Baso # (Auto) Abs Immat Gran (auto) Absolute Neuts (auto) Absolute Nucleated RBC Nucleated RBC % (auto) Neutrophils % (Manual) Band Neutrophils % Lymphocytes % (Manual) Atypical Lymphs % (Man) Monocytes % (Manual) Myelocytes % Abs Neuts (Manual) Lymphocytes # (Manual) Atyp Lymphs # (Manual) Monocytes # (Manual) Myelocytes # Nucleated RBCs Platelet Estimate Large Platelets Plt Morphology Comment RBC Morphology Target Cells [place] Cells VBG pH VBG pCO2 VBG pO2 VBG HCO3 VBG O2 Saturation VBG Base Excess Sodium Potassium Chloride Carbon Dioxide Anion Gap BUN Creatinine Estim Creat Clear Calc Estimated GFR POC Glucose 118 H Random Glucose Calcium Phosphorus Magnesium Total Bilirubin AST ALT Alkaline Phosphatase Total Protein Albumin Imaging Radiologist's impression: Impressions Chest X-Ray 04/22/23 11:24 IMPRESSION: 1. Nasogastric tube with tip overlying the distal gastric lumen. Chest X-Ray 04/23/23 01:55 IMPRESSION: Unremarkable examination. Assessment and Plan (1) Atrial fibrillation with RVR: Status: Acute Plan 57-year-old female with background of polysubstance abuse presented to hospital with abdominal pain and diagnosed with bowel perforation. She is status post surgery at this point. She developed tachycardia last evening which I think was due to atrial fibrillation with rapid ventricular response. She was started on Cardizem and has reverted to sinus rhythm at this point. Paroxysmal atrial fibrillation is not unusual with her ongoing GI issues and postop status. She is in sinus rhythm currently. Probably will not need Cardizem drip for now. Unsure whether she can tolerate p.o.. If she is unable to tolerate p.o. then Cardizem can be used otherwise would favor starting her on or on diltiazem 120 mg daily. Given postop status and ongoing concerns that she may possibly need surgery again, overt favor not starting any anticoagulation currently. Thank you for allowing me to participate in the care of your patient. Please feel free to contact me if you have any questions. Time Spent With Patient Time: Total time managing care of this patient today ____ minutes. Procedures Date of Service Date of Service: 04/23/23
[2023-04-23 11:36] LABS: Glucose, Whole Blood 116 mg/dL (60-115)
[2023-04-23 12:00] VITALS: BP 148/76; PULSE 97; RESP 19; TEMP 37.4; O2SAT 96
--- NOTE | 2023-04-23 12:17 | PM.EVENT ---
Event Note Date of Service: 04/23/23 Event Note: I have discussed this case with Dr. Lima of [facility] He has accepted the patient for transfer as soon as bed is available I have explained this to the patient and her family I explained to them that this is best in view of the complexity of her case, potential complications and risks, especially in the background of mutiple failed repairs of this perforated ulcer She appears to be hemodynamically stable at this time although in afib since last night keep MARTY drains in, NGT in at this time Time Spent With Patient Time: Total time managing care of this patient today ____ minutes.
--- NOTE | 2023-04-23 12:29 | P.DS_ITS ---
DS: Providers Provider Date of Service: 04/23/23 Date of admission: 04/17/23 02:13 Primary care physician: Unknown Physician Consults: 04/16/23 21:29 Consult to General Surgery Stat [place]ing [place] [facility] [place] Reason for consultation: abd perf Has provider been notified: Yes 04/23/23 03:20 Consult to Cardiology Routine Consulting Provider[place] [facility] [place] Reason for consultation: afib wirh rvr Has provider been notified: Yes DS: Diagnosis Discharge Diagnosis (1) Gastric perforation: Status: Acute DS: Summary Hospital Course Hospital Course: from initial hpi: Chief Complaint: Bowel perforation Ms. Janeis a 57-year-old female past medical history of?anxiety, depression, high cholesterol, HTN and cholecystectomy who was brought in by ambulance for?altered mental status.? The patient?s family reported to EMS that she had been drinking a lot of alcohol, possibly took too much tramadol, and a bag of heroin was found at her bedside.?? On arrival to the emergency room the patient was altered, abdomen was distended,? she was afebrile, pulse rate 140, respiratory rate 20, blood pressure 129/73, O2Sat 100% on room air.??? Laboratory data significant for WBC 15.7, potassium 3.2, CO2 18, creatinine 2.19,? lactic acid 7.8, AST 34, alk-phos 122, total CK 239. IMAGING:? CXR: Large volume of abdominal ascites is seen better delineated on the CT scan the abdomen and pelvis immediately following. CT ABDOMEN AND PELVIS WITHOUT CONTRAST: Large volume of free intraperitoneal air and free fluid. There is soft tissue gas in the region of the stomach and lesser sac suggesting possible gastric source of this free air. There is scattered colonic diverticulosis but no obvious diverticulitis or focal colonic wall thickening. Clinical correlation will be needed with this large volume of free intraperitoneal air. Surgery was consulted and she was taken for an emergency exploratory laparotomy by Dr. Schaefer. She is admitted to the ICU? for postop management. hospital course: patient was admitted to icu for septic and hypovolemic shock due to perforated gastric ulcer in setting of cocaine use complicated by acute hypoxic respiraotry failure requiring intubation and iv vasopressors. she underwent over-sew on 04/16/23 and continued to have extravasian so underwent partial gastrectomy 04/19/23. eventually weaned off pressors and extubated, but continues to have extravasation and now complicated by hypernatremia and new onset afib with rvr. she was seen by surgery who recommended transfer to tertiary center for higher level of care. she was accepted at [facility] Time Spent with Patient Time attestation: Total time managing care of this patient today ____ minutes. Discharge coordination time: Greater than 30 minutes Quality: Safe Use of Opioids Does Pt have an Active Cancer Diagnosis on the Problem List?: No Quality: Stroke Does the patient have a stroke diagnosis?: No Physical Exam Vital Signs: Vital Signs: Last Vital Signs Temp 99.3 F 04/23/23 12:00 Pulse 97 04/23/23 12:00 Resp 19 04/23/23 12:00 BP 148/76 H 04/23/23 12:00 Pulse Ox 96 04/23/23 12:00 O2 Del Method Room Air 04/23/23 12:00 O2 Flow Rate 2 04/21/23 20:00 FiO2 30 04/21/23 10:00 BMI result Body Mass Index 40.2 GENERAL APPEARANCE: in no acute distress, ill-appearing. SKIN: no suspicious lesions, warm and dry. HEART: no murmurs, regular rate and rhythm. Tachycardic. LUNGS: clear to auscultation bilaterally anteriorly. ABDOMEN: soft. EXTREMITIES: no edema. PERIPHERAL PULSES: equal. NEUROLOGIC: No gross deficits, AAO X 3 DS: Data Data Completed and Pending Completed studies during hospitalization [Text1]: Pending at discharge 04/17/23 00:59 Surgical [PTH] Routine 04/19/23 01:18 Surgical [PTH] Routine Labs on day of discharge: Laboratory Results - last 24 hr 04/22/23 04/23/23 04/23/23 19:43 02:02 06:14 WBC 13.8 H RBC 3.20 L Hgb 10.0 L Hct 27.7 L MCV 86.6 MCH 31.3 MCHC 36.1 H RDW 14.5 Plt Count 97 L D MPV 12.3 Immature Gran % (Auto) Cancelled Neut % (Auto) Cancelled Lymph % (Auto) Cancelled [place] % (Auto) Cancelled Eos % (Auto) Cancelled Baso % (Auto) Cancelled Lymph # (Auto) Cancelled [place] # (Auto) Cancelled Eos # (Auto) Cancelled Baso # (Auto) Cancelled Abs Immat Gran (auto) Cancelled Absolute Neuts (auto) Cancelled Absolute Nucleated RBC 0.160 H Nucleated RBC % (auto) 1.2 H Neutrophils % (Manual) 76 H Band Neutrophils % 2 L Lymphocytes % (Manual) 14 L Atypical Lymphs % (Man) 2 Monocytes % (Manual) 5 Myelocytes % 1 Abs Neuts (Manual) 10.8 H Lymphocytes # (Manual) 1.9 Atyp Lymphs # (Manual) 0.3 Monocytes # (Manual) 0.7 Myelocytes # 0.1 Nucleated RBCs 3 H Platelet Estimate DECREASED Large Platelets PRESENT Plt Morphology Comment NOTED RBC Morphology NOTED Target Cells 1+ (5-14) [place] Cells 1+ (0-2) VBG pH VBG pCO2 VBG pO2 VBG HCO3 VBG O2 Saturation VBG Base Excess Sodium Potassium Chloride Carbon Dioxide Anion Gap BUN Creatinine Estim Creat Clear Calc Estimated GFR POC Glucose 131 H 114 Random Glucose Calcium Phosphorus Magnesium Total Bilirubin AST ALT Alkaline Phosphatase Total Protein Albumin 04/23/23 04/23/23 04/23/23 06:14 06:15 07:25 WBC RBC Hgb Hct MCV MCH MCHC RDW Plt Count MPV Immature Gran % (Auto) Neut % (Auto) Lymph % (Auto) [place] % (Auto) Eos % (Auto) Baso % (Auto) Lymph # (Auto) [place] # (Auto) Eos # (Auto) Baso # (Auto) Abs Immat Gran (auto) Absolute Neuts (auto) Absolute Nucleated RBC Nucleated RBC % (auto) Neutrophils % (Manual) Band Neutrophils % Lymphocytes % (Manual) Atypical Lymphs % (Man) Monocytes % (Manual) Myelocytes % Abs Neuts (Manual) Lymphocytes # (Manual) Atyp Lymphs # (Manual) Monocytes # (Manual) Myelocytes # Nucleated RBCs Platelet Estimate Large Platelets Plt Morphology Comment RBC Morphology Target Cells [place] Cells VBG pH 7.52 H VBG pCO2 26 VBG pO2 99 VBG HCO3 22 VBG O2 Saturation 98.0 VBG Base Excess 0.4 Sodium 152 H Potassium 3.7 Chloride 115 H Carbon Dioxide 22 Anion Gap 19 BUN 59 H Creatinine 3.43 H Estim Creat Clear Calc 20.2 Estimated GFR 14 POC Glucose 118 H Random Glucose 115 Calcium 8.2 L Phosphorus 3.1 Magnesium 2.3 Total Bilirubin 4.3 H AST 83 H ALT 66 H Alkaline Phosphatase 82 Total Protein 6.1 L Albumin 3.4 L 04/23/23 11:21 WBC RBC Hgb Hct MCV MCH MCHC RDW Plt Count MPV Immature Gran % (Auto) Neut % (Auto) Lymph % (Auto) [place] % (Auto) Eos % (Auto) Baso % (Auto) Lymph # (Auto) [place] # (Auto) Eos # (Auto) Baso # (Auto) Abs Immat Gran (auto) Absolute Neuts (auto) Absolute Nucleated RBC Nucleated RBC % (auto) Neutrophils % (Manual) Band Neutrophils % Lymphocytes % (Manual) Atypical Lymphs % (Man) Monocytes % (Manual) Myelocytes % Abs Neuts (Manual) Lymphocytes # (Manual) Atyp Lymphs # (Manual) Monocytes # (Manual) Myelocytes # Nucleated RBCs Platelet Estimate Large Platelets Plt Morphology Comment RBC Morphology Target Cells [place] Cells VBG pH VBG pCO2 VBG pO2 VBG HCO3 VBG O2 Saturation VBG Base Excess Sodium Potassium Chloride Carbon Dioxide Anion Gap BUN Creatinine Estim Creat Clear Calc Estimated GFR POC Glucose 116 H Random Glucose Calcium Phosphorus Magnesium Total Bilirubin AST ALT Alkaline Phosphatase Total Protein Albumin Preliminary micro results at discharge 04/19/23 Unknown Anaerobic Culture - Preliminary Abdominal Fluid Culture in progress. Discharge Plan Discharge Anticipated Discharge Date/Time: 04/23/23 12:27 Patient Disposition: Xfer Acute Care Hospital Discharge Diagnosis: perforated gastric ulcer Referrals: Physician,Unknown J [Primary Care Provider] - 1 Week Discharge Medications: New piperacillin-tazobactam 2.25 gram Recon Soln 2.25 g IV Q6H Qty: 0 0RF insulin lispro [Humalog U-100 Insulin] 100 unit/mL Solution See Protocol subcut Q6H Qty: 0 0RF Protocol: Insulin Correction Scale Less than or equal to 110 ---- Give (units): 0 111 to 150 Give (units): 0 151 to 200 Give (units): 2 201 to 250 Give (units): 4 251 to 300 Give (units): 6 301 to 350 Give (units): 8 Greater than 350 Give (units): 10 Call MD if Blood Glucose > : 350 Discontinued venlafaxine 75 mg capsule,extended release 24hr 75 mg PO DAILY clonazepam [Klonopin] 0.5 mg tablet 0.25 - 0.5 mg PO DAILY PRN (Reason: Anxiety) venlafaxine 150 mg capsule,extended release 24hr 150 mg PO DAILY amlodipine 2.5 mg tablet 2.5 mg PO DAILY tramadol 50 mg tablet 50 mg PO Q8H PRN (Reason: severe pain) famotidine 20 mg tablet 20 mg PO QD-BID PRN (Reason: acid reflux) baclofen 10 mg tablet 10 mg PO TID PRN (Reason: Muscle Spasm) zolpidem 10 mg tablet 10 mg PO BEDTIME PRN (Reason: Sleep) topiramate [Topamax] 100 mg tablet 100 mg PO DAILY fluticasone propionate 50 mcg/actuation spray,suspension 2 spray intranasal QAM PRN (Reason: Allergic Symptoms) atenolol 50 mg tablet 50 mg PO DAILY prazosin 2 mg capsule 2 mg PO BEDTIME cholecalciferol (vitamin D3) 50 mcg (2,000 unit) capsule 100 mcg PO DAILY Discharge Orders: Discharge Order (Routine); Ordered 04/23/23 Ordered By: Abdirahman Delgado Diet: npo Activity on Discharge: As tolerated Stand Alone Forms: Patient Portal Discharge page Care Plan Goals: manage gastric ulcer perforation Health Concerns: gastric ulcer perofration Plan of Treatment: transfer to tertiary center Assessment: see above
[2023-04-23] MEDS: Dextrose 5 % 1,000 ML 100 ML IVCONT (13:07)
[2023-04-23] MEDS: dilTIAZem HCL 125 MG in 0.9 % Sodium Chloride 100 ML 10 MG IVCONT (14:24)
== END 2023-04-23 16:27 | disposition short-term general hospital (02) | DRG 710 ==
LOC: HO.ED 23:07 → HO.EDOVER 04-17 02:21 → HO.ICU 04-17 02:21 → HO.IMC 04-22 14:54
PROVIDERS: Internal Medicine Pulmonary Disease; Registered Nurse Community Health; Surgery; Admitting Provider Nurse Practitioner Family; Emergency Provider Emergency Medicine; Visit Provider Internal Medicine
PROC: 0DB60ZX Excision of Stomach, Open Approach, Diagnostic (ICD-10-PCS; CPT 49000; principal; 2023-04-16 23:30)
PROC: 0DB60ZZ Excision of Stomach, Open Approach (ICD-10-PCS; CPT 49000; principal; 2023-04-19)
DX: A41.9 Sepsis, unspecified organism (principal); J96.01 Acute respiratory failure with hypoxia; K25.6 Chronic or unspecified gastric ulcer with both hemorrhage and perforation; K65.9 Peritonitis, unspecified; B37.89 Other sites of candidiasis; R65.21 Severe sepsis with septic shock; R57.1 Hypovolemic shock; K29.61 Other gastritis with bleeding; E87.0 Hyperosmolality and hypernatremia; N17.9 Acute kidney failure, unspecified; F19.10 Other psychoactive substance abuse, uncomplicated; F10.229 Alcohol dependence with intoxication, unspecified; F41.9 Anxiety disorder, unspecified; I48.0 Paroxysmal atrial fibrillation; I73.89 Other specified peripheral vascular diseases; F14.10 Cocaine abuse, uncomplicated; F32.A Depression, unspecified; E66.01 Morbid (severe) obesity due to excess calories; Z68.41 Body mass index [BMI] 40.0-44.9, adult; Y90.6 Blood alcohol level of 120-199 mg/100 ml; E78.00 Pure hypercholesterolemia, unspecified; Z20.822 Contact with and (suspected) exposure to COVID-19
CPT/HCPCS: 43840; 36415; 71045; 74176; 74240; 80048; 80053; 80076; 80143; 80179; 80307; 81001; 82040; 82140; 82550; 82803; 82947; 83036; 83605; 83690; 83735; 84100; 84134; 84443; 84484; 85007; 85025; 85027; 85610; 85730; 86850; 86900; 86901; 86923; 87040; 87070; 87073; 87077; 87086; 87088; 87186; 87205; 87635; 88305; 88307; 88342; 92950; 93005; 94002; 94003; 94799; 99283; C1758; J0131; J0171; J0282; J0283; J0612; J0613; J0696; J1170; J1450; J1650; J1885; J1940; J2250; J2251; J2370; J2543; J3010; J3475; P9016; P9047

== ENCOUNTER 2023-07-13 20:53 | Inpatient (IN) | payer MEDICAID, SELFPAY ==
--- NOTE | 2023-07-13 | ECG_ITS ---
Test Reason : admission ekg ; pt has afib Blood Pressure : / mmHG Vent. Rate : 096 BPM Atrial Rate : 096 BPM P-R Int : 118 ms QRS Dur : 074 ms QT Int : 344 ms P-R-T Axes : 034 025 035 degrees QTc Int : 434 ms Sinus rhythm with occasional Premature ventricular complexes Otherwise normal ECG When compared with ECG of 23-APR-2023 02:47, Sinus rhythm has replaced Atrial fibrillation Vent. rate has decreased BY 51 BPM Nonspecific T wave abnormality no longer evident in Lateral leads Referred By: Leigh Cisneros Electronically Signed By:BLAIR PETTIT
[2023-07-13 21:15] VITALS: BMI 37.9
[2023-07-13 21:16] VITALS: BP 132/79; PULSE 97; RESP 20; TEMP 36; O2SAT 95
[2023-07-13 21:53] LABS: MANUAL DIFF FLAG NO
[2023-07-13 21:54] LABS: Basophils Percent Auto 0.2 % (0-2); Eosinophils Absolute Auto 0.2 X10*3/uL (0.0-0.4); Eosinophils Percent Auto 1.9 % (0-4); Hematocrit 26.4 % (37.0-47.0); Hemoglobin 7.9 g/dl (12.0-16.0); Imm Gran Abs Auto 0.02 X10*3/uL (0.00-0.03); Imm Gran Pct Auto 0.2 % (0.0-0.4); Lymphocytes Absolute Auto 2.1 X10*3/uL (1.2-4.9); Lymphocytes Percent Auto 24.7 % (20-40); Mean Corpuscular HGB Conc 29.9 g/dl (31.0-35.0); Mean Corpuscular Hemoglobin 27.1 pg (27.0-33.0); Mean Corpuscular Volume 90.7 fL (80.0-98.0); Mean Platelet Volume 8.9 fL (9.4-12.3); Monocytes Absolute Auto 0.6 X10*3/uL (0.1-1.2); Monocytes Percent Auto 7.5 % (2-11); Neutrophils Absolute Auto 5.5 x10*3/uL (2.0-8.3); Neutrophils Percent Auto 65.5 % (45-73); Platelet Count 539 X10*3/uL (160-400); Red Blood Count 2.91 X10*6/uL (4.20-5.50); White Blood Count 8.4 X10*3/uL (4.8-10.8)
[2023-07-13 22:10] LABS: Alanine Aminotransferase 39 U/L (0-31); Albumin Level 2.7 g/dL (3.5-5.0); Alkaline Phosphatase 110 U/L (39-117); Anion Gap 15 (12-20); Aspartate Amino Transferase 29 U/L (5-31); Bilirubin Total 0.1 mg/dL (0.0-1.0); Blood Urea Nitrogen 8 mg/dL (9-16); Calcium 9.4 mg/dL (8.4-10.2); Carbon Dioxide 28 mmol/L (22-29); Chloride 99 mmol/L (96-108); Creatinine Clr Calc Pharmacy 117.3; Estimated Glomerular Filt Rate > 60; Glucose Random 107 mg/dL (60-115); Potassium 3.6 mmol/L (3.3-5.1); Sodium 138 mmol/L (135-145); Total Protein 7.3 g/dL (6.5-8.0)
--- NOTE | 2023-07-13 22:15 | P.HPHOSP_ITS ---
History of Present Illness Date of Service: 07/13/23 <ERNESTINE Escalona - Last Filed: 07/13/23 23:03> Attending physician on admission: Felicita Cisneros <ERNESTINE Escalona - Last Filed: 07/13/23 23:03> Chief Complaint: Gastric perforation <ERNESTINE Escalona - Last Filed: 07/13/23 23:03> Pt is a 57-year-old female with a PMH significant for?HLD, HTN, hx of cholecystectomy, anxiety and depression who is being transferred back to our facility from [facility] where she has been for the past 3 months. Patient initially presented to [facility] by ambulance for altered mental status. Patient was admitted to ICU for septic and hypovolemic shock d/t perforated gastric ulcer in the setting of cocaine use complicated by acute hypoxic respiratory failure requiring intubation and IV vasopressors. She underwent over-sew on 04/16/2023 and continued to have extravasation so underwent partial gastrectomy on 04/19/2023. Patient was eventually weaned off pressors and extubated, but continued to have extravasation which was then complicated by hypernatremia and new onset AFib with RVR. General surgery recommended transfer to tertiary center and was accepted by [facility]. While at [place] patient was found have a DVT in upper right extremity and started on heparin. Patient was also started on TPN and NGT tube placed. Patient experienced purulent discharge from around midnight and MARTY drains, treated with antibiotics. Patient's hospital stay was further complicated by hyponatremia, aspiration pneumonia, and abdominal fistula which had a wound VAC placed over it. NG tube was eventually removed, patient weaned off all supplemental O2, and diet advanced to clears on 07/08 through . On 07/10 diet advanced to full liquids which she tolerated well. On 07/13 diet was advanced to low-fat, low-fiber diet which she tolerated well and cyclic tube feedings were discontinued. Dobbhoff tube left in place, to be removed over the next 1-2 days if patient continues to be able to tolerate p.o. intake of at least 75% of diet. Currently patient has no acute medical complaints at this time. Denies fever, chills, nausea, vomiting, abdominal pain. No chest pain/pressure, palpitations. Denies shortn ess of breath. <ERNESTINE Escalona - Last Filed: 07/13/23 23:03> Review of Systems Review of Systems: Pt has no acute medical complaints at this time Denies fever, chills, nausea, vomiting, abdominal pain No diarrhea Denies chest pain/pressure, palpitations No SOB <ERNESTINE Escalona - Last Filed: 07/13/23 23:03> [facility] Medical History: Medical History (Updated 04/23/23 @ 11:36 by Francisco Leiva MD) Acute anxiety Depression Gastric leak High cholesterol HTN (hypertension) <ERNESTINE Escalona - Last Filed: 07/13/23 23:03> Social History: Social History Household Members: None Housing: Apartment Do you presently have visiting nurse or other home services: Yes (daughter is [employer]) Unable to assess alcohol history related to: Unknown Alcohol intake: never Patient Tobacco Use Status: Never used Tobacco Use of substances other than those prescribed or required for medical reasons: No Have you been hit, kicked, punched, or otherwise hurt by someone within the past year? If so, by whom?: No Do you feel safe in your current relationship?: Yes Is there a partner from a previous relationship who is making you feel unsafe now?: No Are you made to feel afraid or neglected: No Advance Directives: No Advance Directives Information Provided: No Do you have thoughts of harming others: None Do you have a plan to hurt others: No Plan Recently lost weight without trying: No How much weight loss: Not applicable Eating poorly because of decreased appetite: No Nutrition screen score: 0 Nutrition Risks: No Nutritional Risk Patient : No : No Poor oral hygiene: No Current occupational status: disabled <ERNESTINE Escalona - Last Filed: 07/13/23 23:03> Meds Allergies/Adverse reactions: Allergies Allergy/AdvReac Type Severity Reaction Status Date / Time aspirin [ASPIRIN] Allergy Intermediate RASH, Unverified 07/30/20 15:28 itching, facial flushing haro Allergy Intermediate ITCHING,KIRSTEN Unverified 07/30/20 15:28 H peach [Mccormick] Allergy Intermediate ITCHING, Unverified 07/30/20 15:28 RASH prochlorperazine Allergy Intermediate SWELLING, Unverified 07/30/20 15:28 [From COMPAZINE] RASH <ERNESTINE Escalona - Last Filed: 07/13/23 23:03> Active Medications: Current Medications Acetaminophen (Acetaminophen 325 Mg Tablet) 650 mg PO Q6H PRN PRN Reason: Pain, Mild (Pain Scale 1-3) Melatonin (Melatonin 3 Mg Tablet) 6 mg PO BEDTIME PRN PRN Reason: Insomnia Ondansetron HCl (Ondansetron Hcl 4 Mg/2 Ml Vial) 4 mg IVPUSH Q8H PRN PRN Reason: Nausea and Vomiting Sodium Chloride (0.9 % Sodium Chloride Flush 3 Ml Syringe) 3 ml IVFLUSH QSHIFT MOO Trazodone HCl (Trazodone Hcl 50 Mg Tablet) 50 mg PO BEDTIME MOO <ERNESTINE Escalona - Last Filed: 07/13/23 23:03> Physical Exam Vital Signs and Narrative: Vital Signs: Last Vital Signs Temp 96.8 F 07/13/23 21:16 Pulse 97 07/13/23 21:16 Resp 20 07/13/23 21:16 BP 132/79 07/13/23 21:16 Pulse Ox 95 07/13/23 21:16 O2 Del Method Room Air 07/13/23 21:16 BMI result Body Mass Index 37.9 <ERNESTINE Escalona - Last Filed: 07/13/23 23:03> General: AOx3, no acute distress Resp: CTA bilaterally CVS: S1, S2, RRR GI: +BS, NT, no distention, midline wound VAC in place Skin: No rash Neuro: Cranial nerves II-XII grossly intact bilaterally. Motor grossly intact bilaterally Extremities: No edema Psych: Appropriate affect <ERNESTINE Escalona - Last Filed: 07/13/23 23:03> Results Labs CBC and Chem 7: 07/13/23 21:42 07/13/23 21:42 <ERNESTINE Escalona - Last Filed: 07/13/23 23:03> Labs: Laboratory Results - last 24 hr 07/13/23 07/13/23 21:42 21:42 MCV 90.7 MCH 27.1 MCHC 29.9 L RDW 18.0 H Plt Count 539 H D MPV 8.9 L Immature Gran % (Auto) 0.2 Neut % (Auto) 65.5 Lymph % (Auto) 24.7 [place] % (Auto) 7.5 Eos % (Auto) 1.9 Baso % (Auto) 0.2 Lymph # (Auto) 2.1 [place] # (Auto) 0.6 Eos # (Auto) 0.2 Baso # (Auto) 0.0 Abs Immat Gran (auto) 0.02 Absolute Neuts (auto) 5.5 Absolute Nucleated RBC 0.000 Nucleated RBC % (auto) 0.0 Anion Gap 15 Estim Creat Clear Calc 117.3 Estimated GFR > 60 Random Glucose 107 Calcium 9.4 D Total Bilirubin 0.1 AST 29 ALT 39 H Alkaline Phosphatase 110 Total Protein 7.3 Albumin 2.7 L <ERNESTINE Escalona - Last Filed: 07/13/23 23:03> Assessment and Plan (1) S/P partial gastrectomy: Status: Acute <ERNESTINE Escalona - Last Filed: 07/13/23 23:03> Pt is a 57-year-old female with a PMH significant for?HLD, HTN, hx of cholecystectomy, anxiety and depression who is being transferred back to our facility from [facility] where she has been for the past 3 months. Patient initially presented to [facility] by ambulance for altered mental status. Patient was admitted to ICU for septic and hypovolemic shock d/t perforated gastric ulcer in the setting of cocaine use complicated by acute hypoxic respiratory failure requiring intubation and IV vasopressors. Patient was transferred to [place] for continuing care were hospital course was complicated by upper extremity DVT, hyponatremia, aspiration pneumonia, and abdominal fistula. Patient is being transferred back here to [facility] for continued treatment and safe disposition and placement at long-term care facility. Abdominal fistula Midline wound VAC in place, suction setting of 50 mmHg Dressing type: White sponge to wound bed, 0 form to superior wound, cover with transparent film and connected to wound VAC Replace wound VAC dressing every Mon/Wed/Fri Wound care consult Diet Patient had Dobbhoff tube removed Will be placed on low-fat, low-fiber diet with small frequent meals Nutrition consult Monitor intake with cold of patient tolerating 75% of meals Upper extremity DVT On 04/24/2023 patient was found to have DVT in the right brachial vein as well as left superficial thrombus Patient initially placed on heparin, then transitioned to therapeutic Lovenox Continue therapeutic Lovenox 1 milligram/kilogram Paroxysmal AFib On therapeutic Lovenox Continue metoprolol GERD Continue pantoprazole Depression/anxiety Continue venlafaxine Full Code Attending:?Dr. Cisneros DVT Prophylaxis: On therapeutic Lovenox Pt will require a hospitalization of at least two nights for treatment of?perforated gastric ulcer abdominal fistula. <ERNESTINE Escalona - Last Filed: 07/13/23 23:03> Pt is a 57-year-old female with a PMH significant for?HLD, HTN, hx of cholecystectomy, anxiety and depression who is being transferred back to our facility from [facility] where she has been for the past 3 months. Patient initially presented to [facility] by ambulance for altered mental status. Patient was admitted to ICU for septic and hypovolemic shock d/t perforated gastric ulcer in the setting of cocaine use complicated by acute hypoxic respiratory failure requiring intubation and IV vasopressors. Patient was transferred to [place] for continuing care were hospital course was complicated by upper extremity DVT, hyponatremia, aspiration pneumonia, and abdominal fistula. Patient is being transferred back here to [facility] for continued treatment and safe disposition and placement at long-term care facility. Abdominal fistula Midline wound VAC in place, suction setting of 50 mmHg Dressing type: White sponge to wound bed, 0 form to superior wound, cover with transparent film and connected to wound VAC Replace wound VAC dressing every Mon/Wed/Fri Wound care consult Diet Patient had Dobbhoff tube removed Will be placed on low-fat, low-fiber diet with small frequent meals Nutrition consult Monitor intake with cold of patient tolerating 75% of meals Upper extremity DVT On 04/24/2023 patient was found to have DVT in the right brachial vein as well as left superficial thrombus Patient initially placed on heparin, then transitioned to therapeutic Lovenox Continue therapeutic Lovenox 1 milligram/kilogram Paroxysmal AFib On therapeutic Lovenox Continue metoprolol GERD Continue pantoprazole Depression/anxiety Continue venlafaxine Critical illness myopathy Consult PT/OT to eval and treat. May need post acute placement Full Code Attending:?Dr. Cisneros DVT Prophylaxis: On therapeutic Lovenox Pt will require a hospitalization of at least two nights for treatment of?perforated gastric ulcer abdominal fistula. <Felicita Cisneros MD - Last Filed: 07/13/23 23:05> Time Spent With Patient Time: Total time managing care of this patient today ____ minutes. <ERNESTINE Escalona - Last Filed: 07/13/23 23:03> Quality Stroke Does the patient have a stroke diagnosis?: No <ERNESTINE Escalona - Last Filed: 07/13/23 23:03> VTE Prior VTE?: No <ERNESTINE Escalona - Last Filed: 07/13/23 23:03> VTE Risk Level:: Medical - moderate - high <ERNESTINE Escalona - Last Filed: 07/13/23 23:03> VTE Device Contraindication: Treatment Not Indicated <ERNESTINE Escalona - Last Filed: 07/13/23 23:03> VTE Drug Contraindication: N/A - Med Ordered <ERNESTINE Escalona - Last Filed: 07/13/23 23:03>
[2023-07-13] MEDS: Metoprolol Tartrate 25 MG TABLET PO (22:32)
[2023-07-13] MEDS: Pantoprazole Sodium 40 MG/10 ML VIAL IVPUSH (22:32)
[2023-07-13] MEDS: 0.9 % Sodium Chloride Flush 3 ML SYRINGE IVFLUSH (22:33)
[2023-07-13] MEDS: traZODone HCL 50 MG TABLET PO (22:33)
[2023-07-13] MEDS: Acetaminophen 325 MG TABLET 650 MG PO (22:42)
[2023-07-13 23:46] VITALS: BP 125/75; PULSE 95; RESP 16; TEMP 36.1; O2SAT 95
[2023-07-14 00:53] LABS: Appearance Urine Clear; Color Urine Yellow; Glucose Urine UA Negative (Negative); Leukocyte Esterase Urine Trace (Negative); Nitrite Urine Negative (Negative); Specific Gravity - Urine <= 1.005 (1.005-1.025); UMIC TRIGGER UACC YES; Urine Blood Moderate (2+) (Negative); Urine Ketones Negative (Negative); Urine Protein Negative (Neg-Trace)
[2023-07-14 01:10] LABS: Bacteria Urine None Seen (None Seen); Hyaline Casts Urine 0-2 /LPF (0-2); RBC Urine 0-2 /HPF (0-2); Squamous Epithelial Cell Urine 0-2 /HPF (0-2); WBC Urine 0-5 /HPF (0-5)
--- NOTE | 2023-07-14 01:46 | PC.NURSE ---
Arrived from [facility] at 2100 on a stretcher accompanied by 2 cutter inspector, pt is awake, alert, oriented and stable, Aftab Castillo and Dr. Cisneros was notified of pt's arrival, pt was transferred to bed without any discomforts, claimed of minimal discomfort on the lower abd, midline abd incision with transparent dressing and wound vac connector was noted, also noted with double lumen Beasley on the right upper chest and dressing is CDI,Dr. Cisneros is aware, also noted with NGT on the right nares ,Dr. Cisneros ordered to removed it, RAHEL Barillas removed the NGT without any complications,vitals are WNL, instructed on hospital environment, safety and plan of care, seen by Dr. Cisneros and Aftab, orders made, EKG done, Urine sample sent, labs drawn, meds given, pt can ambulate to the BR with supervision with steady gait, Tylenol given for pain as pt requested, slept after.
[2023-07-14] MEDS: Acetaminophen 325 MG TABLET 650 MG PO ×3 (03:41→16:26)
[2023-07-14 06:19] LABS: MANUAL DIFF FLAG NO
[2023-07-14 06:23] LABS: Basophils Percent Auto 0.3 % (0-2); Eosinophils Absolute Auto 0.2 X10*3/uL (0.0-0.4); Eosinophils Percent Auto 1.9 % (0-4); Hematocrit 27.7 % (37.0-47.0); Hemoglobin 8.2 g/dl (12.0-16.0); Imm Gran Abs Auto 0.02 X10*3/uL (0.00-0.03); Imm Gran Pct Auto 0.3 % (0.0-0.4); Lymphocytes Absolute Auto 1.4 X10*3/uL (1.2-4.9); Mean Corpuscular HGB Conc 29.6 g/dl (31.0-35.0); Mean Corpuscular Volume 91.1 fL (80.0-98.0); Mean Platelet Volume 9.3 fL (9.4-12.3); Monocytes Absolute Auto 0.6 X10*3/uL (0.1-1.2); Neutrophils Absolute Auto 5.6 x10*3/uL (2.0-8.3); Neutrophils Percent Auto 71.5 % (45-73); Platelet Count 586 X10*3/uL (160-400); Red Blood Count 3.04 X10*6/uL (4.20-5.50); Red Cell Distribution Width 18.1 % (11.0-16.0); White Blood Count 7.8 X10*3/uL (4.8-10.8)
[2023-07-14 06:40] LABS: Anion Gap 16 (12-20); Blood Urea Nitrogen 7 mg/dL (9-16); Calcium 9.8 mg/dL (8.4-10.2); Carbon Dioxide 28 mmol/L (22-29); Chloride 101 mmol/L (96-108); Creatinine Clr Calc Pharmacy 115.2; Estimated Glomerular Filt Rate > 60; Glucose Random 105 mg/dL (60-115); Potassium 3.8 mmol/L (3.3-5.1); Sodium 141 mmol/L (135-145)
[2023-07-14 06:58] VITALS: BP 119/74; PULSE 102; RESP 16; TEMP 36.7; O2SAT 94
--- NOTE | 2023-07-14 07:15 | P.PNIM_ITS ---
Subjective Subjective Date of Service: 07/14/23 Interval History: Transfer from [place] for continuing care following prolonges hospitalization related perforated gastric ulcer septic shock Physical Exam Vital Signs: Vital Signs: Last Vital Signs Temp 98.0 F 07/14/23 06:58 Pulse 102 H 07/14/23 06:58 Resp 16 07/14/23 06:58 BP 119/74 07/14/23 06:58 Pulse Ox 94 07/14/23 06:58 O2 Del Method Room Air 07/14/23 06:58 BMI result Body Mass Index 37.9 Const: Other: General: AO X 3, no acute distress Resp: CTA bilateral CVS: S1,S2,RRR GI: +BS, NT, no distention Skin: No rash Neuro: motor grossly intact Psych: appropriate affect Objective Data Active Medications Acetaminophen (Acetaminophen 325 Mg Tablet) 650 mg PO Q6H PRN PRN Reason: Pain, Mild (Pain Scale 1-3) Last Admin: 07/14/23 03:41 Dose: 650 mg Documented By: BRANDON Comments: Dr. Cisneros ordered to give early for pain of 07/23 Melatonin (Melatonin 3 Mg Tablet) 6 mg PO BEDTIME PRN PRN Reason: Insomnia Ondansetron HCl (Ondansetron Hcl 4 Mg/2 Ml Vial) 4 mg IVPUSH Q8H PRN PRN Reason: Nausea and Vomiting Sodium Chloride (0.9 % Sodium Chloride Flush 3 Ml Syringe) 3 ml IVFLUSH QSHIFT COUNTS INCLUDE 234 BEDS AT THE [facility] Last Admin: 07/13/23 22:33 Dose: 3 ml Documented By: BRANDON Trazodone HCl (Trazodone Hcl 50 Mg Tablet) 50 mg PO BEDTIME COUNTS INCLUDE 234 BEDS AT THE [facility] Last Admin: 07/13/23 22:33 Dose: 50 mg Documented By: BRANDON Labs 07/14/23 05:50 07/14/23 05:50 Labs: Laboratory Results - last 24 hr 07/13/23 07/13/23 07/14/23 21:42 21:42 00:41 MCV 90.7 MCH 27.1 MCHC 29.9 L RDW 18.0 H Plt Count 539 H D MPV 8.9 L Immature Gran % (Auto) 0.2 Neut % (Auto) 65.5 Lymph % (Auto) 24.7 [place] % (Auto) 7.5 Eos % (Auto) 1.9 Baso % (Auto) 0.2 Lymph # (Auto) 2.1 [place] # (Auto) 0.6 Eos # (Auto) 0.2 Baso # (Auto) 0.0 Abs Immat Gran (auto) 0.02 Absolute Neuts (auto) 5.5 Absolute Nucleated RBC 0.000 Nucleated RBC % (auto) 0.0 Anion Gap 15 Estim Creat Clear Calc 117.3 Estimated GFR > 60 Random Glucose 107 Calcium 9.4 D Total Bilirubin 0.1 AST 29 ALT 39 H Alkaline Phosphatase 110 Total Protein 7.3 Albumin 2.7 L Urine Color Yellow Urine Appearance Clear Urine pH 7.0 Ur Specific [place] <= 1.005 Urine Protein Negative Urine Glucose (UA) Negative Urine Ketones Negative Urine Blood Moderate (2+) H Urine Nitrite Negative Ur Leukocyte Esterase Trace H Urine RBC 0-2 Urine WBC 0-5 Ur Squamous Epith Cells 0-2 Urine Bacteria None Seen Hyaline Casts 0-2 07/14/23 07/14/23 05:50 05:50 MCV 91.1 MCH 27.0 MCHC 29.6 L RDW 18.1 H Plt Count 586 H MPV 9.3 L Immature Gran % (Auto) 0.3 Neut % (Auto) 71.5 Lymph % (Auto) 18.0 L [place] % (Auto) 8.0 Eos % (Auto) 1.9 Baso % (Auto) 0.3 Lymph # (Auto) 1.4 [place] # (Auto) 0.6 Eos # (Auto) 0.2 Baso # (Auto) 0.0 Abs Immat Gran (auto) 0.02 Absolute Neuts (auto) 5.6 Absolute Nucleated RBC 0.000 Nucleated RBC % (auto) 0.0 Anion Gap 16 Estim Creat Clear Calc 115.2 Estimated GFR > 60 Random Glucose 105 Calcium 9.8 Total Bilirubin AST ALT Alkaline Phosphatase Total Protein Albumin Urine Color Urine Appearance Urine pH Ur Specific [place] Urine Protein Urine Glucose (UA) Urine Ketones Urine Blood Urine Nitrite Ur Leukocyte Esterase Urine RBC Urine WBC Ur Squamous Epith Cells Urine Bacteria Hyaline Casts Assessment and Plan (1) Atrial fibrillation with RVR: Status: Acute (2) Protein malnutrition: Status: Acute (3) Gastric leak: Status: Acute (4) S/P partial gastrectomy: Status: Acute Plan 57-year-old female with a PMH significant for?HLD, HTN, hx of cholecystectomy, anxiety and depression who is being transferred back to our facility from [facility] where she has been for the past 3 months.? Patient initially presented to [facility] by ambulance for altered mental status.? Patient was admitted to ICU for septic and hypovolemic shock d/t perforated gastric ulcer in the setting of cocaine use complicated by acute hypoxic respiratory failure requiring intubation and IV vasopressors.? Patient was transferred to [place] for continuing care were hospital course was complicated by upper extremity DVT, hyponatremia, aspiration pneumonia, and abdominal fistula.? Patient is being transferred back here to [facility] for continued treatment and safe disposition and placement at long-term care facility. #Abdominal fistula Midline wound VAC in place, suction setting of 50 mmHg Dressing type:? White sponge to wound bed, 0 form to superior wound, cover with transparent film and connected to wound VAC Replace wound VAC dressing every Mon/Wed/Fri Wound care and Surgery consult #Diet Patient had Dobbhoff tube removed Will be placed on low-fat, low-fiber diet with small frequent meals Nutrition consult Monitor intake with cold of patient tolerating 75% of meals #Upper extremity DVT On 04/24/2023 patient was found to have DVT in the right brachial vein as well as left superficial thrombus Patient initially placed on heparin, then transitioned to therapeutic Lovenox Continue therapeutic Lovenox 1 milligram/kilogram, transition to eliquis 5 bid in anticipation of discharge home #Paroxysmal AFib On therapeutic Lovenox, change to eliquis later Continue metoprolol #GERD Continue pantoprazole #Depression/anxiety Continue venlafaxine Full Code DVT Prophylaxis: On therapeutic Lovenox need for inpatient: placement Time Spent With Patient Time: Total time managing care of this patient today ____ minutes. Quality Stroke Does the patient have a stroke diagnosis?: No VTE Prior VTE?: No VTE Risk Level:: Medical - moderate - high VTE Device Contraindication: Treatment Not Indicated VTE Drug Contraindication: N/A - Med Ordered
--- NOTE | 2023-07-14 07:29 | P.CONGS_ITS ---
History of Present Illness Consult details Consult date: 07/14/23 Narrative: The patient is a 57-year-old woman known to me from previous partial gastrectomy which was performed due to gastric perforation presumed to be secondary to cocaine use. After her 1st operation which was Francis patch, the repair failed necessitating re-exploration and partial gastrectomy. When this failed, the patient was transferred to [place] were decision to non operatively managed the patient was reach. The patient has been treated with bowel rest and TPN. The plan was for definitive operative intervention at a tertiary care center. I was asked to help continue her care. The patient reports some lower abdominal pressure and has since had her feeding tube removed and her diet advanced. Review of Systems Review of Systems: Yes all other systems are reviewed and are negative Constitutional: Constitutional: Reports as per [facility] Past Medical History Medical History (Updated 07/14/23 @ 07:35 by Evan Goetz MD) Acute anxiety Depression Gastric leak High cholesterol HTN (hypertension) Social History Social History Household Members: None Housing: Apartment Do you presently have visiting nurse or other home services: Yes (daughter is SHOP COORDINATOR) Unable to assess alcohol history related to: Unknown Alcohol intake: never Patient Tobacco Use Status: Never used Tobacco Use of substances other than those prescribed or required for medical reasons: No Currently Displaying Signs/Symptoms of Drug Intoxication Withdrawal: No Have you been hit, kicked, punched, or otherwise hurt by someone within the past year? If so, by whom?: No Do you feel safe in your current relationship?: Yes Is there a partner from a previous relationship who is making you feel unsafe now?: No Are you made to feel afraid or neglected: No Advance Directives: No Advance Directives Information Provided: No Do you have thoughts of harming others: None Do you have a plan to hurt others: No Plan Recently lost weight without trying: No How much weight loss: Not applicable Eating poorly because of decreased appetite: No Nutrition screen score: 0 Nutrition Risks: No Nutritional Risk Patient : No : No Poor oral hygiene: No Current occupational status: disabled Meds Allergies Allergy/AdvReac Type Severity Reaction Status Date / Time aspirin [ASPIRIN] Allergy Intermediate RASH, Unverified 07/30/20 15:28 itching, facial flushing haro Allergy Intermediate ITCHING,KIRSTEN Unverified 07/30/20 15:28 H peach [Schoolcraft] Allergy Intermediate ITCHING, Unverified 07/30/20 15:28 RASH prochlorperazine Allergy Intermediate SWELLING, Unverified 07/30/20 15:28 [From COMPAZINE] RASH Active Medications: Current Medications Acetaminophen (Acetaminophen 325 Mg Tablet) 650 mg PO Q6H PRN PRN Reason: Pain, Mild (Pain Scale 1-3) Last Admin: 07/14/23 03:41 Dose: 650 mg Melatonin (Melatonin 3 Mg Tablet) 6 mg PO BEDTIME PRN PRN Reason: Insomnia Ondansetron HCl (Ondansetron Hcl 4 Mg/2 Ml Vial) 4 mg IVPUSH Q8H PRN PRN Reason: Nausea and Vomiting Sodium Chloride (0.9 % Sodium Chloride Flush 3 Ml Syringe) [facility] Last Admin: 07/13/23 22:33 Dose: 3 ml Trazodone HCl (Trazodone Hcl 50 Mg Tablet) 50 mg PO BEDTIME [facility] Last Admin: 07/13/23 22:33 Dose: 50 mg Home Medications Medication Instructions Recorded Confirmed Last Taken Type acetaminophen 160 mg/5 mL (5 mL) 650 mg PO Q6H PRN Pain 07/14/23 07/14/23 Unknown History oral solution bisacodyl 10 mg rectal suppository 10 mg SC DAILY PRN Constipation 07/14/23 07/14/23 Unknown History enoxaparin 60 mg/0.6 mL 60 mg subcut Q12H 07/14/23 07/14/23 Unknown History subcutaneous syringe guaifenesin 100 mg/5 mL oral liquid 200 mg PO Q4H PRN Cough 07/14/23 07/14/23 Unknown History ipratropium 0.5 mg-albuterol 3 mg 3 ml inhalation Q4-6H PRN Wheezing 07/14/23 07/14/23 Unknown History (2.5 mg base)/3 mL nebulization soln melatonin 3 mg tablet 6 mg PO BEDTIME 07/14/23 07/14/23 Unknown History metoprolol tartrate 25 mg tablet 25 mg PO BID 07/14/23 07/14/23 Unknown History miconazole nitrate 2 % topical 1 spray topical BID 07/14/23 07/14/23 Unknown History spray powder multivitamin 1 tab PO DAILY 07/14/23 07/14/23 Unknown History octreotide acetate 100 mcg/mL (1 300 mcg subcut Q8H 07/14/23 07/14/23 Unknown History mL) injection syringe pantoprazole 40 mg intravenous 40 mg IV BID 07/14/23 07/14/23 Unknown History solution trazodone 50 mg tablet 50 mg PO BEDTIME PRN Insomnia 07/14/23 07/14/23 Unknown History venlafaxine 75 mg capsule,extended 75 mg PO DAILY 07/14/23 07/14/23 Unknown History release 24 hr Physical Exam Vital Signs: Vital Signs: Last Vital Signs Temp 98.0 F 07/14/23 06:58 Pulse 102 H 07/14/23 06:58 Resp 16 07/14/23 06:58 BP 119/74 07/14/23 06:58 Pulse Ox 94 07/14/23 06:58 O2 Del Method Room Air 07/14/23 06:58 BMI result Body Mass Index 37.9 On exam, the patient is anicteric and nontoxic She is in no acute respiratory distress Abdomen is obese and a VAC is in place on her abdominal wound There are no peritoneal sign on abdominal exam Results Labs 07/14/23 05:50 07/14/23 05:50 Labs: Abnormal lab results 07/13/23 07/13/23 07/14/23 Range/Units 21:42 21:42 00:41 RBC 2.91 L (4.20-5.50) X10*6/uL Hgb 7.9 L D (12.0-16.0) g/dl Hct 26.4 L (37.0-47.0) % MCHC 29.9 L (31.0-35.0) g/dl RDW 18.0 H (11.0-16.0) % Plt Count 539 H D (160-400) X10*3/uL MPV 8.9 L (9.4-12.3) fL Lymph % (Auto) (20-40) % BUN 8 L (9-16) mg/dL ALT 39 H (0-31) U/L Albumin 2.7 L (3.5-5.0) g/dL Urine Blood Moderate (2+) H (Negative) Ur Leukocyte Esterase Trace H (Negative) 07/14/23 07/14/23 Range/Units 05:50 05:50 RBC 3.04 L (4.20-5.50) X10*6/uL Hgb 8.2 L (12.0-16.0) g/dl Hct 27.7 L (37.0-47.0) % MCHC 29.6 L (31.0-35.0) g/dl RDW 18.1 H (11.0-16.0) % Plt Count 586 H (160-400) X10*3/uL MPV 9.3 L (9.4-12.3) fL Lymph % (Auto) 18.0 L (20-40) % BUN 7 L (9-16) mg/dL ALT (0-31) U/L Albumin (3.5-5.0) g/dL Urine Blood (Negative) Ur Leukocyte Esterase (Negative) Short CBC 07/13/23 07/14/23 Range/Units 21:42 05:50 WBC 8.4 7.8 (4.8-10.8) X10*3/uL Hgb 7.9 L D 8.2 L (12.0-16.0) g/dl Hct 26.4 L 27.7 L (37.0-47.0) % Plt Count 539 H D 586 H (160-400) X10*3/uL BMP 07/13/23 07/14/23 21:42 05:50 Sodium 138 141 Potassium 3.6 3.8 Chloride 99 101 Carbon Dioxide 28 28 BUN 8 L 7 L Creatinine 0.55 0.56 Calcium 9.4 D 9.8 Liver Function 07/13/23 Range/Units 21:42 Total Bilirubin 0.1 (0.0-1.0) mg/dL AST 29 (5-31) U/L ALT 39 H (0-31) U/L Alkaline Phosphatase 110 (39-117) U/L Albumin 2.7 L (3.5-5.0) g/dL Urine 07/14/23 Range/Units 00:41 Urine Color Yellow Urine Appearance Clear Urine pH 7.0 (5.0-9.0) Ur Specific [place] <= 1.005 (1.005-1.025) Urine Protein Negative (Neg-Trace) mg/dL Urine Glucose (UA) Negative (Negative) mg/dL All other labs normal. Assessment and Plan (1) Gastric leak: Status: Acute (2) Atrial fibrillation with RVR: Status: Acute (3) S/P partial gastrectomy: Status: Acute (4) Cocaine abuse: Status: Acute (5) Hypercholesterolemia: Status: Acute (6) Protein malnutrition: Status: Acute Plan Continue diet advancement as per plan from [facility] labs and exam Wound care consult re: abd wound/VAC Nutrition consult if a plan/goals for the pt. No acute surgical intervention required; it's unclear if there was a plan for additional surgery, but that would be after the protein malnutrition was addressed, preemptively. will review records from [facility] re: plan. Time Spent With Patient Time: Total time managing care of this patient today ____ minutes. Procedures Date of Service Date of Service: 07/14/23
--- NOTE | 2023-07-14 08:01 | PHA.MEDREC ---
Pharmacy Consult ? Medication Reconciliation Pharmacy has completed the medication reconciliation. Used [facility] Discharge packet to complete
[2023-07-14 08:03] VITALS: BMI 36.9
[2023-07-14 08:17] VITALS: BP 119/74; PULSE 102; O2SAT 94
[2023-07-14] MEDS: Multivitamin TABLET 1 TAB PO (10:54)
[2023-07-14] MEDS: Octreotide Acetate 100 MCG/ML AMPUL 300 MCG SUBCUT ×2 (10:54→20:04)
[2023-07-14] MEDS: Apixaban 5 MG TABLET PO ×2 (10:54→20:58)
[2023-07-14] MEDS: Omeprazole 40 MG CAPSULE.DR PO ×2 (10:54→16:06)
[2023-07-14] MEDS: Venlafaxine HCl ER 75 MG CAP.ER.24H PO (10:55)
[2023-07-14] MEDS: Metoprolol Tartrate 25 MG TABLET PO ×2 (10:55→20:57)
--- NOTE | 2023-07-14 12:50 | MHC.CLN ---
NUTRITION CONSULT TO MONITOR INTAKE. VISITED PATIENT AT [facility]. REPORTS GOOD APPETITE. ADDING ENSURE TID TO PROVIDE ADDITIONAL 1050 KCALS, 60 G PROTEIN. FOLLOW FOR PO INTAKE AND DIET TOLERANCE. SEE CLINICAL NUTRITION ASSESSMENT 07/14/23.
[2023-07-14 12:52] VITALS: BMI 36.9
--- NOTE | 2023-07-14 13:31 | MHC.CM.PN ---
Addendum entered by Mary Osman 07/14/23 15:39: [facility] has offered a bed. [facility]. Addendum entered by Mary Osman 07/14/23 14:41: Surgeon has applied the Wound vac. Spoke with Lukas from [facility]. Patient likely will transfer to a facility at discharge. Will follow up with Lukas/DINA when dispo certain. Original Note: FEMALE 57 DX AB PAIN. PATIENT TRANSFERRED FROM [facility] 07/13/23 PM PATIENT HAD BEEN TRANSFERRED TO [facility] 04/23/23. Patient sent to [place] for additional surgery; which did not occur. Abdominal surgical open wound present. A Surgical consult and Wound clinic consult are pending. PT and OT evaluations recommend STR. Referrals have been sent. Irvin is requesting anticipated discharge date. Per MD Patient will be able to discharge this weekend. A referral has been sent to [facility]. [facility] has been referred for future home services. [facility] for STR via BLS. [place] [facility] [place] The patient lives alone with assist from her DTR/UTILITY AGENT. [facility] options banking attorney has been referred. She has met with the patient and family. She stated that she is seeking increased hours for the UTILITY AGENT for patient care. CM will follow for discharge needs.
[2023-07-14 15:16] VITALS: BP 117/71; PULSE 100; RESP 16; TEMP 36.9; O2SAT 96
[2023-07-14 20:00] VITALS: BP 131/85; PULSE 75; RESP 18; TEMP 37.3; O2SAT 94
[2023-07-14] MEDS: 0.9 % Sodium Chloride Flush 3 ML SYRINGE IVFLUSH (20:05)
[2023-07-14] MEDS: Melatonin 3 MG TABLET 6 MG PO (20:57)
[2023-07-14] MEDS: traZODone HCL 50 MG TABLET PO (20:58)
[2023-07-14 23:42] VITALS: BP 149/64; PULSE 95; RESP 20; TEMP 36.7; O2SAT 94
[2023-07-15] MEDS: Octreotide Acetate 100 MCG/ML AMPUL 300 MCG SUBCUT ×3 (02:23→17:24)
[2023-07-15] MEDS: Omeprazole 40 MG CAPSULE.DR PO ×2 (06:05→17:24)
[2023-07-15] MEDS: Acetaminophen 325 MG TABLET 650 MG PO ×3 (06:16→17:36)
[2023-07-15 06:24] LABS: Hemoglobin 8.1 g/dl (12.0-16.0); Mean Corpuscular Hemoglobin 27.2 pg (27.0-33.0); Mean Corpuscular Volume 90.6 fL (80.0-98.0); Mean Platelet Volume 9.2 fL (9.4-12.3); Platelet Count 512 X10*3/uL (160-400); Red Blood Count 2.98 X10*6/uL (4.20-5.50); Red Cell Distribution Width 18.6 % (11.0-16.0); White Blood Count 7.1 X10*3/uL (4.8-10.8)
[2023-07-15 07:38] VITALS: BP 122/70; PULSE 96; RESP 18; TEMP 36.7; O2SAT 93
[2023-07-15 09:03] LABS: INTERNATIONAL NORM RATIO 1.3 (0.9-1.1); Prothrombin Time 16.3 SEC (11.1-13.3)
--- NOTE | 2023-07-15 09:19 | PM.DS ---
DS: Providers Provider Date of Service: 07/17/23 Date of admission: 07/13/23 20:53 Primary care physician: Unknown Physician Consults: 07/13/23 22:42 Consult to General Surgery Routine Consulting Provider: [facility] General Surgeons Reason for consultation: Gastric perforation 07/14/23 07:20 Consult to General Surgery Routine Consulting Provider: [facility] General Surgeons Reason for consultation: perforated viscus, abdominal wound Has provider been notified: No 07/14/23 09:28 Consult to Wound Care Routine Consulting Provider: Mary Oneil Reason for consultation: Wound vac management DS: Diagnosis Discharge Diagnosis (1) Atrial fibrillation with RVR: Status: Acute (2) Protein malnutrition: Status: Acute (3) Gastric leak: Status: Acute (4) S/P partial gastrectomy: Status: Acute DS: Summary Hospital Course Hospital Course: Pt is a 57-year-old female with a PMH significant for?HLD, HTN, hx of cholecystectomy, anxiety and depression who is being transferred back to our facility from [facility] where she has been for the past 3 months.? Patient initially presented to [facility] by ambulance for altered mental status.? Patient was admitted to ICU for septic and hypovolemic shock d/t perforated gastric ulcer in the setting of cocaine use complicated by acute hypoxic respiratory failure requiring intubation and IV vasopressors.? She underwent over-sew on 04/16/2023 and continued to have extravasation so underwent partial gastrectomy on 04/19/2023.? Patient was eventually weaned off pressors and extubated, but continued to have extravasation which was then complicated by hypernatremia and new onset AFib with RVR.? General surgery recommended transfer to tertiary center and was accepted by [facility].? While at [place] patient was found have a DVT in upper right extremity and started on heparin.? Patient was also started on TPN and NGT tube placed.? Patient experienced purulent discharge from around midnight and MARTY drains, treated with antibiotics.? Patient's hospital stay was further complicated by hyponatremia, aspiration pneumonia, and abdominal fistula which had a wound VAC placed over it.? NG tube was eventually removed, patient weaned off all supplemental O2, and diet advanced to clears on 07/08 through 827.? On 07/10 diet advanced to full liquids which she tolerated well.? On 07/13 diet was advanced to low-fat, low-fiber diet which she tolerated well and cyclic tube feedings were discontinued.? Dobbhoff tube left in place, to be removed over the next 1-2 days if patient continues to be able to tolerate p.o. intake of at least 75% of diet.? Currently patient has no acute medical complaints at this time.? Denies fever, chills, nausea, vomiting, abdominal pain.? No chest pain/pressure, palpitations.? Denies shortness of breath. Hospital couse: Pt is a 57-year-old female with a PMH significant for?HLD, HTN, hx of cholecystectomy, anxiety and depression who is being transferred back to our facility from [facility] where she has been for the past 3 months.? Patient initially presented to [facility] by ambulance for altered mental status.? Patient was admitted to ICU for septic and hypovolemic shock d/t perforated gastric ulcer in the setting of cocaine use complicated by acute hypoxic respiratory failure requiring intubation and IV vasopressors.? Patient was transferred to [place] for continuing care were hospital course was complicated by upper extremity DVT, hyponatremia, aspiration pneumonia, and abdominal fistula.? Patient is being transferred back here to [facility] for continued treatment and safe disposition and placement at long-term care facility. Abdominal fistulaMidline wound VAC in place, suction setting of 50 mmHg Dressing type:? White sponge to wound bed, 0 form to superior wound, cover with transparent film and connected to wound VAC Replace wound VAC dressing every Mon/Wed/Fri To stay on octreotide for months according to surgery.. being changed to sub cut injection Upper extremity DVT--On 04/24/2023 patient was found to have DVT in the right brachial vein as well as left superficial thrombus Patient initially placed on heparin, then transitioned to therapeutic Lovenox and has now been changed eliquis Paroxysmal AFib Continue metoprolol, and should follow up with cardiology and discuss need to continue eliquis permanently GERD Continue pantoprazole Depression/anxiety Continue venlafaxine To short term rehab Time Spent with Patient Time attestation: Total time managing care of this patient today ____ minutes. Discharge coordination time: Greater than 30 minutes Quality: Safe Use of Opioids Does Pt have an Active Cancer Diagnosis on the Problem List?: No Quality: Stroke Does the patient have a stroke diagnosis?: No Physical Exam Vital Signs: Vital Signs: Last Vital Signs Temp 98.0 F 07/15/23 07:38 Pulse 96 07/15/23 07:38 Resp 18 07/15/23 07:38 BP 122/70 07/15/23 07:38 Pulse Ox 93 07/15/23 07:38 O2 Del Method Room Air 07/15/23 07:38 BMI result Body Mass Index 36.9 DS: Data Data Completed and Pending Completed studies during hospitalization [Text1]: Procedures Drainage of Peritoneal Cavity, Open Approach (04/17/23) Drainage of Stomach with Drainage Device, Via Natural or Artificial Opening (04/17/23) Excision of Stomach, Open Approach (04/17/23) Excision of Stomach, Open Approach, Diagnostic (04/17/23) Insertion of Endotracheal Airway into Trachea, Via Natural or Artificial Opening (04/17/23) Introduction of Vasopressor into Peripheral Vein, Percutaneous Approach (04/17/23) Repair Stomach, Open Approach (04/17/23) Respiratory Ventilation, Greater than 96 Consecutive Hours (04/17/23) Transfusion of Nonautologous Red Blood Cells into Peripheral Vein, Percutaneous Approach (04/17/23) Labs on day of discharge: Laboratory Results - last 24 hr 07/15/23 07/15/23 06:07 08:37 WBC 7.1 RBC 2.98 L Hgb 8.1 L Hct 27.0 L MCV 90.6 MCH 27.2 MCHC 30.0 L RDW 18.6 H Plt Count 512 H MPV 9.2 L Absolute Nucleated RBC 0.000 Nucleated RBC % (auto) 0.0 PT 16.3 H INR 1.3 H Discharge Plan Discharge Anticipated Discharge Date/Time: 07/15/23 09:15 Patient Disposition: Xfer [facility] Discharge Diagnosis: Abdominal wall fistula Referrals: [facility] [Other] - 1 Week Physician,Unknown J [Primary Care Provider] - 1 Week Discharge Medications: New Eliquis 5 mg Tablet 5 mg PO BID Qty: 60 0RF octreotide acetate 100 mcg/mL Solution 300 mcg subcut Q8H 60 Days Qty: 540 0RF Continued multivitamin Tablet 1 tab PO DAILY miconazole nitrate 2 % Aerosol Powder 1 spray TOPICAL BID melatonin 3 mg Tablet 6 mg PO BEDTIME guaifenesin 100 mg/5 mL Liquid 200 mg PO Q4H PRN (Reason: Cough) bisacodyl 10 mg Suppository 10 mg [place] DAILY PRN (Reason: Constipation) enoxaparin 60 mg/0.6 mL Syringe 60 mg SUBCUT Q12H metoprolol tartrate 25 mg Tablet 25 mg PO BID acetaminophen 160 mg/5 mL (5 mL) Solution 650 mg PO Q6H PRN (Reason: Pain) venlafaxine 75 mg capsule,extended release 24hr 75 mg PO DAILY trazodone 50 mg Tablet 50 mg PO BEDTIME PRN (Reason: Insomnia) Discontinued ipratropium-albuterol 0.5 mg-3 mg(2.5 mg base)/3 mL Solution For Nebulization 3 ml INHALATION Q4-6H PRN (Reason: Wheezing) pantoprazole 40 mg Recon Soln 40 mg IV BID octreotide acetate 100 mcg/mL (1 mL) Syringe 300 mcg SUBCUT Q8H Discharge Orders: Discharge Order (Routine); Ordered 07/15/23 Ordered By: Kolton Hooks Diet: Advance to usual diet Activity on Discharge: As tolerated Stand Alone Forms: Patient Portal Discharge page Care Plan Goals: recovery from abdominal wall wound Health Concerns: abdominal wall wound Plan of Treatment: Wound vac as applied eliquis for dvt and afib continue PPI avoid drugs Abdominal fistulaMidline wound VAC in place, suction setting of 50 mmHg Dressing type:? White sponge to wound bed, 0 form to superior wound, cover with transparent film and connected to wound VAC Replace wound VAC dressing every Mon/Wed/Fri to short term rehab for less than 30 days Follow up with Dr. Rupert Silva MD [phone] Assessment: elba coon
--- NOTE | 2023-07-15 10:02 | PM.PNGS ---
Subjective Subjective Date of Service: 07/15/23 Patient reports: feels better Interval history: The patient reports she is doing better and tolerating her diet. She reports she is passing gas and moving her bowels She denies new complaints Physical Exam Vital Signs: Vital Signs: Last Vital Signs Temp 98.0 F 07/15/23 07:38 Pulse 96 07/15/23 07:38 Resp 18 07/15/23 07:38 BP 122/70 07/15/23 07:38 Pulse Ox 93 07/15/23 07:38 O2 Del Method Room Air 07/15/23 07:38 BMI result Body Mass Index 36.9 She is nontoxic She is anicteric She is having no respiratory distress VAC is working and adjusted to intermittent suction at 50 mmHg Objective Data Active Medications Acetaminophen (Acetaminophen 325 Mg Tablet) 650 mg PO Q4H PRN PRN Reason: Pain, Mild (Pain Scale 1-3) Last Admin: 07/15/23 06:16 Dose: 650 mg Documented By: JOCELYN Albuterol/Ipratropium (Albuterol/Iprat 2.5/0.5mg 3 Ml Ampul.Neb) 3 ml INHALE Q4H PRN PRN Reason: Wheezing Apixaban (Apixaban 5 Mg Tablet) 5 mg PO BID [facility] Last Admin: 07/14/23 20:58 Dose: 5 mg Documented By: JOCELYN Bisacodyl (Bisacodyl 10 Mg Supp.Rect) 10 mg [place] DAILY PRN PRN Reason: Constipation Guaifenesin (Guaifenesin 100 Mg/5 Ml Liquid) 10 ml PO Q4H PRN PRN Reason: Cough Melatonin (Melatonin 3 Mg Tablet) 6 mg PO BEDTIME PRN PRN Reason: Insomnia Melatonin (Melatonin 3 Mg Tablet) 6 mg PO BEDTIME [facility] Last Admin: 07/14/23 20:57 Dose: 6 mg Documented By: JOCELYN Metoprolol Tartrate (Metoprolol Tartrate 25 Mg Tablet) 25 mg PO BID [facility]; Protocol Last Admin: 07/14/23 20:57 Dose: 25 mg Documented By: JOCELYN Multivitamins/Vitamin C (Multivitamin Tablet) 1 tab PO DAILY [facility] Last Admin: 07/14/23 10:54 Dose: 1 tab Documented By: RAYMOND Octreotide Acetate (Octreotide Acetate 100 Mcg/Ml Ampul) 300 mcg SUBCUT Q8H [facility] Last Admin: 07/15/23 02:23 Dose: 300 mcg Documented By: JOCELYN Omeprazole (Omeprazole 40 Mg Capsule.) 40 mg PO BID@0630,1630 [facility] Last Admin: 07/15/23 06:05 Dose: 40 mg Documented By: JOCELYN Ondansetron HCl (Ondansetron Hcl 4 Mg/2 Ml Vial) 4 mg IVPUSH Q8H PRN PRN Reason: Nausea and Vomiting Sodium Chloride (0.9 % Sodium Chloride Flush 3 Ml Syringe) 3 ml IVFLUSH QSHIFT [facility] Last Admin: 07/14/23 20:05 Dose: 3 ml Documented By: JOCELYN Trazodone HCl (Trazodone Hcl 50 Mg Tablet) 50 mg PO BEDTIME [facility] Last Admin: 07/14/23 20:58 Dose: 50 mg Documented By: JOCELYN Trazodone HCl (Trazodone Hcl 50 Mg Tablet) 50 mg PO BEDTIME PRN PRN Reason: Insomnia Venlafaxine HCl (Venlafaxine Hcl Er 75 Mg Cap.Er.24h) 75 mg PO DAILY [facility] Last Admin: 07/14/23 10:55 Dose: 75 mg Documented By: RAYMOND Labs 07/15/23 06:07 07/14/23 05:50 Labs: Laboratory Results - last 24 hr 07/15/23 07/15/23 06:07 08:37 MCV 90.6 MCH 27.2 MCHC 30.0 L RDW 18.6 H Plt Count 512 H MPV 9.2 L Absolute Nucleated RBC 0.000 Nucleated RBC % (auto) 0.0 PT 16.3 H INR 1.3 H Procedures Date of Service Date of Service: 07/15/23 Progress Note: A&P Assessment and plan (1) Protein malnutrition: Status: Acute (2) S/P partial gastrectomy: Status: Acute (3) Polysubstance abuse: Status: Acute Plan Encourage out of bed/walking, PT and diet Will change VAC on Monday Time Spent With Patient Time: Total time managing care of this patient today ____ minutes. Quality Stroke Does the patient have a stroke diagnosis?: No VTE Prior VTE?: No VTE Risk Level:: Medical - moderate - high VTE Device Contraindication: Treatment Not Indicated VTE Drug Contraindication: N/A - Med Ordered
--- NOTE | 2023-07-15 10:32 | MHC.CM.PN ---
[facility] to send dress[facility] with pt confirmed w/facility that wound vac will be in place for pts arrival mds completed and faxed to [facility]
[2023-07-15] MEDS: Venlafaxine HCl ER 75 MG CAP.ER.24H PO (11:12)
[2023-07-15] MEDS: Multivitamin TABLET 1 TAB PO (11:12)
[2023-07-15] MEDS: Metoprolol Tartrate 25 MG TABLET PO ×2 (11:13→20:42)
[2023-07-15] MEDS: Apixaban 5 MG TABLET PO ×2 (11:13→20:42)
--- NOTE | 2023-07-15 14:56 | PC.NURSE ---
Pt daughter called the nursing station, yelling at this junior technical writer that the patient will not be discharged to rehab. Unable to get a word in to educate patients daughter. Daughter states she will come to the hospital to stop the discharge from happening, MD SARAH, staff nurse made aware of situtation.
--- NOTE | 2023-07-15 15:02 | PM.EVENT ---
Event Note Date of Service: 07/15/23 Event Note: Beasley catheter removed from right chest. Pressure dressing applied. No acute issues during removal. 25 cm of line removed. Time Spent With Patient Time: Total time managing care of this patient today ____ minutes.
--- NOTE | 2023-07-15 15:43 | MHC.CM.PN ---
lakshmid cancelled family to take pt home to daughters home [phone] [facility] notified
[2023-07-15 16:00] VITALS: BP 139/83; PULSE 86; RESP 20; TEMP 36; O2SAT 95
--- NOTE | 2023-07-15 17:20 | PC.NURSE ---
Beasley removed from right upper chest this afternoon by Dr. Stover. Dressing applied, C/D/I. See event note.
[2023-07-15 18:49] VITALS: BP 170/80; PULSE 82; RESP 20; TEMP 36; O2SAT 97
[2023-07-15 20:02] VITALS: BP 138/86; PULSE 101; RESP 20; TEMP 36.2; O2SAT 94
[2023-07-15] MEDS: Melatonin 3 MG TABLET 6 MG PO (20:42)
[2023-07-15] MEDS: traZODone HCL 50 MG TABLET PO (20:43)
[2023-07-15] MEDS: 0.9 % Sodium Chloride Flush 3 ML SYRINGE IVFLUSH (20:43)
[2023-07-16] VITALS: BP 145/71; PULSE 93; RESP 18; TEMP 36.1; O2SAT 94
[2023-07-16] MEDS: Octreotide Acetate 100 MCG/ML AMPUL 300 MCG SUBCUT ×3 (01:40→18:02)
[2023-07-16] MEDS: Omeprazole 40 MG CAPSULE.DR PO ×2 (06:05→15:52)
[2023-07-16] MEDS: Acetaminophen 325 MG TABLET 650 MG PO ×3 (06:07→15:52)
[2023-07-16 07:52] VITALS: BP 137/73; PULSE 98; RESP 17; TEMP 36.7; O2SAT 95
--- NOTE | 2023-07-16 08:06 | P.PNIM_ITS ---
Subjective Subjective Date of Service: 07/16/23 Interval History: Doing well, no new issues, discharge cancelled yesterday as daughter doesn't want her to go to [facility] Physical Exam Vital Signs: Vital Signs: Last Vital Signs Temp 98.1 F 07/16/23 07:52 Pulse 98 07/16/23 07:52 Resp 17 07/16/23 07:52 BP 137/73 07/16/23 07:52 Pulse Ox 95 07/16/23 07:52 O2 Del Method Room Air 07/16/23 07:52 BMI result Body Mass Index 36.9 Const: Other: General: AO X 3, no acute distress Resp: CTA bilateral CVS: S1,S2,RRR GI: +BS, NT, no distention Skin: wound vac applied to mid abdomen fistula Neuro: motor grossly intact Psych: appropriate affect Objective Data Active Medications Acetaminophen (Acetaminophen 325 Mg Tablet) 650 mg PO Q4H PRN PRN Reason: Pain, Mild (Pain Scale 1-3) Last Admin: 07/16/23 06:07 Dose: 650 mg Documented By: HEIKE Albuterol/Ipratropium (Albuterol/Iprat 2.5/0.5mg 3 Ml Ampul.Neb) 3 ml INHALE Q4H PRN PRN Reason: Wheezing Apixaban (Apixaban 5 Mg Tablet) 5 mg PO BID [facility] Last Admin: 07/15/23 20:42 Dose: 5 mg Documented By: HEIKE Bisacodyl (Bisacodyl 10 Mg Supp.Rect) 10 mg [place] DAILY PRN PRN Reason: Constipation Guaifenesin (Guaifenesin 100 Mg/5 Ml Liquid) 10 ml PO Q4H PRN PRN Reason: Cough Melatonin (Melatonin 3 Mg Tablet) 6 mg PO BEDTIME PRN PRN Reason: Insomnia Melatonin (Melatonin 3 Mg Tablet) 6 mg PO BEDTIME [facility] Last Admin: 07/15/23 20:42 Dose: 6 mg Documented By: HEIKE Metoprolol Tartrate (Metoprolol Tartrate 25 Mg Tablet) 25 mg PO BID [facility]; Protocol Last Admin: 07/15/23 20:42 Dose: 25 mg Documented By: HEIKE Multivitamins/Vitamin C (Multivitamin Tablet) 1 tab PO DAILY [facility] Last Admin: 07/15/23 11:12 Dose: 1 tab Documented By: RAYMOND Octreotide Acetate (Octreotide Acetate 100 Mcg/Ml Ampul) 300 mcg SUBCUT Q8H [facility] Last Admin: 07/16/23 01:40 Dose: 300 mcg Documented By: HEIKE Omeprazole (Omeprazole 40 Mg Capsule.Dr) 40 mg PO BID@0630,1630 [facility] Last Admin: 07/16/23 06:05 Dose: 40 mg Documented By: HEIKE Ondansetron HCl (Ondansetron Hcl 4 Mg/2 Ml Vial) 4 mg IVPUSH Q8H PRN PRN Reason: Nausea and Vomiting Sodium Chloride (0.9 % Sodium Chloride Flush 3 Ml Syringe) 3 ml IVFLUSH QSHIFT [facility] Last Admin: 07/15/23 20:43 Dose: 3 ml Documented By: HEIKE Trazodone HCl (Trazodone Hcl 50 Mg Tablet) 50 mg PO BEDTIME [facility] Last Admin: 07/15/23 20:43 Dose: 50 mg Documented By: HEIKE Trazodone HCl (Trazodone Hcl 50 Mg Tablet) 50 mg PO BEDTIME PRN PRN Reason: Insomnia Venlafaxine HCl (Venlafaxine Hcl Er 75 Mg Cap.Er.24h) 75 mg PO DAILY [facility] Last Admin: 07/15/23 11:12 Dose: 75 mg Documented By: RAYMOND Labs 07/15/23 06:07 07/14/23 05:50 Labs: Laboratory Results - last 24 hr 07/15/23 08:37 PT 16.3 H INR 1.3 H Assessment and Plan (1) Atrial fibrillation with RVR: Status: Acute (2) Protein malnutrition: Status: Acute (3) Gastric leak: Status: Acute (4) S/P partial gastrectomy: Status: Acute Plan 57-year-old female with a PMH significant for?HLD, HTN, hx of cholecystectomy, anxiety and depression who is being transferred back to our facility from [facility] where she has been for the past 3 months.? Patient initially presented to [facility] by ambulance for altered mental status.? Patient was admitted to ICU for septic and hypovolemic shock d/t perforated gastric ulcer in the setting of cocaine use complicated by acute hypoxic respiratory failure requiring intubation and IV vasopressors.? Patient was transferred to [place] for continuing care were hospital course was complicated by upper extremity DVT, hyponatremia, aspiration pneumonia, and abdominal fistula.? Patient is being transferred back here to [facility] for continued treatment and safe disposition and placement at long-term care facility. #Abdominal fistula Midline wound VAC in place, suction setting of 50 mmHg Dressing type:? White sponge to wound bed, 0 form to superior wound, cover with transparent film and connected to wound VAC Replace wound VAC dressing every Mon/Wed/Fri Wound care and Surgery consult continue octreotide per surgery help with healing of fistula and should be on it for months #Diet- Patient had Dobbhoff tube removed Will be placed on low-fat, low-fiber diet with small frequent meals Nutrition consult Monitor intake with cold of patient tolerating 75% of meals #Upper extremity DVT On 04/24/2023 patient was found to have DVT in the right brachial vein as well as left superficial thrombus Patient initially placed on heparin, then transitioned to therapeutic Lovenox was on therapeutic Lovenox and now transition to eliquis 5 bid #Paroxysmal AFib--continue metoprool and eliquis as above #GERD Continue pantoprazole #Depression/anxiety Continue venlafaxine Full Code DVT Prophylaxis: On therapeutic Lovenox Patient was supposed to be discharge to [facility] rehab on 07/15 but family declined location just minutes before discharged and willing to take her home if VNA can be arranged, case manaement aware, out of bed ambulate Time Spent With Patient Time: Total time managing care of this patient today ____ minutes. Quality Stroke Does the patient have a stroke diagnosis?: No VTE Prior VTE?: No VTE Risk Level:: Medical - moderate - high VTE Device Contraindication: Treatment Not Indicated VTE Drug Contraindication: N/A - Med Ordered
--- NOTE | 2023-07-16 09:43 | PM.PNGS ---
Subjective Subjective Date of Service: 07/16/23 Patient reports: feels better Interval history: Patient reports that she is tolerating her diet and moving around as best she can with the VAC Physical Exam Vital Signs: Vital Signs: Last Vital Signs Temp 98.1 F 07/16/23 07:52 Pulse 98 07/16/23 07:52 Resp 17 07/16/23 07:52 BP 137/73 07/16/23 07:52 Pulse Ox 95 07/16/23 07:52 O2 Del Method Room Air 07/16/23 07:52 BMI result Body Mass Index 36.9 Patient is nontoxic and in good spirits There is no respiratory difficulty VAC is in place Objective Data Active Medications Acetaminophen (Acetaminophen 325 Mg Tablet) 650 mg PO Q4H PRN PRN Reason: Pain, Mild (Pain Scale 1-3) Last Admin: 07/16/23 06:07 Dose: 650 mg Documented By: HEIKE Albuterol/Ipratropium (Albuterol/Iprat 2.5/0.5mg 3 Ml Ampul.Neb) 3 ml INHALE Q4H PRN PRN Reason: Wheezing Apixaban (Apixaban 5 Mg Tablet) 5 mg PO BID [facility] Last Admin: 07/15/23 20:42 Dose: 5 mg Documented By: HEIKE Bisacodyl (Bisacodyl 10 Mg Supp.Rect) 10 mg [place] DAILY PRN PRN Reason: Constipation Guaifenesin (Guaifenesin 100 Mg/5 Ml Liquid) 10 ml PO Q4H PRN PRN Reason: Cough Melatonin (Melatonin 3 Mg Tablet) 6 mg PO BEDTIME PRN PRN Reason: Insomnia Melatonin (Melatonin 3 Mg Tablet) 6 mg PO BEDTIME [facility] Last Admin: 07/15/23 20:42 Dose: 6 mg Documented By: HEIKE Metoprolol Tartrate (Metoprolol Tartrate 25 Mg Tablet) 25 mg PO BID [facility]; Protocol Last Admin: 07/15/23 20:42 Dose: 25 mg Documented By: HEIKE Multivitamins/Vitamin C (Multivitamin Tablet) 1 tab PO DAILY [facility] Last Admin: 07/15/23 11:12 Dose: 1 tab Documented By: JOHNATHONBBAJ Octreotide Acetate (Octreotide Acetate 100 Mcg/Ml Ampul) 300 mcg SUBCUT Q8H [facility] Last Admin: 07/16/23 01:40 Dose: 300 mcg Documented By: HEIKE Omeprazole (Omeprazole 40 Mg Capsule.Dr) 40 mg PO BID@0630,1630 [facility] Last Admin: 07/16/23 06:05 Dose: 40 mg Documented By: HEIKE Ondansetron HCl (Ondansetron Hcl 4 Mg/2 Ml Vial) 4 mg IVPUSH Q8H PRN PRN Reason: Nausea and Vomiting Sodium Chloride (0.9 % Sodium Chloride Flush 3 Ml Syringe) 3 ml IVFLUSH QSHIFT [facility] Last Admin: 07/15/23 20:43 Dose: 3 ml Documented By: HEIKE Trazodone HCl (Trazodone Hcl 50 Mg Tablet) 50 mg PO BEDTIME [facility] Last Admin: 07/15/23 20:43 Dose: 50 mg Documented By: HEIKE Trazodone HCl (Trazodone Hcl 50 Mg Tablet) 50 mg PO BEDTIME PRN PRN Reason: Insomnia Venlafaxine HCl (Venlafaxine Hcl Er 75 Mg Cap.Er.24h) 75 mg PO DAILY [facility] Last Admin: 07/15/23 11:12 Dose: 75 mg Documented By: RAYMOND Labs 07/15/23 06:07 07/14/23 05:50 Procedures Date of Service Date of Service: 07/16/23 Progress Note: A&P Assessment and plan (1) Protein malnutrition: Status: Acute (2) Atrial fibrillation with RVR: Status: Acute (3) S/P partial gastrectomy: Status: Acute (4) Cocaine abuse: Status: Acute (5) Polysubstance abuse: Status: Acute Plan Continue present care I will return to change the VAC July 17 Time Spent With Patient Time: Total time managing care of this patient today ____ minutes. Quality Stroke Does the patient have a stroke diagnosis?: No VTE Prior VTE?: No VTE Risk Level:: Medical - moderate - high VTE Device Contraindication: Treatment Not Indicated VTE Drug Contraindication: N/A - Med Ordered
[2023-07-16] MEDS: 0.9 % Sodium Chloride Flush 3 ML SYRINGE IVFLUSH ×3 (11:21→20:29)
[2023-07-16] MEDS: Multivitamin TABLET 1 TAB PO (11:21)
[2023-07-16] MEDS: Apixaban 5 MG TABLET PO ×2 (11:21→20:29)
[2023-07-16] MEDS: Metoprolol Tartrate 25 MG TABLET PO ×2 (11:22→20:29)
[2023-07-16] MEDS: Venlafaxine HCl ER 75 MG CAP.ER.24H PO (11:22)
[2023-07-16 15:49] VITALS: BP 117/65; PULSE 88; RESP 20; TEMP 36.6; O2SAT 94
--- NOTE | 2023-07-16 15:49 | MHC.CM.PN ---
I prior auth form completed and faxed to [employer]: updated [facility] on potential 07/17 d/c pending wound vac delivery. Pt may need BLS transport if dtr cannot bring pt to her address at [address] [place] [address]. Waiting for [employer] confirmation of auth receipt an delivery time.
[2023-07-16] MEDS: Melatonin 3 MG TABLET 6 MG PO (20:29)
[2023-07-16] MEDS: traZODone HCL 50 MG TABLET PO (20:29)
[2023-07-16 23:59] VITALS: BP 142/69; PULSE 80; RESP 18; TEMP 36.3; O2SAT 92
[2023-07-17] MEDS: Octreotide Acetate 100 MCG/ML AMPUL 300 MCG SUBCUT ×2 (01:58→21:26)
[2023-07-17] MEDS: Acetaminophen 325 MG TABLET 650 MG PO ×3 (03:35→13:14)
[2023-07-17] MEDS: Omeprazole 40 MG CAPSULE.DR PO ×2 (06:11→16:33)
[2023-07-17 07:26] VITALS: BP 136/82; PULSE 91; RESP 18; TEMP 36.2; O2SAT 93
[2023-07-17] MEDS: Multivitamin TABLET 1 TAB PO (09:20)
[2023-07-17] MEDS: 0.9 % Sodium Chloride Flush 3 ML SYRINGE IVFLUSH ×3 (09:20→21:26)
[2023-07-17] MEDS: Apixaban 5 MG TABLET PO ×2 (09:20→21:26)
[2023-07-17] MEDS: Metoprolol Tartrate 25 MG TABLET PO ×2 (09:20→21:26)
[2023-07-17] MEDS: Venlafaxine HCl ER 75 MG CAP.ER.24H PO (09:20)
--- NOTE | 2023-07-17 10:51 | P.PNIM_ITS ---
Subjective Subjective Date of Service: 07/17/23 Interval History: Doing well, no new issues, discharge cancelled yesterday as daughter doesn't want her to go to [facility] Physical Exam Vital Signs: Vital Signs: Last Vital Signs Temp 97.1 F 07/17/23 07:26 Pulse 91 07/17/23 07:26 Resp 18 07/17/23 07:26 BP 136/82 07/17/23 07:26 Pulse Ox 93 07/17/23 07:26 O2 Del Method Room Air 07/17/23 07:26 BMI result Body Mass Index 36.9 Const: Other: General: AO X 3, no acute distress Resp: CTA bilateral CVS: S1,S2,RRR GI: +BS, NT, no distention Skin: wound vac applied to mid abdomen fistula Neuro: motor grossly intact Psych: appropriate affect Objective Data Active Medications Acetaminophen (Acetaminophen 325 Mg Tablet) 650 mg PO Q4H PRN PRN Reason: Pain, Mild (Pain Scale 1-3) Last Admin: 07/17/23 09:33 Dose: 650 mg Documented By: JORGE Albuterol/Ipratropium (Albuterol/Iprat 2.5/0.5mg 3 Ml Ampul.Neb) 3 ml INHALE Q4H PRN PRN Reason: Wheezing Apixaban (Apixaban 5 Mg Tablet) 5 mg PO BID [facility] Last Admin: 07/17/23 09:20 Dose: 5 mg Documented By: JORGE Bisacodyl (Bisacodyl 10 Mg Supp.Rect) 10 mg [place] DAILY PRN PRN Reason: Constipation Guaifenesin (Guaifenesin 100 Mg/5 Ml Liquid) 10 ml PO Q4H PRN PRN Reason: Cough Melatonin (Melatonin 3 Mg Tablet) 6 mg PO BEDTIME PRN PRN Reason: Insomnia Melatonin (Melatonin 3 Mg Tablet) 6 mg PO BEDTIME [facility] Last Admin: 07/16/23 20:29 Dose: 6 mg Documented By: JOCELYN Metoprolol Tartrate (Metoprolol Tartrate 25 Mg Tablet) 25 mg PO BID [facility]; Protocol Last Admin: 07/17/23 09:20 Dose: 25 mg Documented By: JORGE Multivitamins/Vitamin C (Multivitamin Tablet) 1 tab PO DAILY [facility] Last Admin: 07/17/23 09:20 Dose: 1 tab Documented By: JORGE Octreotide Acetate (Octreotide Acetate 100 Mcg/Ml Ampul) 300 mcg SUBCUT Q8H [facility] Last Admin: 07/17/23 01:58 Dose: 300 mcg Documented By: JOCELYN Omeprazole (Omeprazole 40 Mg Capsule.) 40 mg PO BID@0630,1630 [facility] Last Admin: 07/17/23 06:11 Dose: 40 mg Documented By: JOCELYN Ondansetron HCl (Ondansetron Hcl 4 Mg/2 Ml Vial) 4 mg IVPUSH Q8H PRN PRN Reason: Nausea and Vomiting Sodium Chloride (0.9 % Sodium Chloride Flush 3 Ml Syringe) 3 ml IVFLUSH QSHIFT [facility] Last Admin: 07/17/23 09:20 Dose: 3 ml Documented By: JORGE Trazodone HCl (Trazodone Hcl 50 Mg Tablet) 50 mg PO BEDTIME [facility] Last Admin: 07/16/23 20:29 Dose: 50 mg Documented By: JOCELYN Trazodone HCl (Trazodone Hcl 50 Mg Tablet) 50 mg PO BEDTIME PRN PRN Reason: Insomnia Venlafaxine HCl (Venlafaxine Hcl Er 75 Mg Cap.Er.24h) 75 mg PO DAILY [facility] Last Admin: 07/17/23 09:20 Dose: 75 mg Documented By: JORGE Labs 07/15/23 06:07 07/14/23 05:50 Assessment and Plan (1) Protein malnutrition: Status: Acute (2) Atrial fibrillation with RVR: Status: Acute (3) Gastric leak: Status: Acute Plan 57-year-old female with a PMH significant for?HLD, HTN, hx of cholecystectomy, anxiety and depression who is being transferred back to our facility from [facility] where she has been for the past 3 months.? Patient initially presented to [facility] by ambulance for altered mental status.? Patient was admitted to ICU for septic and hypovolemic shock d/t perforated ga stric ulcer in the setting of cocaine use complicated by acute hypoxic respiratory failure requiring intubation and IV vasopressors.? Patient was transferred to [place] for continuing care were hospital course was complicated by upper extremity DVT, hyponatremia, aspiration pneumonia, and abdominal fistula.? Patient is being transferred back here to [facility] for continued treatment and safe disposition and placement at long-term care facility. #Abdominal fistula Midline wound VAC in place, suction setting of 50 mmHg Dressing type:? White sponge to wound bed, 0 form to superior wound, cover with transparent film and connected to wound VAC Replace wound VAC dressing every Mon/Wed/Fri Wound care and Surgery consult continue octreotide per surgery help with healing of fistula and should be on it for months #Diet- Patient had Dobbhoff tube removed Will be placed on low-fat, low-fiber diet with small frequent meals Nutrition consult Monitor intake with cold of patient tolerating 75% of meals #Upper extremity DVT On 04/24/2023 patient was found to have DVT in the right brachial vein as well as left superficial thrombus Patient initially placed on heparin, then transitioned to therapeutic Lovenox was on therapeutic Lovenox and now transition to eliquis 5 bid #Paroxysmal AFib--continue metoprool and eliquis as above #GERD Continue pantoprazole #Depression/anxiety Continue venlafaxine Full Code DVT Prophylaxis: On therapeutic Lovenox Patient was supposed to be discharge to [facility] rehab on 07/15 but family declined location just minutes before discharged and willing to take her home if VNA can be arranged, case manaement aware, out of bed ambulate discussed with daughter Regina Time Spent With Patient Time: Total time managing care of this patient today ____ minutes. Quality Stroke Does the patient have a stroke diagnosis?: No VTE Prior VTE?: No VTE Risk Level:: Medical - moderate - high VTE Device Contraindication: Treatment Not Indicated VTE Drug Contraindication: N/A - Med Ordered
--- NOTE | 2023-07-17 11:00 | P.PNGS_ITS ---
Subjective Subjective Date of Service: 07/17/23 Patient reports: feels better Interval history: Patient reports that she is tolerating her diet and moving around as best she can with the VAC anxious or d/c Physical Exam Vital Signs: Vital Signs: Last Vital Signs Temp 97.1 F 07/17/23 07:26 Pulse 91 07/17/23 07:26 Resp 18 07/17/23 07:26 BP 136/82 07/17/23 07:26 Pulse Ox 93 07/17/23 07:26 O2 Del Method Room Air 07/17/23 07:26 BMI result Body Mass Index 36.9 Patient is nontoxic and in good spirits There is no respiratory difficulty VAC is in place Objective Data Active Medications Acetaminophen (Acetaminophen 325 Mg Tablet) 650 mg PO Q4H PRN PRN Reason: Pain, Mild (Pain Scale 1-3) Last Admin: 07/17/23 09:33 Dose: 650 mg Documented By: JORGE Albuterol/Ipratropium (Albuterol/Iprat 2.5/0.5mg 3 Ml Ampul.Neb) 3 ml INHALE Q4H PRN PRN Reason: Wheezing Apixaban (Apixaban 5 Mg Tablet) 5 mg PO BID [facility] Last Admin: 07/17/23 09:20 Dose: 5 mg Documented By: JORGE Bisacodyl (Bisacodyl 10 Mg Supp.Rect) 10 mg [place] DAILY PRN PRN Reason: Constipation Guaifenesin (Guaifenesin 100 Mg/5 Ml Liquid) 10 ml PO Q4H PRN PRN Reason: Cough Melatonin (Melatonin 3 Mg Tablet) 6 mg PO BEDTIME PRN PRN Reason: Insomnia Melatonin (Melatonin 3 Mg Tablet) 6 mg PO BEDTIME [facility] Last Admin: 07/16/23 20:29 Dose: 6 mg Documented By: JOCELYN Metoprolol Tartrate (Metoprolol Tartrate 25 Mg Tablet) 25 mg PO BID [facility]; Protocol Last Admin: 07/17/23 09:20 Dose: 25 mg Documented By: JORGE Multivitamins/Vitamin C (Multivitamin Tablet) 1 tab PO DAILY [facility] Last Admin: 07/17/23 09:20 Dose: 1 tab Documented By: JORGE Octreotide Acetate (Octreotide Acetate 100 Mcg/Ml Ampul) 300 mcg SUBCUT Q8H [facility] Last Admin: 07/17/23 01:58 Dose: 300 mcg Documented By: JOCELYN Omeprazole (Omeprazole 40 Mg Capsule.) 40 mg PO BID@0630,1630 [facility] Last Admin: 07/17/23 06:11 Dose: 40 mg Documented By: JOCELYN Ondansetron HCl (Ondansetron Hcl 4 Mg/2 Ml Vial) 4 mg IVPUSH Q8H PRN PRN Reason: Nausea and Vomiting Sodium Chloride (0.9 % Sodium Chloride Flush 3 Ml Syringe) 3 ml IVFLUSH QSHIFT [facility] Last Admin: 07/17/23 09:20 Dose: 3 ml Documented By: JORGE Trazodone HCl (Trazodone Hcl 50 Mg Tablet) 50 mg PO BEDTIME [facility] Last Admin: 07/16/23 20:29 Dose: 50 mg Documented By: JOCELYN Trazodone HCl (Trazodone Hcl 50 Mg Tablet) 50 mg PO BEDTIME PRN PRN Reason: Insomnia Venlafaxine HCl (Venlafaxine Hcl Er 75 Mg Cap.Er.24h) 75 mg PO DAILY [facility] Last Admin: 07/17/23 09:20 Dose: 75 mg Documented By: JORGE Labs 07/15/23 06:07 07/14/23 05:50 Procedures Date of Service Date of Service: 07/17/23 Progress Note: A&P Assessment and plan (1) Protein malnutrition: Status: Acute (2) Gastric leak: Status: Acute (3) S/P partial gastrectomy: Status: Acute (4) Cocaine abuse: Status: Acute (5) Polysubstance abuse: Status: Acute Plan The patient requested that I speak with her daughter who was at bedside. [facility] delivery of a VAC is planned for tomorrow. The patient will need white sponge given open abdomen and possible bowel; suction at 50 mmHg, intermittent is ordered and recommended. The importance of diet, exercise and avoidance of nicotine, drugs of abuse were discussed with the patient and daughter. Handouts on a high-protein diet, daily multivitamin and a goal of 100 g of protein per day to optimize postoperative healing was reviewed and questions answered. The patient will follow up with me on an outpatient basis, but in discussion with continuing care, home VAC supplies are not available today. I explained to the patient and her family that she will be staying until tomorrow. Time Spent With Patient Time: Total time managing care of this patient today ____ minutes. Quality Stroke Does the patient have a stroke diagnosis?: No VTE Prior VTE?: No VTE Risk Level:: Medical - moderate - high VTE Device Contraindication: Treatment Not Indicated VTE Drug Contraindication: N/A - Med Ordered
--- NOTE | 2023-07-17 11:43 | MHC.CM.PN ---
Addendum entered by Carola Durán 07/17/23 12:05: PER PT AND DAUGHTER, ADDRESS SHE WILL BE RETURNING TO TOMORROW IS [address] [facility]. Original Note: CM CALLLED [facility], REACHED ANSWERING SERVICE. THEY WILL NOT BE DOING DELIVERIES BECAUSE OF HOLIDAY. WILL RESUME TOMORROW. [facility] NOTIFIED WELL MD AND SURGEON. PT/DAUGHTER UPDATED.
--- NOTE | 2023-07-17 12:03 | MHC.CLN ---
NUTRITION DIET=LOW FAT, LOW FIBER. ENSURE TID PROVIDES ADDITIONAL 1050 KCALS, 60 G PROTEIN. INTAKE MOST MEALS 75-100%. NO NEW NUTRITION INTERVENTIONS AT THIS TIME.
[2023-07-17 15:38] VITALS: BP 130/76; PULSE 91; RESP 18; TEMP 35.9; O2SAT 96
[2023-07-17 19:21] VITALS: BP 130/79; PULSE 94; RESP 17; TEMP 36.4; O2SAT 96
[2023-07-17] MEDS: Melatonin 3 MG TABLET 6 MG PO (21:26)
[2023-07-17] MEDS: traZODone HCL 50 MG TABLET PO (21:26)
[2023-07-18] MEDS: Acetaminophen 325 MG TABLET 650 MG PO ×4 (01:32→20:34)
[2023-07-18] MEDS: Octreotide Acetate 100 MCG/ML AMPUL 300 MCG SUBCUT ×2 (04:14→13:44)
[2023-07-18] MEDS: Omeprazole 40 MG CAPSULE.DR PO ×2 (05:30→16:17)
[2023-07-18 07:18] VITALS: BP 130/81; PULSE 91; RESP 16; TEMP 36.8; O2SAT 95
--- NOTE | 2023-07-18 08:25 | PM.PNGS ---
Subjective Subjective Date of Service: 07/18/23 Patient reports: feels better Interval history: Patient reports that she is tolerating her diet and moving around as best she can with the VAC anxious or d/c Physical Exam Vital Signs: Vital Signs: Last Vital Signs Temp 98.2 F 07/18/23 07:18 Pulse 91 07/18/23 07:18 Resp 16 07/18/23 07:18 BP 130/81 07/18/23 07:18 Pulse Ox 95 07/18/23 07:18 O2 Del Method Room Air 07/18/23 07:18 BMI result Body Mass Index 36.9 Patient is nontoxic and in good spirits There is no respiratory difficulty VAC is in place Objective Data Active Medications Acetaminophen (Acetaminophen 325 Mg Tablet) 650 mg PO Q4H PRN PRN Reason: Pain, Mild (Pain Scale 1-3) Last Admin: 07/18/23 01:32 Dose: 650 mg Documented By: JOCELYN Albuterol/Ipratropium (Albuterol/Iprat 2.5/0.5mg 3 Ml Ampul.Neb) 3 ml INHALE Q4H PRN PRN Reason: Wheezing Apixaban (Apixaban 5 Mg Tablet) 5 mg PO BID [facility] Last Admin: 07/17/23 21:26 Dose: 5 mg Documented By: JOCELYN Bisacodyl (Bisacodyl 10 Mg Supp.Rect) 10 mg [place] DAILY PRN PRN Reason: Constipation Guaifenesin (Guaifenesin 100 Mg/5 Ml Liquid) 10 ml PO Q4H PRN PRN Reason: Cough Melatonin (Melatonin 3 Mg Tablet) 6 mg PO BEDTIME PRN PRN Reason: Insomnia Melatonin (Melatonin 3 Mg Tablet) 6 mg PO BEDTIME [facility] Last Admin: 07/17/23 21:26 Dose: 6 mg Documented By: JOCELYN Metoprolol Tartrate (Metoprolol Tartrate 25 Mg Tablet) 25 mg PO BID [facility]; Protocol Last Admin: 07/17/23 21:26 Dose: 25 mg Documented By: JOCELYN Multivitamins/Vitamin C (Multivitamin Tablet) 1 tab PO DAILY [facility] Last Admin: 07/17/23 09:20 Dose: 1 tab Documented By: JORGE Octreotide Acetate (Octreotide Acetate 100 Mcg/Ml Ampul) 300 mcg SUBCUT Q8H [facility] Last Admin: 07/18/23 04:14 Dose: 300 mcg Documented By: JOCELYN Omeprazole (Omeprazole 40 Mg Capsule.) 40 mg PO BID@0630,1630 [facility] Last Admin: 07/18/23 05:30 Dose: 40 mg Documented By: JOCELYN Ondansetron HCl (Ondansetron Hcl 4 Mg/2 Ml Vial) 4 mg IVPUSH Q8H PRN PRN Reason: Nausea and Vomiting Sodium Chloride (0.9 % Sodium Chloride Flush 3 Ml Syringe) 3 ml IVFLUSH QSHIFT [facility] Last Admin: 07/17/23 21:26 Dose: 3 ml Documented By: JOCELYN Trazodone HCl (Trazodone Hcl 50 Mg Tablet) 50 mg PO BEDTIME [facility] Last Admin: 07/17/23 21:26 Dose: 50 mg Documented By: JOCELYN Trazodone HCl (Trazodone Hcl 50 Mg Tablet) 50 mg PO BEDTIME PRN PRN Reason: Insomnia Venlafaxine HCl (Venlafaxine Hcl Er 75 Mg Cap.Er.24h) 75 mg PO DAILY [facility] Last Admin: 07/17/23 09:20 Dose: 75 mg Documented By: APRILINNM Labs 07/15/23 06:07 07/14/23 05:50 Procedures Date of Service Date of Service: 07/18/23 Progress Note: A&P Assessment and plan (1) Protein malnutrition: Status: Acute (2) Gastric leak: Status: Acute (3) S/P partial gastrectomy: Status: Acute (4) Open wound of abdominal wall with complication: Status: Acute (5) Morbid (severe) obesity due to excess calories: Status: Acute (6) Hypercholesterolemia: Status: Acute Plan The patient is surgically stable for discharge once dressing care can be arranged with VNA services. Patient will have negative pressure dressing with white/fine pore sponge set to 50 mmHg intermittent suction and changed Q Monday, Monday, Monday. Follow-up with Dr. Goetz next week Awaiting final arrangements re: VAC Time Spent With Patient Time: Total time managing care of this patient today ____ minutes. Quality Stroke Does the patient have a stroke diagnosis?: No VTE Prior VTE?: No VTE Risk Level:: Medical - moderate - high VTE Device Contraindication: Treatment Not Indicated VTE Drug Contraindication: N/A - Med Ordered
[2023-07-18] MEDS: Multivitamin TABLET 1 TAB PO (08:35)
[2023-07-18] MEDS: Apixaban 5 MG TABLET PO ×2 (08:35→20:33)
[2023-07-18] MEDS: Venlafaxine HCl ER 75 MG CAP.ER.24H PO (08:35)
[2023-07-18] MEDS: Metoprolol Tartrate 25 MG TABLET PO ×2 (08:35→20:33)
[2023-07-18] MEDS: 0.9 % Sodium Chloride Flush 3 ML SYRINGE IVFLUSH ×3 (08:35→20:35)
--- NOTE | 2023-07-18 14:59 | HO.PM.IMPN ---
Subjective Subjective Date of Service: 07/18/23 Interval History: Resting comfortably offers no acute complaints, denies shortness of breath, no chest pain, no abdominal pain tolerating diet ,no nausea, no vomiting, wound VAC in place, no acute issues overnight. Review of Systems All other system reviewed and negative Physical Exam Vital Signs: Vital Signs: Last Vital Signs Temp 98.2 F 07/18/23 07:18 Pulse 91 07/18/23 07:18 Resp 16 07/18/23 07:18 BP 130/81 07/18/23 07:18 Pulse Ox 95 07/18/23 07:18 O2 Del Method Room Air 07/18/23 07:18 BMI result Body Mass Index 36.9 Const: Other: General:? Resting comfortably in no acute distress awake alert x3. Neck no JVD Resp:? CTA bilateral CVS: S1,S2,RRR GI:? Bowel sounds audible nontender, no distension wound vac applied to mid abdomen Extremities no edema Neuro:? motor grossly intact, speech clear Psych: appropriate affect Objective Data Active Medications Acetaminophen (Acetaminophen 325 Mg Tablet) 650 mg PO Q4H PRN PRN Reason: Pain, Mild (Pain Scale 1-3) Last Admin: 07/18/23 13:44 Dose: 650 mg Documented By: COTEMA Albuterol/Ipratropium (Albuterol/Iprat 2.5/0.5mg 3 Ml Ampul.Neb) 3 ml INHALE Q4H PRN PRN Reason: Wheezing Apixaban (Apixaban 5 Mg Tablet) 5 mg PO BID [facility] Last Admin: 07/18/23 08:35 Dose: 5 mg Documented By: JORGE Bisacodyl (Bisacodyl 10 Mg Supp.Rect) 10 mg AK DAILY PRN PRN Reason: Constipation Guaifenesin (Guaifenesin 100 Mg/5 Ml Liquid) 10 ml PO Q4H PRN PRN Reason: Cough Melatonin (Melatonin 3 Mg Tablet) 6 mg PO BEDTIME PRN PRN Reason: Insomnia Melatonin (Melatonin 3 Mg Tablet) 6 mg PO BEDTIME [facility] Last Admin: 07/17/23 21:26 Dose: 6 mg Documented By: JOCELYN Metoprolol Tartrate (Metoprolol Tartrate 25 Mg Tablet) 25 mg PO BID [facility]; Protocol Last Admin: 09/05/23 08:35 Dose: 25 mg Documented By: JORGE Multivitamins/Vitamin C (Multivitamin Tablet) 1 tab PO DAILY [facility] Last Admin: 07/18/23 08:35 Dose: 1 tab Documented By: JORGE Octreotide Acetate (Octreotide Acetate 100 Mcg/Ml Ampul) 300 mcg SUBCUT Q8H [facility] Last Admin: 07/18/23 13:44 Dose: 300 mcg Documented By: COTEMA Omeprazole (Omeprazole 40 Mg Capsule.Dr) 40 mg PO BID@0630,1630 [facility] Last Admin: 07/18/23 05:30 Dose: 40 mg Documented By: JOCELYN Ondansetron HCl (Ondansetron Hcl 4 Mg/2 Ml Vial) 4 mg IVPUSH Q8H PRN PRN Reason: Nausea and Vomiting Sodium Chloride (0.9 % Sodium Chloride Flush 3 Ml Syringe) 3 ml IVFLUSH QSHIFT [facility] Last Admin: 07/18/23 08:35 Dose: 3 ml Documented By: JORGE Trazodone HCl (Trazodone Hcl 50 Mg Tablet) 50 mg PO BEDTIME [facility] Last Admin: 07/17/23 21:26 Dose: 50 mg Documented By: JOCELYN Trazodone HCl (Trazodone Hcl 50 Mg Tablet) 50 mg PO BEDTIME PRN PRN Reason: Insomnia Venlafaxine HCl (Venlafaxine Hcl Er 75 Mg Cap.Er.24h) 75 mg PO DAILY [facility] Last Admin: 07/18/23 08:35 Dose: 75 mg Documented By: JORGE Labs 07/15/23 06:07 07/14/23 05:50 Assessment and Plan (1) Protein malnutrition: Status: Acute (2) Atrial fibrillation with RVR: Status: Acute (3) Gastric leak: Status: Acute Plan 57-year-old female with a PMH significant for?HLD, HTN, hx of cholecystectomy, anxiety and depression who is being transferred back to our facility from [facility] where she has been for the past 3 months.? Patient initially presented to [facility] by ambulance for altered mental status.? Patient was admitted to ICU for septic and hypovolemic shock d/t perforated gastric ulcer in the setting of cocaine use complicated by acute hypoxic respiratory failure requiring intubation and IV vasopressors.? Patient was transferred to [place] for continuing care were hospital course was complicated by upper extremity DVT, hyponatremia, aspiration pneumonia, and abdominal fistula.? Patient is being transferred back here to [facility] for continued treatment and safe disposition and placement at long-term care facility. #Abdominal fistula Midline wound VAC in place, suction setting of 50 mmHg Dressing :? White sponge to wound bed, xerofoam to superior wound, cover with transparent film and connected to wound VAC,Replace wound VAC dressing every Mon/Wed/Fri continue octreotide per surgery to help with healing of fistula and should be on it for months. Being followed by General surgery for dressing change #Diet- Patient had Dobbhoff tube removed on low-fat, low-fiber diet with small frequent meals Seen by diamond cleaner she is agreeable for low-fat, low-fiber diet Ensure t.i.d. patient tolerating 75% of meals #Upper extremity DVT On 04/24/2023 patient was found to have DVT in the right brachial vein as well as left superficial thrombus Patient initially placed on heparin, then transitioned to therapeutic Lovenox, and now transition to eliquis 5 bid #Paroxysmal AFib--continue metoprool and eliquis as above #GERD Continue Prilosec 40 mg b.i.d. #Depression/anxiety Continue venlafaxine Full Code DVT Prophylaxis: On Eliquis Patient was supposed to be discharge to [facility] rehab on 07/15 but family declined location just minutes before discharged and willing to take her home if VNA can be arranged, case management aware, likely discharge home today Recommend out of bed ambulate Time Spent With Patient Time: Total time managing care of this patient today ____ minutes. Quality Stroke Does the patient have a stroke diagnosis?: No VTE Prior VTE?: No VTE Risk Level:: Medical - moderate - high VTE Device Contraindication: Treatment Not Indicated VTE Drug Contraindication: N/A - Med Ordered
--- NOTE | 2023-07-18 15:01 | PM.DS ---
DS: Providers Provider Date of Service: 07/18/23 Date of admission: 07/13/23 20:53 Primary care physician: Unknown Physician Consults: 07/13/23 22:42 Consult to General Surgery Routine Consulting Provider: [facility] Surgeons Reason for consultation: Gastric perforation 07/14/23 07:20 Consult to General Surgery Routine Consulting Provider: [facility] General Sur[facility] Reason for consultation: perforated viscus, abdominal wound Has provider been notified: No 07/14/23 09:28 Consult to Wound Care Routine Consulting Provider: Mary Oneil Reason for consultation: Wound vac management DS: Diagnosis Discharge Diagnosis (1) Protein malnutrition: Status: Acute (2) Atrial fibrillation with RVR: Status: Acute (3) Gastric leak: Status: Acute DS: Summary Hospital Course Hospital Course: Pt is a 57-year-old female with a PMH significant for?HLD, HTN, hx of cholecystectomy, anxiety and depression who is being transferred back to our facility from [facility] where she has been for the past 3 months.? Patient initially presented to [facility] by ambulance for altered mental status.? Patient was admitted to ICU for septic and hypovolemic shock d/t perforated gastric ulcer in the setting of cocaine use complicated by acute hypoxic respiratory failure requiring intubation and IV vasopressors.? She underwent over-sew on 04/16/2023 and continued to have extravasation so underwent partial gastrectomy on 04/19/2023.? Patient was eventually weaned off pressors and extubated, but continued to have extravasation which was then complicated by hypernatremia and new onset AFib with RVR.? General surgery recommended transfer to tertiary center and was accepted by [facility].? While at [place] patient was found have a DVT in upper right extremity and started on heparin.? Patient was also started on TPN and NGT tube placed.? Patient experienced purulent discharge from around midnight and MARTY drains, treated with antibiotics.? Patient's hospital stay was further complicated by hyponatremia, aspiration pneumonia, and abdominal fistula which had a wound VAC placed over it.? NG tube was eventually removed, patient weaned off all supplemental O2, and diet advanced to clears on 07/08 through 827.? On 07/10 diet advanced to full liquids which she tolerated well.? On 07/13 diet was advanced to low-fat, low-fiber diet which she tolerated well and cyclic tube feedings were discontinued.? Dobbhoff tube left in place, to be removed over the next 1-2 days if patient continues to be able to tolerate p.o. intake of at least 75% of diet.? Currently patient has no acute medical complaints at this time.? Denies fever, chills, nausea, vomiting, abdominal pain.? No chest pain/pressure, palpitations.? Denies shortness of breath. Hospital couse: Pt is a 57-year-old female with a PMH significant for?HLD, HTN, hx of cholecystectomy, anxiety and depression who is being transferred back to our facility from [facility] where she has been for the past 3 months.? Patient initially presented to [facility] by ambulance for altered mental status.? Patient was admitted to ICU for septic and hypovolemic shock d/t perforated gastric ulcer in the setting of cocaine use complicated by acute hypoxic respiratory failure requiring intubation and IV vasopressors.? Patient was transferred to [place] for continuing care were hospital course was complicated by upper extremity DVT, hyponatremia, aspiration pneumonia, and abdominal fistula.? Patient is being transferred back here to [facility] for continued treatment and safe disposition and placement at long-term care facility. Abdominal fistula, Midline wound VAC in place, suction setting of 50 mmHg Dressing type:? White sponge to wound bed, xerofoam to superior wound, cover with transparent film and connected to wound VAC Replace wound VAC dressing every Mon/Wed/Fri stay on octreotide for months according to surgery.. being changed to subcutaneous injection follow up with general surgery. Upper extremity DVT--On 04/24/2023 patient was found to have DVT in the right brachial vein as well as left superficial thrombus Patient initially placed on heparin, then transitioned to therapeutic Lovenox and has now been changed to eliquis Paroxysmal AFib Continue metoprolol, and should follow up with cardiology and discuss need to continue eliquis permanently. GERD Continue prilosec 40mg bid Depression/anxiety Continue venlafaxine. To short term rehab Time Spent with Patient Time attestation: Total time managing care of this patient today ____ minutes. Discharge coordination time: Greater than 30 minutes Quality: Safe Use of Opioids Does Pt have an Active Cancer Diagnosis on the Problem List?: No Quality: Stroke Does the patient have a stroke diagnosis?: No Physical Exam Vital Signs: Vital Signs: Last Vital Signs Temp 98.2 F 07/18/23 07:18 Pulse 91 07/18/23 07:18 Resp 16 07/18/23 07:18 BP 130/81 07/18/23 07:18 Pulse Ox 95 07/18/23 07:18 O2 Del Method Room Air 07/18/23 07:18 BMI result Body Mass Index 36.9 Const: Other: General: Resting comfortably in no acute distress awake alert x3. Neck no JVD Resp:? CTA bilateral CVS: S1,S2,RRR GI: Bowel sounds audible nontender, no distension wound vac applied to mid abdomen Extremities no edema Neuro:? motor grossly intact, speech clear Psych: appropriate affect DS: Data Data Completed and Pending Completed studies during hospitalization [Text1]: Procedures Drainage of Peritoneal Cavity, Open Approach (04/17/23) Drainage of Stomach with Drainage Device, Via Natural or Artificial Opening (04/17/23) Excision of Stomach, Open Approach (04/17/23) Excision of Stomach, Open Approach, Diagnostic (04/17/23) Insertion of Endotracheal Airway into Trachea, Via Natural or Artificial Opening (04/17/23) Introduction of Vasopressor into Peripheral Vein, Percutaneous Approach (04/17/23) Repair Stomach, Open Approach (04/17/23) Respiratory Ventilation, Greater than 96 Consecutive Hours (04/17/23) Transfusion of Nonautologous Red Blood Cells into Peripheral Vein, Percutaneous Approach (04/17/23) Discharge Plan Discharge Anticipated Discharge Date/Time: 07/15/23 09:15 Patient Disposition: Home Health Service Discharge Diagnosis: Abdominal wall fistula Referrals: Physician,Unknown J [Primary Care Provider] - 1 Week Evan Goetz MD [Physician] - 1 Week Discharge Medications: New Eliquis 5 mg Tablet 5 mg PO BID Qty: 60 0RF octreotide acetate 100 mcg/mL Solution 300 mcg subcut Q8H 60 Days Qty: 540 0RF omeprazole 40 mg capsule,delayed release(DR/EC) 40 mg PO BID Qty: 60 0RF Continued multivitamin Tablet 1 tab PO DAILY miconazole nitrate 2 % Aerosol Powder 1 spray TOPICAL BID melatonin 3 mg Tablet 6 mg PO BEDTIME guaifenesin 100 mg/5 mL Liquid 200 mg PO Q4H PRN (Reason: Cough) bisacodyl 10 mg Suppository 10 mg MN DAILY PRN (Reason: Constipation) metoprolol tartrate 25 mg Tablet 25 mg PO BID acetaminophen 160 mg/5 mL (5 mL) Solution 650 mg PO Q6H PRN (Reason: Pain) venlafaxine 75 mg capsule,extended release 24hr 75 mg PO DAILY trazodone 50 mg Tablet 50 mg PO BEDTIME PRN (Reason: Insomnia) Discontinued ipratropium-albuterol 0.5 mg-3 mg(2.5 mg base)/3 mL Solution For Nebulization 3 ml INHALATION Q4-6H PRN (Reason: Wheezing) enoxaparin 60 mg/0.6 mL Syringe 60 mg SUBCUT Q12H pantoprazole 40 mg Recon Soln 40 mg IV BID octreotide acetate 100 mcg/mL (1 mL) Syringe 300 mcg SUBCUT Q8H Discharge Orders: Discharge Order (Routine); Ordered 07/18/23 Ordered By: Lalit Palma Diet: Advance to usual diet Activity on Discharge: As tolerated Stand Alone Forms: Patient Portal Discharge page Care Plan Goals: recovery from abdominal wall wound Health Concerns: abdominal wall wound Plan of Treatment: Wound vac as applied eliquis for dvt and afib continue PPI avoid drugs Abdominal fistula Midline wound VAC in place, suction setting of 50 mmHg, INTERMITTENT negative pressure Dressing type:? White sponge to wound bed, xeroform to superior wound, cover with transparent film and connected to wound VAC Replace wound VAC dressing every Mon/Wed/Fri Follow up with Dr. Rupert Silva MD [phone] F/u Dr. Goetz at [phone] for abdominal wound & partial gastrectomy Assessment: as aove
[2023-07-18 15:10] VITALS: BP 122/70; PULSE 87; RESP 18; TEMP 36.7; O2SAT 96
--- NOTE | 2023-07-18 16:08 | P.F2F_ITS ---
Service Date Service Date: 07/18/23 Encounter Date of encounter: 07/18/23 Reasons for Services Signs and symptoms assessed: Abdominal wall wound, wound VAC in place Reason for custodial: wound care and medication management Homebound: Leaving the home is medically contraindicated at this time without the asist of a device and/or another person due th the listed conditions above and below. Reason homebound: weakness related to hospital stay Certification: Based on the above findings, I certify that this patient is confined to the home and needs intermittent custodial care, physical therapy and/or speech therapy, or continues to need occupational therapy. The patient is under my care, and I have initiated the establishment of the plan of care. The patient will be followed by a physician who will periodically review the plan of care. Time Spent With Patient Time: Total time managing care of this patient today ____ minutes.
[2023-07-18] MEDS: Melatonin 3 MG TABLET 6 MG PO (20:33)
[2023-07-18] MEDS: traZODone HCL 50 MG TABLET PO (20:33)
[2023-07-18] MEDS: Octreotide Acetate 500 MCG/ML VIAL 300 MCG SUBCUT (22:20)
--- NOTE | 2023-07-18 22:31 | PC.NURSE ---
Pt alert and oriented with at bedside, wound vac dressing intact machine maintained on 50 mmHg pressure, c/o minimal tenderness on the lower abd, prn tylenol given, awaitng for wound vacuum machine for home and then be discharge. Equipment for home wound vac was delivered at 2029 and received by pt, At this time pt and pt's refused to be discharge as its late at night, also desired to have teaching re: pt's wound vac before leaving in the morning, Dr. Hooks happened to pass by and was updated.
[2023-07-18 23:35] VITALS: BP 112/64; PULSE 77; TEMP 36.1; O2SAT 94
[2023-07-19] MEDS: Omeprazole 40 MG CAPSULE.DR PO (05:50)
[2023-07-19] MEDS: Octreotide Acetate 500 MCG/ML VIAL 300 MCG SUBCUT (05:50)
[2023-07-19] MEDS: Acetaminophen 325 MG TABLET 650 MG PO ×2 (05:54→10:21)
[2023-07-19 07:08] VITALS: BP 144/72; PULSE 104; RESP 16; TEMP 36.7; O2SAT 93
[2023-07-19] MEDS: Metoprolol Tartrate 25 MG TABLET PO (08:39)
[2023-07-19] MEDS: Multivitamin TABLET 1 TAB PO (08:39)
[2023-07-19] MEDS: Venlafaxine HCl ER 75 MG CAP.ER.24H PO (08:39)
[2023-07-19] MEDS: Apixaban 5 MG TABLET PO (08:39)
[2023-07-19] MEDS: 0.9 % Sodium Chloride Flush 3 ML SYRINGE IVFLUSH (08:40)
--- NOTE | 2023-07-19 09:40 | PC.NURSE ---
Home wound vac hooked up at 50 pressure per MD. Pt education given, states understanding. Plan to discharge at 11AM.
== END 2023-07-19 11:33 | disposition home health service (06) | DRG 254 ==
PROVIDERS: Internal Medicine; Student in an Organized Health Care Education/Training Program; Surgery; Admitting Provider Hospitalist; PCP Registered Nurse; Visit Provider Hospitalist
DX: K63.2 Fistula of intestine (principal); G72.81 Critical illness myopathy; I48.0 Paroxysmal atrial fibrillation; E66.01 Morbid (severe) obesity due to excess calories; E46 Unspecified protein-calorie malnutrition; E78.00 Pure hypercholesterolemia, unspecified; F19.10 Other psychoactive substance abuse, uncomplicated; F32.A Depression, unspecified; F41.9 Anxiety disorder, unspecified; K21.9 Gastro-esophageal reflux disease without esophagitis; Z68.36 Body mass index [BMI] 36.0-36.9, adult; Z90.3 Acquired absence of stomach [part of]; Z86.718 Personal history of other venous thrombosis and embolism; Z75.1 Person awaiting admission to adequate facility elsewhere; Z79.01 Long term (current) use of anticoagulants; Z79.899 Other long term (current) drug therapy
CPT/HCPCS: 36415; 80048; 80053; 81001; 84134; 85025; 85027; 85610; 93005; 97110; 97161; 97166; J2354

== ENCOUNTER → 2023-07-13 20:53 | Outpatient (BNV) | payer MEDICAID, SELFPAY | PROVIDERS: Admitting Provider Hospitalist; Visit Provider Surgery | DX: K91.89 Other postprocedural complications and disorders of digestive system (principal); I48.91 Unspecified atrial fibrillation; Z90.3 Acquired absence of stomach [part of]; F14.10 Cocaine abuse, uncomplicated; E78.00 Pure hypercholesterolemia, unspecified; E46 Unspecified protein-calorie malnutrition | CPT/HCPCS: 99024 ==

== ENCOUNTER → 2023-07-13 20:53 | Outpatient (BNV) | payer MEDICAID, SELFPAY | PROVIDERS: Admitting Provider Hospitalist; Visit Provider Student in an Organized Health Care Education/Training Program | DX: E46 Unspecified protein-calorie malnutrition (principal); I48.91 Unspecified atrial fibrillation; K91.89 Other postprocedural complications and disorders of digestive system | CPT/HCPCS: 99223; 99232; 99239; 99499; G0180 ==

== ENCOUNTER 2023-08-03 01:28 | Emergency (ER) | payer MEDICAID, SELFPAY ==
[2023-08-03 01:36] VITALS: BP 120/79; PULSE 106; RESP 18; TEMP 36.7; O2SAT 96; BMI 35.5
--- NOTE | 2023-08-03 02:20 | PC.NURSE ---
Pt A&Ox4, reports 9/10 constant stabbing ABD since last night after VNA wound vac dressing change, Pt reports new drainage noted after, leakage not noted prior. Gauze dressing noted with yellow/green drainage noted to ABD area.
--- NOTE | 2023-08-03 03:51 | PC.NURSE ---
Multiple attempts made to obtains second set of blood cultures, only one set obtained at this time.
[2023-08-03 03:59] LABS: Lactic Acid 0.9 mmol/L (0.5-2.0)
[2023-08-03 04:04] LABS: Alanine Aminotransferase 18 U/L (0-31); Albumin Level 3.3 g/dL (3.5-5.0); Alkaline Phosphatase 90 U/L (39-117); Anion Gap 15 (12-20); Aspartate Amino Transferase 16 U/L (5-31); Bilirubin Total 0.2 mg/dL (0.0-1.0); Blood Urea Nitrogen 7 mg/dL (9-16); Calcium 9.9 mg/dL (8.4-10.2); Carbon Dioxide 24 mmol/L (22-29); Chloride 103 mmol/L (96-108); Creatinine Clr Calc Pharmacy 91.5; Estimated Glomerular Filt Rate > 60; Glucose Random 96 mg/dL (60-115); Sodium 139 mmol/L (135-145); Total Protein 8.7 g/dL (6.5-8.0)
[2023-08-03 05:33] VITALS: BP 155/87; PULSE 100; RESP 20; TEMP 36.9; O2SAT 94
[2023-08-03 05:44] LABS: MANUAL DIFF FLAG NO
--- NOTE | 2023-08-03 05:45 | PC.NURSE ---
second set of BC obtained and sent to lab.
[2023-08-03 05:46] LABS: Basophils Percent Auto 0.3 % (0-2); Eosinophils Absolute Auto 0.2 X10*3/uL (0.0-0.4); Eosinophils Percent Auto 1.3 % (0-4); Hematocrit 33.6 % (37.0-47.0); Hemoglobin 10.2 g/dl (12.0-16.0); Imm Gran Abs Auto 0.04 X10*3/uL (0.00-0.03); Imm Gran Pct Auto 0.3 % (0.0-0.4); Lymphocytes Absolute Auto 1.5 X10*3/uL (1.2-4.9); Lymphocytes Percent Auto 12.9 % (20-40); Mean Corpuscular HGB Conc 30.4 g/dl (31.0-35.0); Mean Corpuscular Hemoglobin 26.2 pg (27.0-33.0); Mean Corpuscular Volume 86.4 fL (80.0-98.0); Mean Platelet Volume 10.4 fL (9.4-12.3); Monocytes Absolute Auto 0.9 X10*3/uL (0.1-1.2); Monocytes Percent Auto 7.3 % (2-11); Neutrophils Absolute Auto 9.3 x10*3/uL (2.0-8.3); Neutrophils Percent Auto 77.9 % (45-73); Platelet Count 332 X10*3/uL (160-400); Red Blood Count 3.89 X10*6/uL (4.20-5.50); Red Cell Distribution Width 17.5 % (11.0-16.0); White Blood Count 11.9 X10*3/uL (4.8-10.8)
--- NOTE | 2023-08-03 06:35 | ED.WOUNDLAC ---
HPI - Wound/Laceration General Chief Complaint: Wound/Laceration Stated Complaint: back pain/inj? Time Seen by Provider: 08/03/23 06:16 Source: patient Mode of arrival: ambulatory Limitations: no limitations History of Present Illness HPI narrative: Patient comes to the emergency room complaining of discharge from her surgical site. Patient has a complicated history of duodenal perforated ulcer secondary to cocaine use. Patient was transferred from our facility to [facility] where she stayed for 3 months, then came back to our hospital for placement and services. Patient states that she has services at home. However, seems that the visiting nurses forgot to apply a black sponge to the wound VAC and since then patient has been draining purulent like material from the surgical site. Patient denies any fever any chills. Related Data Home Medications Medication Instructions Recorded Confirmed acetaminophen 160 mg/5 mL (5 mL) 650 mg PO Q6H PRN Pain 07/14/23 07/14/23 oral solution bisacodyl 10 mg rectal suppository 10 mg DE DAILY PRN Constipation 07/14/23 07/14/23 guaifenesin 100 mg/5 mL oral liquid 200 mg PO Q4H PRN Cough 07/14/23 07/14/23 melatonin 3 mg tablet 6 mg PO BEDTIME 07/14/23 07/14/23 metoprolol tartrate 25 mg tablet 25 mg PO BID 07/14/23 07/14/23 miconazole nitrate 2 % topical 1 spray topical BID 07/14/23 07/14/23 spray powder multivitamin 1 tab PO DAILY 07/14/23 07/14/23 trazodone 50 mg tablet 50 mg PO BEDTIME PRN Insomnia 07/14/23 07/14/23 venlafaxine 75 mg capsule,extended 75 mg PO DAILY 07/14/23 07/14/23 release 24 hr Previous Rx's Medication Instructions Recorded apixaban 5 mg tablet (Eliquis) 5 mg PO BID #60 tabs 07/15/23 octreotide acetate 100 mcg/mL 300 mcg (3 mL) subcut Q8H 60 days 07/15/23 injection solution #540 mL omeprazole 40 mg capsule,delayed 40 mg PO BID #60 caps 07/18/23 release Allergies Allergy/AdvReac Type Severity Reaction Status Date / Time aspirin [ASPIRIN] Allergy Intermediate RASH, Unverified 07/30/20 15:28 itching, facial flushing haro Allergy Intermediate ITCHING,KIRSTEN Unverified 07/30/20 15:28 H peach [[place]] Allergy Intermediate ITCHING, Unverified 07/30/20 15:28 RASH prochlorperazine Allergy Intermediate SWELLING, Unverified 07/30/20 15:28 [From COMPAZINE] RASH Review of Systems Review of Systems: Constitutional : No Weight loss, No Fever, No Chills, No Night Sweats, No Fatigue, No Malaise ENT/Mouth : No Hearing loss, No Ear Pain, No Nasal Congestion, No Sinus Pain, No Hoarseness, No sore throat, No Rhinorrhea, No Swallowing Difficulty Eyes: No Eye Pain, No Swelling, No Redness, No Foreign Body, No Discharge, No Vision Changes Cardiovascular : No Chest Pain, No SOB, No Dyspnea on Exertion, No Orthopnea, No Edema, No Palpitations Respiratory : No Cough, No Sputum, No Wheezing, No Smoke Exposure, No Dyspnea Gastrointestinal : No Nausea, No Vomiting, No Diarrhea, No Constipation, No abdominal Pain, No Hematochezia, No Melena Genitourinary : no irregular bleeding, No Dysuria, No Urinary Frequency, No Hematuria, No Urinary Incontinence, No Urgency, No Flank Pain, No Urinary Flow Changes, No Hesitancy Musculoskeletal : No joint pain, No Myalgias, No Joint Swelling Skin : Complaining of drainage from the abdominal surgical site Neuro : No Weakness, No Numbness, No Paresthesias, No Loss of Consciousness, No Dizziness, No Headache Psych : No Anxiety/Panic, No Depression, No SI/HI/AH/VH, No Social Issues, Heme/Lymph: No Bruising, No Bleeding,No Lymphadenopathy Endocrine : No Polyuria, No Polydipsia, No Temperature Intolerance [facility] Past Medical History Medical History Gastric leak Cocaine abuse Polysubstance abuse Hypercholesterolemia High cholesterol Depression HTN (hypertension) Acute anxiety Surgical History S/P partial gastrectomy Social History Social History Household Members: None Housing: Apartment Do you presently have visiting nurse or other home services: Yes (daughter is CRUSHER LOADER OPERATOR) Unable to assess alcohol history related to: Unknown Alcohol intake: never Patient Tobacco Use Status: Never used Tobacco Smoked in Last 30 Days: No Use of substances other than those prescribed or required for medical reasons: No Advance Directives: No Advance Directives Information Provided: Yes Patient : No service: No Current occupational status: disabled Physical Exam Vital Signs: Vital Signs: Last Vital Signs Temp 98.4 F 08/03/23 05:33 Pulse 100 08/03/23 05:33 Resp 20 08/03/23 05:33 BP 155/87 H 08/03/23 05:33 Pulse Ox 94 08/03/23 05:33 O2 Del Method Room Air 08/03/23 05:33 BMI result Body Mass Index 35.5 Const: Other: Appearance: Alert. Oriented X3. No acute distress. Eyes: Pupils equal, round and reactive to light. ENT: Pharynx normal. Neck: Normal inspection. Neck supple. No lymph nodes noted. No crepitus CVS: Normal heart rate and rhythm. Pulses normal. Normal S1 and S2 Respiratory: No respiratory distress. Breath sounds normal. No Wheezing. No rales Abdomen: Soft and nontender. No rigidity. No distention. Patient has last surgical sign draining yellowish material. Skin: Skin warm and dry. Normal skin color. Normal skin turgor. See above Extremities: No lower extremity edema. No Lacerations. No Rash Neuro: Oriented X 3. No motor deficit. No sensory deficit. Moving all extremities. No slurred speech. CN 2 through 12 grossly intact Psych: calm, cooperative, normal affect Course Course Course Narrative: -patient's potassium 3.0, patient being repleted p.o. -white blood cell count 11.9, likely reactive leukocytosis, normal lactic acid, no fever, normal blood pressure, sepsis not suspected. -I discussed the patient with Dr. Oneil, they will come and evaluate the patient in the morning, patient will likely need to have her wound VAC applied. At this time, our nurses here in the ED do not have training to apply the wound VAC. -sign-out given to Dr. Dennis Medications Administered Discontinued Medications Generic Name Dose Route Start Last Admin Trade Name Freq PRN Reason Stop Dose Admin Potassium Chloride 40 meq 08/03/23 06:26 08/03/23 06:46 Potassium Chloride Packet 20 Meq Packet PO 09/21/23 06:27 40 meq ONCE ONE Administration Medical Decision Making Lab Data 08/03/23 03:37 08/03/23 03:37 Labs: Lab Results 08/03/23 Range/Units 03:37 WBC 11.9 H (4.8-10.8) X10*3/uL RBC 3.89 L D (4.20-5.50) X10*6/uL Hgb 10.2 L D (12.0-16.0) g/dl Hct 33.6 L D (37.0-47.0) % MCV 86.4 (80.0-98.0) fL MCH 26.2 L (27.0-33.0) pg MCHC 30.4 L (31.0-35.0) g/dl RDW 17.5 H (11.0-16.0) % Plt Count 332 D (160-400) X10*3/uL MPV 10.4 (9.4-12.3) fL Immature Gran % (Auto) 0.3 (0.0-0.4) % Neut % (Auto) 77.9 H (45-73) % Lymph % (Auto) 12.9 L (20-40) % [place] % (Auto) 7.3 (2-11) % Eos % (Auto) 1.3 (0-4) % Baso % (Auto) 0.3 (0-2) % Lymph # (Auto) 1.5 (1.2-4.9) X10*3/uL [place] # (Auto) 0.9 (0.1-1.2) X10*3/uL Eos # (Auto) 0.2 (0.0-0.4) X10*3/uL Baso # (Auto) 0.0 (0.0-0.2) X10*3/uL Abs Immat Gran (auto) 0.04 H (0.00-0.03) X10*3/uL Absolute Neuts (auto) 9.3 H (2.0-8.3) x10*3/uL Absolute Nucleated RBC 0.000 (0.0-0.012) X10*3/uL Nucleated RBC % (auto) 0.0 (0.0-0.2) /100WBC Sodium 139 (135-145) mmol/L Potassium 3.0 L D (3.3-5.1) mmol/L Chloride 103 (96-108) mmol/L Carbon Dioxide 24 (22-29) mmol/L Anion Gap 15 (12-20) BUN 7 L (9-16) mg/dL Creatinine 0.68 (0.5-1.4) mg/dL Estim Creat Clear Calc 91.5 Estimated GFR > 60 Random Glucose 96 (60-115) mg/dL Lactic Acid 0.9 (0.5-2.0) mmol/L Calcium 9.9 (8.4-10.2) mg/dL Total Bilirubin 0.2 (0.0-1.0) mg/dL AST 16 (5-31) U/L ALT 18 (0-31) U/L Alkaline Phosphatase 90 (39-117) U/L Total Protein 8.7 H (6.5-8.0) g/dL Albumin 3.3 L (3.5-5.0) g/dL Critical Care Time Critical Care Time Critical Care Time: Yes Total Critical Care Time: 45 Attestation: I have personally provided critical care time. Time includes review of lab data, radiology results, discussion with consultants, and monitoring for potential decompensation. Intervention performed as documented. Discharge Plan Discharge Clinical Impression: Acute hypokalemia, Encounter for management of wound VAC Patient Disposition: Still a Patient Prescriptions: No Action multivitamin Tablet 1 tab PO DAILY miconazole nitrate 2 % Aerosol Powder 1 spray TOPICAL BID melatonin 3 mg Tablet 6 mg PO BEDTIME guaifenesin 100 mg/5 mL Liquid 200 mg PO Q4H PRN (Reason: Cough) bisacodyl 10 mg Suppository 10 mg DE DAILY PRN (Reason: Constipation) metoprolol tartrate 25 mg Tablet 25 mg PO BID acetaminophen 160 mg/5 mL (5 mL) Solution 650 mg PO Q6H PRN (Reason: Pain) venlafaxine 75 mg capsule,extended release 24hr 75 mg PO DAILY trazodone 50 mg Tablet 50 mg PO BEDTIME PRN (Reason: Insomnia) Eliquis 5 mg Tablet 5 mg PO BID Qty: 60 0RF octreotide acetate 100 mcg/mL Solution 300 mcg subcut Q8H 60 Days Qty: 540 0RF omeprazole 40 mg capsule,delayed release(DR/EC) 40 mg PO BID Qty: 60 0RF
[2023-08-03] MEDS: Potassium Chloride Packet 20 MEQ PACKET 40 MEQ PO (06:46)
--- NOTE | 2023-08-03 07:37 | PC.NURSE ---
General Surgery PA came to dress wound and recommended stopping the wound vac and following up with the wound clinic and continue with vna as well. site is healing well and drainage is appropriate for healing stage.
[2023-08-03 07:42] VITALS: BP 144/83; PULSE 112; RESP 16; O2SAT 96
[2023-08-03] MEDS: Acetaminophen 325 MG TABLET 650 MG PO (07:46)
--- NOTE | 2023-08-03 08:11 | PM.CNGS ---
History of Present Illness Consult details Consult date: 08/03/23 Reason for consult: wound care Requesting physician: Chloe Vasques Narrative: The patient is a 57-year-old female with complicated history including partial gastrectomy for gastric perforation presumed to be secondary to cocaine after initial jyoti patch repair failed. She was subsequently transferred to [place] were decision was made to non operatively manage the patient with bowel rest and TPN. She was subsequently transferred back 07/13 and was doing overall well. Her feeding tube was removed and was tolerating her diet. She had a wound vac in place over a midline abdominal wound. She was discharged to home with VNA for wound vac care with dressing changes MWF. She reports this has been going well. Yesterday she was seen by VNA and they did not place the wound vac as they felt it was no longer necessary. Per patient and family, no dressing was put back on. She developed some thin clearish white drainage and was concerned and presented to the ED. She denies fever, chills, worsening abdominal pain, nausea, vomiting or diarrhea. Review of Systems Constitutional: Constitutional: Denies chills, Denies fever(s) and Denies malaise ENT: Denies dizziness Cardiovascular: Cardiovascular: Denies chest pain and Denies dyspnea Respiratory: Respiratory: Denies dyspnea Gastrointestinal: Gastrointestinal: Denies abdominal pain, Denies diarrhea, Denies nausea and Denies vomiting Integumentary/Breasts: Skin/Breast: Reports as per HPI, Denies rash and Denies jaundice Neurologic: Denies dizziness PMFSH Past Medical History Medical History Gastric leak Cocaine abuse Polysubstance abuse Hypercholesterolemia High cholesterol Depression HTN (hypertension) Acute anxiety Surgical History Surgical History S/P partial gastrectomy Social History Social History Household Members: None Housing: Apartment Do you presently have visiting nurse or other home services: Yes (daughter is POCKET MAKER) Unable to assess alcohol history related to: Unknown Alcohol intake: never Patient Tobacco Use Status: Never used Tobacco Smoked in Last 30 Days: No Use of substances other than those prescribed or required for medical reasons: No Advance Directives: No Advance Directives Information Provided: Yes Patient : No service: No Current occupational status: disabled Meds Allergies Allergy/AdvReac Type Severity Reaction Status Date / Time aspirin [ASPIRIN] Allergy Intermediate RASH, Verified 08/03/23 07:46 itching, facial flushing haro Allergy Intermediate ITCHING,KIRSTEN Verified 08/03/23 07:46 H peach [[place]] Allergy Intermediate ITCHING, Verified 08/03/23 07:46 RASH prochlorperazine Allergy Intermediate SWELLING, Verified 08/03/23 07:46 [From COMPAZINE] RASH Home Medications Medication Instructions Recorded Confirmed Last Taken Type acetaminophen 160 mg/5 mL (5 mL) 650 mg PO Q6H PRN Pain 07/14/23 07/14/23 Unknown History oral solution bisacodyl 10 mg rectal suppository 10 mg NE DAILY PRN Constipation 07/14/23 07/14/23 Unknown History guaifenesin 100 mg/5 mL oral liquid 200 mg PO Q4H PRN Cough 07/14/23 07/14/23 Unknown History melatonin 3 mg tablet 6 mg PO BEDTIME 07/14/23 07/14/23 Unknown History metoprolol tartrate 25 mg tablet 25 mg PO BID 07/14/23 07/14/23 Unknown History miconazole nitrate 2 % topical 1 spray topical BID 07/14/23 07/14/23 Unknown History spray powder multivitamin 1 tab PO DAILY 07/14/23 07/14/23 Unknown History trazodone 50 mg tablet 50 mg PO BEDTIME PRN Insomnia 07/14/23 07/14/23 Unknown History venlafaxine 75 mg capsule,extended 75 mg PO DAILY 07/14/23 07/14/23 Unknown History release 24 hr Physical Exam Vital Signs: Vital Signs: Last Vital Signs Temp 98.4 F 08/03/23 05:33 Pulse 112 H 08/03/23 07:42 Resp 16 08/03/23 07:42 BP 144/83 H 08/03/23 07:42 Pulse Ox 96 08/03/23 07:42 O2 Del Method Room Air 08/03/23 07:42 BMI result Body Mass Index 35.5 Const: General: comfortable, no acute distress and alert Orientation/consciousness: patient oriented x3 Resp: Effort & Inspection: normal respiratory effort Cardio: Rate: tachycardic GI: Other: midline wound with some granulation tissue, some very thin clearish drainage, no surrounding erythema or edema, she does have maceration of the surrounding skin Palpation (GI): Soft to palpation, nontender, no guarding and not rigid Percussion: Yes normal to percussion Neuro: General: patient oriented x3 and moves all extremities Results Labs 08/03/23 03:37 08/03/23 03:37 Labs: Abnormal lab results 08/03/23 Range/Units 03:37 WBC 11.9 H (4.8-10.8) X10*3/uL RBC 3.89 L D (4.20-5.50) X10*6/uL Hgb 10.2 L D (12.0-16.0) g/dl Hct 33.6 L D (37.0-47.0) % MCH 26.2 L (27.0-33.0) pg MCHC 30.4 L (31.0-35.0) g/dl RDW 17.5 H (11.0-16.0) % Neut % (Auto) 77.9 H (45-73) % Lymph % (Auto) 12.9 L (20-40) % Abs Immat Gran (auto) 0.04 H (0.00-0.03) X10*3/uL Absolute Neuts (auto) 9.3 H (2.0-8.3) x10*3/uL Potassium 3.0 L D (3.3-5.1) mmol/L BUN 7 L (9-16) mg/dL Total Protein 8.7 H (6.5-8.0) g/dL Albumin 3.3 L (3.5-5.0) g/dL Short CBC 08/03/23 Range/Units 03:37 WBC 11.9 H (4.8-10.8) X10*3/uL Hgb 10.2 L D (12.0-16.0) g/dl Hct 33.6 L D (37.0-47.0) % Plt Count 332 D (160-400) X10*3/uL BMP 08/03/23 03:37 Sodium 139 Potassium 3.0 L D Chloride 103 Carbon Dioxide 24 BUN 7 L Creatinine 0.68 Calcium 9.9 Liver Function 08/03/23 Range/Units 03:37 Total Bilirubin 0.2 (0.0-1.0) mg/dL AST 16 (5-31) U/L ALT 18 (0-31) U/L Alkaline Phosphatase 90 (39-117) U/L Albumin 3.3 L (3.5-5.0) g/dL All other labs normal. Assessment and Plan (1) Open wound of abdominal wall with complication: Status: Acute Plan The patient is a 57-year-old female with complicated history including partial gastrectomy for gastric perforation presumed to be secondary to cocaine after initial jyoti patch repair failed. She has subsequently developed an open midline wound that was being managed with a wound vac. The wound remains clean without any evidence of infection. At this point I feel that the wound is small enough and the wound vac can be stopped. Silver alginate was placed on open wound followed by fluffs and abdominal dressing. Can continue MWF dressing changes with VNA services. Wound care referral made. Stable for discharge home from surgical standpoint. Time Spent With Patient Time: Total time managing care of this patient today ____ minutes. Procedures Date of Service Date of Service: 08/03/23
== END 2023-08-03 08:59 | disposition home or self-care (01) ==
PROVIDERS: Emergency Provider Emergency Medicine
DX: E87.6 Hypokalemia (principal); Z48.01 Encounter for change or removal of surgical wound dressing
CPT/HCPCS: 36415; 80053; 83605; 85025; 87040; 99283; 99284

== ENCOUNTER → 2023-08-03 02:26 | Outpatient (BNV) | payer MEDICAID, SELFPAY | PROVIDERS: Emergency Provider Emergency Medicine; Visit Provider Physician Assistant Surgical | DX: S31.109A Unspecified open wound of abdominal wall, unspecified quadrant without penetration into peritoneal cavity, initial encounter (principal) | CPT/HCPCS: 99283 ==

== ENCOUNTER → 2023-08-30 12:38 | Outpatient (REF) | payer MEDICAID, SELFPAY ==
--- NOTE | 2023-08-30 12:41 | CA_ITS ---
Transthoracic Echocardiogram Patient (Last, First, Middle): Glenys Pulido, Gender: Female Date of : 1965 Age: 57 Procedure Date: 08/30/2023 Procedure Type: Transthoracic Echocardiogram Location: OP Height: 154.94 cm Weight: 85.28 kg BSA: 1.84 m2 Heart Rate: bpm BP: 145 / 78 mmHg Drug Safety Associate: CAROL/MALOU Referring MD: Aracely Mckeon MD Symptoms: I10 HTN PAF I48.0 Study Quality: Adequate ECG Rhythm: Sinus Conclusions: - The left ventricular systolic function is normal. The calculated ejection fraction is 70% by biplane method. - No obvious valvular pathology seen on this study. Findings Left Ventricle Normal left ventricular cavity size. There is normal left ventricular wall thickness. The left ventricular systolic function is normal. The calculated ejection fraction is 70% by biplane method. There is no evidence of regional wall motion abnormalities. Diastolic function is normal for age. LV peak GLS -19.6%. Right Ventricle Normal right ventricular cavity size and systolic function. Atria Both atria are normal in size. Aortic Valve There is a normal trileaflet aortic valve. There is no aortic valve stenosis. There is no aortic valve regurgitation. Mitral Valve The mitral valve appears normal. There is no mitral valve regurgitation. There is no mitral valve stenosis. Pulmonic Valve The pulmonic valve is likely normal. Tricuspid Valve Normal tricuspid valve structure. There is trace tricuspid valve regurgitation. There is no evidence of pulmonary hypertension. Great Vessels The asc aorta is normal in size. Venous The inferior vena cava is normal in size and collapses greater than 50% with inspiration. Pericardium/Pleural There is no evidence of pericardial effusion. Prior Study Comparison No prior study available for comparison. Recommendations, Care & Conclusions No obvious valvular pathology seen on this study. Measurements 2D Linear Measurements IVSd: 0.90 0.6-0.9/0.6-1.0 cm LVIDd: 4.50 3.9-5.3/4.2-5.9 cm LVIDd Index: 2.45 2.4-3.2/2.2-3.1 cm/m2 LVIDs: 2.90 2.0-3.6 cm LVPWd: 1.00 0.7-1.1 cm LA Diam: 3.30 2.7-3.8/3.0-4.0 cm LAIDs Index: 1.79 1.5-2.3 cm/m2 LV Mass: 177.86 67-162/88-224 g LV Mass Index: 96.66 43-95/49-115 g/m2 LVOT Diam: 2.00 3.0+(-)1.3 cm 2D Systolic Function EF 4C: 69.60 >55% EF 2C: 70.10 >55% EF BiP: 69.70 >55% Mitral Valve MV Pk E: 0.77 MV PK A: 0.68 MV Decel Time: 176.00 E/A: 1.10 E'Lateral: 8.59 E'Medial: 6.53 E/E' Med: 11.70 E/E' Lat: 8.90 PHT: 52.00 MVA PHT: 4.23 Decel [place]: 4.35 Aortic Valve AoV Pk Dar: 1.70 AoV Mn Dar: 1.07 AoV VTI: 0.30 AoV Pk Grad: 12.00 Aov Mn Grad: 5.00 SHIMON Cont.VTI: 2.66 LVOT LVOT Pk Dar: 1.32 LVOT Mn Dar: 0.83 LVOT VTI: 0.26 LVOT Pk Grad: 7.00 LVOT Mn Grad: 3.00 LVOT Diam: 2.00 LVOT Area: 3.14 Diastolic Function MV Pk E: 0.77 MV Pk A: 0.68 E/A: 1.10 E'Medial: 6.53 E/E' Med: 11.70 E' Laterial: 8.59 E/E' Lat: 8.90 Right Ventricle TAPSE (mm): 26.40 TVS' Dar: 19.30 Tricuspid Valve RA Press: 3.00 Great Vessels Aorta Sinus of Valsalva: 2.90 2.0-3.[address] [place]: 2.40 1.7-3.4 cm Ao Asc: 3.40 2.1-3.4 cm Updated in Other Vendor System with Status of Final David Ravi MD electronically signed on 09/01/2023 2:13:40 PM with status of Final
== END ==
LOC: HO.CARD 12:38
PROVIDERS: PCP Registered Nurse; Visit Provider Internal Medicine
DX: I48.0 Paroxysmal atrial fibrillation (principal); I10 Essential (primary) hypertension
CPT/HCPCS: 93306; 93356

== ENCOUNTER → 2023-08-30 12:41 | Outpatient (BNV) | payer MEDICAID, SELFPAY | PROVIDERS: PCP Registered Nurse; Visit Provider Internal Medicine | DX: I48.0 Paroxysmal atrial fibrillation (principal) | CPT/HCPCS: 93306 ==

== ENCOUNTER 2023-12-01 01:39 | Emergency (ER) | payer MEDICAID, SELFPAY ==
--- NOTE | ~2023-12-01 | CT_ITS ---
EXAMINATION: CT ABDOMEN AND PELVIS WITHOUT CONTRAST CLINICAL INFORMATION: Gastric abnormality. COMPARISON: 12/01/2023 and 04/18/2023 TECHNIQUE: Multidetector volumetric imaging was performed from the superior aspect of the liver through the pubic symphysis. Sagittal and coronal reformatted images were obtained on the technologist's workstation. This CT examination was performed using dose optimization techniques as appropriate, variously including the following: *Automated exposure control *Adjustment of mA and/or kV according to patient size (this includes techniques or standardized protocols for targeted exams where dose is matched to indication/reason for exam; i.e. extremities or head) *Use of iterative reconstruction technique DLP: 463 mGy-cm FINDINGS: LUNG BASES: Left basilar pleural thickening. Nonspecific distal esophageal wall thickening. LIVER, GALLBLADDER, AND BILIARY TREE: The noncontrast liver is normal in size and contour. No biliary ductal dilatation is present. The gallbladder is surgically absent. PANCREAS: No ductal dilatation. SPLEEN: Not enlarged. ADRENAL GLANDS: No adrenal mass. KIDNEYS AND URETERS: The kidneys are symmetric in size. There are several nonobstructing right renal calculi. The largest measures 5 mm in the midpole. No hydronephrosis or perinephric fluid collection. Delayed images demonstrate intact renal function. BLADDER: Filled with excreted contrast. GASTROINTESTINAL TRACT: There is similar masslike thickening of the greater curvature of the stomach with findings suggesting ulceration. There are presumed postsurgical changes/suture material in the body of the stomach. There is soft tissue thickening/phlegmonous changes extending from the gastric cardia to the left hemidiaphragm. There is associated involvement of the superior spleen. There is soft tissue thickening/phlegmonous changes extending from the gastric body to the left abdominal wall. There is associated wall thickening of adjacent small and large bowel loops. No small bowel obstruction. Appendix is within normal limits. There is a possible fistulous tract extending to the skin surface. ABDOMINAL WALL: Diastases recti. LYMPH NODES: No bulky lymphadenopathy. VASCULAR: Normal caliber abdominal aorta. PELVIC VISCERA: Unremarkable. OSSEOUS STRUCTURES: No destructive bone lesions. CT/CT abdomen pelvis wo IV con IMPRESSION: There is similar masslike thickening of the greater curvature of the stomach with findings suggesting ulceration. A gastric neoplasm cannot be excluded. There is soft tissue thickening/phlegmonous changes extending from the gastric cardia to the left hemidiaphragm. There is associated involvement of the superior spleen difficult to characterize without contrast. There is soft tissue thickening/phlegmonous changes extending from the gastric body to the left abdominal wall. There is associated wall thickening of adjacent small and large bowel loops. No small bowel obstruction. Appendix is within normal limits. There is a possible fistulous tract extending to the skin surface. There is no contrast extravasation within the left abdominal wall or retained within the possible fistulous tract.
--- NOTE | ~2023-12-01 | CT_ITS ---
EXAMINATION: CT ABDOMEN AND PELVIS WITH CONTRAST CLINICAL INFORMATION: Abdominal pain. History of gastric perforation. COMPARISON: 04/18/2023. TECHNIQUE: Multidetector volumetric images were obtained from the superior aspect of the liver through the pubic symphysis following administration 85 mL of Omnipaque 350 intravenous contrast. Sagittal and coronal reformatted images were obtained on the technologist's workstation. Oral contrast: No This CT examination was performed using dose optimization techniques as appropriate, variously including the following: *Automated exposure control *Adjustment of mA and/or kV according to patient size (this includes techniques or standardized protocols for targeted exams where dose is matched to indication/reason for exam; i.e. extremities or head) *Use of iterative reconstruction technique DLP: 431 mGy-cm FINDINGS: LUNG BASES: There is scarring at the left lung base. LIVER, GALLBLADDER, AND BILIARY TREE: There is a subcentimeter hypodensity inferior right lobe the liver too small to fully characterize but likely a small cyst. There is no intrahepatic biliary duct dilatation. There has been a prior cholecystectomy. PANCREAS: Unremarkable. SPLEEN: Unremarkable. ADRENAL GLANDS: There is mild bilateral adrenal gland thickening. KIDNEYS AND URETERS: The kidneys are normal in size, shape, and attenuation. No hydronephrosis, hydroureter, or calculi seen. No perinephric stranding. BLADDER: Unremarkable. GASTROINTESTINAL TRACT: There is masslike thickening of the inferior body of the stomach extending toward the gastric cardia. There is prominent subdiaphragmatic soft tissue thickened up to 2.5 cm abutting the spleen with an apparent connection to the gastric cardia. ABDOMINAL WALL: There is an apparent tract along the left mid to upper abdomen extending towards the abdominal cavity. LYMPH NODES: Normal. VASCULAR: Unremarkable. PELVIC VISCERA: Unremarkable. OSSEOUS STRUCTURES: Unremarkable. CT/CT abdomen pelvis w IV con IMPRESSION: There is masslike thickening of the inferior body of the stomach extending toward the gastric cardia. There is prominent subdiaphragmatic soft tissue thickened up to 2.5 cm abutting the spleen with an apparent connection to the gastric cardia. Direct visualization is recommended as a gastric mass is considered versus significant inflammatory process. The subdiaphragmatic thickening/collection associated with the gastric cardia may represent fistulization. There is an apparent tract along the left mid to upper abdomen extending towards the abdominal cavity possibly related to prior catheter and less likely a fistula. Fleischner guidelines were followed.
[2023-12-01 01:50] VITALS: BP 122/49; BP 133/84; PULSE 90; PULSE 92; RESP 16; TEMP 36.8; O2SAT 100; O2SAT 99; BMI 26.4
--- NOTE | 2023-12-01 01:57 | ECG_ITS ---
Test Reason : ABD PAIN Blood Pressure : / mmHG Vent. Rate : 088 BPM Atrial Rate : 088 BPM P-R Int : 146 ms QRS Dur : 080 ms QT Int : 402 ms P-R-T Axes : 065 013 029 degrees QTc Int : 486 ms Normal sinus rhythm with sinus arrhythmia Premature atrial complexes Septal infarct , age undetermined Inferior and ann-marie-lateral ST depression Abnormal ECG When compared with ECG of 13-JUL-2023 21:16, ST-T changes are new Referred By: Generic ED Physician Electronically Signed By:DANIEL ISIDRO
[2023-12-01 02:21] LABS: MANUAL DIFF FLAG NO
[2023-12-01 02:29] LABS: Basophils Percent Auto 0.3 % (0-2); Eosinophils Percent Auto 0.4 % (0-4); Hematocrit 35.1 % (37.0-47.0); Hemoglobin 11.5 g/dl (12.0-16.0); Imm Gran Abs Auto 0.03 X10*3/uL (0.00-0.03); Imm Gran Pct Auto 0.3 % (0.0-0.4); Lymphocytes Absolute Auto 1.3 X10*3/uL (1.2-4.9); Lymphocytes Percent Auto 12.5 % (20-40); Mean Corpuscular HGB Conc 32.8 g/dl (31.0-35.0); Mean Corpuscular Hemoglobin 26.1 pg (27.0-33.0); Mean Corpuscular Volume 79.6 fL (80.0-98.0); Mean Platelet Volume 10.4 fL (9.4-12.3); Monocytes Absolute Auto 0.6 X10*3/uL (0.1-1.2); Monocytes Percent Auto 6.3 % (2-11); Neutrophils Absolute Auto 8.1 x10*3/uL (2.0-8.3); Neutrophils Percent Auto 80.2 % (45-73); Platelet Count 324 X10*3/uL (160-400); Red Blood Count 4.41 X10*6/uL (4.20-5.50); Red Cell Distribution Width 20.7 % (11.0-16.0)
[2023-12-01 02:40] LABS: Alanine Aminotransferase 9 U/L (0-31); Albumin Level 3.7 g/dL (3.5-5.0); Alkaline Phosphatase 78 U/L (39-117); Anion Gap 17 (12-20); Aspartate Amino Transferase 12 U/L (5-31); Bilirubin Total 0.4 mg/dL (0.0-1.0); Blood Urea Nitrogen 6 mg/dL (9-16); Calcium 9.8 mg/dL (8.4-10.2); Carbon Dioxide 21 mmol/L (22-29); Chloride 106 mmol/L (96-108); Creatinine Clr Calc Pharmacy 73.5; Estimated Glomerular Filt Rate > 60; Glucose Random 114 mg/dL (60-115); Lipase 33 U/L (8-78); Potassium 3.7 mmol/L (3.3-5.1); Sodium 140 mmol/L (135-145); Total Protein 8.4 g/dL (6.5-8.0)
[2023-12-01 03:04] LABS: Troponin-I High Sensitivity < 2.7 ng/L (<3.5-17.0)
[2023-12-01 03:48] VITALS: BP 173/99; PULSE 91; RESP 18; TEMP 36.6; O2SAT 97
--- NOTE | 2023-12-01 04:04 | MHC.EDTECH ---
Late Entry,patient arrived by ambulance changed into hospital attire, placed on the library monitor,vitals done and EKG obtained. Call paredes in reach
--- NOTE | 2023-12-01 04:07 | MHC.EDTECH ---
Hourly rounds and vitals completed, patients's BP is elevated 173/99 RN Andie made aware. Patient ambulated to the bathroom with a steady gait,urine sample collected and sent to lab.
[2023-12-01 04:22] LABS: Appearance Urine Turbid; Color Urine Yellow; Glucose Urine UA Negative (Negative); Leukocyte Esterase Urine Negative (Negative); Nitrite Urine Negative (Negative); UMIC TRIGGER UACC YES; Urine Blood Small (1+) (Negative); Urine Ketones 15 mg/dL (Negative); Urine Protein 30 (1+) mg/dL (Neg-Trace)
[2023-12-01 04:28] LABS: Bacteria Urine None Seen (None Seen); RBC Urine >20 /HPF (0-2); WBC Urine 0-5 /HPF (0-5)
--- NOTE | 2023-12-01 05:01 | ED_ITS ---
HPI - General Adult General Chief complaint: Abdominal Pain Stated complaint: ABDOMINAL PAIN/NAUSEA VOMMITING Time Seen by Provider: 12/01/23 04:54 History of Present Illness HPI narrative: The patient is a 58-year-old woman who was quite ill last summer. She had septic shock and a perforated gastric ulcer. Patient had surgery on 04/19/2023. She had a long ICU stay and was ultimately transferred to [facility]. She was subsequently transferred back to this hospital and discharged finally on July 18 with a wound VAC. apparently she had a poorly healing surgical in her midabdomen. She has been home since July and the wound has gotten considerably smaller. [facility]. Yesterday she started to feel nausea and today she had abdominal pain and vomiting and ultimately came to the emergency room. no definite fever. Related Data Home Medications Medication Instructions Recorded Confirmed acetaminophen 160 mg/5 mL (5 mL) 650 mg PO Q6H PRN Pain 07/14/23 07/14/23 oral solution bisacodyl 10 mg rectal suppository 10 mg RI DAILY PRN Constipation 07/14/23 07/14/23 guaifenesin 100 mg/5 mL oral liquid 200 mg PO Q4H PRN Cough 07/14/23 07/14/23 melatonin 3 mg tablet 6 mg PO BEDTIME 07/14/23 07/14/23 metoprolol tartrate 25 mg tablet 25 mg PO BID 07/14/23 07/14/23 miconazole nitrate 2 % topical 1 spray topical BID 07/14/23 07/14/23 spray powder multivitamin 1 tab PO DAILY 07/14/23 07/14/23 trazodone 50 mg tablet 50 mg PO BEDTIME PRN Insomnia 07/14/23 07/14/23 venlafaxine 75 mg capsule,extended 75 mg PO DAILY 07/14/23 07/14/23 release 24 hr Previous Rx's Medication Instructions Recorded apixaban 5 mg tablet (Eliquis) 5 mg PO BID #60 tabs 07/15/23 octreotide acetate 100 mcg/mL 300 mcg (3 mL) subcut Q8H 60 days 07/15/23 injection solution #540 mL omeprazole 40 mg capsule,delayed 40 mg PO BID #60 caps 07/18/23 release alginate dressing 4 X 4 1 ea topical DAILY #10 ea 08/03/23 Allergies Allergy/AdvReac Type Severity Reaction Status Date / Time aspirin [ASPIRIN] Allergy Intermediate RASH, Verified 08/03/23 07:46 itching, facial flushing haro Allergy Intermediate ITCHING,KIRSTEN Verified 08/03/23 07:46 H peach [[place]] Allergy Intermediate ITCHING, Verified 08/03/23 07:46 RASH prochlorperazine Allergy Intermediate SWELLING, Verified 08/03/23 07:46 [From COMPAZINE] RASH Review of Systems 2 Review of Systems: Yes all other systems are reviewed and are negative PMFSH Past Medical History Onset Date is defined in the Problem List Problems that require an onset date and time if occurred within 24 hrs of arrival to the ED Aortic Dissection and Rupture; Neurologic impairment; Cardiopulmonary Arrest; Endotracheal Intubation; Insertion or Replacement of Mechanical Circulatory Assist Device Medical History Gastric leak Cocaine abuse Polysubstance abuse Hypercholesterolemia High cholesterol Depression HTN (hypertension) Acute anxiety Surgical History S/P partial gastrectomy Social History Social History Household Members: None Housing: Apartment Do you presently have visiting nurse or other home services: Yes (daughter is PLANT [employer] TEACHER) Unable to assess alcohol history related to: Unknown Alcohol intake: former Comment: Refuses bed alarm. Patient Tobacco Use Status: Never used Tobacco Smoked in Last 30 Days: No Use of substances other than those prescribed or required for medical reasons: No Advance Directives: No Advance Directives Information Provided: No Patient : No service: No Current occupational status: disabled Physical Exam ED Vital Signs: Vital Signs - 24 hr 12/01/23 01:50 12/01/23 03:48 12/01/23 05:34 Temperature 98.3 F 97.9 F Pulse Rate 92 91 Respiratory Rate 16 18 18 Blood Pressure 133/84 173/99 H Pulse Oximetry 100 97 Oxygen Delivery Method Room Air Room Air 12/01/23 06:00 Temperature 98.4 F Pulse Rate 102 H Respiratory Rate 18 Blood Pressure 184/86 H Pulse Oximetry 96 Oxygen Delivery Method Room Air BMI result Body Mass Index 26.4 Const Other: Patient was awake and alert. She looked mildly uncomfortable. HENMT Other: The face is symmetrical. ?Mucous membranes moist. Eyes Other: Pupils are round equal, conjunctivae are clear, extraocular movements intact Neck Neck: Yes no JVD Resp Effort & Inspection: normal respiratory effort Auscultation: clear to auscultation bilaterally Cardio Rate: regular rate Rhythm: regular rhythm Heart sounds: S1 normal heart sound present and S2 normal heart sound present GI Other: Large surgical dressing in the mid abdomen near the epigastrium. Diffuse abdominal tenderness in all quadrants. Skin Other: Skin is pale Neuro Other: Is awake, alert, with a normal mental status. Cranial nerves are grossly intact, moving extremities normally Extrem Other: No peripheral edema Medications Administered Generic Name Dose Route Start Last Admin Trade Name Freq PRN Reason Stop Dose Admin Sodium Chloride 1,000 mls @ 999 mls/hr 12/01/23 08:15 12/01/23 08:49 Ns IV 12/01/23 09:15 999 mls/hr .Q1H1M MOO Administration Discontinued Medications Generic Name Dose Route Start Last Admin Trade Name Freq PRN Reason Stop Dose Admin Droperidol 0.625 mg 12/01/23 05:01 12/01/23 05:35 Droperidol 5 Mg/2 Ml Vial IVPUSH 12/01/23 05:02 0.625 mg ONCE ONE Administration Famotidine 20 mg 12/01/23 08:05 12/01/23 08:48 Famotidine/Pf 20 Mg/2 Ml Vial IVPUSH 12/01/23 08:06 20 mg ONCE ONE Administration Sodium Chloride 1,000 mls @ 999 mls/hr 12/01/23 05:15 12/01/23 08:43 Ns IV 12/01/23 06:15 Infused .Q1H1M MOO Infusion Iohexol 85 ml 12/01/23 05:19 12/01/23 05:19 Iohexol 350 Mg/Ml 100 Ml Infus..Btl IV 12/01/23 05:20 85 ml ONCE ONE Administration Morphine Sulfate 4 mg 12/01/23 05:01 12/01/23 05:34 Morphine Sulfate 4 Mg/Ml Cartridge IVPUSH 12/01/23 05:02 4 mg ONCE ONE Administration Protocol Medical Decision Making Medical Decision Making MDM Narrative: The patient is a 58-year-old woman who had a prolonged hospitalization last summer following perforated stomach ulcer. She has a slowly healing surgical wound in her mid abdomen for which she goes to the [facility] every 2 weeks. She presents with 1 day of upper abdominal pain and vomiting. Labs are fairly unremarkable. The patient was treated with a dose of morphine with significant improvement. CT of the abdomen and pelvis was done that shows changes in the stomach. The radiologist was concerned about a possible mass versus an inflammatory process. I consulted Dr. Desai of General surgery and Dr. Hilario of Gastroenterology. At this point we will be getting a 2nd CT scan with oral contrast to better evaluate the abnormalities in the stomach and make a decision about whether additional investigations or management is necessary. Overall the patient has seemed fairly stable in the emergency room. I will be signing out the patient to the oncoming emergency physician pending the results of the 2nd CT scan and additional input from the consultants. Lab Data 12/01/23 02:16 12/01/23 02:17 Labs: Lab Results 12/01/23 12/01/23 12/01/23 Range/Units 02:16 02:17 04:03 WBC 10.0 (4.8-10.8) X10*3/uL RBC 4.41 (4.20-5.50) X10*6/uL Hgb 11.5 L (12.0-16.0) g/dl Hct 35.1 L (37.0-47.0) % MCV 79.6 L (80.0-98.0) fL MCH 26.1 L (27.0-33.0) pg MCHC 32.8 (31.0-35.0) g/dl RDW 20.7 H (11.0-16.0) % Plt Count 324 (160-400) X10*3/uL MPV 10.4 (9.4-12.3) fL Immature Gran % (Auto) 0.3 (0.0-0.4) % Neut % (Auto) 80.2 H (45-73) % Lymph % (Auto) 12.5 L (20-40) % Butts % (Auto) 6.3 (2-11) % Eos % (Auto) 0.4 (0-4) % Baso % (Auto) 0.3 (0-2) % Lymph # (Auto) 1.3 (1.2-4.9) X10*3/uL Butts # (Auto) 0.6 (0.1-1.2) X10*3/uL Eos # (Auto) 0.0 (0.0-0.4) X10*3/uL Baso # (Auto) 0.0 (0.0-0.2) X10*3/uL Abs Immat Gran (auto) 0.03 (0.00-0.03) X10*3/uL Absolute Neuts (auto) 8.1 (2.0-8.3) x10*3/uL Absolute Nucleated RBC 0.000 (0.0-0.012) X10*3/uL Nucleated RBC % (auto) 0.0 (0.0-0.2) /100WBC Sodium 140 (135-145) mmol/L Potassium 3.7 (3.3-5.1) mmol/L Chloride 106 (96-108) mmol/L Carbon Dioxide 21 L (22-29) mmol/L Anion Gap 17 (12-20) BUN 6 L (9-16) mg/dL Creatinine 0.72 (0.5-1.4) mg/dL Estim Creat Clear Calc 73.5 Estimated GFR > 60 Random Glucose 114 (60-115) mg/dL Calcium 9.8 (8.4-10.2) mg/dL Total Bilirubin 0.4 (0.0-1.0) mg/dL AST 12 (5-31) U/L ALT 9 (0-31) U/L Alkaline Phosphatase 78 (39-117) U/L Troponin I High Sens < 2.7 (<3.5-17.0) ng/L Total Protein 8.4 H (6.5-8.0) g/dL Albumin 3.7 (3.5-5.0) g/dL Lipase 33 (8-78) U/L Urine Color Yellow Urine Appearance Turbid Urine pH 8.0 (5.0-9.0) Ur Specific [place] 1.020 (1.005-1.025) Urine Protein 30 (1+) H (Neg-Trace) mg/dL Urine Glucose (UA) Negative (Negative) mg/dL Urine Ketones 15 (Negative) mg/dL Urine Blood Small (1+) H (Negative) Urine Nitrite Negative (Negative) Ur Leukocyte Esterase Negative (Negative) Urine RBC >20 H (0-2) /HPF Urine WBC 0-5 (0-5) /HPF Ur Squamous Epith Cells 3-5 (0-2) /HPF Urine Bacteria None Seen (None Seen) Hyaline Casts 3-5 (0-2) /LPF Urine Opiates Screen (Not Detect) Urine Fentanyl Screen (Not Detect) Ur Barbiturates Screen (Not Detect) Ur Phencyclidine Scrn (Not Detect) Ur Amphetamines Screen (Not Detect) U Benzodiazepines Scrn (Not Detect) Urine Cocaine Screen (Not Detect) U Marijuana (THC) Screen (Not Detect) 12/01/23 Range/Units 04:17 WBC (4.8-10.8) X10*3/uL RBC (4.20-5.50) X10*6/uL Hgb (12.0-16.0) g/dl Hct (37.0-47.0) % MCV (80.0-98.0) fL MCH (27.0-33.0) pg MCHC (31.0-35.0) g/dl RDW (11.0-16.0) % Plt Count (160-400) X10*3/uL MPV (9.4-12.3) fL Immature Gran % (Auto) (0.0-0.4) % Neut % (Auto) (45-73) % Lymph % (Auto) (20-40) % Butts % (Auto) (2-11) % Eos % (Auto) (0-4) % Baso % (Auto) (0-2) % Lymph # (Auto) (1.2-4.9) X10*3/uL Butts # (Auto) (0.1-1.2) X10*3/uL Eos # (Auto) (0.0-0.4) X10*3/uL Baso # (Auto) (0.0-0.2) X10*3/uL Abs Immat Gran (auto) (0.00-0.03) X10*3/uL Absolute Neuts (auto) (2.0-8.3) x10*3/uL Absolute Nucleated RBC (0.0-0.012) X10*3/uL Nucleated RBC % (auto) (0.0-0.2) /100WBC Sodium (135-145) mmol/L Potassium (3.3-5.1) mmol/L Chloride (96-108) mmol/L Carbon Dioxide (22-29) mmol/L Anion Gap (12-20) BUN (9-16) mg/dL Creatinine (0.5-1.4) mg/dL Estim Creat Clear Calc Estimated GFR Random Glucose (60-115) mg/dL Calcium (8.4-10.2) mg/dL Total Bilirubin (0.0-1.0) mg/dL AST (5-31) U/L ALT (0-31) U/L Alkaline Phosphatase (39-117) U/L Troponin I High Sens (<3.5-17.0) ng/L Total Protein (6.5-8.0) g/dL Albumin (3.5-5.0) g/dL Lipase (8-78) U/L Urine Color Urine Appearance Urine pH (5.0-9.0) Ur Specific [place] (1.005-1.025) Urine Protein (Neg-Trace) mg/dL Urine Glucose (UA) (Negative) mg/dL Urine Ketones (Negative) mg/dL Urine Blood (Negative) Urine Nitrite (Negative) Ur Leukocyte Esterase (Negative) Urine RBC (0-2) /HPF Urine WBC (0-5) /HPF Ur Squamous Epith Cells (0-2) /HPF Urine Bacteria (None Seen) Hyaline Casts (0-2) /LPF Urine Opiates Screen Not Detected (Not Detect) Urine Fentanyl Screen Not Detected (Not Detect) Ur Barbiturates Screen Not Detected (Not Detect) Ur Phencyclidine Scrn Not Detected (Not Detect) Ur Amphetamines Screen Not Detected (Not Detect) U Benzodiazepines Scrn Not Detected (Not Detect) Urine Cocaine Screen Not Detected (Not Detect) U Marijuana (THC) Screen Not Detected (Not Detect) Discharge Plan Discharge Clinical Impression: Abdominal pain, Vomiting Patient Disposition: Still a Patient Prescriptions: No Action alginate dressing 4 X 4 bandage 1 ea topical DAILY Qty: 10 0RF multivitamin Tablet 1 tab PO DAILY miconazole nitrate 2 % Aerosol Powder 1 spray TOPICAL BID melatonin 3 mg Tablet 6 mg PO BEDTIME guaifenesin 100 mg/5 mL Liquid 200 mg PO Q4H PRN (Reason: Cough) bisacodyl 10 mg Suppository 10 mg RI DAILY PRN (Reason: Constipation) metoprolol tartrate 25 mg Tablet 25 mg PO BID acetaminophen 160 mg/5 mL (5 mL) Solution 650 mg PO Q6H PRN (Reason: Pain) venlafaxine 75 mg capsule,extended release 24hr 75 mg PO DAILY trazodone 50 mg Tablet 50 mg PO BEDTIME PRN (Reason: Insomnia) Eliquis 5 mg Tablet 5 mg PO BID Qty: 60 0RF octreotide acetate 100 mcg/mL Solution 300 mcg subcut Q8H 60 Days Qty: 540 0RF omeprazole 40 mg capsule,delayed release(DR/EC) 40 mg PO BID Qty: 60 0RF
--- NOTE | 2023-12-01 05:15 | PC.NURSE ---
Patient taken to CT scan.
[2023-12-01] MEDS: iohexoL 350 MG/ML 100 ML INFUS..BTL 85 ML IV (05:19)
[2023-12-01 05:34] VITALS: RESP 18
[2023-12-01] MEDS: Morphine Sulfate 4 MG/ML CARTRIDGE IVPUSH (05:34)
[2023-12-01] MEDS: droPERidol 5 MG/2 ML VIAL 0.625 MG IVPUSH (05:35)
[2023-12-01] MEDS: 0.9 % Sodium Chloride 1,000 ML 999 ML IV ×2 (05:35→08:49)
[2023-12-01 06:00] VITALS: BP 184/86; PULSE 102; RESP 18; TEMP 36.9; O2SAT 96
--- NOTE | 2023-12-01 06:13 | PC.NURSE ---
Patient afebrile, BP 184/96, P 102. Patient denies headache/chest pain/SOB. ED provider notified, no new orders at this time.
--- NOTE | 2023-12-01 06:19 | MHC.EDTECH ---
Hourly rounds and vitals completed,patient's BP is elevated 184/96 HR 102, RN Andie made aware, Patient is resting at this time and call paredes in reach.
[2023-12-01 08:21] LABS: Amphetamine Screen Urine Not Detected (Not Detect); Barbiturates, Urine Not Detected (Not Detect); Benzodiazepines Screen Urine Not Detected (Not Detect); Cannabinoid Screen Urine Not Detected (Not Detect); Cocaine Screen Urine Not Detected (Not Detect); Fentanyl, urine Not Detected (Not Detect); Opiate Screen Urine Not Detected (Not Detect); Phencyclidine Screen Urine Not Detected (Not Detect)
[2023-12-01] MEDS: Famotidine/PF 20 MG/2 ML VIAL IVPUSH (08:48)
--- NOTE | 2023-12-01 09:45 | PM.OP ---
Brief Operative Note Date of Service: 12/01/23 Pre-op diagnosis: Screening Post-op diagnosis: other (Mild diverticulosis) Procedure: Colonoscopy to the cecum and TI Surgeon: Jamel Hilario MD Anesthesia: MAC Was an Research Manufacturing Operator used for this Procedure?: No Estimated blood loss (mL): 0 Pathology: none sent Condition: stable Disposition: PACU
--- NOTE | 2023-12-01 10:16 | PC.NURSE ---
assumed care of pt at 0700. pt a&o x4, pleasant, calm, and cooperative. pt resting quietly on stretcher with at bedside. pt medicated per jan. pt ambulatory for bathroom with steady gait. call paredes within reach. rr even/unlabored. plan of care ongoing.
[2023-12-01] MEDS: Diatrizoate Meglumine, Sodium 30 ML SOLUTION PO (10:37)
--- NOTE | 2023-12-01 13:21 | PM.CNGS ---
History of Present Illness Consult details Consult date: 12/01/23 Requesting physician: Du Teixeira Narrative: 58-year-old female patient well known to the surgical service with history of a gastric perforation secondary to cocaine use, status post Francis patch which subsequently failed requiring partial gastrectomy. Patient had a stormy postoperative course requiring ICU admission with development of a nonhealing abdominal wound. Patient was subsequently transferred to [facility] but subsequently returned for continued bowel rest, TPN and local wound care with wound VAC. her wounds are now much improved and she is being followed by the [facility] and [facility] with 3 times a week dressing changes. She does have intermittent episodes of increased abdominal pain associated with nausea and vomiting which he is able to manage at home. Last evening however the pain was too severe and she subsequently presented to the emergency department. Pain is mainly in the epigastrium and right upper quadrant. She subsequent underwent CT abdomen and pelvis which revealed masslike thickening of the greater curvature of the stomach as well as soft tissue swelling suggestive of phlegmon. Communication to the skin is identified but no contrast is noted within the track. The patient's WBC is normal. This morning she feels improved with decreased abdominal pain and no further nausea and vomiting. She feels she can go home now. Review of Systems Constitutional: Constitutional: Denies chills, Denies fever(s) and Denies malaise ENT: Denies dizziness Cardiovascular: Cardiovascular: Denies chest pain and Denies dyspnea Respiratory: Respiratory: Denies dyspnea Gastrointestinal: Gastrointestinal: Reports abdominal pain, Denies diarrhea, Reports nausea and Reports vomiting Integumentary/Breasts: Skin/Breast: Reports as per HPI, Denies rash and Denies jaundice Neurologic: Denies dizziness PMF Past Medical History Medical History Gastric leak Cocaine abuse Polysubstance abuse Hypercholesterolemia High cholesterol Depression HTN (hypertension) Acute anxiety Surgical History Surgical History S/P partial gastrectomy Social History Social History (Reviewed 04/16/23 @ 22:24 by Evan Goetz MD, [facility], [facility]) Household Members: None Housing: Apartment Do you presently have visiting nurse or other home services: Yes (daughter is SENIOR FINANCIAL ANALYST) Unable to assess alcohol history related to: Unknown Alcohol intake: former Comment: Refuses bed alarm. Patient Tobacco Use Status: Never used Tobacco Smoked in Last 30 Days: No Use of substances other than those prescribed or required for medical reasons: No Advance Directives: No Advance Directives Information Provided: No Patient : No service: No Current occupational status: disabled Meds Allergies Allergy/AdvReac Type Severity Reaction Status Date / Time aspirin [ASPIRIN] Allergy Intermediate RASH, Verified 08/03/23 07:46 itching, facial flushing haro Allergy Intermediate ITCHING,KIRSTEN Verified 08/03/23 07:46 H peach [[place]] Allergy Intermediate ITCHING, Verified 08/03/23 07:46 RASH prochlorperazine Allergy Intermediate SWELLING, Verified 08/03/23 07:46 [From COMPAZINE] RASH Home Medications Medication Instructions Recorded Confirmed Last Taken Type acetaminophen 160 mg/5 mL (5 mL) 650 mg PO Q6H PRN Pain 07/14/23 07/14/23 Unknown History oral solution bisacodyl 10 mg rectal suppository 10 mg NC DAILY PRN Constipation 07/14/23 07/14/23 Unknown History guaifenesin 100 mg/5 mL oral liquid 200 mg PO Q4H PRN Cough 07/14/23 07/14/23 Unknown History melatonin 3 mg tablet 6 mg PO BEDTIME 07/14/23 07/14/23 Unknown History metoprolol tartrate 25 mg tablet 25 mg PO BID 07/14/23 07/14/23 Unknown History miconazole nitrate 2 % topical 1 spray topical BID 07/14/23 07/14/23 Unknown History spray powder multivitamin 1 tab PO DAILY 07/14/23 07/14/23 Unknown History trazodone 50 mg tablet 50 mg PO BEDTIME PRN Insomnia 07/14/23 07/14/23 Unknown History venlafaxine 75 mg capsule,extended 75 mg PO DAILY 07/14/23 07/14/23 Unknown History release 24 hr Physical Exam Vital Signs: Vital Signs: Last Vital Signs Temp 98.4 F 12/01/23 06:00 Pulse 102 H 12/01/23 06:00 Resp 18 12/01/23 06:00 BP 184/86 H 12/01/23 06:00 Pulse Ox 96 12/01/23 06:00 O2 Del Method Room Air 12/01/23 06:00 BMI result Body Mass Index 26.4 Const: General: comfortable, no acute distress and alert Orientation/consciousness: patient oriented x3 Resp: Effort & Inspection: normal respiratory effort Cardio: Rate: tachycardic GI: Other: Soft and nondistended, midline wound covered with dry sterile dressings. Small dressing in the left lower quadrant as well. Palpation (GI): Soft to palpation, nontender, no guarding and not rigid Percussion: Yes normal to percussion Neuro: General: patient oriented x3 and moves all extremities Results Labs 12/01/23 02:16 12/01/23 02:17 Labs: Abnormal lab results 12/01/23 12/01/23 12/01/23 Range/Units 02:16 02:17 04:03 Hgb 11.5 L (12.0-16.0) g/dl Hct 35.1 L (37.0-47.0) % MCV 79.6 L (80.0-98.0) fL MCH 26.1 L (27.0-33.0) pg RDW 20.7 H (11.0-16.0) % Neut % (Auto) 80.2 H (45-73) % Lymph % (Auto) 12.5 L (20-40) % Carbon Dioxide 21 L (22-29) mmol/L BUN 6 L (9-16) mg/dL Total Protein 8.4 H (6.5-8.0) g/dL Urine Protein 30 (1+) H (Neg-Trace) mg/dL Urine Blood Small (1+) H (Negative) Urine RBC >20 H (0-2) /HPF Short CBC 12/01/23 Range/Units 02:16 WBC 10.0 (4.8-10.8) X10*3/uL Hgb 11.5 L (12.0-16.0) g/dl Hct 35.1 L (37.0-47.0) % Plt Count 324 (160-400) X10*3/uL BMP 12/01/23 02:17 Sodium 140 Potassium 3.7 Chloride 106 Carbon Dioxide 21 L BUN 6 L Creatinine 0.72 Calcium 9.8 Liver Function 12/01/23 Range/Units 02:17 Total Bilirubin 0.4 (0.0-1.0) mg/dL AST 12 (5-31) U/L ALT 9 (0-31) U/L Alkaline Phosphatase 78 (39-117) U/L Albumin 3.7 (3.5-5.0) g/dL Urine 12/01/23 Range/Units 04:03 Urine Color Yellow Urine Appearance Turbid Urine pH 8.0 (5.0-9.0) Ur Specific [place] 1.020 (1.005-1.025) Urine Protein 30 (1+) H (Neg-Trace) mg/dL Urine Glucose (UA) Negative (Negative) mg/dL All other labs normal. Assessment and Plan (1) Vomiting: Qualifiers: Nausea presence: with nausea Vomiting type: unspecified Qualified Code(s): R11.2 - Nausea with vomiting, unspecified Status: Acute (2) Abdominal pain: Qualifiers: Abdominal location: generalized Qualified Code(s): R10.84 - Generalized abdominal pain Status: Acute (3) Gastric perforation: Status: Acute Plan 58-year-old female patient with a complicated operative history with a prolonged draining wound. Patient is found to have a thickened gastric wall with areas of phlegmon which appear more a postoperative change rather than neoplasm. Patient may have a stricture wishes contributing to the nausea and vomiting. Discussed possible admission with the patient with IV hydration in gastroenterology consultation versus discharge with outpatient evaluation. The patient currently feels comfortable enough to be discharged to home. She may do best on liquid diet including dietary supplementation. She expressed understanding and agrees with the plan. Procedures Date of Service Date of Service: 12/01/23
== END 2023-12-01 12:05 | disposition home or self-care (01) ==
PROVIDERS: Emergency Medicine; Emergency Provider Emergency Medicine; PCP Registered Nurse
DX: R10.9 Unspecified abdominal pain (principal); R11.2 Nausea with vomiting, unspecified; I10 Essential (primary) hypertension; E78.00 Pure hypercholesterolemia, unspecified; F14.10 Cocaine abuse, uncomplicated; Z79.01 Long term (current) use of anticoagulants
CPT/HCPCS: 36415; 74176; 74177; 80053; 80307; 81001; 83690; 84484; 85025; 93005; 96361; 96374; 96375; 99285; J1790; J2270; Q9967

== ENCOUNTER → 2023-12-01 01:57 | Outpatient (BNV) | payer MEDICAID, SELFPAY | PROVIDERS: Emergency Provider Emergency Medicine; PCP Registered Nurse; Visit Provider Internal Medicine | DX: I49.1 Atrial premature depolarization (principal); R94.31 Abnormal electrocardiogram [ECG] [EKG] | CPT/HCPCS: 93010 ==

== ENCOUNTER → 2023-12-01 02:47 | Outpatient (BNV) | payer MEDICAID, SELFPAY | PROVIDERS: Emergency Provider Emergency Medicine; PCP Registered Nurse; Visit Provider Surgery | DX: R11.2 Nausea with vomiting, unspecified (principal); R10.84 Generalized abdominal pain; K25.5 Chronic or unspecified gastric ulcer with perforation | CPT/HCPCS: 99283 ==

== ENCOUNTER 2024-02-02 18:56 | Outpatient (REF) | payer MEDICAID, SELFPAY | END 2024-02-02 18:57 | disposition home or self-care (01) | LOC: WCCF 18:56 | PROVIDERS: Visit Provider Physician Assistant | DX: S31.109A Unspecified open wound of abdominal wall, unspecified quadrant without penetration into peritoneal cavity, initial encounter (principal); X58.XXXA Exposure to other specified factors, initial encounter; Y93.9 Activity, unspecified; Y92.9 Unspecified place or not applicable; Y99.9 Unspecified external cause status | CPT/HCPCS: 87070; 87077; 87186; 87205 ==

== ENCOUNTER 2024-02-18 07:46 | Emergency (ER) | payer MEDICAID, SELFPAY ==
[2024-02-18] VITALS (8 sets, daily range): BP systolic 110–171; BP diastolic 63–90; PULSE 69–86; RESP 16–20; TEMP 36.4–37.1; O2SAT 97–100; BMI 25.3
--- NOTE | 2024-02-18 | ECG_ITS ---
Test Reason : ABD PAIN Blood Pressure : / mmHG Vent. Rate : 076 BPM Atrial Rate : 076 BPM P-R Int : 128 ms QRS Dur : 076 ms QT Int : 420 ms P-R-T Axes : -68 039 016 degrees QTc Int : 472 ms Unusual P axis and short NE, probable junctional tachycardia Abnormal ECG When compared with ECG of 01-DEC-2023 02:09, Junctional rhythm has replaced Sinus rhythm Referred By: Tj Collier Electronically Signed By:Francisco Leiva
--- NOTE | ~2024-02-18 | CT_ITS ---
EXAMINATION: CT ABDOMEN AND PELVIS WITHOUT CONTRAST CLINICAL INFORMATION: Abdominal pain. COMPARISON: CT abdomen/pelvis 12/01/2023. TECHNIQUE: Multidetector volumetric imaging was performed from the superior aspect of the liver through the pubic symphysis. Sagittal and coronal reformatted images were obtained on the technologist's workstation. This CT examination was performed using dose optimization techniques as appropriate, variously including the following: *Automated exposure control *Adjustment of mA and/or kV according to patient size (this includes techniques or standardized protocols for targeted exams where dose is matched to indication/reason for exam; i.e. extremities or head) *Use of iterative reconstruction technique DLP: 347 mGy-cm FINDINGS: The lack of intravenous contrast limits evaluation of the solid visceral organs including the liver, spleen, pancreas, and kidneys. LUNG BASES: Unchanged platelike opacities in the lower lungs as well a few areas of subpleural thickening. Trace amount of pericardial fluid. LIVER, GALLBLADDER, AND BILIARY TREE: A few too small to characterize liver hypodensities are unchanged. Liver is normal in size, morphology and attenuation. Cholecystectomy. Stable mild extrahepatic biliary ductal dilatation. No significant intrahepatic biliary ductal dilatation. PANCREAS: Limited noncontrast examination. No significant peripancreatic inflammatory changes. No main ductal dilatation. SPLEEN: Amorphous heterogeneous abnormality extending from the upper aspect of the spleen to the diaphragmatic surface for instance measuring 3.3 x 2.5 cm (3:15) is not significantly changed. Small amount of immediately adjacent left-sided pleural fluid is unchanged. ADRENAL GLANDS: Unremarkable. KIDNEYS AND URETERS: Nonobstructed 0.3 cm calculus in the region of the right ureteropelvic junction. Multiple additional nonobstructing right-sided renal calculi. BLADDER: Unremarkable. GASTROINTESTINAL TRACT: Very complex examination. Redemonstration of abnormal amorphous wall thickening of the stomach as well as amorphous soft tissue thickening in the left anterior peritoneum extending to the abdominal wall and left lower quadrant, tracking in between multiple loops of the small bowel which are now more dilated compared to 12/01/2023 worrisome for some degree of small bowel obstruction. The abnormal thickening of the stomach appears to connect with a fistulous tract with the amorphous soft tissue thickening of the peritoneum (coronal image 31 series 6). There is also an additional possible fistula connection in between these amorphous peritoneal thickening and the skin in the left upper abdomen (3:29). In the left lower abdomen, the abnormal peritoneal thickening is also inseparable from the upper uterus/left adnexa which are tented and displaced superiorly and to the left. ABDOMINAL WALL: Abdominal rectus diastases. As above, possible fistulous connection in the left upper abdominal wall. LYMPH NODES: Scattered prominent mesenteric and retroperitoneal lymph nodes, not significantly changed. VASCULAR: Normal caliber abdominal aorta. PELVIC VISCERA: Uterus is tented and displaced superiorly and to the left, similar to prior. OSSEOUS STRUCTURES: No acute or aggressive appearing osseous findings. Degenerative changes of the spine. CT/CT abdomen pelvis wo IV con IMPRESSION: Quite complex examination with redemonstration of a large area of amorphous soft tissue thickening involving the left anterior peritoneal cavity tracking between multiple loops of small bowel which are now more dilated than compared to 12/01/2023 worrisome for a developing obstruction. This amorphous soft tissue thickening connects with abnormal wall thickening in the greater curvature of the stomach, left abdominal wall/skin as well as possibly left uterine fundus/left adnexa. There are additional areas of amorphous thickening superior to the spleen extending to the diaphragmatic surface and with associated pleural thickening and a small left pleural effusion. Unsure if findings may be related with sequela of a neoplasia with metastatic peritoneal disease versus sequela of an infectious/inflammatory processes with perforation and phlegmonous changes. Evaluation of abscess and drainable collection is limited in the absence of oral and IV contrast. Consider further evaluation with oral and IV contrast as clinically indicated.
--- NOTE | 2024-02-18 08:00 | ED.ABDPAIN ---
HPI - Abdominal Pain General Chief Complaint: Abdominal Pain Stated Complaint: ABD PAIN PER EMS Time Seen by Provider: 02/18/24 07:52 Source: patient Mode of arrival: ambulatory Limitations: no limitations History of Present Illness HPI narrative: 58-year-old female with extensive past medical history including gastric perforation secondary to cocaine use status post Francis patch which subsequently failed requiring partial gastrectomy patient had a stormy postoperative course requiring ICU admission nonhealing abdominal wounds and was subsequently transferred to [facility] patient has required continued bowel rest TPN and local wound care with wound VAC. Patient no longer has a wound VAC but still has partially open wound. Patient is here complaining of abdominal pain that started last night patient has similar issue back in November no seen by Dr. Desai in the ER. Patient states that last night she had terrible abdominal pain it is improved now she takes some tramadol she states she did eat last night she has not had anything this morning she would have 2 episodes of vomiting as well this morning. MD elicited complaint: abdominal pain Related Data Home Medications ?Medication ?Instructions ?Recorded ?Confirmed acetaminophen 160 mg/5 mL (5 mL) 650 mg PO Q6H PRN Pain 07/14/23 07/14/23 oral solution bisacodyl 10 mg rectal suppository 10 mg NV DAILY PRN Constipation 07/14/23 07/14/23 guaifenesin 100 mg/5 mL oral liquid 200 mg PO Q4H PRN Cough 07/14/23 07/14/23 melatonin 3 mg tablet 6 mg PO BEDTIME 07/14/23 07/14/23 metoprolol tartrate 25 mg tablet 25 mg PO BID 07/14/23 07/14/23 miconazole nitrate 2 % topical 1 spray topical BID 07/14/23 07/14/23 spray powder multivitamin 1 tab PO DAILY 07/14/23 07/14/23 trazodone 50 mg tablet 50 mg PO BEDTIME PRN Insomnia 07/14/23 07/14/23 venlafaxine 75 mg capsule,extended 75 mg PO DAILY 07/14/23 07/14/23 release 24 hr Previous Rx's ?Medication ?Instructions ?Recorded apixaban 5 mg tablet (Eliquis) 5 mg PO BID #60 tabs 07/15/23 octreotide acetate 100 mcg/mL 300 mcg (3 mL) subcut Q8H 60 days 07/15/23 injection solution #540 mL omeprazole 40 mg capsule,delayed 40 mg PO BID #60 caps 07/18/23 release alginate dressing 4 X 4 1 ea topical DAILY #10 ea 08/03/23 ondansetron 4 mg disintegrating 4 mg PO Q8H PRN nausea and 12/01/23 tablet vomiting #20 tabs Allergies Allergy/AdvReac Type Severity Reaction Status Date / Time aspirin [ASPIRIN] Allergy Intermediate RASH, Verified 02/18/24 07:56 itching, facial flushing haro Allergy Intermediate ITCHING,KIRSTEN Verified 02/18/24 07:56 H peach [[place]] Allergy Intermediate ITCHING, Verified 02/18/24 07:56 RASH prochlorperazine Allergy Intermediate SWELLING, Verified 02/18/24 07:56 [From COMPAZINE] RASH Review of Systems Review of Systems Review of systems: General: Patient denies any fever chills recent illness or falls Musculoskeletal: Denies back pain or body aches or other injuries HEENT: denies headache, runny nose, ear pain Respiratory: denies shortness of breath, cough Cardiovascular: no chest pain or palpitations : denies dysuria, frequency Abdomen: nausea vomiting generalized abdominal pain Extremities: no swelling, no pain Skin: no diaphoresis Yes all other systems are reviewed and are negative PMFSH Past Medical History Medical History Gastric leak Cocaine abuse Polysubstance abuse Hypercholesterolemia High cholesterol Depression HTN (hypertension) Acute anxiety Surgical History S/P partial gastrectomy Social History Social History Household Members: None Housing: Apartment Do you presently have visiting nurse or other home services: Yes (daughter is FOREST MANAGEMENT PROFESSOR) Unable to assess alcohol history related to: Unknown Alcohol intake: former Comment: Refuses bed alarm. Patient Tobacco Use Status: Never used Tobacco Smoked in Last 30 Days: No Use of substances other than those prescribed or required for medical reasons: No Advance Directives: No Advance Directives Information Provided: Yes service: No Current occupational status: disabled Physical Exam ED Vital Signs: Vital Signs - 24 hr 02/18/24 07:52 02/18/24 07:57 02/18/24 09:35 Temperature 97.6 F Pulse Rate 69 80 Respiratory Rate 20 20 18 Blood Pressure 152/84 H 167/89 H Pulse Oximetry 100 Oxygen Delivery Method Room Air 02/18/24 12:24 Temperature 98.8 F Pulse Rate 75 Respiratory Rate 20 Blood Pressure 171/90 H Pulse Oximetry 100 Oxygen Delivery Method Room Air BMI result Body Mass Index 25.3 General: Well-appearing well-nourished in no signs of distress HEENT: Normocephalic atraumatic Neck: No signs of JVD, no masses no tenderness or lymphadenopathy Cardiovascular: Regular rate and rhythm Respiratory: Clear to auscultation bilaterally Abdomen: Soft obese with large surgical scar to mid abdomen with a few nonhealing areas closer to the xiphoid process patient is tender everywhere I touch on her abdomen Extremities: Normal pedal pulses no signs of edema Skin: Dry warm no rashes Back: No tenderness full ROM Course Course Course Narrative: Today at [place] we have an issue where we do not have the ability to run chemistries in real time. Our chemistry analyzer lab is down. We are sending out labs to a different hospital to taking over 4 hours to get results today. I do think the benefit of getting a CT scan early outweighs the risk at waiting for a creatinine. Patient also has history of renal failure I think the patient would benefit from getting a CAT scan without IV contrast I will change the order at this time. Reevaluation(s) Reevaluation #1: CT shows concerns concerning for obstruction also infection versus known scar versus infection. I did consult Dr. Banerjee who did come and see the patient since then his urine has resulted shows UTI start the patient on Rocephin Medical Decision Making Medical Decision Making [facility] Narrative: I will give the patient for CT scan I will check labs the patient morphine Zofran and fluids and reassess Differential Diagnosis Differential Diagnoses: The differential diagnosis associated with the presentation includes Acute surgical abdomen perforation complications previous surgery chronic surgical wound cellulitis of the abdomen sepsis Admission/Observation Consideration of admission/observation: Escalation of care including admission/observation considered Consult Healthcare Provider Management of the patient was discussed with: Prototype Machinist Lab Data [facility] Lab Attestation statement: I reviewed the patient's lab results. 02/18/24 08:12 02/18/24 08:38 Labs: Lab Results 04/07/24 04/07/24 04/07/24 Range/Units 08:12 08:38 12:26 WBC 8.3 (4.8-10.8) X10*3/uL RBC 5.05 (4.20-5.50) X10*6/uL Hgb 13.2 (12.0-16.0) g/dl Hct 39.4 (37.0-47.0) % MCV 78.0 L (80.0-98.0) fL MCH 26.1 L (27.0-33.0) pg MCHC 33.5 (31.0-35.0) g/dl RDW 15.7 (11.0-16.0) % Plt Count 335 (160-400) X10*3/uL MPV 10.2 (9.4-12.3) fL Immature Gran % (Auto) 0.4 (0.0-0.4) % Neut % (Auto) 85.0 H (45-73) % Lymph % (Auto) 11.7 L (20-40) % [place] % (Auto) 2.3 (2-11) % Eos % (Auto) 0.4 (0-4) % Baso % (Auto) 0.2 (0-2) % Lymph # (Auto) 1.0 L (1.2-4.9) X10*3/uL [place] # (Auto) 0.2 (0.1-1.2) X10*3/uL Eos # (Auto) 0.0 (0.0-0.4) X10*3/uL Baso # (Auto) 0.0 (0.0-0.2) X10*3/uL Abs Immat Gran (auto) 0.03 (0.00-0.03) X10*3/uL Absolute Neuts (auto) 7.1 (2.0-8.3) x10*3/uL Absolute Nucleated RBC 0.000 (0.0-0.012) X10*3/uL Nucleated RBC % (auto) 0.0 (0.0-0.2) /100WBC PT 17.4 H (11.1-13.3) SEC INR 1.4 H (0.9-1.1) Sodium 137 (135-145) mmol/L Potassium 3.8 (3.3-5.1) mmol/L Chloride 107 (96-108) mmol/L Carbon Dioxide 20 L (22-29) mmol/L Anion Gap 14 (12-20) BUN 10 (9-16) mg/dL Creatinine 0.81 (0.5-1.4) mg/dL Estim Creat Clear Calc 64.0 Estimated GFR > 60 Random Glucose 117 H (60-115) mg/dL Calcium 9.7 (8.4-10.2) mg/dL Total Bilirubin 0.3 (0.0-1.0) mg/dL Direct Bilirubin 0.2 (0.0-0.5) mg/dL AST 14 (5-31) U/L ALT 9 (0-31) U/L Alkaline Phosphatase 84 (39-117) U/L Total Protein 8.2 H (6.5-8.0) g/dL Albumin 3.6 (3.5-5.0) g/dL Lipase 21 (8-78) U/L Urine Color Yellow Urine Appearance Cloudy Urine pH 8.5 (5.0-9.0) Ur Specific [place] 1.020 (1.005-1.025) Urine Protein 30 (1+) H (Neg-Trace) mg/dL Urine Glucose (UA) Negative (Negative) mg/dL Urine Ketones 40 (Negative) mg/dL Urine Blood Moderate (2+) H (Negative) Urine Nitrite Negative (Negative) Ur Leukocyte Esterase Moderate (2+) H (Negative) Urine RBC >20 H (0-2) /HPF Urine WBC 21-50 H (0-5) /HPF Ur Squamous Epith Cells 3-5 (0-2) /HPF Urine Bacteria Trace (None Seen) Hyaline Casts 3-5 (0-2) /LPF Blood Type O Positive Antibody Screen NEGATIVE Independent Interpretation I performed an independent interpretation of an: CT Scan Radiology Impression Discussion of test interpretation with radiology: I have reviewed the radiologist's reading. Medications Administered Generic Name Dose Route Start Last Admin Trade Name Freq PRN Reason Stop Dose Admin Sodium Chloride 1,000 mls @ 999 mls/hr 02/18/24 14:00 02/18/24 14:18 Ns IV 02/18/24 15:00 999 mls/hr .Q1H1M MOO Administration Discontinued Medications Generic Name Dose Route Start Last Admin Trade Name Freq PRN Reason Stop Dose Admin Haloperidol Lactate 5 mg 02/18/24 13:50 02/18/24 14:11 Haloperidol Lactate 5 Mg/Ml Vial IVPUSH 02/18/24 13:51 5 mg STAT STA Administration Sodium Chloride 1,000 mls @ 999 mls/hr 02/18/24 08:00 02/18/24 12:17 Ns IV 02/18/24 09:00 Infused .Q1H1M MOO Infusion Morphine Sulfate 4 mg 02/18/24 07:58 02/18/24 08:20 Morphine Sulfate 4 Mg/Ml Cartridge IVPUSH 02/18/24 07:59 4 mg ONCE ONE Administration Protocol Morphine Sulfate 4 mg 02/18/24 13:50 02/18/24 14:15 Morphine Sulfate 4 Mg/Ml Cartridge IVPUSH 02/18/24 13:51 4 mg ONCE ONE Administration Protocol Ondansetron HCl 4 mg 02/18/24 07:58 02/18/24 08:20 Ondansetron Hcl 4 Mg/2 Ml Vial IVPUSH 02/18/24 07:59 4 mg ONCE ONE Administration Discharge Plan Discharge Clinical Impression: Open wound of abdominal wall with complication, Abdominal pain, Obstruction of small intestine after surgical procedure, Urinary tract infection Patient Disposition: Admitted As Inpatient Prescriptions: No Action alginate dressing 4 X 4 bandage 1 ea topical DAILY Qty: 10 0RF multivitamin Tablet 1 tab PO DAILY miconazole nitrate 2 % Aerosol Powder 1 spray TOPICAL BID melatonin 3 mg Tablet 6 mg PO BEDTIME guaifenesin 100 mg/5 mL Liquid 200 mg PO Q4H PRN (Reason: Cough) bisacodyl 10 mg Suppository 10 mg NV DAILY PRN (Reason: Constipation) metoprolol tartrate 25 mg Tablet 25 mg PO BID acetaminophen 160 mg/5 mL (5 mL) Solution 650 mg PO Q6H PRN (Reason: Pain) venlafaxine 75 mg capsule,extended release 24hr 75 mg PO DAILY trazodone 50 mg Tablet 50 mg PO BEDTIME PRN (Reason: Insomnia) Eliquis 5 mg Tablet 5 mg PO BID Qty: 60 0RF octreotide acetate 100 mcg/mL Solution 300 mcg subcut Q8H 60 Days Qty: 540 0RF omeprazole 40 mg capsule,delayed release(DR/EC) 40 mg PO BID Qty: 60 0RF ondansetron 4 mg tablet,disintegrating 4 mg PO Q8H PRN (Reason: nausea and vomiting) Qty: 20 0RF Print Language: English
[2024-02-18 08:17] LABS: MANUAL DIFF FLAG NO
[2024-02-18 08:20] LABS: Basophils Percent Auto 0.2 % (0-2); Eosinophils Percent Auto 0.4 % (0-4); Hematocrit 39.4 % (37.0-47.0); Hemoglobin 13.2 g/dl (12.0-16.0); Imm Gran Abs Auto 0.03 X10*3/uL (0.00-0.03); Imm Gran Pct Auto 0.4 % (0.0-0.4); Lymphocytes Percent Auto 11.7 % (20-40); Mean Corpuscular HGB Conc 33.5 g/dl (31.0-35.0); Mean Corpuscular Hemoglobin 26.1 pg (27.0-33.0); Mean Platelet Volume 10.2 fL (9.4-12.3); Monocytes Absolute Auto 0.2 X10*3/uL (0.1-1.2); Monocytes Percent Auto 2.3 % (2-11); Neutrophils Absolute Auto 7.1 x10*3/uL (2.0-8.3); Platelet Count 335 X10*3/uL (160-400); Red Blood Count 5.05 X10*6/uL (4.20-5.50); Red Cell Distribution Width 15.7 % (11.0-16.0); White Blood Count 8.3 X10*3/uL (4.8-10.8)
[2024-02-18] MEDS: Morphine Sulfate 4 MG/ML CARTRIDGE IVPUSH ×2 (08:20→14:15)
[2024-02-18] MEDS: 0.9 % Sodium Chloride 1,000 ML 999 ML IV ×2 (08:20→14:18)
[2024-02-18] MEDS: ondansetron HCL 4 MG/2 ML VIAL IVPUSH (08:20)
--- NOTE | 2024-02-18 08:28 | PC.NURSE ---
pt is alert and oriented, skin appropriate for ethnicity, skin appears slightly pale, respirations even and unlabored, pt reports last April had abd surgery-stomach perforate, coming in today because last night started with sever all over bad pain vomiting, pt does had two abd wounds that she is following with the wound clinic-the wounds appear to be packed and some visible drainage on the gauze, abd soft but tender and bowel sounds in all 4 quadrants, pain 10/10, vs stable
[2024-02-18 08:40] LABS: INTERNATIONAL NORM RATIO 1.4 (0.9-1.1); Prothrombin Time 17.4 SEC (11.1-13.3)
--- NOTE | 2024-02-18 10:35 | PC.NURSE ---
pt is a very hard stick, unable to obtain the lactic acid, even the phlebotomy attempted unsuccessful, verbal order to hold for now
--- NOTE | 2024-02-18 12:29 | PC.NURSE ---
pt continuing to report 8/10 abd pain, provider aware, hypertensive - other vss, urine sample obtained, pt endorsed dysuria. no new orders at this time.
[2024-02-18 12:32] LABS: Appearance Urine Cloudy; Color Urine Yellow; Glucose Urine UA Negative (Negative); Leukocyte Esterase Urine Moderate (2+) (Negative); Nitrite Urine Negative (Negative); PH 8.5 (5.0-9.0); UMIC TRIGGER UACC YES; Urine Blood Moderate (2+) (Negative); Urine Ketones 40 mg/dL (Negative); Urine Protein 30 (1+) mg/dL (Neg-Trace)
[2024-02-18 12:37] LABS: Bacteria Urine Trace (None Seen); RBC Urine >20 /HPF (0-2); UACC Culture Trigger YES; WBC Urine 21-50 /HPF (0-5)
[2024-02-18 12:53] LABS: Alanine Aminotransferase 9 U/L (0-31); Albumin Level 3.6 g/dL (3.5-5.0); Alkaline Phosphatase 84 U/L (39-117); Anion Gap 14 (12-20); Aspartate Amino Transferase 14 U/L (5-31); Bilirubin Direct 0.2 mg/dL (0.0-0.5); Bilirubin Total 0.3 mg/dL (0.0-1.0); Blood Urea Nitrogen 10 mg/dL (9-16); Calcium 9.7 mg/dL (8.4-10.2); Carbon Dioxide 20 mmol/L (22-29); Chloride 107 mmol/L (96-108); Estimated Glomerular Filt Rate > 60; Glucose Random 117 mg/dL (60-115); Lipase 21 U/L (8-78); Potassium 3.8 mmol/L (3.3-5.1); Sodium 137 mmol/L (135-145); Total Protein 8.2 g/dL (6.5-8.0)
[2024-02-18] MEDS: Haloperidol Lactate 5 MG/ML VIAL IVPUSH (14:11)
--- NOTE | 2024-02-18 14:26 | P.HPGS_ITS ---
History of Present Illness History of Present Illness Date of Service: 02/20/24 Chief complaint: Abdominal Pain, hx of ulcer surgery Narrative: Glenys Pulido is a 58 year old female with complex surgical history, here because of the abdominal pain. She had undergone repair of a gastric perforation last year in April, Dr. Dean. She had to be brought back to the OR because of a leak from the perforation site. She continued to have significant leak postop from the repair. She had to be transferred to [facility]. She was admitted therefore for long periods of time because of this leak and she had drains in place and was on TPN. She had an open wound she required significant wound care She apparently had been doing well recently. However, she complained of pain on the abdomen mostly on the upper part since last night. She had 1 small episode emesis this morning She currently feels a little better compared to last night. She has no fever or chills. She passing flatus and BMs. Review of Systems Constitutional: Constitutional: Denies chills and Denies fever(s) Cardiovascular: Cardiovascular: Denies chest pain, Denies dyspnea and Denies dyspnea on exertion Respiratory: Respiratory: Denies cough, Denies dyspnea and Denies dyspnea on exertion Gastrointestinal: Gastrointestinal: Denies hematochezia and Denies change in bowel habits Genitourinary: Genitourinary: Denies hematuria Musculoskeletal: Musculoskeletal: Denies back pain and Denies limited range of motion Neurologic: Denies focal weakness and Denies convulsions Psychiatric: Psychiatric: Denies depression and Denies mood swings PMFSH Past Medical History Medical History Gastric leak Cocaine abuse Polysubstance abuse Hypercholesterolemia High cholesterol Depression HTN (hypertension) Acute anxiety Surgical History Surgical History S/P partial gastrectomy Social History Social History (Reviewed 04/16/23 @ 22:24 by Evan Goetz MD, [facility], [facility]) Household Members: None Housing: Apartment Do you presently have visiting nurse or other home services: Yes (daughter is AIRCRAFT QUALITY CONTROL INSPECTOR) Unable to assess alcohol history related to: Unknown Alcohol intake: former Comment: Refuses bed alarm. Patient Tobacco Use Status: Never used Tobacco service: No Current occupational status: disabled Meds Allergies Allergy/AdvReac Type Severity Reaction Status Date / Time aspirin [ASPIRIN] Allergy Intermediate RASH, Verified 02/18/24 07:56 itching, facial flushing haro Allergy Intermediate ITCHING,KIRSTEN Verified 02/18/24 07:56 H peach [[place]] Allergy Intermediate ITCHING, Verified 02/18/24 07:56 RASH prochlorperazine Allergy Intermediate SWELLING, Verified 02/18/24 07:56 [From COMPAZINE] RASH Active Medications: Current Medications Sodium Chloride (Ns) 1,000 mls @ 999 mls/hr IV .Q1H1M MOO Stop: 02/18/24 15:00 Last Admin: 02/18/24 14:18 Dose: 999 mls/hr Home Medications ?Medication ?Instructions ?Recorded ?Confirmed ?Last Taken ?Type acetaminophen 160 mg/5 mL (5 mL) 650 mg PO Q6H PRN Pain 07/14/23 02/18/24 Unknown History oral solution metoprolol tartrate 25 mg tablet 25 mg PO BID 07/14/23 02/18/24 02/18/24 09:00 History venlafaxine 75 mg capsule,extended 75 mg PO DAILY 07/14/23 02/18/24 02/17/24 History release 24 hr doxycycline monohydrate 100 mg 100 mg PO BID 02/18/24 02/18/24 Unknown History capsule prazosin 1 mg capsule 1 mg PO BEDTIME 02/18/24 02/18/24 02/17/24 History sennosides 8.6 mg tablet (senna) 8.6 mg PO BEDTIME PRN Constipation 02/18/24 02/18/24 Unknown History topiramate 100 mg tablet (Topamax) 100 mg PO DAILY 02/18/24 02/18/24 02/17/24 History tramadol 50 mg tablet 50 mg PO Q12H PRN pain 02/18/24 02/18/24 Unknown History venlafaxine 150 mg 150 mg PO DAILY 02/18/24 02/18/24 02/17/24 History capsule,extended release 24 hr zolpidem 5 mg tablet (Ambien) 5 mg PO BEDTIME PRN Sleep 02/18/24 02/18/24 Unknown History Physical Exam Vital Signs: Vital Signs: Last Vital Signs Temp 98.8 F 02/18/24 12:24 Pulse 75 02/18/24 12:24 Resp 20 02/18/24 12:24 BP 171/90 H 02/18/24 12:24 Pulse Ox 100 02/18/24 12:24 O2 Del Method Room Air 02/18/24 12:24 BMI result Body Mass Index 25.3 Results Results Labs: Short CBC 02/18/24 Range/Units 08:12 WBC 8.3 (4.8-10.8) X10*3/uL Hgb 13.2 (12.0-16.0) g/dl Hct 39.4 (37.0-47.0) % Plt Count 335 (160-400) X10*3/uL BMP 02/18/24 08:38 Sodium 137 Potassium 3.8 Chloride 107 Carbon Dioxide 20 L BUN 10 Creatinine 0.81 Calcium 9.7 Liver Function 02/18/24 Range/Units 08:38 Total Bilirubin 0.3 (0.0-1.0) mg/dL Direct Bilirubin 0.2 (0.0-0.5) mg/dL AST 14 (5-31) U/L ALT 9 (0-31) U/L Alkaline Phosphatase 84 (39-117) U/L Albumin 3.6 (3.5-5.0) g/dL Urine 02/18/24 Range/Units 12:26 Urine Color Yellow Urine Appearance Cloudy Urine pH 8.5 (5.0-9.0) Ur Specific [place] 1.020 (1.005-1.025) Urine Protein 30 (1+) H (Neg-Trace) mg/dL Urine Glucose (UA) Negative (Negative) mg/dL Abdomen CT scan report/results: report reviewed and image reviewed CT scan - pelvis: report reviewed and image reviewed Additional studies: Laboratory Results WBC 8.3 X10*3/uL (4.8-10.8) 02/18/24 08:12 RBC 5.05 X10*6/uL (4.20-5.50) 02/18/24 08:12 Hgb 13.2 g/dl (12.0-16.0) 02/18/24 08:12 Hct 39.4 % (37.0-47.0) 02/18/24 08:12 MCV 78.0 fL (80.0-98.0) L 02/18/24 08:12 MCH 26.1 pg (27.0-33.0) L 02/18/24 08:12 MCHC 33.5 g/dl (31.0-35.0) 02/18/24 08:12 RDW 15.7 % (11.0-16.0) 02/18/24 08:12 Plt Count 335 X10*3/uL (160-400) 02/18/24 08:12 MPV 10.2 fL (9.4-12.3) 02/18/24 08:12 Immature Gran % (Auto) 0.4 % (0.0-0.4) 02/18/24 08:12 Neut % (Auto) 85.0 % (45-73) H 02/18/24 08:12 Lymph % (Auto) 11.7 % (20-40) L 02/18/24 08:12 [place] % (Auto) 2.3 % (2-11) 02/18/24 08:12 Eos % (Auto) 0.4 % (0-4) 02/18/24 08:12 Baso % (Auto) 0.2 % (0-2) 02/18/24 08:12 Lymph # (Auto) 1.0 X10*3/uL (1.2-4.9) L 02/18/24 08:12 [place] # (Auto) 0.2 X10*3/uL (0.1-1.2) 02/18/24 08:12 Eos # (Auto) 0.0 X10*3/uL (0.0-0.4) 02/18/24 08:12 Baso # (Auto) 0.0 X10*3/uL (0.0-0.2) 02/18/24 08:12 Abs Immat Gran (auto) 0.03 X10*3/uL (0.00-0.03) 02/18/24 08:12 Absolute Neuts (auto) 7.1 x10*3/uL (2.0-8.3) 02/18/24 08:12 Absolute Nucleated RBC 0.000 X10*3/uL (0.0-0.012) 02/18/24 08:12 Nucleated RBC % (auto) 0.0 /100WBC (0.0-0.2) 02/18/24 08:12 PT 17.4 SEC (11.1-13.3) H 02/18/24 08:12 INR 1.4 (0.9-1.1) H 02/18/24 08:12 Sodium 137 mmol/L (135-145) 02/18/24 08:38 Potassium 3.8 mmol/L (3.3-5.1) 02/18/24 08:38 Chloride 107 mmol/L (96-108) 02/18/24 08:38 Carbon Dioxide 20 mmol/L (22-29) L 02/18/24 08:38 Anion Gap 14 (12-20) 02/18/24 08:38 BUN 10 mg/dL (9-16) 02/18/24 08:38 Creatinine 0.81 mg/dL (0.5-1.4) 02/18/24 08:38 Estim Creat Clear Calc 64.0 02/18/24 08:38 Estimated GFR > 60 02/18/24 08:38 Random Glucose 117 mg/dL (60-115) H 02/18/24 08:38 Calcium 9.7 mg/dL (8.4-10.2) 02/18/24 08:38 Total Bilirubin 0.3 mg/dL (0.0-1.0) 02/18/24 08:38 Direct Bilirubin 0.2 mg/dL (0.0-0.5) 02/18/24 08:38 AST 14 U/L (5-31) 02/18/24 08:38 ALT 9 U/L (0-31) 02/18/24 08:38 Alkaline Phosphatase 84 U/L (39-117) 02/18/24 08:38 Total Protein 8.2 g/dL (6.5-8.0) H 02/18/24 08:38 Albumin 3.6 g/dL (3.5-5.0) 02/18/24 08:38 Lipase 21 U/L (8-78) 02/18/24 08:38 Urine Color Yellow 02/18/24 12:26 Urine Appearance Cloudy 02/18/24 12:26 Urine pH 8.5 (5.0-9.0) 02/18/24 12:26 Ur Specific [place] 1.020 (1.005-1.025) 02/18/24 12:26 Urine Protein 30 (1+) mg/dL (Neg-Trace) H 02/18/24 12:26 Urine Glucose (UA) Negative mg/dL (Negative) 02/18/24 12:26 Urine Ketones 40 mg/dL (Negative) 02/18/24 12:26 Urine Blood Moderate (2+) (Negative) H 02/18/24 12:26 Urine Nitrite Negative (Negative) 02/18/24 12:26 Ur Leukocyte Esterase Moderate (2+) (Negative) H 02/18/24 12:26 Urine RBC >20 /HPF (0-2) H 02/18/24 12:26 Urine WBC 21-50 /HPF (0-5) H 02/18/24 12:26 Ur Squamous Epith Cells 3-5 /HPF (0-2) 02/18/24 12:26 Urine Bacteria Trace (None Seen) 02/18/24 12: Hyaline Casts 3-5 /LPF (0-2) 02/18/24 12:26 Blood Type O Positive 02/18/24 08:38 Antibody Screen NEGATIVE 02/18/24 08:38 Impressions Abdomen/Pelvis CT 02/18/24 10:30 IMPRESSION: Quite complex examination with redemonstration of a large area of amorphous soft tissue thickening involving the left anterior peritoneal cavity tracking between multiple loops of small bowel which are now more dilated than compared to 12/01/2023 worrisome for a developing obstruction. This amorphous soft tissue thickening connects with abnormal wall thickening in the greater curvature of the stomach, left abdominal wall/skin as well as possibly left uterine fundus/left adnexa. There are additional areas of amorphous thickening superior to the spleen extending to the diaphragmatic surface and with associated pleural thickening and a small left pleural effusion. Unsure if findings may be related with sequela of a neoplasia with metastatic peritoneal disease versus sequela of an infectious/inflammatory processes with perforation and phlegmonous changes. Evaluation of abscess and drainable collection is limited in the absence of oral and IV contrast. Consider further evaluation with oral and IV contrast as clinically indicated. Assessment and Plan (1) Abdominal pain: Qualifiers: Abdominal location: generalized Qualified Code(s): R10.84 - Generalized abdominal pain Status: Inactive Plan 58 year female who is known to the Surgical service because of a complex surgical history. She had undergone omental patch repair of a gastric perforation last April, but this had leak so she had to cut back to the OR for other repair. She continued to have leakage from the repair site. Eventually, she had to be transferred to [facility] because of this persistent leak with drains in place. She was in [place] for a long period of time because of this and was on TPN as well. She had an open wound of the abdominal wall and had been undergoing wound care for this. She is here today because of abdominal pain since last night. She describes some small amounts of emesis earlier this morning. She had been doing well until yesterday. Continues to have passed flatus as well as BMs I have reviewed her CAT scan. This shows the amorphous thickening of soft tissue from the skin to the stomach which is probably the fistulous tract from before where she had been draining. The small bowel loops in the center appear more dilated. There is also some soft tissue thickening involving the anterior peritoneal cavity tracking between loops of small bowel. The above changes appeared to be sequelae of her multiple surgeries as well as with the long leak from last year with her perforated gastric ulcer. She has not toxic looking. She otherwise has a benign exam. These changes may be causing her some more pain. I will admit her to observe her and keep her NPO. She will be on IV fluids. She will continue with proton pump inhibitor. I discussed the above with the family. In the event that she clinically worsens, they understand that she may be transferred back to [facility]. Quality Stroke Does the patient have a stroke diagnosis?: No VTE Prior VTE?: No VTE Risk Level:: Medical - moderate - high VTE Device Contraindication: N/A - Device Ordered VTE Drug Contraindication: N/A - Med Ordered Procedures Date of Service Date of Service: 02/20/24
[2024-02-18] MEDS: cefTRIAXone sodium 1 GM in 0.9 % Sodium Chloride 50 ML IV (14:52)
--- NOTE | 2024-02-18 15:28 | PHA.MEDREC ---
Pharmacy Consult ? Medication Reconciliation Pharmacy has completed the medication reconciliation. Patient serbian-speaking, but able to understand and speak taiwanese. Confirmed meds with patient.
--- NOTE | 2024-02-18 15:56 | PC.NURSE ---
pt requesting to leave AMA so that she can rest in my own bed, pt denies any pain at this time, a&ox4, vss, family at bedside. admitting provider notified, per Chriss risks of leaving AMA already reviewed w pt. risks of leaving reviewed again w pt and family, AMA paperwork signed. IV removed.
--- NOTE | 2024-02-18 16:21 | PM.EVENT ---
Event Note Date of Service: 02/18/24 Event Note: pt told nurse earlier that she wanted to sign out AMA I came to talk to her about it but she had left already Time Spent With Patient Time: Total time managing care of this patient today ____ minutes.
== END 2024-02-18 16:31 | disposition left against medical advice (07) ==
LOC: HO.ED 14:31 → HO.EDOVER 15:42
PROVIDERS: Emergency Provider Student in an Organized Health Care Education/Training Program; PCP Dentist General Practice; Visit Provider Surgery
DX: K56.609 Unspecified intestinal obstruction, unspecified as to partial versus complete obstruction (principal); N39.0 Urinary tract infection, site not specified; R10.9 Unspecified abdominal pain; R94.31 Abnormal electrocardiogram [ECG] [EKG]; R11.2 Nausea with vomiting, unspecified; F14.10 Cocaine abuse, uncomplicated; Z79.899 Other long term (current) drug therapy
CPT/HCPCS: 36415; 74176; 80048; 80076; 81001; 83690; 85025; 85610; 86850; 86900; 86901; 87086; 87147; 93005; 96361; 96374; 96375; 96376; 99285; J0696; J1630; J2270; J2405

== ENCOUNTER → 2024-02-18 14:03 | Outpatient (BNV) | payer MEDICAID, SELFPAY | PROVIDERS: Emergency Provider Student in an Organized Health Care Education/Training Program; PCP Dentist General Practice; Visit Provider Internal Medicine Cardiovascular Disease | DX: R94.31 Abnormal electrocardiogram [ECG] [EKG] (principal) | CPT/HCPCS: 93010 ==

== ENCOUNTER → 2024-02-18 14:42 | Outpatient (BNV) | payer MEDICAID, SELFPAY | PROVIDERS: Admitting Provider Surgery; Emergency Provider Student in an Organized Health Care Education/Training Program; PCP Dentist General Practice; Visit Provider Surgery | DX: R10.84 Generalized abdominal pain (principal) | CPT/HCPCS: 99283; 99499 ==

== ENCOUNTER → 2024-04-01 14:21 | Outpatient (BNVA) | payer MEDICAID, SELFPAY | PROVIDERS: PCP Registered Nurse; Visit Provider Internal Medicine ==

== ENCOUNTER 2024-05-15 11:14 | Outpatient (REF) | payer MEDICAID, SELFPAY ==
--- NOTE | ~2024-05-15 | FL_ITS ---
EXAMINATION: XR SINUS TRACT INJECTION CLINICAL INFORMATION: Complex surgical history. Draining left abdominal wound COMPARISON: CT scan February 2024 TECHNIQUE: Omnipaque 300 was injected through the left abdominal wall sinus tract and multiple spot images were obtained. FINDINGS: A 5 Estonian dilator was inserted through the left abdominal wall sinus tract and 40 mL of dilute Omnipaque 300 was injected through the dilator. Contrast was observed filling a small cavity in the left abdomen. The contrast then tracks both superiorly and inferiorly. The contrast that tracks inferiorly stops at the left iliac crest. The contrast that tracks superiorly opacifies the fundus of the stomach. FL/FL fistula/abscess/sinus tract IMPRESSION: Left abdominal wall wound directly communicates to a small cavity in the left abdomen. The cavity has a fistulous tract to the stomach. This procedure was performed by Regino Shearer PA-C, and supervised by Dr. Alonzo
== END 2024-05-15 11:15 | disposition home or self-care (01) ==
LOC: HO.XRAY 11:14
PROVIDERS: PCP Registered Nurse; Visit Provider Colon & Rectal Surgery
DX: L98.492 Non-pressure chronic ulcer of skin of other sites with fat layer exposed (principal); T81.31XD Disruption of external operation (surgical) wound, not elsewhere classified, subsequent encounter
CPT/HCPCS: 76080

== ENCOUNTER → 2024-05-15 11:19 | Outpatient (BNV) | payer MEDICAID, SELFPAY | PROVIDERS: PCP Registered Nurse; Visit Provider Physician Assistant Surgical | DX: T81.89XA Other complications of procedures, not elsewhere classified, initial encounter (principal) | CPT/HCPCS: 20501; 76080 ==

== ENCOUNTER 2024-06-18 13:53 | Outpatient (REF) | payer MEDICAID, SELFPAY ==
--- NOTE | ~2024-06-18 | US_ITS ---
EXAMINATION: US SOFT TISSUE NECK CLINICAL INFORMATION: Bilateral neck masses. Patient noticed areas of concern/palpable about a week ago, unsure of change in size, no pain, does not recall being sick recently. COMPARISON: None available. TECHNIQUE: Ultrasound of the neck soft tissues is performed with high- frequency loera-scale imaging and color Doppler. FINDINGS: Targeted ultrasound images were obtained by the web merchant of the area of concern as indicated by the patient in the bilateral neck regions at level 2. There is a 1.2 x 0.5 x 0.6 cm lymph node in the area indicated by the patient in the left neck at level 2 adjacent to the submandibular gland. There is a 1.1 x 0.5 x 0.4 cm lymph node in the area indicated by the patient in the right neck at level 2 adjacent to the submandibular gland. Radiologist was not in attendance. Images were later provided for interpretation. US/US soft tiss head and/or neck IMPRESSION: Bilateral lymph nodes identified in the areas of concern indicated by the patient in the right and left neck at level 2. Decisions regarding further management should be based on the clinical assessment. This study was presented today June 19, 2024 for interpretation. Stat results provided at this time as requested by referring provider.
== END 2024-06-18 13:54 | disposition home or self-care (01) ==
LOC: HO.US 13:53
PROVIDERS: PCP Registered Nurse; Visit Provider Student in an Organized Health Care Education/Training Program
DX: R22.1 Localized swelling, mass and lump, neck (principal)
CPT/HCPCS: 76536

== ENCOUNTER 2024-06-24 10:35 | Outpatient (AMB) | payer MEDICAID, SELFPAY ==
--- NOTE | 2024-06-24 10:37 | MHC.OFFVIS ---
Vital Signs 06/24/24 10:39 Height 5 ft 1 in Weight 123 lb 7.342 oz BMI 23.3 BP 137/75 Blood Pressure Location Lt brachial Position Sitting Pulse 58 Intake Visit Reasons: Esophageal Perforation Intake Note: Glenys presents in the office as a new patient for a esophageal perforarion. CC: She states that she was not told exactly what is was. She used to have pains but not as much anymore. Custom Clothier Required: No Allergies aspirin [ASPIRIN] Allergy (Intermediate, Verified 06/24/24 10:41) RASH, itching, facial flushing haro Allergy (Intermediate, Verified 06/24/24 10:41) ITCHING,RASH peach [[place]] Allergy (Intermediate, Verified 06/24/24 10:41) ITCHING, RASH prochlorperazine [From COMPAZINE] Allergy (Intermediate, Verified 06/24/24 10:41) SWELLING, RASH HPI Comments Details: This is a 58y.o F with PMH of perforated this is a 58-year-old female with past medical history of gastric perforation likely from ischemic injury (?cocaine) status post ex lap and over-sew 04/16/2023 c/b leak necessitating partial gastrectomy 04/19/2023 with recurrent anastomotic leak as well as leak from the staple site, ultimately transferred to [facility] for further care, now with persistent chronic gastro-cutaneous fistula. Pt was having abd pain with nausea and poor PO intake earlier this year which is when this referral was requested. That has resolved however. Main issue now is persistent GC fistula with scant output throughout the day. Pt has 4x4 dressing on top which she has change once a day. Multiple scans since 2022 all reviewed - had fistulography 05/2024 that shows the cutaneous fistula tracking to stomach as well as a sinus track inferiorly to L pelvis. PFSH Medical History (Updated 06/24/24 @ 10:57 by Rosario Hale MD) Gastric leak Cocaine abuse Polysubstance abuse Hypercholesterolemia High cholesterol Depression HTN (hypertension) Acute anxiety Surgical History (Updated 06/24/24 @ 10:41 by OSWALDO Man) Hx of colonoscopy S/P partial gastrectomy Social History Household Members: None Housing: Apartment Do you presently have visiting nurse or other home services: Yes (daughter is [employer] OPERATOR) Unable to assess alcohol history related to: Unknown Alcohol intake: former Comment: Refuses bed alarm. Patient Tobacco Use Status: Never used Tobacco service: No Current occupational status: disabled Review of Systems Const All systems reviewed & are unremarkable except as noted in HPI and below Physical Exam Vital Signs: Last Vital Signs Pulse 58 06/24/24 10:39 BP 137/75 06/24/24 10:39 BMI result Body Mass Index 23.3 No apparent distress Nonicteric Abdomen soft, midline scar noted, dressing removed from fistula located in L lumbar region to reveal at least a 1cm cutaneous opening, nondistended, nontender Alert and oriented x3, normal gait Assessment & Plan Assessment & Plan (1) Gastrocutaneous fistula: Code(s): K31.6 - Fistula of stomach and duodenum Category: Medical (2) Abdominal pain: Code(s): R10.9 - Unspecified abdominal pain Category: Medical Plan Discussed with the pt that will need further eval the fistulous tract which seems to be extending down to pelvis based on the fistula study from May. Given the significant greater curvatue wall thickening/fibrosis noted on imaging, endoscopic clip closure through ovesco or padlock may not be a viable option + high risk of recurrence of chronic fistula reported in literature anyway . Endo-suture may be considered if limited surgical options. Referral requested to gen surgery. Anti-secretory therapy prescribed in the meantime. Follow up 2 months Orders: Orders CT abdomen pelvis w IV con Today K31.6 - Fistula of stomach and duodenum Referrals General Surgery Referral K31.6 - Fistula of stomach and duodenum Medications: New omeprazole 20 mg PO BID 30 days 60 caps 2RF K25.5 - Chronic or unspecified gastric ulcer with perforation Coding Level of Care Code New Pt Level 5 (67842) Diagnoses Gastrocutaneous fistula K31.6 Abdominal pain R10.9
[2024-06-24 10:39] VITALS: BP 137/75; PULSE 58; BMI 23.3
== END 2024-06-24 11:08 | disposition home or self-care (01) ==
PROVIDERS: PCP Registered Nurse; Visit Provider Internal Medicine
DX: K31.6 Fistula of stomach and duodenum (principal); R10.9 Unspecified abdominal pain
CPT/HCPCS: 99214

== ENCOUNTER → 2024-06-24 10:35 | Outpatient (BNVA) | payer MEDICAID, SELFPAY | PROVIDERS: PCP Registered Nurse; Visit Provider Internal Medicine | DX: K31.6 Fistula of stomach and duodenum (principal); R10.9 Unspecified abdominal pain | CPT/HCPCS: 99212 ==

== ENCOUNTER 2024-07-11 14:32 | Outpatient (AMB) | payer MEDICAID, SELFPAY ==
[2024-07-11 14:37] VITALS: BMI 23.8
--- NOTE | 2024-07-11 14:37 | A.OFFVIS_ITS ---
Vital Signs 07/11/24 14:37 Height 5 ft 1 in Weight 126 lb BMI 23.8 Intake Visit Reasons: Fistula of stomach and duodenum Intake Note: This patient presents for Fistula of stomach and duodenum assessment. Pt c/o; reports no complaints. 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: No Accompanied by: Self / Same As Patient Allergies aspirin [ASPIRIN] Allergy (Intermediate, Verified 07/11/24 14:45) RASH, itching, facial flushing haro Allergy (Intermediate, Verified 07/11/24 14:45) ITCHING,RASH peach [Dallam] Allergy (Intermediate, Verified 07/11/24 14:45) ITCHING, RASH prochlorperazine [From COMPAZINE] Allergy (Intermediate, Verified 07/11/24 14:45) SWELLING, RASH Medication List - Last Reconciled 07/11/24 by Jay Banerjee MD acetaminophen 650 mg PO Q6H PRN apixaban (Eliquis) 5 mg PO BID clonazepam 0.5 mg PO DAILY PRN doxycycline monohydrate 100 mg PO BID metoprolol tartrate 25 mg PO BID omeprazole 20 mg PO BID 30 days ondansetron 4 mg PO Q8H PRN prazosin 1 mg PO BEDTIME sennosides (senna) 8.6 mg PO BEDTIME PRN topiramate (Topamax) 100 mg PO DAILY tramadol 50 mg PO Q12H PRN venlafaxine ER 37.5 mg PO QAM zolpidem (Ambien) 5 mg PO BEDTIME PRN HPI HPI Fistula of stomach and duodenum: Details: The patient is a 58-year-old male well known to the surgical service. She has a complex surgical history. She had undergone repair of a gastric perforation last year in April, by Dr. Goetz. She had to be brought back to the OR because of a leak from the perforation site. She continued to have significant leak postop from the repair. She had to be transferred to [facility]. She was admitted therefore for long periods of time because of this leak and she had drains in place and was on TPN. She had an open wound which required significant wound care. She actually now feels much better. She says she has good oral intake. She has gained some weight. Furthermore, she says that the midline open wound has now healed completely. She had a drain on the left side of her abdomen which had been removed many months ago. She says this this continues to drain scanty fluid, serosanguineous, on and off although she says that this is decreased as well. [facility] Medical History Gastric leak Cocaine abuse Polysubstance abuse Hypercholesterolemia High cholesterol Depression HTN (hypertension) Acute anxiety Surgical History Hx of colonoscopy S/P partial gastrectomy Social History Household Members: None Housing: Apartment Do you presently have visiting nurse or other home services: Yes (daughter is MARKETING PLANNING MANAGER) Unable to assess alcohol history related to: Unknown Alcohol intake: former Comment: Refuses bed alarm. Patient Tobacco Use Status: Never used Tobacco service: No Current occupational status: disabled Review of Systems Const Denies chills and Denies fever(s) Card Reports no additional complaints, Denies chest pain and Denies dyspnea Resp Denies cough and Denies dyspnea GI Denies abdominal pain Denies dysuria Musc Denies muscle weakness Physical Exam Const Other: Looks well, ambulating General: comfortable and no acute distress Resp Effort & Inspection: normal respiratory effort Cardio Rate: regular rate GI Other: Soft, nondistended, no guarding, no rebound, midline wound has completely healed; there was note of a small sinus from the old drain site on the left with very scanty drainage, nonbilious looking, does not appear to have any enteric contents Assessment & Plan Assessment & Plan (1) Gastric perforation: Code(s): K25.5 - Chronic or unspecified gastric ulcer with perforation Category: Medical Plan: She has a complex surgical history after gastric perforation. She actually is much improved and now feels well. She has good oral intake. She gained some weight already. Her midline incision is now completely healed She does have a small sinus on the left upper quadrant with scanty output. The output does not appear to she will enteric contents. I had advised her to continue doing wound care to this frequent dressing changes. I anticipate this to eventually close up. I reminded her to avoid NSAIDs. She is on a proton pump inhibitor as well. He can follow up on a p.r.n. basis. Coding Level of Care Code Est Pt Level 3 (86941) Diagnoses Gastric perforation K25.5
== END 2024-07-11 15:02 | disposition home or self-care (01) ==
PROVIDERS: PCP Registered Nurse; Referring Provider Internal Medicine; Visit Provider Surgery
DX: K25.5 Chronic or unspecified gastric ulcer with perforation (principal)
CPT/HCPCS: 99213

== ENCOUNTER → 2024-07-11 14:32 | Outpatient (BNVA) | payer MEDICAID, SELFPAY | PROVIDERS: PCP Registered Nurse; Referring Provider Internal Medicine; Visit Provider Surgery | DX: K25.5 Chronic or unspecified gastric ulcer with perforation (principal) | CPT/HCPCS: 99212 ==

== ENCOUNTER 2024-10-21 13:27 | Outpatient (REF) | payer MEDICAID, SELFPAY | END 2024-10-21 13:28 | disposition home or self-care (01) | LOC: HO.US 13:27 | PROVIDERS: PCP Student in an Organized Health Care Education/Training Program; Visit Provider Registered Nurse | DX: R59.0 Localized enlarged lymph nodes (principal) | CPT/HCPCS: 76536 ==

== ENCOUNTER 2024-11-18 09:49 | Outpatient (REF) | payer MEDICAID, SELFPAY | END 2024-11-18 09:50 | disposition home or self-care (01) | LOC: HO.HOSX 09:49 | PROVIDERS: Visit Provider Physician Assistant | DX: Z13.89 Encounter for screening for other disorder (principal) ==

== ENCOUNTER 2025-02-21 10:30 | Outpatient (REF) | payer MEDICAID, SELFPAY ==
--- NOTE | ~2025-02-21 | FL_ITS ---
EXAMINATION: XR SINUS TRACT INJECTION CLINICAL INFORMATION: Abdominal fistulogram. Previous abdominal surgery. COMPARISON: None available. TECHNIQUE: Following explaining procedure, the skin area on the left upper quadrant external fistula was cleaned in usual sterile manner. Approximately 10 mL of nonionic contrast in syringe connected through a Jose attachment was inserted into the fistulous connection and contrast injected. Serial images were obtained at fluoroscopy. Postprocedure there is cleaned and a sterile dressing applied at the fistula site. FINDINGS: On of nonionic ionic contrast injection of fluoroscopy there is a blind-ending fistula in the anterior wall that extends more inferiorly than superiorly as visualized on the fluoroscopy images. Oblique images were obtained to evaluate the superior and inferior extent. There is no extension of contrast into the peritoneum at this time. Contrast opacified gauze is seen surrounding the fistula. 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 Fluoroscopy time: 59 seconds. Dose area product: 1250 mGy/cm. Electronically signed by: David Bloom MD 02/21/2025 02:00 PM EDT
--- OUTSIDE RECORDS SUMMARY | 2025-02-21 11:20 | XMS_ITS | Clinical Summary ---
Author Organization [facility] Address [address] [place] [address] Care Team Providers Care Vp Clinical Research Name Role Phone Pcp, No Primary Care Provider Unavailabl e Allergies Active Allergy Reactions Criticality Noted Date Comments Baez Swelling Medium 04/24/2023 Medications Medication Sig Dispensed Refills Start Date End Date Status acetaminophen (TYLENOL) 160 mg/5 mL solutionIndicatio ns:Gastric perforation (HCC) 20.3125 mL (650 mg total) by Feeding Tube route every 6 (six) hours around the clock. 2437.5 mL 07/13/2023 Active bisacodyl (DULCOLAX) 10 MG suppositoryIndica tions:Gastric perforation (HCC) Insert 1 suppository (10 mg total) into the rectum daily as needed for constipation (if no bowel movement by day 2). 12 suppository 07/13/2023 Active enoxaparin (LOVENOX) 60 MG/0.6ML injectionIndicati ons:Gastric perforation (HCC) Inject 0.6 mL (60 mg total, 1 mg/kg x 60.1 kg (Previous weight)) under the skin twice daily (every 12 hours). Do not start before July 14, 2023. 07/14/2023 Active guaiFENesin (ROBITUSSIN) 100 mg/5 mL Liquid liquidIndications :Gastric perforation (HCC) Take 10 mL (200 mg total) by mouth every 6 (six) hours around the clock. 1200 mL 07/13/2023 Active ipratropium-albut akhil (DUONEB) 0.5-2.5 mg/3 mL nebulizer solutionIndicatio ns:Gastric perforation (HCC) Take 3 mL by nebulization 4 (four) times a day as needed for wheezing. 90 mL 07/13/2023 Active lidocaine (LIDODERM) 5 % patchIndications: Gastric perforation (HCC) Place 1 patch on the skin daily. Apply patch and leave on for 12 hours then remove. Patch may remain on skin for 12 hours per day. 30 patch 07/13/2023 Active melatonin 3 MG Tab tabletIndications :Gastric perforation (HCC) 2 tablets (6 mg total) by Feeding Tube route nightly as needed (insomnia). 0 07/13/2023 Active metoPROLOL TARTRATE (LOPRESSOR) 25 MG tabletIndications :Gastric perforation (HCC) 1 tablet (25 mg total) by Feeding Tube route every 12 (twelve) hours around the clock. 60 tablet 07/13/2023 Active miconazole (ZEASORB-AF) 2 % powderIndications :Gastric perforation (HCC) Apply topically 2 (two) times a day. 07/13/2023 Active naloxone (NARCAN) 0.4 mg/mL injectionIndicati ons:Gastric perforation (HCC) Infuse 1 mL (0.4 mg total) into a venous catheter every 5 (five) minutes as needed for opioid reversal or respiratory depression. 1 mL 07/13/2023 Active octreotide (SandoSTATIN) 1000 MCG/ML injectionIndicati ons:Gastric perforation (HCC) Infuse 0.3 mL (300 mcg total) into a venous catheter every 8 (eight) hours around the clock. 27 mL 07/13/2023 Active PANTOprazole (PROTONIX) 40 MG injectionIndicati ons:Gastric perforation (HCC) Infuse 40 mg into a venous catheter 2 (two) times a day. 600 mL 07/13/2023 Active multivitamin Tab tabletIndications :Gastric perforation (HCC) Take 1 tablet by mouth daily. Do not start before July 14, 2023. 30 tablet 07/14/2023 Active traZODone (DESYREL) 50 MG tabletIndications :Gastric perforation (HCC) Take 1 tablet (50 mg total) by mouth nightly as needed for sleep. 07/13/2023 Active venlafaxine (EFFEXOR) 75 MG tabletIndications :Gastric perforation (HCC) 1 tablet (75 mg total) by Feeding Tube route daily. Do not start before July 14, 2023. 8 tablet 07/14/2023 Active Active Problems Problem Noted Date Diagnosed Date Gastric perforation 04/23/2023 YESICA (acute kidney injury) 04/23/2023 Postprocedural intraabdominal abscess 04/23/2023 Mixed anxiety and depressive disorder 11/26/2015 07/07/2023 Alcohol use disorder, mild, abuse 11/26/2015 07/07/2023 Social History Tobacco Use Types Packs/Day Years Used Date Smoking Tobacco: Never Assessed AUDIT-C Answer Date Recorded Q1: How often do you have a drink containing alcohol? Never 05/07/2023 Q2: How many drinks containi ng alcohol do you have on a typical day when you are drinking? Patient does not drink Q3: How often do you have si x or more drinks on one occasion? Never 05/07/2023 PHQ-2 Answer Date Recorded PHQ-2 Total Score 0 05/04/2023 Sex and Gender Information Value Date Recorded Sex Assigned at Female 04/26/2023 11:30 AM EDT Gender Identity Female 04/26/2023 11:30 AM EDT Sexual Orientation Heterosexual (straight) 04/26 11:30 AM EDT Last Filed Vital Signs Vital Sign Reading Time Taken Comments Blood Pressure 130/76 07/13/2023 4:25 PM EDT Pulse 100 07/13/2023 4:25 PM EDT Temperature 35.8 ??C (96.5 ??F) 07/13/2023 4:25 PM ED T Respiratory Rate 18 07/13/2023 4:25 PM EDT Oxygen Saturation 94% 07/13/2023 4:25 PM EDT Inhaled Oxygen Concentration - - Weight 94.9 kg (209 lb 3.2 oz) 07/11/2023 5:44 A M EDT Height 157.5 cm (5' 2 ) 06/07/2023 6:00 AM EDT Body Mass Index 38.26 06/07/2023 6:00 AM EDT Plan of Treatment Health Maintenance Due Date Last Done Comments Hepatitis C Virus Screening 1966 HIV Screening 1979 DTaP/Tdap/Td Vaccines (1 - Tdap) 1985 Hepatitis B Vaccines (1 of 3 - 19+ 3-dose series) 1985 Pap Smear (Ages 21-65) 1987 Mammogram 2006 Colonoscopy 2011 Pneumococcal Vaccines 50+ (1 of 1 - PCV) 2016 Zoster (Shingles) Vaccine (1 of 2) 2016 Influenza Vaccine 06/13/2024 07/26/2022, , 06/29/2017, Additional history exists COVID-19 Vaccine (2 - 2023-2 5 season) 2024 12/07/2022 Additional Health Concerns Infection Onset Date Last Indicated 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 Next of Kin ( Spouse, Adult Child, Parent, Adult Sibling, Grandparent) Samm Urbina Adult child 4. Next of Kin ( Spouse, Adult Child, Parent, Adult Sibling, Grandparent) Care Teams Vp Clinical Research Relationship Specialty Start Date End Date Pcp, No PCP - General General Medicine 04/26/23 Agnieszka Hallman Psychiatric COMPLIANCE ATTORNEY Psychiatry, General 04/13/22
--- OUTSIDE RECORDS SUMMARY | 2025-02-21 11:20 | XMS_ITS ---
Author Name [facility] Organization Unknown Encounters Encounter Type Encounter Reason Primary Diagnosis Location Date Inpatient Chronic or unspecified gastric ulcer with perforation Chronic or unspecified gastric ulcer with perforation [facility] 04/23/2023 Care Team Organization Name Specialty Phone Email Start Date End Da te [facility] 04/23/2023 04/23/2023 [facility] NO PCP Primary Care 04/23/2023 04/27/2023 [facility] 04/23/2023
[2025-02-21] MEDS: iohexoL 300 MG/ML 50 ML INFUS..BTL 20 ML T-TUBE (11:23)
== END 2025-02-21 10:31 | disposition home or self-care (01) ==
LOC: HO.XRAY 10:30
PROVIDERS: PCP Registered Nurse; Visit Provider Surgery
DX: T81.83XA Persistent postprocedural fistula, initial encounter (principal); K31.6 Fistula of stomach and duodenum
CPT/HCPCS: 20501; 76080; Q9967

== ENCOUNTER → 2025-02-21 10:33 | Outpatient (BNV) | payer MEDICAID, SELFPAY | PROVIDERS: PCP Registered Nurse; Visit Provider Radiology Diagnostic Radiology | DX: K63.2 Fistula of intestine (principal) | CPT/HCPCS: 76080 ==